=== PATIENT | male | born 1940 | race Caucasian/White ===

== ENCOUNTER 2025-03-21 15:32 | Inpatient (IN) | payer OTHER, MEDICARE, SELFPAY ==
[2025-03-21] VITALS (7 sets, daily range): BP systolic 106–138; BP diastolic 50–71; PULSE 88–118; RESP 18–97; TEMP 36.4–38.8; O2SAT 95–98; BMI 28.5; BMI 29.6
--- NOTE | 2025-03-21 15:38 | XR_ITS ---
EXAMINATION: AP chest single view TECHNIQUE: AP portable upright chest single view Date and time: March 21, 2025, 1601 hours, comparison January 29, 2016 INDICATIONS: Vomiting today. FINDINGS: Normal heart size Mild vascular congestion. No aspiration pneumonia. Prominent osteopenia Probable scarring in the left upper lobe but clinical correlation advised IMPRESSION: Negative for aspiration pneumonia Recommend 3-month follow-up AP chest to document stability of probable scarring in the left upper lobe
--- NOTE | 2025-03-21 15:39 | EKG_ITS ---
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
--- NOTE | 2025-03-21 15:41 | EDNOTE_ITS ---
ED General RME/HPI General Chief complaint: Weakness Stated complaint: DIARRHEA Time Seen by Provider: 03/21/25 15:37 Arrival date/time: 03/21/25 15:32 CC: Diarrhea HPI ongoing for the past 3 weeks. The EMS reports stable vital signs other than tachycardia in the 100s. Patient states he has had antibiotics in the last 3 to 6 months. Does not know why. Patient is also on Brilinta. Advised by nursing on intake the patient had a rectal temp of 102.8 sepsis protocol initiated at 1600. At 1803, at bedside informs me the patient, as well as the patient, that the patient's diarrhea started after his fourth infusion of chemotherapy at the [facility] in [place] for malignant melanoma. Patient is now much more awake answering all questions appropriately. Related Data Home Medications ?Medication ?Instructions ?Recorded ?Confirmed amlodipine 10 mg tablet 10 mg PO DAILY 10/11/2009/20 finasteride 5 mg tablet 5 mg PO DAILY 10/11/2010/11 metoprolol succinate 25 mg 25 mg PO DAILY 10/11/20 tablet,extended release 24 hr ticagrelor 90 mg tablet (Brilinta) 90 mg PO DAILY 09/2010/11/20 Held on 10/11/20. Instructions: Resume on 10/12/20. May resume Brillanta tomorrow, 10-12 Allergies Allergy/AdvReac Type Severity Reaction Status Date / Time shellfish derived Allergy Verified 03/21/25 15:41 Review of Systems Review of Systems Narrative Review of Systems: GEN: No fever, no chills, no weight loss EYES: No discharge, no visual changes, no pain HEENT: No ear pain, no congestion, no sore throat PULM: No shortness of breath, no cough, no congestion CV: No chest pain, no dyspnea on exertion, no palpitations GI: + nausea, + vomiting, + diarrhea, no pain, no constipation : No frequency, no urgency, no dysuria MUSC/SKEL: No joint pain, no back pain SKIN: No rash PSYCH: No hallucinations, no depression HEME/LYMPH: No easy bleeding or bruising tendencies NEURO: No weakness, no headache Past Medical History Past Medical History NEUROLOGIC: Negative Neurological Disorders or Seizures CARDIAC: Positive Cardiac Disorders, Coronary Artery Disease (x2 stents), Edema (bue, ble) and Hypertension; Negative Congestive Heart Failure RESPIRATORY: Positive Pneumonia; Negative Chronic Obstructive Pulmonary Disease (COPD) GASTROINTESTINAL: Negative Gastrointestinal Disorders GENITOURINARY: Positive Genitourinary Disorders and Benign Prostatic Hyperpl beata; Negative Renal Disease ENDOCRINE: Negative Endocrine Disorders, Diabetes Mellitus Type 1 or Diabetes Mellitus Type 2 HEMATOLOGIC: Negative Blood Disorders OTHER HISTORY: Positive Hospitalization, Falls, Chemotherapy and Cancer (melanoma); Negative Blood Transfusions, Blood Transfusion Reaction or Anesthesia Reactions Surgical History SURGICAL: Positive Coronary Stent (x2); Negative Abdominal Surgery Social History SMOKING STATUS: Never smoker ED Exam Narrative Physical exam: [General: Obese not in cot no acute distress Head normocephalic HEENT: Within acceptable limits Neck is supple nontender Chest equal chest rise nontender to palpation Respiratory: Clear to auscultation no wheezes crackles or rubs CV: Rate rhythm is regular no murmurs rubs or clicks Abdomen is distended secondary to body habitus soft nontender no masses positive bowel sounds all 4 quadrants Back: No CVA tenderness no spinous process tenderness from cervical spine thoracic and lumbar spine Skin: Intact no petechiae rash induration ulceration or crepitus Extremities: Moving all extremity against resistance cap refill less than 2 seconds neurosensory intact Neuro: Awake alert oriented x3 Glascow coma 15 no focal deficits] Course Course Course Narrative: Laboratory results show that he is a positive lactic acid, positive Pro-Zelalem 27,000 white count with a fever. Chest x-ray although read is negative, CT shows he has bibasilar pneumonia with a diverticulitis on CT. Patient has had no diarrhea which is primary chief complaint and his course of his admission. The patient was not aware that he had a fever is now abated and the patient is much more alert and awake. Laboratory results clinical finding and imaging discussed with Dr. Weber, resident for Dr. Hawkins attending. Agrees to accept the patient for admission. Quality Measures none Orders Category Date Time Status COVID-19 Screening Questionnaire NOW Care 03/21/25 20:05 Active Operation Shift Supervisor STAT Care 03/21/25 16:06 Active Continuous Pulse Oximetry STAT Care 03/21/25 16:06 Completed Decision to Admit X1 Care 03/21/25 20:05 Active EKG (ED ONLY) *Do not use* NOW Care 03/21/25 15:39 Completed In and Out Catheter X1PRN Care 03/21/25 16:06 Completed Insert IV NOW Care 03/21/25 16:06 Active NPO STAT Care 03/21/25 16:06 Completed Saline [Insert IV] NOW Care 03/21/25 15:40 Completed Strict Intake and Output Routine Care 03/21/25 16:[address] abdomen pelvis wo con Stat Exams 03/21/25 18:05 Completed EKG (ED Only) Stat Exams 03/21/25 15:39 Draft XR chest 1V Stat Exams 03/21/25 15:38 Completed B-Type Natriuretic Peptide Stat Lab 03/21/25 16:27 Completed Blood Culture (Lab) Stat Lab 03/21/25 16:06 Received CBC Stat Lab 03/21/25 16:27 Completed COVID-19 Antigen (In-House) Stat Lab 03/21/25 18:17 Completed Comprehensive Metabolic Panel Stat Lab 03/21/25 16:06 Completed Drug Screen,Urine Stat Lab 03/21/25 17:28 Completed Influenza A & B Rapid Panel Stat Lab 03/21/25 18:17 Completed LDH (Lactate Dehydrogenase) Stat Lab 03/21/25 16:06 Completed Lactate (Lactic Acid) Stat Lab 03/21/25 16:27 Completed Lactic Acid, 3 HR Stat Lab 03/21/25 19:27 Completed Lipase Stat Lab 03/21/25 16:06 Completed Magnesium Stat Lab 03/21/25 16:06 Completed Partial Thromboplastin Time Stat Lab 03/21/25 16:06 Completed Phosphorous Stat Lab 03/21/25 16:06 Completed Procalcitonin Stat Lab 03/21/25 16:06 Completed Prothrombin Time with INR Stat Lab 03/21/25 16:06 Completed Troponin I Stat Lab 03/21/25 16:06 Completed Urinalysis, C/S if Indicated Stat Lab 03/21/25 17:28 Completed c diff [Clostridium Difficile PCR] Stat Lab 03/21/25 18:17 Received Acetaminophen Ivpb [Ofirmev Inj] Med 03/21/25 16:06 Active 1,000 mg in 100 ml IV Q6H Ondansetron Inj [Zofran Inj] Med 03/21/25 15:40 Discontinued 4 mg IVP X1 ONE Ringers Lactated 1000 ml [Lactated Ringers] 1,000 ml Med 03/21/25 15:41 Discontinued IV 999 mls/hr Ringers Lactated 1000 ml [Lactated Ringers] 1,000 ml Med 03/21/25 17:14 Discontinued IV 999 mls/hr Ringers Lactated 1000 ml [Lactated Ringers] 1,000 ml Med 03/21/25 17:14 Discontinued IV 999 mls/hr Ringers Lactated 1000 ml [Lactated Ringers] 1,000 ml Med 03/21/25 17:15 Discontinued IV 999 mls/hr cefTRIAXone/D5w 1gm IV premix [Rocephin/D5w 1gm IV Med 03/21/25 17:15 Discontinued premix] 1 gm in 50 ml IV X1 Oxygen Delivery NOW RT 03/21/25 16:06 Active Vital Signs Vital signs: Vital Signs Temperature 98.5 F 03/21/25 15:35 Pulse Rate 108 H 03/21/25 15:35 Respiratory Rate 20 03/21/25 15:35 Blood Pressure 129/71 03/21/25 15:35 Pulse Oximetry (%) 95 03/21/25 15:35 Oxygen Delivery Method Room Air 03/21/25 15:35 Discharge Plan Plan Patient Disposition: Other Care w/in Hosp ([facility]/YARA) Problem List Clinical Impression: Sepsis, Pneumonia, Diverticulitis, Diarrhea, Leukocytosis, Nausea & vomiting, Fever PA/VP DATA Supervising Physician PA/VP DATA Supervising Physician: Paul Hoover ENP [facility] Clinical Information Provided by: patient and EMS Medical Records reviewed [facility] and EMS Meds/Rx considered, not ordered None Labs/Rad/Tests considered, not ordered None Labs Labs: interpreted by mn Lab(s) Interpretation(s): CBC shows WBCs at 27,300 hemoglobin 16.1 crit is normal. No thrombocytopenia Coags within acceptable limits CMP shows a sodium 142 potassium 3.2 chloride 109 CO2 of 19.2 gap of 14 BUN of 49 creatinine of 3.6 glucose 155. Lactic acid of 7.0 No transaminitis or T. bili elevation Troponin is 0.162 BNP of 61 Pro-Zelalem of 4.54. Medication Administration(s) Medication Administration History Enoxaparin Sodium (Enoxaparin Sod Inj 40 Mg/0.4 Ml Syringe) 40 mg SC QDAY KARLEY Stop: 04/05/25 08:59 Hydromorphone HCl (Hydromorphone Inj 2 Mg/Ml Vial) 1 mg IVP X1 ONE Stop: 03/22/25 03:34 Acetaminophen (Ofirmev Inj) 1,000 mg in 100 mls @ 250 mls/hr IV Q6H KARLEY Stop: 03/22/25 10:29 Last Infusion: 03/22/25 02:18 Dose: Infused Documented By: Admin: 03/22/25 01:53 Dose: 250 mls/hr Documented By: Infusion: 03/21/25 16:39 Dose: Infused Documented By: Admin: 03/21/25 16:15 Dose: 250 mls/hr Documented By: EF Metronidazole (Flagyl 500 Mg Iv) 500 mg in 100 mls @ 200 mls/hr IV Q8HR KARLEY Stop: 03/28/25 21:09 Lactated Ringer's (Lactated Ringers) 1,000 mls @ 100 mls/hr IV .Q10H ONE Stop: 03/22/25 07:12 Last Admin: 03/21/25 21:38 Dose: 100 mls/hr Documented By: DOROTHY Ceftriaxone Sodium/Dextrose (Rocephin/D5w 1gm Iv Premix) 1 gm in 50 mls @ 100 mls/hr IV QDAY KARLEY Stop: 03/29/25 08:59 Phenylephrine HCl 40 mg/ (Sodium Chloride) 100 mls @ 9.185 mls/hr IV .[id number] PRN; Protocol PRN Reason: Per Sepsis Protocol Stop: 04/21/25 03:09 Lorazepam (Lorazepam 2 Mg/Ml Vial) 2 mg IVP X1 ONE Stop: 03/22/25 03:34 Discontinued Medications Diltiazem HCl (Diltiazem Inj 5 Mg/Ml Vial 5 Ml) 20 mg IV X1 ONE Stop: 03/22/25 02:58 Last Admin: 03/22/25 03:02 Dose: 20 mg Documented By: DOROTHY Lactated Ringer's (Lactated Ringers) 1,000 mls @ 999 mls/hr IV .Q1H1M ONE Stop: 03/21/25 16:41 Last Infusion: 03/21/25 17:17 Dose: Infused Documented By: Admin: 03/21/25 16:16 Dose: 999 mls/hr Documented By: EF Lactated Ringer's (Lactated Ringers) 1,000 mls @ 999 mls/hr IV .Q1H1M ONE Stop: 03/21/25 18:14 Last Infusion: 03/21/25 18:49 Dose: Infused Documented By: Admin: 03/21/25 17:46 Dose: 999 mls/hr Documented By: EF Lactated Ringer's (Lactated Ringers) 1,000 mls @ 999 mls/hr IV .Q1H1M ONE Stop: 03/21/25 18:14 Last Infusion: 03/21/25 20:20 Dose: Infused Documented By: Admin: 03/21/25 18:35 Dose: 999 mls/hr Documented By: EF Lactated Ringer's (Lactated Ringers) 1,000 mls @ 999 mls/hr IV .Q1H1M ONE Stop: 03/21/25 18:15 Last Infusion: 03/21/25 18:49 Dose: Infused Documented By: Admin: 03/21/25 17:46 Dose: 999 mls/hr Documented By: EF Ceftriaxone Sodium/Dextrose (Rocephin/D5w 1gm Iv Premix) 1 gm in 50 mls @ 100 mls/hr IV X1 ONE Stop: 03/21/25 17:44 Last Infusion: 03/21/25 18:15 Dose: Infused Documented By: Admin: 03/21/25 17:45 Dose: 100 mls/hr Documented By: EF Ceftriaxone Sodium/Dextrose (Rocephin/D5w 1gm Iv Premix) 1 gm in 50 mls @ 100 mls/hr IV QDAY KARLEY Stop: 03/28/25 21:13 Last Admin: 03/21/25 22:26 Dose: Not Given Documented By: DOROTHY Non-Admin Reason: Discontinued Metronidazole (Flagyl 500 Mg Iv) 500 mg in 100 mls @ 200 mls/hr IV X1 ONE Stop: 03/21/25 21:59 Last Infusion: 03/21/25 22:26 Dose: Infused Documented By: Admin: 03/21/25 21:42 Dose: 200 mls/hr Documented By: DOROTHY Sodium Chloride (Ns) 500 mls @ 999 mls/hr IV .Q31M ONE Stop: 03/22/25 03:30 Last Admin: 03/22/25 03:29 Dose: 999 mls/hr Documented By: DOROTHY Ondansetron HCl (Ondansetron Inj 2 Mg/Ml Inj 2 Ml) 4 mg IVP X1 ONE; Protocol Stop: 03/21/25 15:41 Last Admin: 03/21/25 16:16 Dose: 4 mg Documented By: EF Potassium Chloride (Potassium Chloride 20 Meq Tabcr) 40 meq PO X1 ONE Stop: 03/21/25 20:42 Last Admin: 03/21/25 22:33 Dose: 40 meq Documented By: KEYSHAWN
[2025-03-21] MEDS: ACETAMINOPHEN IVPB 1,000 MG/100 ML VIAL 250 MG IV (16:15)
[2025-03-21] MEDS: RINGERS LACTATED 1000 ML 1,000 ML 999 ML IV ×4 (16:16→18:35)
[2025-03-21] MEDS: ONDANSETRON INJ 2 MG/ML INJ 2 ML 4 MG IVP (16:16)
[2025-03-21 16:36] LABS: Lactate (Lactic Acid) 7.0 mMol/L (0.4-2.0)
[2025-03-21 16:40] LABS: Basophils # (Auto) 0.0 Thou/mm3 (0.0-0.2); Basophils % (Auto) 0 % (0-2.5); Eosinophils # (Auto) 0.0 Thou/mm3 (0.0-0.5); Eosinophils % (Auto) 0 % (0-10); Hematocrit 50.8 % (41.0-53.0); Hemoglobin 16.1 g/dL (13.5-16.0); Immature Granulocytes Auto 1.07 Thou/mm3 (0.00-0.00); Lymphocytes # (Auto) 5.4 Thou/mm3 (1.0-4.8); Lymphocytes % (Auto) 20 % (10-50); Mean Corpuscular HGB Conc 31.7 g/dl (31.0-37.0); Mean Corpuscular Hemoglobin 27.8 pg (25.0-35.0); Mean Corpuscular Volume 88 fL (80-100); Monocytes # (Auto) 0.8 Thou/mm3 (0.0-0.8); Monocytes % (Auto) 3 % (0-12); Neutrophils # (Auto) 20.0 Thou/mm3 (1.8-7.7); Neutrophils % (Auto) 73 % (37-80); Nucleated Red Blood Cell # 0.02 Thou/mm3 (0.00-0.00); Nucleated Red Blood Cell % 0 /100 WBC (0); Platelet Count 423 Thou/mm3 (140-440); RDW Standard Deviation 49.5 fL (35.1-43.9); Red Blood Count 5.80 Miln/mm3 (4.50-5.90); White Blood Count 27.3 Thou/mm3 (3.8-10.6)
[2025-03-21 17:05] LABS: INR 1.0 (0.9-1.3); Partial Thromboplastin Time 25.1 Seconds (22.0-36.0); Prothrombin Time 11.0 Seconds (9.0-12.2)
[2025-03-21 17:13] LABS: B-Type Natriuretic Peptide 61 pg/mL (0-100)
[2025-03-21 17:14] LABS: Alanine Aminotransferase 18 U/L (10-49); Albumin, Serum 3.8 gm/dL (3.4-4.8); Albumin/Globulin Ratio 1.3 (1.2-2.2); Alkaline Phosphatase 87 U/L (46-116); Anion Gap 14 (7-16); Aspartate Amino Transferase < 8 U/L (0-34); BUN/Creatinine Ratio 14 Ratio (12-20); Bilirubin,Total 0.6 mg/dL (0.3-1.2); Blood Urea Nitrogen 49 mg/dL (9-23); Calcium 9.0 mg/dL (8.3-10.6); Calcium (Corrected) 9.2 mg/dL (8.5-10.1); Carbon Dioxide 19.2 mMol/L (20.0-31.0); Chloride 109 mMol/L (98-107); Creatinine (Component) 3.6 mg/dL (0.6-1.3); Estimated Creatinine Clearance 22.6 mL/min (>60); Globulin 3.0 gm/dL (2.3-3.5); Glucose 155 mg/dL (74-106); LDH (Lactate Dehydrogenase) 204 U/L (120-246); Lipase 30 U/L (12-53); Magnesium 2.6 mg/dL (1.6-2.6); Osmolality,Calculated 299 (275-295); Phosphorous 2.5 mg/dL (2.4-5.1); Potassium 3.2 mMol/L (3.4-5.1); Procalcitonin 4.54 ng/ml (0.0-0.49); Sodium 142 mMol/L (136-145); Total Protein 6.8 gm/dL (5.7-8.2); eGFR 16 See Note
[2025-03-21 17:31] LABS: Troponin I 0.162 ng/mL (0.0-0.045)
[2025-03-21] MEDS: cefTRIAXone/D5w 1gm IV premix 1 GM/50 ML BAG IV (17:45)
[2025-03-21 17:50] LABS: Collection Type, Urine Clean Catch
[2025-03-21 18:02] LABS: Bilirubin,Urine Negative (Negative); Blood,Urine Negative (Negative); Clarity,Urine Clear (Clear/Hazy); Color,Urine Yellow (Lt Yel-Yel); Culture Indicated,Urine Not Indicated; Glucose, Urine Negative (Negative); Ketones,Urine Negative (Negative); Leukocyte Esterase,Urine Negative (Negative); Nitrite,Urine Negative (Negative); PH,Urine 5.5 (5.0-7.0); Protein,Urine Trace (Neg - Trace); RBC,Urine 1 /hpf (0-3); Specific Gravity,Urine 1.021 (1.001-1.035); Squamous Epithelial Cell,Urine 1 /hpf (0-5); Urobilinogen,Urine Negative mg/dL (0.0-1.0); WBC,Urine 2 /hpf (0-5)
--- NOTE | 2025-03-21 18:05 | XR_ITS ---
Examination: CT abdomen and pelvis without contrast. Coronal 3-D reconstructions. Sagittal 2-D reconstructions. Date and time of exam: March 21, 2025, 1844 hours INDICATIONS: Sepsis 3 weeks post chemotherapy CTDI: vol (mGy): 10.2 DLP: (mGycm): 755 Technique: Axial images of the abdomen have been obtained, 3 mm slice thickness Intravenous contrast material has not been administered. Low dose protocols were performed. One or more of the following dose reduction techniques were used; automated exposure control, adjustment of the mA and/or KV according to patient size, use of iterative reconstruction technique. Findings: Mild to moderate bibasilar pneumonia No visualized liver or splenic lesions Gastric mucosa appears thickened Contracted gallbladder no stones No pancreatic mass 14 mm fat-containing right adrenal nodule Aortic calcification no aneurysmal dilatation Moderate left renal scar formation 12 mm calcified probable cyst posterior margin left kidney Additional left renal cysts, the largest anteriorly 37 mm, as well as 4.8 cm right renal cyst No hydronephrosis No pericecal inflammatory change No bowel obstruction Diffuse mild wall thickening of the colon including rectum Moderate prostatomegaly Intact urinary bladder Severe osteopenia IMPRESSION: Bibasilar pneumonia Gastritis pattern Bilateral benign renal cysts Diffuse nonspecific colitis pattern, differential would include ulcerative colitis, Crohn's disease
[2025-03-21 18:33] LABS: Amphetamine/Methamp Scrn,U Negative (Negative); Barbiturate Screen,Urine Negative (Negative); Benzodiazepines Screen,Urine Negative (Negative); Benzoylecgonine Screen, Ur Negative (Negative); Fentanyl Screen,Urine Negative (Negative); Opiate Screen,Urine Negative (Negative); THC Screen,Urine Negative (Negative)
[2025-03-21 18:51] LABS: COVID-19 Antigen (In-House) Negative (Negative); Influenza A Ag Negative; Influenza B Ag Negative
[2025-03-21 19:29] LABS: Reflex Lactate? Y
[2025-03-21 19:42] LABS: Lactic Acid, 3 HR 2.7 mMol/L (0.4-2.0)
--- NOTE | 2025-03-21 20:45 | ESHP_ITS ---
<Statement entered by Pedro Aleman MD - 03/23/25 07:45> I have discussed and was present for the essential components of the history, physical examination, diagnosis, and treatment plan with the resident. I agree with the patient's care as documented by the resident and amended herein by me. Pedro Aleman MD FACP <Statement entered by Ishaan Monahan MD - 03/22/25 04:35> 84-year-old male with significant past medical history of malignant melanoma diagnosed in 2020 on chemotherapy [nivolumab, ipilimumab], last chemotherapy session 3 weeks ago, CAD s/p PCI, hypertension, remote history of bladder cancer almost 20 years ago was brought to the hospital in view of severe diarrhea since 3 weeks. 5-6 episodes per day, noted to have mucus and had febrile episode 1 week ago. Also noted to have shortness of breath and cough since 2 days, presented to the hospital as all the symptoms are worsening. Reported that he is using steroids and currently using prednisone 60 mg per patient, unsure of the indication, patient reported that he is using it for generalized weakness. Also reported that he had history of low potassium for which he takes potassium supplementation. 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 Vitals at the time of admission are stable except for tachycardia with heart rate around 108 bpm and temperature of 102. Labs at the time of admission are significant for WBC 27.3, potassium 3.2, bicarb 19.2, BUN 49, creatinine 3.6, lactate 7, troponin 0.162, procalcitonin 4.54. Urinalysis is unremarkable. Abdomen/pelvis CT showed bibasilar pneumonia, gastritis pattern, bilateral benign renal cyst, diffuse nonspecific colitis pattern. ED course: Patient is given 4 L of fluid bolus and was started on LR at 100 mL/h. Ceftriaxone is given. Patient is admitted into the hospital in view of suspected sepsis secondary to gastroenteritis and PAULIE, likely prerenal in the setting of severe gastroenteritis. Ordered stool studies, blood cultures. Will continue to monitor urine output.Started on ceftriaxone 1 g IV daily, metronidazole 500 mg IV every 8 hourly, IV fluids, repleted with 40 mill equivalents of oral potassium. Around 2:45 AM, patient noted to have high heart rate around 140 to 150 bpm. EKG done at that time showed new onset atrial fibrillation with rapid ventricular rate. MAP is around 50 to 60 mmHg. A dose of diltiazem 20 mg IV is given and 500 mL bolus of fluid is given. Started on phenylephrine and Amio drip. CBC, CMP, lactate are ordered. Consulted ICU for further management. Needed to get medical records from [place] where the patient is following the oncologist # Sepsis secondary to gastroenteritis # Rule out C. difficile in the setting of steroid usage, immunosuppression #? Colitis secondary to immunotherapy # PAULIE, likely prerenal # New onset atrial fibrillation with rapid ventricular rate, in the setting of ongoing acute illness # Malignant melanoma? Metastatic # CAD s/p PCI # Hypokalemia # Lactic acidosis, improving # NSTEMI, likely Type II I have personally seen and examined the patient, agree with residents assessment and plan Patient plan of care was discussed with the attending physician, Dr. oLve Monahan, PGY2 Documentation for date of: 03/21/25 HPI History of Present Illness History of present illness: HPI: 84-year-old male with a past medical history of malignant melanoma on chemotherapy, coronary artery disease status post 2 stent placements, hypertension, history of bladder cancer presented to the ED on 03/21/2025 with 3 weeks of diarrhea. Patient mentions that the diarrhea has been occurring 4-5 times per day since his last infusion for his malignant melanoma treatment. He also endorsed 1 episode of vomiting the day of presentation. He denied melena or hematochezia or hematemesis. He was found to have a lactic acid of over 7, a temperature of 102, a respiratory rate of 24, a white count of 27.3, and a pulse of 118, meeting 4/4 SIRS criteria. End organ damage was evidenced by creatinine of 3.6, meeting severe sepsis criteria. He was also found to have an elevated troponin of 0.162. The patient was admitted for severe sepsis secondary to pneumonia versus colitis. ED Course: * Significant vitals: Temp 102, RR 24, HR 118, satting at 95% on 4 L nasal cannula. * Significant labs: WBC 27.3, lactic acid 7, hemoglobin 16.1, neutrophils 20, potassium 3.2, chloride 109, bicarb 19.2, BUN 49, creatinine 3.6 troponin 0.162, Pro-Zelalem 4.54. * Imaging: EKG was negative for any ST segment changes. CT abdomen pelvis showed bibasilar pneumonia, gastritis, bilateral benign renal cysts, diffuse nonspecific colitis * ED intervention: Patient was given 1 g acetaminophen, 4 L of LR, 1 g of ceftriaxone, and 4 mg IV push of Zofran. The patient is heart rate, respiratory rate, and temperature improved and his lactic acid downtrended to 2.7. History: * Past medical history: As above in HPI * Surgical history: Unspecified bladder surgery related to history of bladder cancer, 2 stent placements to date unknown * Family history: Noncontributory * Social history: Denies alcohol or tobacco or illicit drug use Home Medications (Pending Med Rec): * Amlodipine 10 mg daily, Brilinta 90 mg daily, finasteride 5 mg daily, metoprolol succinate 25 mg daily Allergies: * No known drug allergies, allergic to shellfish CODE STATUS: Full code Review of Systems Review of Systems Narrative Review of Systems: Review of Systems: * General: Admits to fever. * HEENT: Denies headache, congestion, or sore throat. * Cardiac: Denies chest pain or palpitations. * Pulmonary: Denies shortness of breath or cough. * GI: Admits to 4-5 episodes of diarrhea daily for the last 3 weeks. 1 episode of vomiting the day of presentation. Denies hematochezia or melena or hematemesis. * : Denies dysuria, hematuria, frequency, or urgency. * MSK: Denies pain in the extremities, joints, or myalgias. * Neuro: Denies weakness, numbness, vision changes, or speech difficulty. Exam Vital Signs Temp Pulse Resp BP Pulse Ox O2 Del Method O2 Flow Rate 99.4 F 88 18 111/50 L 95 Nasal Cannula 4 03/21/25 17:48 03/21/25 17:48 03/21/25 17:48 03/21/25 17:48 03/21/25 17:48 03/21/25 17:48 03/21/25 17:48 Narrative Exam General: Awake and in no acute distress. Neurologic: GCS 15. Alert and oriented x3, no gross neurological deficit, and patient able to move all 4 extremities. HEENT: Normocephalic, atraumatic, mucous membranes dry. Pupils reactive to light. Heart: Regular rate and rhythm, normal S1 and S2, no murmurs. Lungs: Clear to auscultation bilaterally with no wheezing or crackles. Abdomen: Soft, nondistended, nontender, positive bowel sounds. No guarding or rebound tenderness. Extremities: Onychomycosis on the fingers and toes bilaterally. No edema. 2+ radial and dorsalis pedis pulses bilaterally. Skin: Warm. Dry. No rash or ecchymoses. Results: Labs 03/21/25 16:27 03/21/25 16:06 Labs: Short CBC 03/21/25 Range/Units 16:27 WBC 27.3 H (3.8-10.6) Thou/mm3 Hgb 16.1 H (13.5-16.0) g/dL Hct 50.8 (41.0-53.0) % Plt Count 423 (140-440) Thou/mm3 BMP 03/21/25 16:06 Sodium 142 Potassium 3.2 L Chloride 109 H Carbon Dioxide 19.2 L BUN 49 H Creatinine 3.6 H Glucose 155 H Calcium 9.0 Cardiac Enzymes 03/21/25 Range/Units 16:06 Troponin I 0.162 H* (0.0-0.045) ng/mL Liver Function 03/21/25 Range/Units 16:06 Total Bilirubin 0.6 (0.3-1.2) mg/dL AST < 8 (0-34) U/L ALT 18 (10-49) U/L Alkaline Phosphatase 87 (46-116) U/L Albumin 3.8 (3.4-4.8) gm/dL Urine 03/21/25 Range/Units 17:28 Urine Color Yellow (Lt Yel-Yel) Urine Clarity Clear (Clear/Hazy) Urine pH 5.5 (5.0-7.0) Ur Specific [place] 1.021 (1.001-1.035) Urine Protein Trace (Neg - Trace) Urine Glucose (UA) Negative (Negative) Quality Measures Quality Measures VTE prophylaxis Advance care planning discussed with:: patient Medications Home Medications and Allergies Home Medications ?Medication ?Instructions ?Recorded ?Confirmed ?Type amlodipine 10 mg tablet 10 mg PO DAILY 10/11/2009/20 History finasteride 5 mg tablet 5 mg PO DAILY 10/11/2010/11 History metoprolol succinate 25 mg 25 mg PO DAILY 10/11/20 History tablet,extended release 24 hr ticagrelor 90 mg tablet (Brilinta) 90 mg PO DAILY 09/2010/11/20 History Held on 10/11/20. Instructions: Resume on 10/12/20. May resume Brillanta tomorrow, 10-12 Allergies Allergy/AdvReac Type Severity Reaction Status Date / Time shellfish derived Allergy Verified 03/21/25 15:41 Visit Medications Enoxaparin Sodium (Enoxaparin Sod Inj 40 Mg/0.4 Ml Syringe) 40 mg SC QDAY KARLEY Stop: 04/05/25 08:59 Acetaminophen (Ofirmev Inj) 1,000 mg in 100 mls @ 250 mls/hr IV Q6H KARLEY Stop: 03/22/25 10:29 Last Infusion: 03/21/25 16:39 Dose: Infused Potassium Chloride (Potassium Chloride 20 Meq Tabcr) 40 meq PO X1 ONE Stop: 03/21/25 20:42 Discontinued Medications Lactated Ringer's (Lactated Ringers) 1,000 mls @ 999 mls/hr IV .Q1H1M ONE Stop: 03/21/25 16:41 Last Infusion: 03/21/25 17:17 Dose: Infused Lactated Ringer's (Lactated Ringers) 1,000 mls @ 999 mls/hr IV .Q1H1M ONE Stop: 03/21/25 18:14 Last Infusion: 03/21/25 18:49 Dose: Infused Lactated Ringer's (Lactated Ringers) 1,000 mls @ 999 mls/hr IV .Q1H1M ONE Stop: 03/21/25 18:14 Last Infusion: 03/21/25 20:20 Dose: Infused Lactated Ringer's (Lactated Ringers) 1,000 mls @ 999 mls/hr IV .Q1H1M ONE Stop: 03/21/25 18:15 Last Infusion: 03/21/25 18:49 Dose: Infused Ceftriaxone Sodium/Dextrose (Rocephin/D5w 1gm Iv Premix) 1 gm in 50 mls @ 100 mls/hr IV X1 ONE Stop: 03/21/25 17:44 Last Infusion: 03/21/25 18:15 Dose: Infused Ondansetron HCl (Ondansetron Inj 2 Mg/Ml Inj 2 Ml) 4 mg IVP X1 ONE; Protocol Stop: 03/21/25 15:41 Last Admin: 03/21/25 16:16 Dose: 4 mg Assessment & Plan Plan Summary: 84-year-old male with a past medical history of malignant melanoma on chemotherapy, coronary artery disease status post 2 stent placements, hypertension, history of bladder cancer presented to the ED on 03/21/2025 with 3 weeks of diarrhea. Patient met 4/4 SIRS criteria for sepsis and as well had evidence of endorgan damage with elevated creatinine. He was also found to have an elevated troponin. The patient was admitted for severe sepsis secondary to pneumonia versus colitis and elevated troponin. #Sepsis secondary to #Bibasilar pneumonia versus #Gastritis #Lactic acidosis #Leukocytosis #History of malignant melanoma * Patient presented with a lactic acid of over 7, repeat lactic acid was 2.7 after receiving 4 L of LR in the ED * Patient presented with a temperature of 102, a respiratory rate of 24, a white count of 27.3, and a pulse of 118, meeting 4/4 SIRS criteria * End organ damage was evidenced by creatinine of 3.6, meeting severe sepsis criteria * Potential sources of infection include pneumonia versus colitis, more likely colitis, patient's chest x-ray showed evidence of pneumonia but not very impressive and not likely to be causing severe sepsis * More likely source of infection is the patient's gastritis versus colitis * Patient is on nivolumab and ipilimumab for malignant melanoma treatment which may lead to colitis as evidenced on CT * Patient mentions that he takes steroids at home Plan: * Started ceftriaxone 1 g daily * Started metronidazole 500 mg every 8 hours * C. difficile pending * Stool calprotectin, Giardia, ova & parasites, and WBCs pending * Blood cultures pending #Elevated troponins * Presented with with a troponin of 0.162. * EKG was negative for any acute ST segment changes. * Patient denies chest pain or shortness of breath Plan: * Will trend trops #PAULIE * BUN 49, creatinine 3.6 on admission * BUN/creatinine ratio is 13.6, over 20:1 indicates prerenal azotemia which may reflect dehydration, which would be easy to reinforce given the patient's diarrhea and dry mucous membranes on exam. However, this may be masked due to severe sepsis causing PAULIE with elevated creatinine * Patient received 4 L of fluid in the ED Plan: * Treating the underlying cause of sepsis with the antibiotics above #History of Hypertension * Per patient history * BP stable for now Plan: * Pending med rec, consider starting home medications if hypertensive #Coronary artery disease * Patient is status post 2 stent placements, day unspecified * Patient takes aspirin at home Plan: * Pending med rec * Hold aspirin for now in the presence of suspected gastritis versus colitis #History of BPH? * Patient takes finasteride at home Plan: * Pending med rec * Condom cath #Hyperglycemia * Patient presented with a glucose of 188 * Denies history of diabetes * Likely acute phase reaction Plan: * A1c ordered Hospital Maintenance: DVT ppx: Lovenox 40 mg subcu daily GI ppx: Not indicated Diet: Regular IV lines: Peripheral IVs Jordan?: Condom cath Code status: Full code Dispo: Telemetry monitoring floor. Patient admitted for severe sepsis and elevated troponin. Started on ceftriaxone and Flagyl. Trending tropes. Patient was seen and discussed with my attending physician Dr. Love CROW and my senior resident Dr. Hero CROW PGY-2. Yossi Weber DO PGY-1.
--- NOTE | 2025-03-21 20:45 | PD.RESHP ---
Documentation for date of: 03/21/25 [facility] History of Present Illness History of present illness: HPI: 84-year-old male with a past medical history of malignant melanoma on chemotherapy, coronary artery disease status post 2 stent placements, hypertension, history of bladder cancer presented to the ED on 03/21/2025 with 3 weeks of diarrhea. Patient mentions that the diarrhea has been occurring 4-5 times per day since his last infusion for his malignant melanoma treatment. He also endorsed 1 episode of vomiting the day of presentation. He denied melena or hematochezia or hematemesis. He was found to have a lactic acid of over 7, a temperature of 102, a respiratory rate of 24, a white count of 27.3, and a pulse of 118, meeting 4/4 SIRS criteria. End organ damage was evidenced by creatinine of 3.6, meeting severe sepsis criteria. He was also found to have an elevated troponin of 0.162. The patient was admitted for severe sepsis secondary to pneumonia versus colitis. ED Course: Significant vitals: Temp 102, RR 24, HR 118, satting at 95% on 4 L nasal cannula. Significant labs: WBC 27.3, lactic acid 7, hemoglobin 16.1, neutrophils 20, potassium 3.2, chloride 109, bicarb 19.2, BUN 49, creatinine 3.6 troponin 0.162, Pro-Zelalem 4.54. Imaging: EKG was negative for any ST segment changes. CT abdomen pelvis showed bibasilar pneumonia, gastritis, bilateral benign renal cysts, diffuse nonspecific colitis ED intervention: Patient was given 1 g acetaminophen, 4 L of LR, 1 g of ceftriaxone, and 4 mg IV push of Zofran. The patient is heart rate, respiratory rate, and temperature improved and his lactic acid downtrended to 2.7. History: Past medical history: As above in HPI Surgical history: Unspecified bladder surgery related to history of bladder cancer, 2 stent placements to date unknown Family history: Noncontributory Social history: Denies alcohol or tobacco or illicit drug use Home Medications (Pending Med Rec): Amlodipine 10 mg daily, Brilinta 90 mg daily, finasteride 5 mg daily, metoprolol succinate 25 mg daily Allergies: No known drug allergies, allergic to shellfish CODE STATUS: Full code Review of Systems Review of Systems Narrative Review of Systems: Review of Systems: General: Admits to fever. HEENT: Denies headache, congestion, or sore throat. Cardiac: Denies chest pain or palpitations. Pulmonary: Denies shortness of breath or cough. GI: Admits to 4-5 episodes of diarrhea daily for the last 3 weeks. 1 episode of vomiting the day of presentation. Denies hematochezia or melena or hematemesis. : Denies dysuria, hematuria, frequency, or urgency. MSK: Denies pain in the extremities, joints, or myalgias. Neuro: Denies weakness, numbness, vision changes, or speech difficulty. Exam Vital Signs Temp Pulse Resp BP Pulse Ox O2 Del Method O2 Flow Rate 99.4 F 88 18 111/50 L 95 Nasal Cannula 4 03/21/25 17:48 03/21/25 17:48 03/21/25 17:48 03/21/25 17:48 03/21/25 17:48 03/21/25 17:48 03/21/25 17:48 Narrative Exam General: Awake and in no acute distress. Neurologic: GCS 15. Alert and oriented x3, no gross neurological deficit, and patient able to move all 4 extremities. HEENT: Normocephalic, atraumatic, mucous membranes dry. Pupils reactive to light. Heart: Regular rate and rhythm, normal S1 and S2, no murmurs. Lungs: Clear to auscultation bilaterally with no wheezing or crackles. Abdomen: Soft, nondistended, nontender, positive bowel sounds. No guarding or rebound tenderness. Extremities: Onychomycosis on the fingers and toes bilaterally. No edema. 2+ radial and dorsalis pedis pulses bilaterally. Skin: Warm. Dry. No rash or ecchymoses. Results: Labs 03/21/25 16:27 03/21/25 16:06 Labs: Short CBC 03/21/25 Range/Units 16: WBC 27.3 H (3.8-10.6) Thou/mm3 Hgb 16.1 H (13.5-16.0) g/dL Hct 50.8 (41.0-53.0) % Plt Count 423 (140-440) Thou/mm3 BMP 03/21/25 16:06 Sodium 142 Potassium 3.2 L Chloride 109 H Carbon Dioxide 19.2 L BUN 49 H Creatinine 3.6 H Glucose 155 H Calcium 9.0 Cardiac Enzymes 03/21/25 Range/Units 16:06 Troponin I 0.162 H* (0.0-0.045) ng/mL Liver Function 03/21/25 Range/Units 16:06 Total Bilirubin 0.6 (0.3-1.2) mg/dL AST < 8 (0-34) U/L ALT 18 (10-49) U/L Alkaline Phosphatase 87 (46-116) U/L Albumin 3.8 (3.4-4.8) gm/dL Urine 03/21/25 Range/Units 17:28 Urine Color Yellow (Lt Yel-Yel) Urine Clarity Clear (Clear/Hazy) Urine pH 5.5 (5.0-7.0) Ur Specific [place] 1.021 (1.001-1.035) Urine Protein Trace (Neg - Trace) Urine Glucose (UA) Negative (Negative) Quality Measures Quality Measures VTE prophylaxis Advance care planning discussed with:: patient Medications Home Medications and Allergies Home Medications ?Medication ?Instructions ?Recorded ?Confirmed ?Type amlodipine 10 mg tablet 10 mg PO DAILY 10/11/20 10/11/20 History finasteride 5 mg tablet 5 mg PO DAILY 10/11/20 10/11/20 History metoprolol succinate 25 mg 25 mg PO DAILY 10/11/20 10/11/20 History tablet,extended release 24 hr ticagrelor 90 mg tablet (Brilinta) 90 mg PO DAILY 10/11/20 10/11/20 History Held on 10/11/20. Instructions: Resume on 10/12/20. May resume Brillanta tomorrow, - Allergies Allergy/AdvReac Type Severity Reaction Status Date / Time shellfish derived Allergy Verified 03/21/25 15:41 Visit Medications Enoxaparin Sodium (Enoxaparin Sod Inj 40 Mg/0.4 Ml Syringe) 40 mg SC QDAY KARLEY Stop: 04/05/25 08:59 Acetaminophen (Ofirmev Inj) 1,000 mg in 100 mls @ 250 mls/hr IV Q6H KARLEY Stop: 03/22/25 10:29 Last Infusion: 03/21/25 16:39 Dose: Infused Potassium Chloride (Potassium Chloride 20 Meq Tabcr) 40 meq PO X1 ONE Stop: 03/21/25 20:42 Discontinued Medications Lactated Ringer's (Lactated Ringers) 1,000 mls @ 999 mls/hr IV .Q1H1M ONE Stop: 03/21/25 16:41 Last Infusion: 03/21/25 17:17 Dose: Infused Lactated Ringer's (Lactated Ringers) 1,000 mls @ 999 mls/hr IV .Q1H1M ONE Stop: 03/21/25 18:14 Last Infusion: 03/21/25 18:49 Dose: Infused Lactated Ringer's (Lactated Ringers) 1,000 mls @ 999 mls/hr IV .Q1H1M ONE Stop: 03/21/25 18:14 Last Infusion: 03/21/25 20:20 Dose: Infused Lactated Ringer's (Lactated Ringers) 1,000 mls @ 999 mls/hr IV .Q1H1M ONE Stop: 03/21/25 18:15 Last Infusion: 03/21/25 18:49 Dose: Infused Ceftriaxone Sodium/Dextrose (Rocephin/D5w 1gm Iv Premix) 1 gm in 50 mls @ 100 mls/hr IV X1 ONE Stop: 03/21/25 17:44 Last Infusion: 03/21/25 18:15 Dose: Infused Ondansetron HCl (Ondansetron Inj 2 Mg/Ml Inj 2 Ml) 4 mg IVP X1 ONE; Protocol Stop: 03/21/25 15:41 Last Admin: 03/21/25 16:16 Dose: 4 mg Assessment & Plan Plan Summary: 84-year-old male with a past medical history of malignant melanoma on chemotherapy, coronary artery disease status post 2 stent placements, hypertension, history of bladder cancer presented to the ED on 03/21/2025 with 3 weeks of diarrhea. Patient met 4/4 SIRS criteria for sepsis and as well had evidence of endorgan damage with elevated creatinine. He was also found to have an elevated troponin. The patient was admitted for severe sepsis secondary to pneumonia versus colitis and elevated troponin. #Sepsis secondary to #Bibasilar pneumonia versus #Gastritis #Lactic acidosis #Leukocytosis #History of malignant melanoma Patient presented with a lactic acid of over 7, repeat lactic acid was 2.7 after receiving 4 L of LR in the ED Patient presented with a temperature of 102, a respiratory rate of 24, a white count of 27.3, and a pulse of 118, meeting 4/4 SIRS criteria End organ damage was evidenced by creatinine of 3.6, meeting severe sepsis criteria Potential sources of infection include pneumonia versus colitis, more likely colitis, patient's chest x-ray showed evidence of pneumonia but not very impressive and not likely to be causing severe sepsis More likely source of infection is the patient's gastritis versus colitis Patient is on nivolumab and ipilimumab for malignant melanoma treatment which may lead to colitis as evidenced on CT Patient mentions that he takes steroids at home Plan: Started ceftriaxone 1 g daily Started metronidazole 500 mg every 8 hours C. difficile pending Stool calprotectin, Giardia, ova & parasites, and WBCs pending Blood cultures pending #Elevated troponins Presented with with a troponin of 0.162. EKG was negative for any acute ST segment changes. Patient denies chest pain or shortness of breath Plan: Will trend trops #PAULIE BUN 49, creatinine 3.6 on admission BUN/creatinine ratio is 13.6, over 20:1 indicates prerenal azotemia which may reflect dehydration, which would be easy to reinforce given the patient's diarrhea and dry mucous membranes on exam. However, this may be masked due to severe sepsis causing PAULIE with elevated creatinine Patient received 4 L of fluid in the ED Plan: Treating the underlying cause of sepsis with the antibiotics above #History of Hypertension Per patient history BP stable for now Plan: Pending med rec, consider starting home medications if hypertensive #Coronary artery disease Patient is status post 2 stent placements, day unspecified Patient takes aspirin at home Plan: Pending med rec Hold aspirin for now in the presence of suspected gastritis versus colitis #History of BPH? Patient takes finasteride at home Plan: Pending med rec Condom cath #Hyperglycemia Patient presented with a glucose of 188 Denies history of diabetes Likely acute phase reaction Plan: A1c ordered Hospital Maintenance: DVT ppx: Lovenox 40 mg subcu daily GI ppx: Not indicated Diet: Regular IV lines: Peripheral IVs Jordan?: Condom cath Code status: Full code Dispo: Telemetry monitoring floor. Patient admitted for severe sepsis and elevated troponin. Started on ceftriaxone and Flagyl. Trending tropes. Patient was seen and discussed with my attending physician Dr. Love CROW and my senior resident Dr. Hero CROW PGY-2. Yossi Weber DO PGY-1.
[2025-03-21] MEDS: RINGERS LACTATED 1000 ML 1,000 ML 100 ML IV (21:38)
[2025-03-21] MEDS: metroNIDAZOLE/NS 500 MG IVPB 500 MG/100 ML BAG 200 MG IV (21:42)
[2025-03-21 22:02] LABS: Troponin I 0.180 ng/mL (0.0-0.045)
[2025-03-21 22:57] LABS: Stool for WBCs 4+ (Negative)
[2025-03-22] VITALS (45 sets, daily range): BP systolic 76–135; BP diastolic 42–65; PULSE 60–146; RESP 6–24; TEMP 36.1–39.1; O2SAT 91–97; BMI 28.2
[2025-03-22] MEDS: ACETAMINOPHEN IVPB 1,000 MG/100 ML VIAL 250 MG IV ×2 (01:53→11:14)
--- NOTE | 2025-03-22 02:48 | PC.NURSE ---
DR. MEJÍA AT BEDSIDE TO SEE PT.
[2025-03-22] MEDS: DILTIAZEM INJ 5 MG/ML VIAL 5 ML 20 MG IV (03:02)
--- NOTE | 2025-03-22 03:23 | PC.NURSE ---
PER DR. ÁLVAREZ AT BEDSIDE HOLD ON STARTING PHENYLEPHRINE AT THIS TIME.
[2025-03-22] MEDS: SODIUM CHLORIDE 0.9% 500 ML 500 ML 999 ML IV ×2 (03:29→04:09)
[2025-03-22] MEDS: PHENYLEPHRINE HCL 40 MG in SODIUM CHLORIDE 0.9% 96 ML 9.185 MG IV (03:40)
[2025-03-22 03:48] LABS: Lactate (Lactic Acid) 2.1 mMol/L (0.4-2.0)
[2025-03-22 03:53] LABS: Basophils # (Auto) 0.1 Thou/mm3 (0.0-0.2); Basophils % (Auto) 0 % (0-2.5); Eosinophils # (Auto) 0.1 Thou/mm3 (0.0-0.5); Eosinophils % (Auto) 0 % (0-10); Hematocrit 40.0 % (41.0-53.0); Hemoglobin 12.8 g/dL (13.5-16.0); Immature Granulocytes Auto 0.60 Thou/mm3 (0.00-0.00); Lymphocytes # (Auto) 3.3 Thou/mm3 (1.0-4.8); Lymphocytes % (Auto) 14 % (10-50); Mean Corpuscular HGB Conc 32.0 g/dl (31.0-37.0); Mean Corpuscular Hemoglobin 27.8 pg (25.0-35.0); Mean Corpuscular Volume 87 fL (80-100); Monocytes # (Auto) 0.4 Thou/mm3 (0.0-0.8); Monocytes % (Auto) 2 % (0-12); Neutrophils # (Auto) 19.4 Thou/mm3 (1.8-7.7); Neutrophils % (Auto) 81 % (37-80); Nucleated Red Blood Cell # 0.00 Thou/mm3 (0.00-0.00); Nucleated Red Blood Cell % 0 /100 WBC (0); Platelet Count 315 Thou/mm3 (140-440); RDW Standard Deviation 49.2 fL (35.1-43.9); Red Blood Count 4.61 Miln/mm3 (4.50-5.90); White Blood Count 23.8 Thou/mm3 (3.8-10.6)
--- NOTE | 2025-03-22 03:58 | ESCONSULT_ITS ---
<Statement entered by Pedro Aleman MD - 03/23/25 07:00> I have discussed and was present for the essential components of the history, physical examination, diagnosis, and treatment plan with the resident. I agree with the patient's care as documented by the resident and amended herein by me. I personally saw and examined the patient with the resident on 03/22/2025. I agree with the residents note, assessment and plan. I personally spent 36 minutes of critical care time in evaluation and management of this critically ill patient. HPI Data of Consult Requesting Physician: Pedro Aleman MD Admitting Provider: Pedro Aleman MD Attending Provider: Pedro Aleman MD Primary Care Provider: Physician No Primary/Family Consult Narrative Reason for consult: unstable A-fib with RVR History of present illness: Mr. Cunha is a 84-year-old male with a past medical history of malignant melanoma on chemotherapy, coronary artery disease status post 2 stent placements, hypertension, history of bladder cancer presented to the ED on 03/21/2025 with 3 weeks of diarrhea. Patient mentions that the diarrhea has been occurring 4-5 times per day with mucus since his last infusion which was three weeks ago for his malignant melanoma treatment. Associated symptoms include 1 episode of emesis today and a episode of fever x 1week ago. He denies melena or hematochezia or hematemesis. Of note, patient states he takes chronic steroids for the last 2 to 3 years and recently has been on prednisone 50 mg for 1 week, and takes it for his cancer per patient. 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 ED course: Significant vitals: Temp 102, RR 24, HR 118, satting at 95% on 4 L nasal cannula. Significant labs leukocytosis, lactic acidosis, low potassium, elevated BUN and creatinine, with a Pro-Zelalem of 4.54. Imaging: EKG was negative for any ST segment changes. CT abdomen pelvis showed bibasilar pneumonia, gastritis, bilateral benign renal cysts, diffuse nonspecific colitis. In the ED, patient was given 1 g of Tylenol, 5 L of LR and 1 L of NS, 1 g of ceftriaxone and Zofran push. Patient was admitted to medicine floor for suspected sepsis secondary to gastroenteritis and PAULIE likely prerenal in the setting of severe gastroenteritis. Patient was started on IV ceftriaxone, IV Flagyl, IV fluids and repleted potassium. Few hours later, nurse was checking patient's temperature which diann to 102.4 around 1:45 AM which triggered patient's heart rate into the 140s to 150s an hour later, and patient's blood pressure significantly dropped. EKG done at that time showed new onset atrial fibrillation with rapid ventricular rate. Patient was given 40 mill equivalents of potassium, 20 mg diltiazem push, 1 L additional NS bolus, however patient's blood pressure continued to stay under MAP goal of 65. Decision was made to start patient on phenylephrine and upgrade to ICU for further management. Patient is currently on IV phenylephrine and amiodarone drip to control patient's unstable A-fib with RVR. cc:: cc: Pedro Aleman MD Review of Systems Review of Systems Systems Reviewed: All systems reviewed, normal except as documented Past Medical History Past Medical History Comments PMH COMMENT: Past medical history: As mentioned above Past surgical history:Unspecified bladder surgery related to history of bladder cancer, 2 stent placements to date unknown Family history: Noncontributory Social history:Denies alcohol or tobacco or illicit drug use Medications: Pending med rec, however patient did confirm that he takes chronic steroids for the last 2 to 3 years and recently has been on prednisone 50 mg for 1 week, and takes it for his cancer per patient; other medications, patient takes amlodipine 10 daily, metoprolol succinate 25 mg daily and finasteride 5 mg daily, potassium supplement Allergies: NKDA, allergic to shellfish Exam Vital Signs Temp Pulse Resp BP Pulse Ox O2 Del Method O2 Flow Rate 99.9 F 142 H 20 98/48 L 97 Nasal Cannula 3 03/22/25 02:45 03/22/25 03:40 03/22/25 02:45 03/22/25 03:40 03/22/25 02:45 03/22/25 02:45 03/22/25 02:45 Narrative Exam General: Elderly male, ill-appearing, pale, sleepy, but arousable to voice. Able to answer questions. Neurologic: GCS 15. Alert and oriented x3, no gross neurological deficit, and patient able to move all 4 extremities. HEENT: Normocephalic, atraumatic, mucous membranes dry. Pupils reactive to light. Heart: Irregularly, irregular, normal S1 and S2, no murmurs. Lungs: Clear to auscultation bilaterally with no wheezing or crackles. Abdomen: Soft, nondistended, nontender, positive bowel sounds. No guarding or rebound tenderness. Extremities: Onychomycosis on the fingers and toes bilaterally. No edema. 2+ radial and dorsalis pedis pulses bilaterally. cap refill < 3 sec; extremities cold to touch. Skin: Warm. Dry. No rash or ecchymoses, but appears pale. Results Labs 03/22/25 03:42 03/22/25 03:42 Labs: Short CBC 03/21/25 Range/Units 16:27 WBC 27.3 H (3.8-10.6) Thou/mm3 Hgb 16.1 H (13.5-16.0) g/dL Hct 50.8 (41.0-53.0) % Plt Count 423 (140-440) Thou/mm3 BMP 03/21/25 16:06 Sodium 142 Potassium 3.2 L Chloride 109 H Carbon Dioxide 19.2 L BUN 49 H Creatinine 3.6 H Glucose 155 H Calcium 9.0 Cardiac Enzymes 03/21/25 03/21/25 Range/Units 16:06 20:53 Troponin I 0.162 H* 0.180 H* (0.0-0.045) ng/mL Liver Function 03/21/25 Range/Units 16:06 Total Bilirubin 0.6 (0.3-1.2) mg/dL AST < 8 (0-34) U/L ALT 18 (10-49) U/L Alkaline Phosphatase 87 (46-116) U/L Albumin 3.8 (3.4-4.8) gm/dL Urine 03/21/25 Range/Units 17:28 Urine Color Yellow (Lt Yel-Yel) Urine Clarity Clear (Clear/Hazy) Urine pH 5.5 (5.0-7.0) Ur Specific [place] 1.021 (1.001-1.035) Urine Protein Trace (Neg - Trace) Urine Glucose (UA) Negative (Negative) Quality Measures Quality Measures none Advance care planning discussed with:: patient Medications Home Medications and Allergies Home Medications ?Medication ?Instructions ?Recorded ?Confirmed ?Type amlodipine 10 mg tablet 10 mg PO DAILY 10/11/2009/20 History finasteride 5 mg tablet 5 mg PO DAILY 10/11/2010/11 History metoprolol succinate 25 mg 25 mg PO DAILY 10/11/20 History tablet,extended release 24 hr ticagrelor 90 mg tablet (Brilinta) 90 mg PO DAILY 09/2010/11/20 History Held on 10/11/20. Instructions: Resume on 10/12/20. May resume Brillanta tomorrow, 10-12 Allergies Allergy/AdvReac Type Severity Reaction Status Date / Time shellfish derived Allergy Verified 03/21/25 15:41 Visit Medications Enoxaparin Sodium (Enoxaparin Sod Inj 40 Mg/0.4 Ml Syringe) 40 mg SC QDAY KARLEY Stop: 04/05/25 08:59 Acetaminophen (Ofirmev Inj) 1,000 mg in 100 mls @ 250 mls/hr IV Q6H KARLEY Stop: 03/22/25 10:29 Last Infusion: 03/22/25 02:18 Dose: Infused Metronidazole (Flagyl 500 Mg Iv) 500 mg in 100 mls @ 200 mls/hr IV Q8HR KARLEY Stop: 03/28/25 21:09 Lactated Ringer's (Lactated Ringers) 1,000 mls @ 100 mls/hr IV .Q10H ONE Stop: 03/22/25 07:12 Last Admin: 03/21/25 21:38 Dose: 100 mls/hr Ceftriaxone Sodium/Dextrose (Rocephin/D5w 1gm Iv Premix) 1 gm in 50 mls @ 100 mls/hr IV QDAY KARLEY Stop: 03/29/25 08:59 Phenylephrine HCl 40 mg/ (Sodium Chloride) 100 mls @ 9.185 mls/hr IV .[id number] PRN; Protocol PRN Reason: Per Sepsis Protocol Stop: 04/21/25 03:09 Last Titration: 03/22/25 03:50 Dose: 0.5 mcg/kg/min, 9.185 mls/hr Amiodarone HCl/Dextrose (Nexterone Ivpb) 360 mg in 200 mls @ 33.333 mls/hr IV .Q6H ONE Stop: 03/22/25 09:36 Amiodarone HCl/Dextrose (Nexterone Ivpb) 360 mg in 200 mls @ 16.667 mls/hr IV .Q12H KARLEY Stop: 03/23/25 03:36 Lactated Ringer's (Lactated Ringers) 500 mls @ 999 mls/hr IV .Q31M ONE Stop: 03/22/25 04:24 Discontinued Medications Diltiazem HCl (Diltiazem Inj 5 Mg/Ml Vial 5 Ml) 20 mg IV X1 ONE Stop: 03/22/25 02:58 Last Admin: 03/22/25 03:02 Dose: 20 mg Hydromorphone HCl (Hydromorphone Inj 2 Mg/Ml Vial) 1 mg IVP X1 ONE Stop: 03/22/25 03:34 Lactated Ringer's (Lactated Ringers) 1,000 mls @ 999 mls/hr IV .Q1H1M ONE Stop: 03/21/25 16:41 Last Infusion: 03/21/25 17:17 Dose: Infused Lactated Ringer's (Lactated Ringers) 1,000 mls @ 999 mls/hr IV .Q1H1M ONE Stop: 03/21/25 18:14 Last Infusion: 03/21/25 18:49 Dose: Infused Lactated Ringer's (Lactated Ringers) 1,000 mls @ 999 mls/hr IV .Q1H1M ONE Stop: 03/21/25 18:14 Last Infusion: 03/21/25 20:20 Dose: Infused Lactated Ringer's (Lactated Ringers) 1,000 mls @ 999 mls/hr IV .Q1H1M ONE Stop: 03/21/25 18:15 Last Infusion: 03/21/25 18:49 Dose: Infused Ceftriaxone Sodium/Dextrose (Rocephin/D5w 1gm Iv Premix) 1 gm in 50 mls @ 100 mls/hr IV X1 ONE Stop: 03/21/25 17:44 Last Infusion: 03/21/25 18:15 Dose: Infused Ceftriaxone Sodium/Dextrose (Rocephin/D5w 1gm Iv Premix) 1 gm in 50 mls @ 100 mls/hr IV QDAY KARLEY Stop: 03/28/25 21:13 Last Admin: 03/21/25 22:26 Dose: Not Given Metronidazole (Flagyl 500 Mg Iv) 500 mg in 100 mls @ 200 mls/hr IV X1 ONE Stop: 03/21/25 21:59 Last Infusion: 03/21/25 22:26 Dose: Infused Sodium Chloride (Ns) 500 mls @ 999 mls/hr IV .Q31M ONE Stop: 03/22/25 03:30 Last Admin: 03/22/25 03:29 Dose: 999 mls/hr Amiodarone HCl/Dextrose (Nexterone Ivpb) 150 mg in 100 mls @ 600 mls/hr IV .Q10M ONE Stop: 03/22/25 03:46 Lorazepam (Lorazepam 2 Mg/Ml Vial) 2 mg IVP X1 ONE Stop: 03/22/25 03:34 Ondansetron HCl (Ondansetron Inj 2 Mg/Ml Inj 2 Ml) 4 mg IVP X1 ONE; Protocol Stop: 03/21/25 15:41 Last Admin: 03/21/25 16:16 Dose: 4 mg Potassium Chloride (Potassium Chloride 20 Meq Tabcr) 40 meq PO X1 ONE Stop: 03/21/25 20:42 Last Admin: 03/21/25 22:33 Dose: 40 meq Assessment & Plan Plan Mr. Cunha is a 84-year-old male with a past medical history of malignant melanoma on chemotherapy, coronary artery disease status post 2 stent placements, hypertension, history of bladder cancer presented to the ED on 03/21/2025 with 3 weeks of diarrhea and admitted for suspected sepsis secondary to gastroenteritis and PAULIE likely prerenal in the setting of severe gastroenteritis. Decision was made to start patient on phenylephrine and upgrade to ICU for further management. Patient is currently on IV phenylephrine and amiodarone drip to control patient's unstable A-fib with RVR. NEURO stable CARDIO #New Onset Atrial Fibrillation (AF) with Rapid Ventricular Rate Differential Diagnosis: Sepsis-induced AF (most likely due to high sympathetic tone, fluid shifts, and infection) vs hypoxia vs acute illness Diagnostic Tests: Continuous ECG monitoring for rate and rhythm, Chest X-ray was negative for aspiration PNA, and clear to auscultation on PE; Continue to monitor Lactate Plan: Continue with Amiodarone gtt. Continue with Phenyleprine to maintain MAP > 65. Can consider fluid bolus if fluid responsive on NICOM. Consider electrocardioversion if AF persists with unstable hemodynamics #Shock Differential Diagnosis: Most likely distributive in the setting of sepsis from colitis vs gasteroenteritis Diagnostic Tests:Blood cultures, Stool studies: C. difficile, calprotectin, Giardia, ova & parasites, WBCs, Imaging: CT Plan:Continue ceftriaxone 1g daily and metronidazole 500mg every 8 hours for broad-spectrum coverage. C. difficile testing pending; monitor for further signs of infection. Continue supportive care with IV fluids and reassess fluid balance with NICOM. Monitor for any signs of worsening infection or end-organ damage. Wean phenyleprine as tolerated to maintain MAP > 65; Gave a x 1 of stress dose hydrocortisone. #Elevated Troponin Differential Diagnosis: Type II NSTEMI (likely secondary to sepsis or tachycardia) vs Type I PR (unlikely due to absence of chest pain) Diagnostic Tests: Serial troponin levels, EKG Plan: Continue to trend troponins. Repeat EKG if new symptoms arise.Monitor vital signs and cardiac status closely. Manage tachycardia with rate control using amiodarone as needed. #Hx of CAD History of PCI where he had 2 stents placed, and previously on Brilinta. 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 Plan: Hold aspirin temporarily due to suspected gastritis/colitis.Monitor for signs of ACS (chest pain, EKG changes). Resume antiplatelet therapy once gastroenteritis is ruled out. PULM #Acute hypoxic respiratory failure Patient currently on 2L NC, doesn't use O2 at home. Most likely in the setting of sepsis Plan: Continue supportive care for sepsis. Consider bronchodilators if signs of respiratory distress worsen. Wean O2 as tolerated. If respiratory distress worsens, consider chest CT to rule out pulmonary embolism, worsening pneumonia, or fluid overload. GI/FEN #Suspected colitis #Gastritis DDx: likely secondary to immunotherapy (nivolumab/ipilimumab) or C. difficile (due to immunosuppressive therapy) Diarrhea for 3 weeks, likely the source of infection. 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 Diagnostic test: Stool studies ordered for C. difficile, Giardia, ova & parasites, and WBCs. Plan: Continue metronidazole and ceftriaxone. If stool studies positive for C. difficile, adjust therapy as necessary. Monitor for signs of worsening GI bleeding or perforation. RENAL #PAULIE #Lactic acidosis Most likely prerenal due to dehydration from diarrhea and sepsis. Elevated creatinine (3.6) BUN/creatinine ratio is 13.6, not indicative of prerenal azotemia but still concerns for sepsis-induced PAULIE. Diagnostic test: UO and CMP, electrolytes, trend lactic acid Plan: Monitor UO, and CMP. Avoid nephrotoxic agents and continue treating underlying infection. If urine output declines or renal function worsens, consider renal replacement therapy. #Electrolyte imbalance Patient presented with a K+ of 2.7 on repeat labs. Plan: Continue to replete as needed to keep K+ goal > 4 and Mag goal >2 HEME/ONC #Malignant Melanoma with possible metastasis Differential Diagnosis: Metastatic melanoma (liver, lung, adrenal, or other sites) vs Immunotherapy-related adverse effects Diagnostic Tests: Obtain oncology medical records from [facility] for prior imaging and follow-up. Consider CT abdomen/pelvis with contrast to assess for metastasis. Assess LDH levels as an indicator of malignancy progression. Plan:Obtain comprehensive records from oncology. Monitor for signs of progression (weight loss, pain, new masses). Consider PET scan outpatient if clinically indicated to evaluate for metastasis. Continue with patient's steroid dose of at least 50mg Prednisone. ENDO #Hyperglycemia Differential Diagnosis: Stress-induced hyperglycemia (likely acute phase response to sepsis) vs Underlying undiagnosed diabetes Diagnostic Tests:A1c is 7.2%, most likely diabetes. Glucose monitoring every 4-6 hours. Plan: Monitor BG closely. Start insulin sliding scale as needed for glucose control. ID #Sepsis likely secondary to colitis/gastroenteritis DDx: possible immunosuppressive therapy (nivolumab/ipilimumab) increasing risk of C. difficile and immune-mediated colitis. Plan: Continue empiric antibiotics (ceftriaxone, metronidazole). Await stool studies (C. difficile, calprotectin). Monitor for any signs of worsening infection or new sources. MSK stable Health Maintenance: DVT prophylaxis: Lovenox 40mg SC GI prophylaxis: None Jordan: Yes Lines: PIV CODE STATUS: Full code Disposition: Upgraded to ICU for further management of patient's unstable A-fib with RVR Patient's care and plan discussed with my attending, Dr. Love De La Cruz, PGY-3
[2025-03-22] MEDS: AMIODARONE 150 MG IVPB 150 MG/100 ML BAG 600 MG IV (04:18)
[2025-03-22 04:20] LABS: Glucose Estimated Average 160 mg/dL (80-131); Hemoglobin A1C 7.2 % Hgb (4.8-6.0)
[2025-03-22] MEDS: HYDROCORTISONE SOD SUCC INJ 100 MG 2 ML VIAL IV (04:26)
--- NOTE | 2025-03-22 04:28 | ECHO_ITS ---
Patient Info Name: David Cunha Age: 84 years : 1940 Gender: Male Ht: 203 cm Wt: 122 kg BSA: 2.65 m2 BP: 109 / 56 mmHg HR: 74 bpm Exam Date: 03/22/2025 11:45 AM Admit Date: 03/21/2025 Site: [facility] Room Number: 251 Patient Status: I Technical Quality: Poor Exam Type: CA echo doppler complete Reason for Poor Study: poor echocardiographic windows, poor patient cooperation Destination Coordinator: Ronda Montero Ordering Physician: Ishaan Monahan Study Info Indications New onset afib - Primary Location: S2SX Left Ventricular Outflow Tract Name Value Normal LVOT 2D LVOT Diameter 2.2 cm LVOT Doppler LVOT Peak Velocity 81 cm/s LVOT Mean Gradient 1 mmHg LVOT VTI 20 cm LVOT VTI/AV VTI Ratio 1.2 LVOT Stroke Volume 74 ml Pulmonic Valve Name Value Normal PV Doppler PV Peak Velocity 103 cm/s Mitral Valve Name Value Normal MV Doppler MV Decel [place] 263 cm/s2 MV PHT 69 ms MV Area (PHT) 3.2 cm2 4.0-5.0 MV Diastolic Function MV E Peak Velocity 63 cm/s MV A Peak Velocity 54 cm/s MV E/A 1.2 MV Annular TDI MV Septal e' Velocity 7.5 cm/s MV E/e' (Septal) 8.4 MV Lateral e' Velocity 8.8 cm/s MV E/e' (Lateral) 7.1 MV e' Average 8.16 cm/s MV E/e' (Average) 7.8 Tricuspid Valve Name Value Normal TV Regurgitation Doppler TR Peak Velocity 131 cm/s Estimated PAP/RSVP RA Pressure 8 mmHg <=5 PA Systolic Pressure 15 mmHg <36 RV Systolic Pressure 15 mmHg <36 TV Annular TDI TV Lateral Hazel s' Velocity 13.2 cm/s >=9.5 Aortic Valve Name Value Normal AV 2D/MM AV Cusp Sep (MM) 1.6 cm AV Doppler AV Peak Velocity 88 cm/s AV Mean Gradient 2 mmHg AV VTI 16 cm AV Area (Cont Eq VTI) 4.7 cm2 >=3.0 AV Area (Cont Eq Travon) 3.5 cm2 AV DI (Travon) 0.91 AV Regurgitation 2D LVOT Area 3.8 cm2 Ventricles Name Value Normal LV Dimensions 2D/MM IVS Diastolic Thickness (2D) 1.0 cm 0.6-1.0 LVID Diastole (2D) 4.3 cm 4.2-5.8 LVIW Diastolic Thickness (2D) 1.0 cm 0.6-1.0 LVID Systole (2D) 3.2 cm 2.5-4.0 LVOT Diameter 2.2 cm LV Mass (2D Cubed) 142.49 g 88.00-224.00 LV Mass Index (2D Cubed) 54 g/m2 49-115 Relative Wall Thickness (2D) 0.47 <=0.42 IVS/LVIW Diastolic Thickness (2D) 1.00 0.00-1.50 LV Fractional Shortening/Ejection Fraction 2D/MM LV Fractional Shortening (2D) 26 % 25-43 LV EF (2D Teichholz) 51 % RV Dimensions 2D/MM TV Lateral Hazel s' Velocity 13.2 cm/s >=9.5 Atria Name Value Normal LA Dimensions LA Volume (4C A-L) 35 ml LA Volume (BP A-L) 37 ml Left Ventricle Left ventricular chamber dimension is normal. Left ventricular systolic function is normal with visually estimated ejection fraction of 55-60%. There is mild concentric hypertrophy noted in the left ventricle. Left ventricular segmental wall motion is normal. There is grade I diastolic dysfunction in the left ventricle. Right Ventricle Right ventricular chamber dimension is normal. Right ventricular systolic function is normal. Left Atrium Left atrial chamber dimension is mildly enlarged. Right Atrium Right atrial chamber dimension is normal. Aortic Valve The aortic valve is trileaflet. There is no aortic valve sclerosis. There is no aortic valve stenosis with a peak velocity of 88 cm/s, mean gradient of 2 mmHg, and aortic valve area of 4.7 cm2. There is no aortic valve regurgitation. Pulmonic Valve The pulmonic valve is normal. There is no pulmonic valve stenosis. There is no pulmonic regurgitation. Mitral Valve The mitral valve has normal leaflets. There is no mitral valve stenosis. There is trace mitral valve regurgitation. Tricuspid Valve The tricuspid valve leaflets are normal. There is no tricuspid valve stenosis. There is trace tricuspid valve regurgitation. No pulmonary hypertension, estimated pulmonary arterial systolic pressure is 15 mmHg and systemic blood pressure of 109 mmHg in systole. Pericardium/Pleural The pericardium appears normal. There is no pericardial effusion. No pleural effusion visualized. Inferior Vena Cava Not well visualized inferior vena cava with >50% collapse upon inspiration consistent with normal right atrial pressure, 8 mmHg. Aorta The aortic measurements are indexed to age and body surface area. The aortic root at the sinus of Valsalva is not well visualized. The prox ascending aorta is not well visualized. Summary 1. Left ventricle size is normal and systolic function is normal. Estimated ejection fraction is 55-60%. There is grade I diastolic dysfunction. There is mild concentric hypertrophy noted. 2. Right ventricle chamber size is normal and systolic function is normal. Estimated RVSP is 15 mmHg. 3. Posterior mitral valve annulus mildy calcified. Trace MR and TR. 4. There is trace tricuspid valve regurgitation. Prominent pericardial fat pad seen. 5. The left atrium is mildly enlarged. The right atrium is normal. Report Signatures Finalized by Pastor Avendaño on 03/23/2025 12:05 AM
[2025-03-22] MEDS: AMIODARONE 360 MG IVPB 360 MG/200 ML BAG 33.333 MG IV (04:30)
[2025-03-22 05:00] LABS: Alanine Aminotransferase 10 U/L (10-49); Albumin, Serum 2.5 gm/dL (3.4-4.8); Alkaline Phosphatase 61 U/L (46-116); Anion Gap 9 (7-16); Aspartate Amino Transferase 13 U/L (0-34); BUN/Creatinine Ratio 12 Ratio (12-20); Bilirubin,Total 0.4 mg/dL (0.3-1.2); Blood Urea Nitrogen 44 mg/dL (9-23); Calcium 7.3 mg/dL (8.3-10.6); Calcium (Corrected) 8.5 mg/dL (8.5-10.1); Carbon Dioxide 18.1 mMol/L (20.0-31.0); Cardiac Risk Estimate 3.1 RATIO (4.0-6.7); Chloride 115 mMol/L (98-107); Cholesterol 75 mg/dL (132-200); Creatinine (Component) 3.8 mg/dL (0.6-1.3); Estimated Creatinine Clearance 21.4 mL/min (>60); Glucose 127 mg/dL (74-106); HDL Cholesterol 24 mg/dL (40-60); LDL Cholesterol,Calculated 17 mg/dL (0-130); Magnesium 2.4 mg/dL (1.6-2.6); Osmolality,Calculated 296 (275-295); Phosphorous 3.0 mg/dL (2.4-5.1); Sodium 142 mMol/L (136-145); Triglycerides 168 mg/dL (30-150); eGFR 15 See Note
[2025-03-22 05:16] LABS: Potassium 2.7 mMol/L (3.4-5.1)
[2025-03-22] MEDS: POTASSIUM CHL 10 mEq IVPB 10 MEQ/100 ML BAG 100 MEQ IV ×4 (06:01→10:02)
[2025-03-22 06:46] LABS: Reflex Lactate? Y
[2025-03-22] MEDS: PHENYLEPHRINE HCL 40 MG in SODIUM CHLORIDE 0.9% 96 ML 27.556 MG IV (07:15)
[2025-03-22 07:36] LABS: Lactic Acid, 3 HR 2.2 mMol/L (0.4-2.0)
[2025-03-22] MEDS: metroNIDAZOLE/NS 500 MG IVPB 500 MG/100 ML BAG 200 MG IV ×3 (07:48→21:16)
--- NOTE | 2025-03-22 08:45 | PC.NURSE ---
Hand off report given to Anna from ICU. Pt transferred with monitor, oxygen via gurney. All belongings gathered and sent with patient.
[2025-03-22] MEDS: ENOXAPARIN SOD INJ 30 MG/0.3 ML SYRINGE SC (09:04)
[2025-03-22] MEDS: cefTRIAXone/D5w 1gm IV premix 1 GM/50 ML BAG IV (09:05)
[2025-03-22 09:41] LABS: Base Excess, Venous -8 (-3-3); O2 Saturation, Venous 86 % (96-97); PCO2, Venous 33 mmHg (36-56); PO2, Venous 51 mmHg (15-58); pH, Venous 7.33 (7.33-7.66)
[2025-03-22 09:46] LABS: Albumin, Serum 2.6 gm/dL (3.4-4.8); BUN/Creatinine Ratio 15 Ratio (12-20); Blood Urea Nitrogen 59 mg/dL (9-23); Calcium 7.4 mg/dL (8.3-10.6); Calcium (Corrected) 8.5 mg/dL (8.5-10.1); Carbon Dioxide 17.9 mMol/L (20.0-31.0); Creatinine (Component) 3.9 mg/dL (0.6-1.3); Estimated Creatinine Clearance 20.4 mL/min (>60); Glucose 139 mg/dL (74-106); Phosphorous 4.0 mg/dL (2.4-5.1); eGFR 14 See Note
--- NOTE | 2025-03-22 09:47 | PD.RESCONSUL ---
HPI Data of Consult Requesting Physician: Pedro Aleman MD Admitting Provider: Pedro Aleman MD Attending Provider: Pedro Aleman MD Primary Care Provider: Physician No Primary/Family Consult Narrative Reason for consult: New onset A-fib RVR History of present illness: Mr. Cunha is a 84-year-old male with past medical history of malignant melanoma diagnosed in 2020 on chemotherapy (nivolumab and ipilimumab) follows Dr Medrano, [facility] last chemotherapy session 3 weeks ago, CAD status post PCI follows Dr. Arango, remote history of bladder cancer about 20 years ago, hypertension and BPH who presented to [facility] emergency department on 03/21/2025 with a chief complaint of diarrhea for the last 3 weeks. Patient reported that he has been having 5-6 episodes of diarrhea every day noted to have mucus positive and complained of a fever episode about a week ago. Patient reported that he was started on Imodium by his oncologist for the treatment of diarrhea however his symptoms did not improve and then he was transition to prednisone. at bedside assisted in procuring history. Patient follows Dr. 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 Patient reports following Dr. Arango denies diagnosis of atrial fibrillation in the past, did report that he had 2 stents placed respectively in 2018 and 2019. Denies history of heart failure, currently denies any chest pain shortness of breath syncope presyncope falls dizziness and bilateral leg swelling. ED course: Patient was found to be febrile in the ED, received IV Tylenol, 4 L of LR 1 g of ceftriaxone, patient's lactate on presentation 7, troponin 0.162, Pro-Zelalem 4.54, potassium 3.2.CT abdomen pelvis in ER shows bibasilar pneumonia gastritis pattern bilateral benign renal cysts diffuse nonspecific colitis pattern. Chest x-ray shows mild vascular congestion, probable scarring left upper lobe. Cardiology consulted in setting of new onset atrial fibrillation with rapid ventricular response. cc:: cc: Pedro Aleman MD Review of Systems Review of Systems Systems Reviewed: All systems reviewed, normal except as documented Past Medical History Past Medical History Comments PMH COMMENT: PMH: As above PSHx: 1999?bladder cancer, ?PCI, 2020 malignant melanoma radical resection left upper extremity Allergies: Shellfish Social history: -Smoking: Denies -Alcohol Use: Denies -Illicit Drug Use: Denies -Occupation: Retired -Martial Status: Family History: No significant family history Exam Vital Signs Temp Pulse Resp BP Pulse Ox O2 Del Method O2 Flow Rate 97.2 F 79 12 116/55 L 93 L Nasal Cannula 2 03/22/25 08:31 03/22/25 09:00 03/22/25 09:00 03/22/25 09:00 03/22/25 09:00 03/22/25 08:31 03/22/25 08:31 Narrative Exam Physical Exam General: Awake, tired and in no acute distress. Conversational and on supplemental nasal cannula 2 L HEENT: Normocephalic, atraumatic, mucous membranes moist. Heart: Sinus rhythm, no murmurs. Lungs: Clear to auscultation with no wheezing or crackles. Abdomen: Soft, nondistended, nontender, positive bowel sounds. ?No guarding or rebound tenderness. Neurologic: Alert and oriented x3, no gross neurological deficit, and patient able to move all 4 extremities. Extremities: Trace bilateral lower extremity edema Skin: No rash or ecchymoses. Results Labs 03/22/25 03:42 03/23/25 00:16 Labs: Short CBC 03/21/25 03/22/25 Range/Units 16:27 03:42 WBC 27.3 H 23.8 H (3.8-10.6) Thou/mm3 Hgb 16.1 H 12.8 L D (13.5-16.0) g/dL Hct 50.8 40.0 L D (41.0-53.0) % Plt Count 423 315 D (140-440) Thou/mm3 [facility] 03/21/25 03/22/25 16:06 03:42 Sodium 142 142 Potassium 3.2 L 2.7 L* D Chloride 109 H 115 H Carbon Dioxide 19.2 L 18.1 L BUN 49 H 44 H Creatinine 3.6 H 3.8 H Glucose 155 H 127 H Calcium 9.0 7.3 L D Cardiac Enzymes 03/21/25 03/21/25 Range/Units 16:06 20:53 Troponin I 0.162 H* 0.180 H* (0.0-0.045) ng/mL Liver Function 03/21/25 03/22/25 Range/Units 16:06 03:42 Total Bilirubin 0.6 0.4 (0.3-1.2) mg/dL AST < 8 13 (0-34) U/L ALT 18 10 (10-49) U/L Alkaline Phosphatase 87 61 D (46-116) U/L Albumin 3.8 2.5 L D (3.4-4.8) gm/dL Urine 03/21/25 Range/Units 17:28 Urine Color Yellow (Lt Yel-Yel) Urine Clarity Clear (Clear/Hazy) Urine pH 5.5 (5.0-7.0) Ur Specific [place] 1.021 (1.001-1.035) Urine Protein Trace (Neg - Trace) Urine Glucose (UA) Negative (Negative) Quality Measures Quality Measures none Advance care planning discussed with:: patient and spouse Medications Home Medications and Allergies Home Medications ?Medication ?Instructions ?Recorded ?Confirmed ?Type finasteride 5 mg tablet 5 mg PO DAILY 10/11/20 03/22/25 History furosemide 20 mg tablet 20 mg PO QDAY 03/22/25 03/22/25 History losartan 50 mg tablet 50 mg PO QDAY 03/22/25 03/22/25 History potassium chloride 20 mEq 20 meq PO QDAY 03/22/25 03/22/25 History tablet,extended release prednisone 20 mg tablet 17.5 mg PO QDAY 03/22/25 03/22/25 History tamsulosin 0.4 mg capsule 0.4 mg PO .qhs 03/22/25 03/22/25 History Allergies Allergy/AdvReac Type Severity Reaction Status Date / Time shellfish derived Allergy Verified 03/21/25 15:41 Visit Medications Enoxaparin Sodium (Enoxaparin Sod Inj 30 Mg/0.3 Ml Syringe) 30 mg SC QDAY [facility]; Protocol Stop: 04/05/25 08:59 Last Admin: 03/22/25 09:04 Dose: 30 mg Acetaminophen (Ofirmev Inj) 1,000 mg in 100 mls @ 250 mls/hr IV Q6H [facility] Stop: 03/22/25 10:29 Last Admin: 03/22/25 05:17 Dose: Not Given Metronidazole (Flagyl 500 Mg Iv) 500 mg in 100 mls @ 200 mls/hr IV Q8HR [facility] Stop: 03/29/25 06:29 Last Infusion: 03/22/25 09:10 Dose: Infused Ceftriaxone Sodium/Dextrose (Rocephin/D5w 1gm Iv Premix) 1 gm in 50 mls @ 100 mls/hr IV QDAY [facility] Stop: 03/29/25 08:59 Last Infusion: 03/22/25 09:35 Dose: Infused Phenylephrine HCl 40 mg/ (Sodium Chloride) 100 mls @ 9.185 mls/hr IV .[id number] PRN; Protocol PRN Reason: Per Sepsis Protocol Stop: 04/21/25 03:09 Last Titration: 03/22/25 09:00 Dose: 0.45 mcg/kg/min, 8.267 mls/hr Amiodarone HCl/Dextrose (Nexterone Ivpb) 360 mg in 200 mls @ 16.667 mls/hr IV .Q12H [facility] Stop: 03/23/25 03:36 Pantoprazole Sodium (Pantoprazole Inj 40 Mg Vial) 40 mg IVP QDAY [facility] Stop: 04/21/25 08:59 Last Admin: 03/22/25 09:03 Dose: 40 mg Discontinued Medications Diltiazem HCl (Diltiazem Inj 5 Mg/Ml Vial 5 Ml) 20 mg IV X1 ONE Stop: 03/22/25 02:58 Last Admin: 03/22/25 03:02 Dose: 20 mg Hydrocortisone Sodium Succinate (Hydrocortisone Sod Succ Inj 100 Mg 2 Ml Vial) 100 mg IV X1 ONE Stop: 03/22/25 04:22 Last Admin: 03/22/25 04:26 Dose: 100 mg Hydromorphone HCl (Hydromorphone Inj 2 Mg/Ml Vial) 1 mg IVP X1 ONE Stop: 03/22/25 03:34 Last Admin: 03/22/25 04:19 Dose: Not Given Lactated Ringer's (Lactated Ringers) 1,000 mls @ 999 mls/hr IV .Q1H1M ONE Stop: 03/21/25 16:41 Last Infusion: 03/21/25 17:17 Dose: Infused Lactated Ringer's (Lactated Ringers) 1,000 mls @ 999 mls/hr IV .Q1H1M ONE Stop: 03/21/25 18:14 Last Infusion: 03/21/25 18:49 Dose: Infused Lactated Ringer's (Lactated Ringers) 1,000 mls @ 999 mls/hr IV .Q1H1M ONE Stop: 03/21/25 18:14 Last Infusion: 03/21/25 20:20 Dose: Infused Lactated Ringer's (Lactated Ringers) 1,000 mls @ 999 mls/hr IV .Q1H1M ONE Stop: 03/21/25 18:15 Last Infusion: 03/21/25 18:49 Dose: Infused Ceftriaxone Sodium/Dextrose (Rocephin/D5w 1gm Iv Premix) 1 gm in 50 mls @ 100 mls/hr IV X1 ONE Stop: 03/21/25 17:44 Last Infusion: 03/21/25 18:15 Dose: Infused Lactated Ringer's (Lactated Ringers) 1,000 mls @ 100 mls/hr IV .Q10H ONE Stop: 03/22/25 07:12 Last Admin: 03/21/25 21:38 Dose: 100 mls/hr Ceftriaxone Sodium/Dextrose (Rocephin/D5w 1gm Iv Premix) 1 gm in 50 mls @ 100 mls/hr IV QDAY [facility] Stop: 03/28/25 21:13 Last Admin: 03/21/25 22:26 Dose: Not Given Metronidazole (Flagyl 500 Mg Iv) 500 mg in 100 mls @ 200 mls/hr IV X1 ONE Stop: 03/21/25 21:59 Last Infusion: 03/21/25 22:26 Dose: Infused Sodium Chloride (Ns) 500 mls @ 999 mls/hr IV .Q31M ONE Stop: 03/22/25 03:30 Last Infusion: 03/22/25 04:28 Dose: Infused Amiodarone HCl/Dextrose (Nexterone Ivpb) 150 mg in 100 mls @ 600 mls/hr IV .Q10M ONE Stop: 03/22/25 03:46 Last Infusion: 03/22/25 04:29 Dose: Infused Amiodarone HCl/Dextrose (Nexterone Ivpb) 360 mg in 200 mls @ 33.333 mls/hr IV .Q6H ONE Stop: 03/22/25 09:36 Last Admin: 03/22/25 04:30 Dose: 33.333 mls/hr Lactated Ringer's (Lactated Ringers) 500 mls @ 999 mls/hr IV .Q31M ONE Stop: 03/22/25 04:24 Last Admin: 03/22/25 04:20 Dose: Not Given Sodium Chloride (Ns) 500 mls @ 999 mls/hr IV .Q31M ONE Stop: 03/22/25 04:36 Last Infusion: 03/22/25 04:40 Dose: Infused Potassium Chloride (Kcl Ivpb) 10 meq in 100 mls @ 100 mls/hr IV Q1H [facility] Stop: 03/22/25 09:40 Last Admin: 03/22/25 08:46 Dose: 100 mls/hr Lorazepam (Lorazepam 2 Mg/Ml Vial) 2 mg IVP X1 ONE Stop: 03/22/25 03:34 Last Admin: 03/22/25 04:19 Dose: Not Given Ondansetron HCl (Ondansetron Inj 2 Mg/Ml Inj 2 Ml) 4 mg IVP X1 ONE; Protocol Stop: 03/21/25 15:41 Last Admin: 03/21/25 16:16 Dose: 4 mg Potassium Chloride (Potassium Chloride 20 Meq Tabcr) 40 meq PO X1 ONE Stop: 03/21/25 20:42 Last Admin: 03/21/25 22:33 Dose: 40 meq Potassium Chloride (Potassium Chloride 20 Meq Tabcr) 40 meq PO X1 ONE Stop: 03/22/25 07:19 Last Admin: 03/22/25 07:42 Dose: 40 meq Assessment & Plan Plan Assessment and Plan: Summary: Mr. Cunha is a 84-year-old male with past medical history of malignant melanoma diagnosed in 2020 on chemotherapy (nivolumab and ipilimumab) follows Dr Medrano, [facility] last chemotherapy session 3 weeks ago, CAD status post PCI follows Dr. Arango, remote history of bladder cancer about 20 years ago, hypertension and BPH who presented to [facility] emergency department on 03/21/2025 with a chief complaint of diarrhea for the last 3 weeks. Patient admitted to telemetry and then upgraded to intensive care unit in setting of distributive shock secondary to gastroenteritis along with new onset A-fib RVR started on phenylephrine. #New onset A-fib RVR, resolved Patient admitted for sepsis, no history of atrial fibrillation or conduction abnormalities. Overnight patient went into RVR heart rate in 140s, noted to be A-fib RVR. Patient started on amiodarone drip meanwhile patient also noted to be hypotensive despite 5 L fluid resuscitation started on phenylephrine and upgraded to intensive care unit. [id number] score: 4 points Patient at bedside right now noted to be in sinus rhythm Lipid panel shows cholesterol 75, triglyceride 168, LDL 17, HDL 24, A1c 7.2, TSH 0.51 Recommendations: - Transition to amiodarone 200 mg p.o. twice daily when able - Start patient on anticoagulation to decrease stroke risk recommend heparin GTT when no contraindications. - Continue telemonitoring - Will obtain echocardiogram to measure LA size - Keep magnesium greater than 2 and potassium greater than 4 at all times, replete aggressively #Coronary artery disease status post 2 stents #NSTEMI type I versus type II Patient denies any chest pain currently, troponin on presentation 0.162 up trended to 0.180 and this morning 0.522 EKG on presentation shows no acute ST-T changes Patient did report that he had 2 stents placed respectively in 2018 and 2019. -Echocardiogram obtained, will rule out regional wall abnormalities -Does seem like troponin elevation is likely type II in setting of sepsis secondary to gastroenteritis/GI source -Patient does have PAULIE on CKD for clearance of troponin as well. #PAULIE on ?CKD Patient presented with continuous multiple episodes of diarrhea over the last 3 weeks, on presentation creatinine 3.6 BUN 49 and GFR 16, no previous baseline known, continue to monitor urine output. Kidney injury likely prerenal versus ATN, urine analysis negative for casts or WBCs. Patient on ARB's and diuretic at home ?Continue to monitor renal function, patient was given IV fluid today after passive leg raise ?Consider obtaining renal ultrasound to rule out chronic changes #Acute encephalopathy #Distributive shock versus hypovolemic shock #Hypokalemia #Gastritis and colitis #Adrenal insufficiency #Leukocytosis #Anemia #Low TSH/? Euthyroid sick syndrome #Diabetes mellitus, A1c 7.2 - Management as per primary team Case discussed with Attending Physician Dr. Pastor Narvaez MD Internal Medicine PGY-2 Disclaimer: This note was dictated by speech recognition. Minor errors in computer engineering technician may be present due to voice recognition software. Attending Provider Attestation/Addendum I have personally seen and examined the patient separately on the above date of service and discussed the plan of care with the resident. I reviewed the resident Xiang Narvaez consultation progress note and agree with the resident findings and plan in the note above and have also edited the documentation to reflect my findings and plan. Pastor Avendaño M.D. Interventional Cardiology
[2025-03-22 09:57] LABS: Chloride 108 mMol/L (98-107); Potassium 3.3 mMol/L (3.4-5.1); Sodium 139 mMol/L (136-145)
[2025-03-22 09:58] LABS: Anion Gap 13 (7-16); Osmolality,Calculated 296 (275-295)
[2025-03-22 09:59] LABS: Troponin I 0.522 ng/mL (0.0-0.045)
[2025-03-22 10:06] LABS: Thyroid Stimulating Hormone 0.51 uIU/mL (0.55-4.78)
[2025-03-22 10:20] LABS: Clostridium Difficile PCR Negative (Negative)
[2025-03-22] MEDS: AMIODARONE 360 MG IVPB 360 MG/200 ML BAG 16.667 MG IV ×2 (10:57→22:44)
[2025-03-22] MEDS: HYDROCORTISONE SOD SUCC INJ 100 MG 2 ML VIAL 50 MG IV ×3 (11:14→22:43)
--- NOTE | 2025-03-22 11:40 | ESPR_ITS ---
<Statement entered by Kashif Garcia MD - 03/22/25 23:18> I have reviewed the note and agree with the resident's assessment & plan with exceptions as below. I have personally reviewed labs, imaging, home meds/prior records, examined the patient, formulated and discussed management plan with the IM team. 84 y/o male with PMHx of malignant melanoma(nivolumab, ipilimumab), CAD status post PCI (unsure when last PCI was), hypertension, bladder cancer (20 years ago) in remission, who comes in for an evaluation of diarrhea has been ongoing for the past 3 weeks with associated nausea and weakness. Patient reports that they see a oncologist in [place] in which he gets infusions every 3 weeks, last session was 3 weeks ago. Says he has not had a normal bowel movement for the past 3 weeks. His last normal bowel movement was about 3 weeks ago. Neurology Stable Cardiology: #Shock Could be a component of distributive and hypovolemic considering patient was fluid responsive and diarrhea has been ongoing for some time. Infectious component related to colitis like pattern seen on CT abdomen pelvis, however stool WBCs show +4. Will need to rule out with other stool studies. DDx: Colitis, infectious colitis, inflammatory bowel disease, Dx: CT abdomen pelvis, stool culture, stool WBC, CMV, C. difficile, ova and parasites, Giardia Rx: IV ceftriaxone 1 g daily, Flagyl IV 500 mg every 8 hours (03/22/2025?, Weaned Off Levi RRX: Patient may need colonoscopy and GI consult rather than just antibiotics and pressure IV ceftriaxone and Flagyl every 8 hours support #New onset A-fib w RVR [id number]: 4 Rate: Tachy Rhythm: Irregular AC: None Converted after being on Amio drip Shock likely culprit of driving patient into rhythm Plan: ? Cardiology Consulted, appreciate recs ? Continue Amio drip, likely to continue with oral Amio 200 BID upon completion ? Mag and K+ above 2 and 4 respectively ? Telemetry ? Will need to decide A/C at some point #Elevated troponin Could be related to demand ischemia 0.18 -> 0.5 Plan: ? Trend troponin every 6 hours until peak Pulmonary: Stable Gastrointestinal: #Persistent diarrhea Unlikely irritable bowel disease as this would not present this late in life. Could be infectious component including pathogen such as Giardia, C. difficile, viral or other parasites. It can also be colitis DDx: C. difficile, infectious colitis, irritable bowel disease, infectious Dx: CT abdomen pelvis, stool culture, stool WBC, CMV, C. difficile, ova and parasites, Giardia Rx: IV antibiotics, will hold off on loperamide at this time and wait for follow-up with other pending labs RRX: Patient may have C. difficile and require vancomycin by mouth Nephrology: #Acute renal failure Creatinine of 4, however urine output 1.5 L DDx: Prerenal, postrenal, intrinsic Dx: CMP, monitoring of urine output Rx: Avoid nephrotoxic agents, strict I's and O's, continue Jordan catheter, urine creatinine and sodium, nephrology consult, continue with fluid bolus, renally dose medicines RRX: If infection is not treated or if patient does not get enough fluid resuscitation #NAGMA Bicarbonate of 18, pCO2 Winter's Formula shows expected bicarbonate of 34-38 Delta Delta gap shows DDx: Hyperchloremia, RTA, saline Bicarbonate of 18, pCO2 Winter's Formula shows expected bicarbonate of 34-38 Delta Delta gap is less than 1 -> Pure metabolic acidosis, likely related to GI bicarbonate losses from diarrhea DDx: CMP Rx: Trend CMP, hold cancer infusion, consider loperamide RRx: If patient continues to have diarrhea #Bilateral renal cysts Stable Genitourinary: #History of bladder cancer, in remission Stable Hematology: #Leukocytosis DDx: Chronic steroid use, infection related Dx: CBC Rx: Trend CBC, treat infection as above RRX: Leukocytosis may persist with continued prednisone use #Normocytic anemia Plan: Trend CBC Endocrine: #Non-insulin dependent Diabetes mellitus Unsure if this is late adult onset of DM, related to chronic prednisone, however likely the latter A1c 7.2 Plan: ? Sliding scale insulin ? Hypoglycemic protocol in place ? Blood sugar checks with meals #Low TSH 0.51, could be related to infection or subclinical or true hypothyroidism Plan: ? T4 Infectious Disease: #Sepsis Tachycardic, white count 24, Tmax 102.7, Lactate 2.7, 2.1, 2.2 SOFA: 4 points 2 out of 4 SIRS criteria Sepsis due to 3/4 SIRS criteria with acute sepsis-related organ dysfunction as evidence by PAULIE, elevated troponins Given 4 L in ED DDx: Intra-abdominal infection, urine, pneumonia Dx: Blood cultures, urine cultures, CT abdomen pelvis, lactate Rx: IV antibiotics as above, antipyretics, fluid bolus resuscitation, patient has been weaned off phenylephrine. Follow-up urine and blood culture RRX: Management may not work if infection is uncontrolled Skin: #History of malignant melanoma Plan: ? Holding infusions at this time ? Will reach out to oncologist Kashif Garcia, PGY-2 Internal Medicine Documentation for date of: 03/22/25 Subjective Subjective Interval history: Mr. Cunha is a 84-year-old male with a past medical history of malignant melanoma on chemotherapy, coronary artery disease status post 2 stent placements, hypertension, history of bladder cancer presented to the ED on 03/21/2025 with 3 weeks of diarrhea. Patient mentions that the diarrhea has been occurring 4-5 times per day with mucus since his last infusion which was three weeks ago for his malignant melanoma treatment. Associated symptoms include 1 episode of emesis today and a episode of fever x 1week ago. He denies melena or hematochezia or hematemesis. Of note, patient states he takes chronic steroids for the last 2 to 3 years and recently has been on prednisone 50 mg for 1 week, and takes it for his cancer per patient. Medical records received for oncology treatment, patient received pembrolizumab for one year, completing the therapy 07/2024. 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 Currently on Ipilimumab (IPI) + Nivolumab (NIVO). 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 ED course: Significant vitals: Temp 102, RR 24, HR 118, satting at 95% on 4 L nasal cannula. Significant labs leukocytosis, lactic acidosis, low potassium, elevated BUN and creatinine, with a Pro-Zelalem of 4.54. Imaging: EKG was negative for any ST segment changes. CT abdomen pelvis showed bibasilar pneumonia, gastritis, bilateral benign renal cysts, diffuse nonspecific colitis. In the ED, patient was given 1 g of Tylenol, 5 L of LR and 1 L of NS, 1 g of ceftriaxone and Zofran push. Patient was admitted to medicine floor for suspected sepsis secondary to gastroenteritis and PAULIE likely prerenal in the setting of severe gastroenteritis. Patient was started on IV ceftriaxone, IV Flagyl, IV fluids and repleted potassium. Few hours later, nurse was checking patient's temperature which diann to 102.4 around 1:45 AM which triggered patient's heart rate into the 140s to 150s an hour later, and patient's blood pressure significantly dropped. EKG done at that time showed new onset atrial fibrillation with rapid ventricular rate. Patient was given 40 mill equivalents of potassium, 20 mg diltiazem push, 1 L additional NS bolus, however patient's blood pressure continued to stay under MAP goal of 65. Decision was made to start patient on phenylephrine and upgrade to ICU for further management. Patient is currently on IV phenylephrine and amiodarone drip to control patient's unstable A-fib with RVR. 03/22/2025 Patient examined bedside. He failed swallow eval in ED. He is currently on ceftriaxone and metronidazole, continuing phenylephrine 40mg and amiodarone IV. 120mEqs of potassium have been given, rechecking his renal panel at noon showed K 3.8. Patient has been attempting to ween off prednisone the last months, but was unable too. He received prednisone everyday form his doctor to help improved his diarrhea, but he only took it for 2 days before coming in to the ER. Today we started him on hydrocortisone 50mg IV Q6HR. Plan to follow up with Dr. Hightower when patient is more stable, +4 WBCs seen on stool studies. With NICOM patient had 10% responsiveness to 250cc bolus of NS. 1 L of bolus given. Exam Vital Signs Temp Pulse Resp BP Pulse Ox O2 Del Method O2 Flow Rate 97.2 F 74 16 96/56 L 94 L Nasal Cannula 2 03/22/25 08:31 03/22/25 11:00 03/22/25 11:00 03/22/25 11:00 03/22/25 11:00 03/22/25 08:31 03/22/25 08:31 Narrative Exam General: Elderly male, ill-appearing, pale, sleepy, but arousable to voice. Able to answer questions. On 2L NC, dysarthric Neurologic: GCS 15. Alert and oriented x3, no gross neurological deficit, and patient able to move all 4 extremities. HEENT: Normocephalic, atraumatic, mucous membranes dry. Pupils reactive to light. Heart: Irregularly, irregular, normal S1 and S2, no murmurs. Lungs: Clear to auscultation bilaterally with no wheezing or crackles. Abdomen: Tense, able to relax, nondistended, nontender, positive bowel sounds. No guarding or rebound tenderness. Extremities: Onychomycosis on the fingers and toes bilaterally. No edema. 2+ radial and dorsalis pedis pulses bilaterally. cap refill < 3 sec; extremities cold to touch. Skin: Warm. Dry. No rash or ecchymoses, but appears pale. Objective Labs 03/22/25 03:42 03/22/25 12:07 Labs: Laboratory Results - last 24 hr 03/21/25 03/21/25 03/21/25 16:06 16:27 17:28 WBC 27.3 H RBC 5.80 Hgb 16.1 H Hct 50.8 MCV 88 MCH 27.8 MCHC 31.7 RDW Std Deviation 49.5 H Plt Count 423 Neut % (Auto) 73 Lymph % (Auto) 20 [place] % (Auto) 3 Eos % (Auto) 0 Baso % (Auto) 0 Neut # (Auto) 20.0 H Lymph # (Auto) 5.4 H [place] # (Auto) 0.8 Eos # (Auto) 0.0 Baso # (Auto) 0.0 Immature Gran # (Auto) 1.07 H Absolute Nucleated RBC 0.02 H Immature Gran % 4 H Nucleated RBC % 0 PT 11.0 INR 1.0 APTT 25.1 VBG pH VBG pCO2 VBG pO2 VBG O2 Sat (Miladis) VBG Base Excess Sodium 142 Potassium 3.2 L Chloride 109 H Carbon Dioxide 19.2 L Anion Gap 14 BUN 49 H Creatinine 3.6 H Estim Creat Clear Calc 22.6 L eGFR 16 L BUN/Creatinine Ratio [address] Glu mg/dL Hemoglobin A1c Calculated Osmolality 299 H Lactic Acid 7.0 H* Calcium 9.0 Corrected Calcium 9.2 Phosphorus 2.5 Magnesium 2.6 Total Bilirubin 0.6 AST < 8 ALT 18 Alkaline Phosphatase 87 Lactate Dehydrogenase 204 Troponin I 0.162 H* B-Natriuretic Peptide 61 Total Protein 6.8 Albumin 3.8 Globulin 3.0 Albumin/Globulin Ratio 1.3 Triglycerides Cholesterol LDL Cholesterol, Calc HDL Cholesterol Cholesterol/HDL Ratio Lipase 30 Procalcitonin 4.54 H TSH Ur Collection Type Clean Catch Urine Color Yellow Urine Clarity Clear Urine pH 5.5 Ur Specific [place] 1.021 Urine Protein Trace Urine Glucose (UA) Negative Urine Ketones Negative Urine Blood Negative Urine Nitrite Negative Urine Bilirubin Negative Urine Urobilinogen (Auto) Negative Ur Leukocyte Esterase Negative Urine RBC 1 Urine WBC 2 Ur Squamous Epith Cells 1 Urine Bacteria None Ur Culture Indicated? Not Indicated Stool for White Cells Stl C. diff Tox B Gene Urine Opiates Screen Negative Urine Fentanyl Screen Negative Ur Barbiturates Screen Negative U Amphetamin/Meth Scrn Negative U Benzodiazepines Scrn Negative U Cocaine Metab Screen Negative U Marijuana (THC) Screen Negative Influenza A (Rapid) Influenza B (Rapid) SARS-CoV-2 Ag (Rapid) 03/21/25 03/21/25 03/21/25 18:17 19:27 20:53 WBC RBC Hgb Hct MCV MCH MCHC RDW Std Deviation Plt Count Neut % (Auto) Lymph % (Auto) [place] % (Auto) Eos % (Auto) Baso % (Auto) Neut # (Auto) Lymph # (Auto) [place] # (Auto) Eos # (Auto) Baso # (Auto) Immature Gran # (Auto) Absolute Nucleated RBC Immature Gran % Nucleated RBC % PT INR APTT VBG pH VBG pCO2 VBG pO2 VBG O2 Sat (Miladis) VBG Base Excess Sodium Potassium Chloride Carbon Dioxide Anion Gap BUN Creatinine Estim Creat Clear Calc eGFR BUN/Creatinine Ratio Glucose Estimated Ave Glu mg/dL Hemoglobin A1c Calculated Osmolality Lactic Acid 2.7 H Calcium Corrected Calcium Phosphorus Magnesium Total Bilirubin AST ALT Alkaline Phosphatase Lactate Dehydrogenase Troponin I 0.180 H* B-Natriuretic Peptide Total Protein Albumin Globulin Albumin/Globulin Ratio Triglycerides Cholesterol LDL Cholesterol, Calc HDL Cholesterol Cholesterol/HDL Ratio Lipase Procalcitonin TSH Ur Collection Type Urine Color Urine Clarity Urine pH Ur Specific [place] Urine Protein Urine Glucose (UA) Urine Ketones Urine Blood Urine Nitrite Urine Bilirubin Urine Urobilinogen (Auto) Ur Leukocyte Esterase Urine RBC Urine WBC Ur Squamous Epith Cells Urine Bacteria Ur Culture Indicated? Stool for White Cells Stl C. diff Tox B Gene Negative Urine Opiates Screen Urine Fentanyl Screen Ur Barbiturates Screen U Amphetamin/Meth Scrn U Benzodiazepines Scrn U Cocaine Metab Screen U Marijuana (THC) Screen Influenza A (Rapid) Negative Influenza B (Rapid) Negative SARS-CoV-2 Ag (Rapid) Negative 03/21/25 03/22/25 03/22/25 21:46 03:42 07:10 WBC 23.8 H RBC 4.61 Hgb 12.8 L D Hct 40.0 L D MCV 87 MCH 27.8 MCHC 32.0 RDW Std Deviation 49.2 H Plt Count 315 D Neut % (Auto) 81 H Lymph % (Auto) 14 [place] % (Auto) 2 Eos % (Auto) 0 Baso % (Auto) 0 Neut # (Auto) 19.4 H Lymph # (Auto) 3.3 [place] # (Auto) 0.4 Eos # (Auto) 0.1 Baso # (Auto) 0.1 Immature Gran # (Auto) 0.60 H Absolute Nucleated RBC 0.00 Immature Gran % 3 H Nucleated RBC % 0 PT INR APTT VBG pH VBG pCO2 VBG pO2 VBG O2 Sat (Miladis) VBG Base Excess Sodium 142 Potassium 2.7 L* D Chloride 115 H Carbon Dioxide 18.1 L Anion Gap 9 BUN 44 H Creatinine 3.8 H Estim Creat Clear Calc 21.4 L eGFR 15 L BUN/Creatinine Ratio [address]ucose [address] Glu mg/dL 160 H Hemoglobin A1c 7.2 H Calculated Osmolality 296 H Lactic Acid 2.1 H 2.2 H Calcium 7.3 L D Corrected Calcium 8.5 Phosphorus 3.0 Magnesium 2.4 Total Bilirubin 0.4 AST 13 ALT 10 Alkaline Phosphatase 61 D Lactate Dehydrogenase Troponin I B-Natriuretic Peptide Total Protein Albumin 2.5 L D Globulin Albumin/Globulin Ratio Triglycerides 168 H Cholesterol 75 L LDL Cholesterol, Calc 17 HDL Cholesterol 24 L Cholesterol/HDL Ratio 3.1 L Lipase Procalcitonin TSH Ur Collection Type Urine Color Urine Clarity Urine pH Ur Specific [place] Urine Protein Urine Glucose (UA) Urine Ketones Urine Blood Urine Nitrite Urine Bilirubin Urine Urobilinogen (Auto) Ur Leukocyte Esterase Urine RBC Urine WBC Ur Squamous Epith Cells Urine Bacteria Ur Culture Indicated? Stool for White Cells 4+ A Stl C. diff Tox B Gene Urine Opiates Screen Urine Fentanyl Screen Ur Barbiturates Screen U Amphetamin/Meth Scrn U Benzodiazepines Scrn U Cocaine Metab Screen U Marijuana (THC) Screen Influenza A (Rapid) Influenza B (Rapid) SARS-CoV-2 Ag (Rapid) 03/22/25 09:17 WBC RBC Hgb Hct MCV MCH MCHC RDW Std Deviation Plt Count Neut % (Auto) Lymph % (Auto) [place] % (Auto) Eos % (Auto) Baso % (Auto) Neut # (Auto) Lymph # (Auto) [place] # (Auto) Eos # (Auto) Baso # (Auto) Immature Gran # (Auto) Absolute Nucleated RBC Immature Gran % Nucleated RBC % PT INR APTT VBG pH 7.33 VBG pCO2 33 L VBG pO2 51 VBG O2 Sat (Miladis) 86 L VBG Base Excess -8 L Sodium 139 Potassium 3.3 L D Chloride 108 H Carbon Dioxide 17.9 L Anion Gap 13 BUN 59 H Creatinine 3.9 H Estim Creat Clear Calc 20.4 L eGFR 14 L* BUN/Creatinine Ratio 15 [address]ucose [address] Glu mg/dL Hemoglobin A1c Calculated Osmolality 296 H Lactic Acid Calcium 7.4 L Corrected Calcium 8.5 Phosphorus 4.0 Magnesium Total Bilirubin AST ALT Alkaline Phosphatase Lactate Dehydrogenase Troponin I 0.522 H* D B-Natriuretic Peptide Total Protein Albumin 2.6 L Globulin Albumin/Globulin Ratio Triglycerides Cholesterol LDL Cholesterol, Calc HDL Cholesterol Cholesterol/HDL Ratio Lipase Procalcitonin TSH 0.51 L Ur Collection Type Urine Color Urine Clarity Urine pH Ur Specific [place] Urine Protein Urine Glucose (UA) Urine Ketones Urine Blood Urine Nitrite Urine Bilirubin Urine Urobilinogen (Auto) Ur Leukocyte Esterase Urine RBC Urine WBC Ur Squamous Epith Cells Urine Bacteria Ur Culture Indicated? Stool for White Cells Stl C. diff Tox B Gene Urine Opiates Screen Urine Fentanyl Screen Ur Barbiturates Screen U Amphetamin/Meth Scrn U Benzodiazepines Scrn U Cocaine Metab Screen U Marijuana (THC) Screen Influenza A (Rapid) Influenza B (Rapid) SARS-CoV-2 Ag (Rapid) ABG Interpretation ABG results: 03/22/25 09:17 VBG pH 7.33 VBG pCO2 33 L VBG pO2 51 VBG Base Excess -8 L Quality Measures Quality Measures none Advance care planning discussed with:: other Assessment & Plan Assessment Current Active Medications: Generic Name Dose Route Start Last Admin Trade Name Freq PRN Reason Stop Dose Admin Enoxaparin Sodium 30 mg 03/22/25 09:00 03/22/25 09:04 Enoxaparin Sod Inj 30 Mg/0.3 Ml Syringe SC 04/05/25 08:59 30 mg QDAY KARLEY Administration Protocol Hydrocortisone Sodium Succinate 50 mg 03/22/25 12:00 03/22/25 11:14 Hydrocortisone Sod Succ Inj 100 Mg 2 Ml Vial IV 04/21/25 11:59 50 mg Q6HR KARLEY Administration Metronidazole 500 mg in 100 mls @ 200 mls/hr 03/22/25 06:30 03/22/25 09:10 Flagyl 500 Mg Iv IV 03/29/25 06:29 Infused Q8HR KARLEY Infusion Ceftriaxone Sodium/Dextrose 1 gm in 50 mls @ 100 mls/hr 03/22/25 09:00 03/22/25 09:35 Rocephin/D5w 1gm Iv Premix IV 03/29/25 08:59 Infused QDAY KARLEY Infusion Phenylephrine HCl 40 mg/ 100 mls @ 9.185 mls/hr 03/22/25 03:10 03/22/25 11:15 Sodium Chloride IV 04/21/25 03:09 0.2 mcg/kg/min .[id number] PRN 3.674 mls/hr Per Sepsis Protocol Titration Protocol 0.5 MCG/KG/MIN Amiodarone HCl/Dextrose 360 mg in 200 mls @ 16.667 mls/hr 03/22/25 03:37 03/22/25 10:57 Nexterone Ivpb IV 03/23/25 03:36 16.667 mls/hr .Q12H KARLEY Administration Pantoprazole Sodium 40 mg 03/22/25 09:00 03/22/25 09:03 Pantoprazole Inj 40 Mg Vial IVP 04/21/25 08:59 40 mg QDAY KARLEY Administration Plan Mr. Cunha is a 84-year-old male with a past medical history of malignant melanoma on chemotherapy, coronary artery disease status post 2 stent placements, hypertension, history of bladder cancer presented to the ED on 03/21/2025 with 3 weeks of diarrhea and admitted for suspected sepsis secondary to gastroenteritis and PAULIE likely prerenal in the setting of severe gastroenteritis. Decision was made to start patient on phenylephrine and upgrade to ICU for further management. Patient is currently on IV phenylephrine and amiodarone drip to control patient's unstable A-fib with RVR. As of 03/22/2025 patient is no longer on pressors with BP stabilized, plan to downgrade tomorrow morning if no acute overnight events and pressor requirement remains unnecessary. NEURO stable CARDIO #New Onset Atrial Fibrillation (AF) with Rapid Ventricular Rate - improving Differential Diagnosis: Sepsis-induced AF (most likely due to high sympathetic tone, fluid shifts, and infection) vs hypoxia vs acute illness On Amio patient HR now 66 BP 103/48 NICOM showed 10% responsiveness to 250cc bolus of NS. Given 1 L IVF. Diagnostic Tests: Continuous ECG monitoring for rate and rhythm, Chest X-ray was negative for aspiration PNA, and clear to auscultation on PE; Continue to monitor Lactate Plan: Continue with Amiodarone gtt. Continue with Phenyleprine to maintain MAP > 65. Can consider fluid bolus if fluid responsive on NICOM. Consider electrocardioversion if AF persists with unstable hemodynamics #Shock Differential Diagnosis: Most likely volume depletion in the setting of acute volume loss from diarrhea either colitis vs gasteroenteritis vs adrenal insufficiency Diagnostic Tests:Blood cultures, Stool studies: C. difficile, calprotectin, Giardia, ova & parasites, WBCs, Imaging: CT Plan:Continue ceftriaxone 1g daily and metronidazole 500mg every 8 hours for broad-spectrum coverage. C. difficile testing pending; monitor for further signs of infection. Continue supportive care with IV fluids and reassess fluid balance with NICOM. Monitor for any signs of worsening infection or end-organ damage. Wean phenyleprine as tolerated to maintain MAP > 65; Gave a x 1 of stress dose hydrocortisone. #Elevated Troponin Differential Diagnosis: Type II NSTEMI (likely secondary to sepsis or tachycardia) vs Type I ME (unlikely due to absence of chest pain) Diagnostic Tests: Serial troponin levels, EKG Plan: Continue to trend troponins. Repeat EKG if new symptoms arise. Monitor vital signs and cardiac status closely. Manage tachycardia with rate control using amiodarone as needed. #Hx of CAD History of PCI where he had 2 stents placed, and previously on Brilinta. 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 Plan: Hold aspirin temporarily due to suspected gastritis/colitis.Monitor for signs of ACS (chest pain, EKG changes). Resume antiplatelet therapy once gastroenteritis is ruled out. PULM #Acute hypoxic respiratory failure Patient currently on 2L NC, doesn't use O2 at home. Most likely in the setting of sepsis. Chest CT shows bibasilar pneumonia. Physical exam did not reveal any rales, rhonchi or crackles. Plan: Continue supportive care for sepsis. Consider bronchodilators if signs of respiratory distress worsen. Wean O2 as tolerated. If respiratory distress worsens, consider chest CT to rule out pulmonary embolism, worsening pneumonia, or fluid overload. GI #Suspected colitis #Gastritis DDx: likely secondary to immunotherapy (nivolumab/ipilimumab) or C. difficile (due to immunosuppressive therapy) Diarrhea for 3 weeks, likely the source of infection. emt intermediate steroid use. CTAP shows diffuse nonspecific colitis pattern Diagnostic test: Stool studies ordered for C. difficile, Giardia, ova & parasites, and WBCs. Plan: Continue metronidazole and ceftriaxone. If stool studies positive for C. difficile, adjust therapy as necessary. Monitor for signs of worsening GI bleeding or perforation. RENAL #PAULIE #Lactic acidosis Most likely prerenal due to dehydration from diarrhea and sepsis. Elevated creatinine (3.6) BUN/creatinine ratio is 13.6, not indicative of prerenal azotemia but still concerns for sepsis-induced PAULIE. Urine output 320mL/24 hrs, UOP ideal 0.5mL/kg/hr = 58.3mL/hr. Patient has poor urine output. He reports not drinking any water for multiple days. Diagnostic test: UO and CMP, electrolytes, trend lactic acid Plan: Monitor UO, and CMP. Avoid nephrotoxic agents and continue treating underlying infection. If urine output declines or renal function worsens, consider renal replacement therapy. #Electrolyte imbalance Patient presented with a K+ of 2.7 on repeat labs. Repeat renal panel showed K 3.8. Plan: Continue to replete as needed to keep K+ goal > 4 and Mag goal >2 HEME/ONC #Malignant Melanoma with possible metastasis Differential Diagnosis: Metastatic melanoma (liver, lung, adrenal, or other sites) vs Immunotherapy-related adverse effects Diagnostic Tests: Obtain oncology medical records from [place] for prior imaging and follow-up. Consider CT abdomen/pelvis with contrast to assess for metastasis. Assess LDH levels as an indicator of malignancy progression. Plan:Obtain comprehensive records from oncology. Monitor for signs of progression (weight loss, pain, new masses). Consider PET scan outpatient if clinically indicated to evaluate for metastasis. Continue with patient's steroid dose of at least 50mg Prednisone, 50mg hydrocortisone IV Q6HR given. ENDO #Hyperglycemia Differential Diagnosis: Stress-induced hyperglycemia (likely acute phase response to sepsis) vs Underlying undiagnosed diabetes Diagnostic Tests:A1c is 7.2%, most likely diabetes. Glucose monitoring every 4-6 hours. Plan: Monitor BG closely. Start insulin sliding scale as needed for glucose control. ID #Sepsis likely secondary to colitis/gastroenteritis DDx: possible immunosuppressive therapy (nivolumab/ipilimumab) increasing risk of C. difficile and immune-mediated colitis. Plan: Continue empiric antibiotics (ceftriaxone, metronidazole). Await stool studies (C. difficile, calprotectin). Monitor for any signs of worsening infection or new sources. MSK stable Health Maintenance: DVT prophylaxis: Lovenox 40mg SC GI prophylaxis: None Jordan: Yes Lines: PIV CODE STATUS: Full code Disposition: Upgraded to ICU for further management of patient's unstable A-fib with RVR Patient's care and plan discussed with my attending, Dr. Mckenzie and senior resident Dr. Kashif Pratt PGY-1
[2025-03-22 13:02] LABS: Albumin/Globulin Ratio 1.1 (1.2-2.2); Globulin 2.2 gm/dL (2.3-3.5); Total Protein 4.7 gm/dL (5.7-8.2)
[2025-03-22 13:04] LABS: Albumin, Serum 2.6 gm/dL (3.4-4.8); Anion Gap 9 (7-16); BUN/Creatinine Ratio 15 Ratio (12-20); Blood Urea Nitrogen 58 mg/dL (9-23); Calcium 7.3 mg/dL (8.3-10.6); Calcium (Corrected) 8.4 mg/dL (8.5-10.1); Carbon Dioxide 18.9 mMol/L (20.0-31.0); Chloride 113 mMol/L (98-107); Creatinine (Component) 4.0 mg/dL (0.6-1.3); Estimated Creatinine Clearance 19.9 mL/min (>60); Glucose 180 mg/dL (74-106); Osmolality,Calculated 302 (275-295); Phosphorous 5.1 mg/dL (2.4-5.1); Potassium 3.8 mMol/L (3.4-5.1); Sodium 141 mMol/L (136-145); eGFR 14 See Note
--- NOTE | 2025-03-22 13:19 | PD.INTPROG ---
Documentation for date of: 03/22/25 Subjective Subjective Interval history: This is an 84-year-old gentleman who presented overnight for ongoing diarrhea for the last 3 weeks. Patient was noted to have a fever of over 102. He does have a history of immunosuppression secondary to chemotherapy for malignant melanoma. Apparently the patient's current GI distress began after the fourth infusion of chemotherapy. He was given 5 L of IV fluids overnight and was still hypotensive and therefore started on vasopressors. This morning patient is awake alert and cooperative with exam. He denies any chest pain or shortness of breath. He denies any abdominal pain at this point in time. Critical Care Note Critical care time (min.): 48 Exam Vital Signs Temp Pulse Resp BP Pulse Ox O2 Del Method O2 Flow Rate 97.4 F 74 18 109/55 L 92 L Nasal Cannula 2 03/22/25 12:00 03/22/25 12:00 03/22/25 12:00 03/22/25 12:00 03/22/25 12:00 03/22/25 12:00 03/22/25 12:00 Narrative Exam General-no acute distress, awake alert and oriented, normal body habitus HEENT-normocephalic, scar with indentation question resection over the patient's right forehead, sclera icteric, EOMI, oral mucosa is very dry adequate dentition Chest-lungs clear to auscultation bilaterally, heart regular, no bradycardia murmurs auscultated on exam, no tenderness on palpation of chest wall, no increased work of Abdomen-soft, nontender, slightly distended, no rebound, no guarding Extremities-no edema lower extremities, pulses palpable, no clubbing, no mottling, all extremities are cool to touch, no focal deficits Drips Levophed Physical Exam Completion Physical Exam Complete?: Yes 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 03/23/25 04:30 03/23/25 04:30 Labs: Laboratory Results - last 24 hr 03/21/25 03/21/25 03/21/25 16:06 16:27 17:28 WBC 27.3 H RBC 5.80 Hgb 16.1 H Hct 50.8 MCV 88 MCH 27.8 MCHC 31.7 RDW Std Deviation 49.5 H Plt Count 423 Neut % (Auto) 73 Lymph % (Auto) 20 [place] % (Auto) 3 Eos % (Auto) 0 Baso % (Auto) 0 Neut # (Auto) 20.0 H Lymph # (Auto) 5.4 H [place] # (Auto) 0.8 Eos # (Auto) 0.0 Baso # (Auto) 0.0 Immature Gran # (Auto) 1.07 H Absolute Nucleated RBC 0.02 H Immature Gran % 4 H Nucleated RBC % 0 PT 11.0 INR 1.0 APTT 25.1 VBG pH VBG pCO2 VBG pO2 VBG O2 Sat (Miladis) VBG Base Excess Sodium 142 Potassium 3.2 L Chloride 109 H Carbon Dioxide 19.2 L Anion Gap 14 BUN 49 H Creatinine 3.6 H Estim Creat Clear Calc 22.6 L eGFR 16 L BUN/Creatinine Ratio [address]ucose [address] Glu mg/dL Hemoglobin A1c Calculated Osmolality 299 H Lactic Acid 7.0 H* Calcium 9.0 Corrected Calcium 9.2 Phosphorus 2.5 Magnesium 2.6 Total Bilirubin 0.6 AST < 8 ALT 18 Alkaline Phosphatase 87 Lactate Dehydrogenase 204 Troponin I 0.162 H* B-Natriuretic Peptide 61 Total Protein 6.8 Albumin 3.8 Globulin 3.0 Albumin/Globulin Ratio 1.3 Triglycerides Cholesterol LDL Cholesterol, Calc HDL Cholesterol Cholesterol/HDL Ratio Lipase 30 Procalcitonin 4.54 H TSH Ur Collection Type Clean Catch Urine Color Yellow Urine Clarity Clear Urine pH 5.5 Ur Specific [place] 1.021 Urine Protein Trace Urine Glucose (UA) Negative Urine Ketones Negative Urine Blood Negative Urine Nitrite Negative Urine Bilirubin Negative Urine Urobilinogen (Auto) Negative Ur Leukocyte Esterase Negative Urine RBC 1 Urine WBC 2 Ur Squamous Epith Cells 1 Urine Bacteria None Ur Culture Indicated? Not Indicated Stool for White Cells Stl C. diff Tox B Gene Urine Opiates Screen Negative Urine Fentanyl Screen Negative Ur Barbiturates Screen Negative U Amphetamin/Meth Scrn Negative U Benzodiazepines Scrn Negative U Cocaine Metab Screen Negative U Marijuana (THC) Screen Negative Influenza A (Rapid) Influenza B (Rapid) SARS-CoV-2 Ag (Rapid) 03/21/25 03/21/25 03/21/25 18:17 19:27 20:53 WBC RBC Hgb Hct MCV MCH MCHC RDW Std Deviation Plt Count Neut % (Auto) Lymph % (Auto) [place] % (Auto) Eos % (Auto) Baso % (Auto) Neut # (Auto) Lymph # (Auto) [place] # (Auto) Eos # (Auto) Baso # (Auto) Immature Gran # (Auto) Absolute Nucleated RBC Immature Gran % Nucleated RBC % PT INR APTT VBG pH VBG pCO2 VBG pO2 VBG O2 Sat (Miladis) VBG Base Excess Sodium Potassium Chloride Carbon Dioxide Anion Gap BUN Creatinine Estim Creat Clear Calc eGFR BUN/Creatinine Ratio Glucose Estimated Ave Glu mg/dL Hemoglobin A1c Calculated Osmolality Lactic Acid 2.7 H Calcium Corrected Calcium Phosphorus Magnesium Total Bilirubin AST ALT Alkaline Phosphatase Lactate Dehydrogenase Troponin I 0.180 H* B-Natriuretic Peptide Total Protein Albumin Globulin Albumin/Globulin Ratio Triglycerides Cholesterol LDL Cholesterol, Calc HDL Cholesterol Cholesterol/HDL Ratio Lipase Procalcitonin TSH Ur Collection Type Urine Color Urine Clarity Urine pH Ur Specific [place] Urine Protein Urine Glucose (UA) Urine Ketones Urine Blood Urine Nitrite Urine Bilirubin Urine Urobilinogen (Auto) Ur Leukocyte Esterase Urine RBC Urine WBC Ur Squamous Epith Cells Urine Bacteria Ur Culture Indicated? Stool for White Cells Stl C. diff Tox B Gene Negative Urine Opiates Screen Urine Fentanyl Screen Ur Barbiturates Screen U Amphetamin/Meth Scrn U Benzodiazepines Scrn U Cocaine Metab Screen U Marijuana (THC) Screen Influenza A (Rapid) Negative Influenza B (Rapid) Negative SARS-CoV-2 Ag (Rapid) Negative 03/21/25 03/22/25 03/22/25 21:46 03:42 07:10 WBC 23.8 H RBC 4.61 Hgb 12.8 L D Hct 40.0 L D MCV 87 MCH 27.8 MCHC 32.0 RDW Std Deviation 49.2 H Plt Count 315 D Neut % (Auto) 81 H Lymph % (Auto) 14 [place] % (Auto) 2 Eos % (Auto) 0 Baso % (Auto) 0 Neut # (Auto) 19.4 H Lymph # (Auto) 3.3 [place] # (Auto) 0.4 Eos # (Auto) 0.1 Baso # (Auto) 0.1 Immature Gran # (Auto) 0.60 H Absolute Nucleated RBC 0.00 Immature Gran % 3 H Nucleated RBC % 0 PT INR APTT VBG pH VBG pCO2 VBG pO2 VBG O2 Sat (Miladis) VBG Base Excess Sodium 142 Potassium 2.7 L* D Chloride 115 H Carbon Dioxide 18.1 L Anion Gap 9 BUN 44 H Creatinine 3.8 H Estim Creat Clear Calc 21.4 L eGFR 15 L BUN/Creatinine Ratio 12 [address]ucose [address] Glu mg/dL 160 H Hemoglobin A1c 7.2 H Calculated Osmolality 296 H Lactic Acid 2.1 H 2.2 H Calcium 7.3 L D Corrected Calcium 8.5 Phosphorus 3.0 Magnesium 2.4 Total Bilirubin 0.4 AST 13 ALT 10 Alkaline Phosphatase 61 D Lactate Dehydrogenase Troponin I B-Natriuretic Peptide Total Protein 4.7 L Albumin 2.5 L D Globulin 2.2 L Albumin/Globulin Ratio 1.1 L Triglycerides 168 H Cholesterol 75 L LDL Cholesterol, Calc 17 HDL Cholesterol 24 L Cholesterol/HDL Ratio 3.1 L Lipase Procalcitonin TSH Ur Collection Type Urine Color Urine Clarity Urine pH Ur Specific [place] Urine Protein Urine Glucose (UA) Urine Ketones Urine Blood Urine Nitrite Urine Bilirubin Urine Urobilinogen (Auto) Ur Leukocyte Esterase Urine RBC Urine WBC Ur Squamous Epith Cells Urine Bacteria Ur Culture Indicated? Stool for White Cells 4+ A Stl C. diff Tox B Gene Urine Opiates Screen Urine Fentanyl Screen Ur Barbiturates Screen U Amphetamin/Meth Scrn U Benzodiazepines Scrn U Cocaine Metab Screen U Marijuana (THC) Screen Influenza A (Rapid) Influenza B (Rapid) SARS-CoV-2 Ag (Rapid) 03/22/25 03/22/25 09:17 12:07 WBC RBC Hgb Hct MCV MCH MCHC RDW Std Deviation Plt Count Neut % (Auto) Lymph % (Auto) [place] % (Auto) Eos % (Auto) Baso % (Auto) Neut # (Auto) Lymph # (Auto) [place] # (Auto) Eos # (Auto) Baso # (Auto) Immature Gran # (Auto) Absolute Nucleated RBC Immature Gran % Nucleated RBC % PT INR APTT VBG pH 7.33 VBG pCO2 33 L VBG pO2 51 VBG O2 Sat (Miladis) 86 L VBG Base Excess -8 L Sodium 139 141 Potassium 3.3 L D 3.8 D Chloride 108 H 113 H Carbon Dioxide 17.9 L 18.9 L Anion Gap 13 9 BUN 59 H 58 H Creatinine 3.9 H 4.0 H Estim Creat Clear Calc 20.4 L 19.9 L eGFR 14 L* 14 L* BUN/Creatinine Ratio 15 15 Glucose [address] Glu mg/dL Hemoglobin A1c Calculated Osmolality 296 H 302 H Lactic Acid Calcium 7.4 L 7.3 L Corrected Calcium 8.5 8.4 L Phosphorus 4.0 5.1 Magnesium Total Bilirubin AST ALT Alkaline Phosphatase Lactate Dehydrogenase Troponin I 0.522 H* D B-Natriuretic Peptide Total Protein Albumin 2.6 L 2.6 L Globulin Albumin/Globulin Ratio Triglycerides Cholesterol LDL Cholesterol, Calc HDL Cholesterol Cholesterol/HDL Ratio Lipase Procalcitonin TSH 0.51 L Ur Collection Type Urine Color Urine Clarity Urine pH Ur Specific [place] Urine Protein Urine Glucose (UA) Urine Ketones Urine Blood Urine Nitrite Urine Bilirubin Urine Urobilinogen (Auto) Ur Leukocyte Esterase Urine RBC Urine WBC Ur Squamous Epith Cells Urine Bacteria Ur Culture Indicated? Stool for White Cells Stl C. diff Tox B Gene Urine Opiates Screen Urine Fentanyl Screen Ur Barbiturates Screen U Amphetamin/Meth Scrn U Benzodiazepines Scrn U Cocaine Metab Screen U Marijuana (THC) Screen Influenza A (Rapid) Influenza B (Rapid) SARS-CoV-2 Ag (Rapid) Assessment & Plan Additional Assessment Additional Assessment: In summary this is an 84-year-old male admitted to the ICU with shock undifferentiated possible hypovolemia versus distributive a/p [employer]IM[employer] TRAIN[employer] Altered mental status-patient is awake and alert but slightly confused unclear this is likely secondary to his acute illness CV Shock-question distributive and sepsis versus hypovolemic. Patient has had several weeks of diarrhea and has been unable to keep up with his fluid losses. He received 5 L of IV fluids in the ER and was still hypotensive therefore started on vasopressors. Upon arrival to the ER a passive leg raise was done and he was found to still be fluid responsive and therefore additional fluid was ordered. The patient CT does show generalized inflammatory changes from his stomach and throughout his bowel. He is at increased risk for infectious process. He is currently on antibiotics and cultures are pending. Stool studies have been sent. Will continue to wean pressors as able. He is on steroids at home and therefore started on hydrocortisone 50 mg IV Q6 here. Resp ? pneumonia-noted on CT however unclear if this is pneumonia versus atelectasis, encourage I-S, on antibiotics, requiring minimal FiO2 Renal Hypokalemia-aggressively repleted Hyperchloremic acidosis-will give additional fluids and this is likely due to bicarb losses from the stool. PAULIE-prerenal versus ATN at this point in time versus immune mediated nephritis. UA was bland and did not show any casts or WBCs. Patient is on a ARB as well as a diuretic at home at baseline. This likely exacerbated his current dehydration and volume depletion. GI Gastritis/colitis-unclear if this is infectious versus secondary to his chemotherapeutic agents and immune mediated. It does appear that he has been on steroids at [facility]. Will start on hydrocortisone 50 every 6 with the belief that this is a immune mediated colitis more likely than infectious at this point in time. Will continue with patient's antibiotics though and follow-up on cultures. Abundant WBCs noted in the stool and a calprotectin level has been sent. Will obtain a GI consult for further eval and have ordered a CMV serologies. Nutrition-clear liquids as tolerated Endo Adrenal insufficiency-patient states that he takes prednisone 17.5 mg in the morning daily. He has been taking prednisone daily for the last 3 years. The exact diagnosis is unclear from the patient however given the description of the reason why he is taking the prednisone it does sound like he was diagnosed with adrenal insufficiency and started on pred at home. Heme Leukocytosis-patient appears to have had a white count for several years it is unclear what his baseline is. Will follow-up on cultures and records. The patient is on steroids. Anemia-patient is had a drop in his hemoglobin from 16-12 however he has received several liters of IV fluids and at this moment time is felt to be likely dilutional. ID Sepsis-culture sent and pending, on antibiotics Case discussed with ICU team and family Labs, imaging records reviewed Approximately 48 critical care minutes required for evaluation, exam, review, intervention, discussion formulation plan of care physical clear patient with shock and colitis at high risk for further and ongoing decompensation Provider Notation Provider Notation: Although this document has been carefully reviewed, there may still be some phonetic and other typographical errors. These errors are purely grammatical due to imperfections in the software program and should not be construed in any way to compromise the substance of the patient's medical care during this visit. Thank you for the opportunity and privilege in assisting you with this patient's care and management.
[2025-03-22] MEDS: SODIUM CHLORIDE 0.9% 250 ML 250 ML 999 ML IV (13:29)
[2025-03-22] MEDS: ALBUMIN HUMAN-KJDA 25% IVPB 25 GM/100 ML BTL IV (14:24)
[2025-03-22] MEDS: RINGERS LACTATED 1000 ML 1,000 ML 999 ML IV (14:31)
[2025-03-22 15:49] LABS: Lactate (Lactic Acid) 1.5 mMol/L (0.4-2.0)
[2025-03-22 16:39] LABS: Troponin I 1.606 ng/mL (0.0-0.045)
--- NOTE | 2025-03-22 21:38 | PD.IMCONS ---
HPI Data of Consult Requesting Physician: Pedro Aleman MD Primary Care Provider: Physician No Primary/Family Consult Narrative Reason for consult: Chronic persistent diarrhea History of present illness: 84 years old male evaluated at request of the internal medicine team in the ICU for chronic persistent diarrhea which has been there for the last 3 to 4 weeks started after the fourth dose of chemotherapy for malignant melanoma Patient also had hypotension shock new onset atrial fibrillation with RVR and has a history of coronary artery status post PTCA malignant melanoma on chemotherapy hypertension bladder carcinoma and currently taking as a part of the treatment prednisone 50 mg once a day Patient also had elevated troponin cc:: cc: Pedro Aleman MD Review of Systems Review of Systems Systems Reviewed: All systems reviewed, normal except as documented Past Medical History Surgical History OTHER SURGICAL HX: As in the history of present illness Meds Home Medications and Allergies Home Medications ?Medication ?Instructions ?Recorded ?Confirmed ?Type finasteride 5 mg tablet 5 mg PO DAILY 10/11/20 03/22/25 History furosemide 20 mg tablet 20 mg PO QDAY 03/22/25 03/22/25 History losartan 50 mg tablet 50 mg PO QDAY 03/22/25 03/22/25 History potassium chloride 20 mEq 20 meq PO QDAY 03/22/25 03/22/25 History tablet,extended release prednisone 20 mg tablet 17.5 mg PO QDAY 03/22/25 03/22/25 History tamsulosin 0.4 mg capsule 0.4 mg PO .qhs 03/22/25 03/22/25 History Allergies Allergy/AdvReac Type Severity Reaction Status Date / Time shellfish derived Allergy Verified 03/21/25 15:41 Exam Vital Signs Temp Pulse Resp BP Pulse Ox O2 Del Method O2 Flow Rate 96.9 F 63 16 135/62 H 95 Room Air 1 03/22/25 19:00 03/22/25 21:00 03/22/25 21:00 03/22/25 21:00 03/22/25 21:00 03/22/25 18:00 03/22/25 16:00 Constitutional Comments: Chronically ill-appearing Routine Respiratory Exam Comments: Scattered rhonchi Routine Abdominal Exam Comments: Soft nontender Results Labs 03/22/25 03:42 03/22/25 12:07 Labs: Short CBC 03/22/25 Range/Units 03:42 WBC 23.8 H (3.8-10.6) Thou/mm3 Hgb 12.8 L D (13.5-16.0) g/dL Hct 40.0 L D (41.0-53.0) % Plt Count 315 D (140-440) Thou/mm3 BMP 03/22/25 03/22/25 03/22/25 03:42 09:17 12:07 Sodium 142 139 141 Potassium 2.7 L* D 3.3 L D 3.8 D Chloride 115 H 108 H 113 H Carbon Dioxide 18.1 L 17.9 L 18.9 L BUN 44 H 59 H 58 H Creatinine 3.8 H 3.9 H 4.0 H Glucose 127 H 139 H 180 H Calcium 7.3 L D 7.4 L 7.3 L Cardiac Enzymes 03/21/25 03/22/25 03/22/25 Range/Units 20:53 09:17 15:36 Troponin I 0.180 H* 0.522 H* D 1.606 H* D (0.0-0.045) ng/mL Liver Function 03/22/25 03/22/25 03/22/25 Range/Units 03:42 09:17 12:07 Total Bilirubin 0.4 (0.3-1.2) mg/dL AST 13 (0-34) U/L ALT 10 (10-49) U/L Alkaline Phosphatase 61 D (46-116) U/L Albumin 2.5 L D 2.6 L 2.6 L (3.4-4.8) gm/dL ABG Interpretation ABG results: 03/22/25 09:17 VBG pH 7.33 VBG pCO2 33 L VBG pO2 51 VBG Base Excess -8 L Assessment and Plan Additional Assessment & Plan Additional Plan: # Chronic persistent diarrhea etiology uncertain CT scan of the abdomen pelvis without Cesar showing diffuse colitis Differential diagnosis include Chemotherapy induced colitis Infectious enterocolitis Inflammatory bowel disease acute onset C. difficile enterocolitis Suggestions Complete stool panel Fecal calprotectin Culture and sensitivity of the stool Giardia antigen CRP If negative Will consider colonoscopy with biopsies Other medical problems include Shock PAULIE NSTEMI Coronary artery disease status post PTCA Milligram melanoma on chemotherapy Essential hypertension Thank you very much for the opportunity to participate in the care of this patient
[2025-03-22 21:54] LABS: Lactate (Lactic Acid) 1.4 mMol/L (0.4-2.0)
[2025-03-22 22:24] LABS: Troponin I 1.451 ng/mL (0.0-0.045)
[2025-03-22 22:29] LABS: C-Reactive Protein 23.4 mg/dL (0.0-0.9)
[2025-03-22 22:42] LABS: Sed Rate (ESR) 28 mm/hr (0-20)
[2025-03-23] VITALS (17 sets, daily range): BP systolic 122–153; BP diastolic 54–95; PULSE 51–64; RESP 10–23; TEMP 36.1–36.6; O2SAT 94–98; BMI 28.2; BMI 28.3
[2025-03-23 01:12] LABS: Albumin, Serum 2.8 gm/dL (3.4-4.8); Anion Gap 11 (7-16); BUN/Creatinine Ratio 10 Ratio (12-20); Blood Urea Nitrogen 38 mg/dL (9-23); Calcium 6.9 mg/dL (8.3-10.6); Calcium (Corrected) 7.9 mg/dL (8.5-10.1); Carbon Dioxide 18.0 mMol/L (20.0-31.0); Chloride 111 mMol/L (98-107); Creatinine (Component) 4.0 mg/dL (0.6-1.3); Estimated Creatinine Clearance 19.9 mL/min (>60); Glucose 277 mg/dL (74-106); Magnesium 2.0 mg/dL (1.6-2.6); Osmolality,Calculated 298 (275-295); Phosphorous 5.5 mg/dL (2.4-5.1); Potassium 3.5 mMol/L (3.4-5.1); Sodium 140 mMol/L (136-145); eGFR 14 See Note
--- NOTE | 2025-03-23 05:00 | XR_ITS ---
EXAMINATION: AP chest single view TECHNIQUE: AP portable upright chest single view Date and time: March 23, 2025, 0528 hours, comparison March 21, 2025 INDICATIONS: Difficulty breathing this week,. FINDINGS: Bibasilar and bilateral perihilar opacity consistent with pneumonia Mild prominence left ventricle Possible small to moderate left pleural effusion Prominent osteopenia Prominent vascular congestion IMPRESSION: Bilateral perihilar bibasilar pneumonia Suspicious for mild heart failure
[2025-03-23] MEDS: HYDROCORTISONE SOD SUCC INJ 100 MG 2 ML VIAL 50 MG IV ×3 (05:32→18:22)
[2025-03-23] MEDS: metroNIDAZOLE/NS 500 MG IVPB 500 MG/100 ML BAG 200 MG IV ×3 (05:32→21:40)
[2025-03-23 06:20] LABS: Basophils # (Auto) 0.1 Thou/mm3 (0.0-0.2); Basophils % (Auto) 1 % (0-2.5); Eosinophils # (Auto) 0.0 Thou/mm3 (0.0-0.5); Eosinophils % (Auto) 0 % (0-10); Hematocrit 38.0 % (41.0-53.0); Hemoglobin 12.2 g/dL (13.5-16.0); Immature Granulocytes Auto 0.38 Thou/mm3 (0.00-0.00); Lymphocytes # (Auto) 0.8 Thou/mm3 (1.0-4.8); Lymphocytes % (Auto) 4 % (10-50); Mean Corpuscular HGB Conc 32.1 g/dl (31.0-37.0); Mean Corpuscular Hemoglobin 28.5 pg (25.0-35.0); Mean Corpuscular Volume 89 fL (80-100); Monocytes # (Auto) 0.4 Thou/mm3 (0.0-0.8); Monocytes % (Auto) 2 % (0-12); Neutrophils # (Auto) 16.6 Thou/mm3 (1.8-7.7); Neutrophils % (Auto) 91 % (37-80); Nucleated Red Blood Cell # 0.00 Thou/mm3 (0.00-0.00); Nucleated Red Blood Cell % 0 /100 WBC (0); Platelet Count 269 Thou/mm3 (140-440); RDW Standard Deviation 52.5 fL (35.1-43.9); Red Blood Count 4.28 Miln/mm3 (4.50-5.90); White Blood Count 18.2 Thou/mm3 (3.8-10.6)
[2025-03-23 06:26] LABS: T4 (Thyroxine) 2.6 mcg/dL (4.5-10.9)
[2025-03-23 06:44] LABS: Alanine Aminotransferase 11 U/L (10-49); Albumin, Serum 2.8 gm/dL (3.4-4.8); Albumin/Globulin Ratio 1.2 (1.2-2.2); Alkaline Phosphatase 72 U/L (46-116); Anion Gap 11 (7-16); Aspartate Amino Transferase 17 U/L (0-34); BUN/Creatinine Ratio 13 Ratio (12-20); Bilirubin,Total 0.2 mg/dL (0.3-1.2); Blood Urea Nitrogen 54 mg/dL (9-23); Calcium 7.4 mg/dL (8.3-10.6); Calcium (Corrected) 8.4 mg/dL (8.5-10.1); Carbon Dioxide 19.3 mMol/L (20.0-31.0); Chloride 113 mMol/L (98-107); Creatinine (Component) 4.1 mg/dL (0.6-1.3); Estimated Creatinine Clearance 19.4 mL/min (>60); Globulin 2.4 gm/dL (2.3-3.5); Glucose 197 mg/dL (74-106); Osmolality,Calculated 304 (275-295); Potassium 3.5 mMol/L (3.4-5.1); Sodium 143 mMol/L (136-145); Total Protein 5.2 gm/dL (5.7-8.2); eGFR 14 See Note
[2025-03-23 06:52] LABS: Troponin I 1.057 ng/mL (0.0-0.045)
--- NOTE | 2025-03-23 08:40 | PD.RESPRO ---
Documentation for date of: 03/23/25 Subjective Subjective Interval history: Patient seen and examined at bedside. Patient is alert oriented x 3, denies any chest pain currently. Patient does have worsening kidney function however he is making urine, patient's kidney injury likely secondary to ATN. Patient is GI distress child started after chemotherapy, patient is off of phenylephrine this morning. GI is consulted for further workup for gastritis/colitis. Patient on stress dose steroids. Exam Vital Signs Temp Pulse Resp BP Pulse Ox O2 Del Method O2 Flow Rate 97.7 F 61 23 H 138/64 H 96 Room Air 1 03/23/25 04:00 03/23/25 07:00 03/23/25 07:00 03/23/25 07:00 03/23/25 07:00 03/22/25 18:00 03/22/25 16:00 Narrative Exam Physical Exam General: Awake, tired and in no acute distress. Conversational and on supplemental nasal cannula 2 L HEENT: Normocephalic, atraumatic, mucous membranes moist. Heart: Sinus rhythm, no murmurs. Lungs: Clear to auscultation with no wheezing or crackles. Abdomen: Soft, nondistended, nontender, positive bowel sounds. ?No guarding or rebound tenderness. Neurologic: Alert and oriented x3, no gross neurological deficit, and patient able to move all 4 extremities. Extremities: Trace bilateral lower extremity edema Skin: No rash or ecchymoses. Objective Labs 03/23/25 04:30 03/24/25 04:41 Labs: Laboratory Results - last 24 hr 03/21/25 03/22/25 03/22/25 18:17 03:42 09:17 WBC RBC Hgb Hct MCV MCH MCHC RDW Std Deviation Plt Count Neut % (Auto) Lymph % (Auto) Douglas % (Auto) Eos % (Auto) Baso % (Auto) Neut # (Auto) Lymph # (Auto) Douglas # (Auto) Eos # (Auto) Baso # (Auto) Immature Gran # (Auto) Absolute Nucleated RBC Immature Gran % Nucleated RBC % ESR VBG pH 7.33 VBG pCO2 33 L VBG pO2 51 VBG O2 Sat (Miladis) 86 L VBG Base Excess -8 L Sodium 139 Potassium 3.3 L D Chloride 108 H Carbon Dioxide 17.9 L Anion Gap 13 BUN 59 H Creatinine 3.9 H Estim Creat Clear Calc 20.4 L eGFR 14 L* BUN/Creatinine Ratio 15 Glucose 139 H Calculated Osmolality 296 H Lactic Acid Calcium 7.4 L Corrected Calcium 8.5 Phosphorus 4.0 Magnesium Total Bilirubin AST ALT Alkaline Phosphatase Troponin I 0.522 H* D C-Reactive Prot, Quant Total Protein 4.7 L Albumin 2.6 L Globulin 2.2 L Albumin/Globulin Ratio 1.1 L TSH 0.51 L Thyroxine (T4) Stl C. diff Tox B Gene Negative 03/22/25 03/22/25 03/22/25 12:07 15:36 21:33 WBC RBC Hgb Hct MCV MCH MCHC RDW Std Deviation Plt Count Neut % (Auto) Lymph % (Auto) Douglas % (Auto) Eos % (Auto) Baso % (Auto) Neut # (Auto) Lymph # (Auto) Douglas # (Auto) Eos # (Auto) Baso # (Auto) Immature Gran # (Auto) Absolute Nucleated RBC Immature Gran % Nucleated RBC % ESR 28 H VBG pH VBG pCO2 VBG pO2 VBG O2 Sat (Miladis) VBG Base Excess Sodium 141 Potassium 3.8 D Chloride 113 H Carbon Dioxide 18.9 L Anion Gap 9 BUN 58 H Creatinine 4.0 H Estim Creat Clear Calc 19.9 L eGFR 14 L* BUN/Creatinine Ratio 15 Glucose 180 H Calculated Osmolality 302 H Lactic Acid 1.5 1.4 Calcium 7.3 L Corrected Calcium 8.4 L Phosphorus 5.1 Magnesium Total Bilirubin AST ALT Alkaline Phosphatase Troponin I 1.606 H* D 1.451 H* C-Reactive Prot, Quant 23.4 H Total Protein Albumin 2.6 L Globulin Albumin/Globulin Ratio TSH Thyroxine (T4) Stl C. diff Tox B Gene 03/23/25 03/23/25 00:16 04:30 WBC 18.2 H D RBC 4.28 L Hgb 12.2 L Hct 38.0 L MCV 89 MCH 28.5 MCHC 32.1 RDW Std Deviation 52.5 H Plt Count 269 D Neut % (Auto) 91 H Lymph % (Auto) 4 L Douglas % (Auto) 2 Eos % (Auto) 0 Baso % (Auto) 1 Neut # (Auto) 16.6 H Lymph # (Auto) 0.8 L Douglas # (Auto) 0.4 Eos # (Auto) 0.0 Baso # (Auto) 0.1 Immature Gran # (Auto) 0.38 H Absolute Nucleated RBC 0.00 Immature Gran % 2 H Nucleated RBC % 0 ESR VBG pH VBG pCO2 VBG pO2 VBG O2 Sat (Miladis) VBG Base Excess Sodium 140 143 Potassium 3.5 3.5 Chloride 111 H 113 H Carbon Dioxide 18.0 L 19.3 L Anion Gap 11 11 BUN 38 H 54 H Creatinine 4.0 H 4.1 H* Estim Creat Clear Calc 19.9 L 19.4 L eGFR 14 L* 14 L* BUN/Creatinine Ratio 10 L 13 Glucose 277 H D 197 H D Calculated Osmolality 298 H 304 H Lactic Acid Calcium 6.9 L 7.4 L Corrected Calcium 7.9 L 8.4 L Phosphorus 5.5 H Magnesium 2.0 Total Bilirubin 0.2 L AST 17 ALT 11 Alkaline Phosphatase 72 Troponin I 1.057 H* D C-Reactive Prot, Quant Total Protein 5.2 L Albumin 2.8 L 2.8 L Globulin 2.4 Albumin/Globulin Ratio 1.2 TSH Thyroxine (T4) 2.6 L Stl C. diff Tox B Gene ABG Interpretation ABG results: 03/22/25 09:17 VBG pH 7.33 VBG pCO2 33 L VBG pO2 51 VBG Base Excess -8 L Quality Measures Quality Measures none Advance care planning discussed with:: patient Assessment & Plan Assessment Current Active Medications: Generic Name Dose Route Start Last Admin Trade Name Freq PRN Reason Stop Dose Admin Amiodarone HCl 200 mg 03/23/25 09:00 Amiodarone Hcl 200 Mg Tablet PO 04/22/25 08:59 BID KARLEY Dextrose 25 ml 03/22/25 15:44 Dextrose 50%-Water Inj 50 Ml Syringe IV 04/21/25 15:43 Q15MIN PRN BG 50-70 responsive npo pt Dextrose 50 ml 03/22/25 15:44 Dextrose 50%-Water Inj 50 Ml Syringe IV 04/21/25 15:43 Q15MIN PRN BG <50 OR BG <70 & pt unresponsive Enoxaparin Sodium 30 mg 03/22/25 09:00 03/22/25 09:04 Enoxaparin Sod Inj 30 Mg/0.3 Ml Syringe SC 04/05/25 08:59 30 mg QDAY KARLEY Administration Protocol Glucagon 1 mg 03/22/25 15:44 Glucagon Inj 1 Mg Vial IM Q15MIN PRN BG <70, and no IV access Hydrocortisone Sodium Succinate 50 mg 03/22/25 12:00 03/23/25 05:32 Hydrocortisone Sod Succ Inj 100 Mg 2 Ml Vial IV 04/21/25 11:59 50 mg Q6HR KARLEY Administration Metronidazole 500 mg in 100 mls @ 200 mls/hr 03/22/25 06:30 03/23/25 05:32 Flagyl 500 Mg Iv IV 03/29/25 06:29 200 mls/hr Q8HR KARLEY Administration Ceftriaxone Sodium/Dextrose 1 gm in 50 mls @ 100 mls/hr 03/22/25 09:00 03/22/25 09:35 Rocephin/D5w 1gm Iv Premix IV 03/29/25 08:59 Infused QDAY KARLEY Infusion Phenylephrine HCl 40 mg/ 100 mls @ 9.185 mls/hr 03/22/25 03:10 03/22/25 12:30 Sodium Chloride IV 04/21/25 03:09 0.05 mcg/kg/min .[id number] PRN 0.919 mls/hr Per Sepsis Protocol Titration Protocol 0.5 MCG/KG/MIN Insulin Human Lispro 0 unit 03/22/25 17:00 03/22/25 21:16 Insulin Lispro (Admelog) 1 Unit/0.01 Ml Unit SC 04/21/25 16:59 Not Given ACHS KARLEY Protocol Pantoprazole Sodium 40 mg 03/22/25 09:00 03/22/25 09:03 Pantoprazole Inj 40 Mg Vial IVP 04/21/25 08:59 40 mg QDAY KARLEY Administration Plan Assessment and Plan: Summary: Mr. Cunha is a 84-year-old male with past medical history of malignant melanoma diagnosed in 2020 on chemotherapy (nivolumab and ipilimumab) follows Dr Medrano, [facility] last chemotherapy session 3 weeks ago, CAD status post PCI follows Dr. Arango, remote history of bladder cancer about 20 years ago, hypertension and BPH who presented to [facility] emergency department on 03/21/2025 with a chief complaint of diarrhea for the last 3 weeks. Patient admitted to telemetry and then upgraded to intensive care unit in setting of distributive shock secondary to gastroenteritis along with new onset A-fib RVR started on phenylephrine. #New onset A-fib RVR, resolved #Diastolic Dysfunction Grade I Patient admitted for sepsis, no history of atrial fibrillation or conduction abnormalities. Overnight patient went into RVR heart rate in 140s, noted to be A-fib RVR. Patient started on amiodarone drip meanwhile patient also noted to be hypotensive despite 5 L fluid resuscitation started on phenylephrine and upgraded to intensive care unit. [id number] score: 4 points Patient at bedside right now noted to be in sinus rhythm Lipid panel shows cholesterol 75, triglyceride 168, LDL 17, HDL 24, A1c 7.2, TSH 0.51 Echocardiogram 03/22/2025: Left ventricle size is normal and systolic function is normal. Estimated ejection fraction is 55-60%. There is grade I diastolic dysfunction. There is mild concentric hypertrophy noted. Right ventricle chamber size is normal and systolic function is normal. Estimated RVSP is 15 mmHg. Posterior mitral valve annulus mildy calcified. Trace MR and TR. There is trace tricuspid valve regurgitation. Prominent pericardial fat pad seen. The left atrium is mildly enlarged. The right atrium is normal. Recommendations: - Transition to amiodarone 200 mg p.o. twice daily when able and can be decreased to 200 mg daily after one months - Start patient on anticoagulation to decrease stroke risk recommend heparin GTT when no contraindications. - Continue telemonitoring - Keep magnesium greater than 2 and potassium greater than 4 at all times, replete aggressively - Repeat thyroid function outpatient #Coronary artery disease status post 2 stents #NSTEMI type II likely demand ischemia Patient denies any chest pain currently, troponin on presentation 0.162 -> 0.180 -> 0.522 -> 1.606 -> 1.451 -> 1.057 EKG on presentation shows no acute ST-T changes Patient did report that he had 2 stents placed respectively in 2018 and 2019. -Echocardiogram negative for regional wall abnormalities -Does seem like troponin elevation is likely type II in setting of sepsis secondary to gastroenteritis/GI source -Patient will need cardiac catheterisation at a later point once stable. -Patient does have PAULIE on CKD for clearance of troponin as well. #PAULIE on ?CKD likely ATN Patient presented with continuous multiple episodes of diarrhea over the last 3 weeks, on presentation creatinine 3.6 BUN 49 and GFR 16, no previous baseline known, continue to monitor urine output. Kidney injury likely prerenal versus ATN, urine analysis negative for casts or WBCs. Patient on ARB's and diuretic at home ?Continue to monitor renal function, patient was given IV fluid today after passive leg raise ?Consider obtaining renal ultrasound to rule out chronic changes #Acute encephalopathy #Distributive shock versus hypovolemic shock #Hypokalemia #Gastritis and colitis #Adrenal insufficiency #Leukocytosis #Anemia #Low TSH/? Euthyroid sick syndrome #Diabetes mellitus, A1c 7.2 - Management as per primary team Case discussed with Attending Physician Dr. Pastor Narvaez MD Internal Medicine PGY-2 Disclaimer: This note was dictated by speech recognition. Minor errors in clip on sunglasses assembler may be present due to voice recognition software. Attending Provider Attestation/Addendum I have personally seen and examined the patient separately on the above date of service and discussed the plan of care with the resident. I reviewed the resident Dr. Xiang Narvaez consultation progress note and agree with the resident findings and plan in the note above and have also edited the documentation to reflect my findings and plan. Pastor Avendaño M.D. Interventional Cardiology
[2025-03-23] MEDS: cefTRIAXone/D5w 1gm IV premix 1 GM/50 ML BAG IV (08:45)
[2025-03-23] MEDS: ENOXAPARIN SOD INJ 30 MG/0.3 ML SYRINGE SC (08:45)
[2025-03-23] MEDS: AMIODARONE HCL 200 MG TABLET PO ×2 (09:31→21:40)
--- NOTE | 2025-03-23 10:38 | ESPR_ITS ---
<Statement entered by Kashif Garcia MD - 03/23/25 18:18> I have reviewed the note and agree with the resident's assessment & plan with exceptions as below. I have personally reviewed labs, imaging, home meds/prior records, examined the patient, formulated and discussed management plan with the IM team. Patient examined bedside today. Patient to be downgraded to the floors today as patient is off vasopressors as he was only on it for short period time. Patient will need further workup with possible colonoscopy with GI, who was consulted, appreciate recommendations. Patient was then downgraded to floors. Neurology Stable Cardiology: #Shock, resolved #New onset A-fib w RVR [id number]: 4 Rate: Tachy Rhythm: Irregular AC: None Converted after being on Amio drip Shock likely culprit of driving patient into rhythm Plan: ? Cardiology Consulted, appreciate recs ? Continue Amio drip, likely to continue with oral Amio 200 BID upon completion ? Mag and K+ above 2 and 4 respectively ? Telemetry ? Will need to decide A/C at some point #NSTEMI type II, likely related to demand ischemia, resolved Pulmonary: Stable Gastrointestinal: #Persistent diarrhea Unlikely irritable bowel disease as this would not present this late in life. Could be infectious component including pathogen such as Giardia, C. difficile, viral or other parasites. It can also be colitis C diff negative DDx: C. difficile, infectious colitis, irritable bowel disease, infectious Dx: CT abdomen pelvis, stool culture, stool WBC, CMV, C. difficile, ova and parasites, Giardia Rx: IV antibiotics, will hold off on loperamide at this time and wait for follow-up with other pending labs RRX: Patient may have C. difficile and require vancomycin by mouth Nephrology: #Acute renal failure Creatinine of 4.1, however urine output 790 cc/24 hr DDx: Prerenal, postrenal, intrinsic Dx: CMP, monitoring of urine output Rx: Avoid nephrotoxic agents, strict I's and O's, continue Jordan catheter, urine creatinine and sodium, nephrology consult, continue with fluid bolus, renally dose medicines RRX: If infection is not treated or if patient does not get enough fluid resuscitation #NAGMA, improving Bicarbonate of 18, pCO2 Winter's Formula shows expected bicarbonate of 34-38 Delta Delta gap shows DDx: Hyperchloremia, RTA, saline Bicarbonate of 18, pCO2 Winter's Formula shows expected bicarbonate of 34-38 Delta Delta gap is less than 1 -> Pure metabolic acidosis, likely related to GI bicarbonate losses from diarrhea DDx: CMP Rx: Trend CMP, hold cancer infusion, consider loperamide RRx: If patient continues to have diarrhea #Bilateral renal cysts Stable Genitourinary: #History of bladder cancer, in remission Stable Hematology: #Leukocytosis DDx: Chronic steroid use, infection related Dx: CBC Rx: Trend CBC, treat infection as above RRX: Leukocytosis may persist with continued prednisone use #Normocytic anemia Plan: Trend CBC Endocrine: #Non-insulin dependent Diabetes mellitus Unsure if this is late adult onset of DM, related to chronic prednisone, however likely the latter A1c 7.2 Plan: ? Sliding scale insulin ? Hypoglycemic protocol in place ? Blood sugar checks with meals #Steroid Induced thyroid disease #Euthyroid Sickness Syndrome 0.51 for TSH T4 also low ~2 Likely multifactorial with sepsis and chronic steroid use Plan: ? Recommend to repeat thyroid studies within 4 to 6 weeks outpatient Infectious Disease: #Sepsis Tachycardic, white count 24, Tmax 102.7, Lactate 2.7, 2.1, 2.2 SOFA: 4 points 2 out of 4 SIRS criteria Sepsis due to 3/4 SIRS criteria with acute sepsis-related organ dysfunction as evidence by PAULIE, elevated troponins Given 4 L in ED DDx: Intra-abdominal infection, urine, pneumonia Dx: Blood cultures, urine cultures, CT abdomen pelvis, lactate Rx: IV antibiotics as above, antipyretics, fluid bolus resuscitation, patient has been weaned off phenylephrine. Follow-up urine and blood culture RRX: Management may not work if infection is uncontrolled Skin: #History of malignant melanoma Plan: ? Holding infusions at this time ? Will reach out to oncologist Kashif Garcia, PGY-2 Internal Medicine Documentation for date of: 03/23/25 Subjective Subjective Interval history: Mr. Cunha is a 84-year-old male with a past medical history of malignant melanoma on chemotherapy, coronary artery disease status post 2 stent placements, hypertension, history of bladder cancer presented to the ED on 03/21/2025 with 3 weeks of diarrhea. Patient mentions that the diarrhea has been occurring 4-5 times per day with mucus since his last infusion which was three weeks ago for his malignant melanoma treatment. Associated symptoms include 1 episode of emesis today and a episode of fever x 1week ago. He denies melena or hematochezia or hematemesis. Of note, patient states he takes chronic steroids for the last 2 to 3 years and recently has been on prednisone 50 mg for 1 week, and takes it for his cancer per patient. Medical records received for oncology treatment, patient received pembrolizumab for one year, completing the therapy 07/2024. 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 Currently on Ipilimumab (IPI) + Nivolumab (NIVO). 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 ED course: Significant vitals: Temp 102, RR 24, HR 118, satting at 95% on 4 L nasal cannula. Significant labs leukocytosis, lactic acidosis, low potassium, elevated BUN and creatinine, with a Pro-Zelalem of 4.54. Imaging: EKG was negative for any ST segment changes. CT abdomen pelvis showed bibasilar pneumonia, gastritis, bilateral benign renal cysts, diffuse nonspecific colitis. In the ED, patient was given 1 g of Tylenol, 5 L of LR and 1 L of NS, 1 g of ceftriaxone and Zofran push. Patient was admitted to medicine floor for suspected sepsis secondary to gastroenteritis and PAULIE likely prerenal in the setting of severe gastroenteritis. Patient was started on IV ceftriaxone, IV Flagyl, IV fluids and repleted potassium. Few hours later, nurse was checking patient's temperature which diann to 102.4 around 1:45 AM which triggered patient's heart rate into the 140s to 150s an hour later, and patient's blood pressure significantly dropped. EKG done at that time showed new onset atrial fibrillation with rapid ventricular rate. Patient was given 40 mill equivalents of potassium, 20 mg diltiazem push, 1 L additional NS bolus, however patient's blood pressure continued to stay under MAP goal of 65. Decision was made to start patient on phenylephrine and upgrade to ICU for further management. Patient is currently on IV phenylephrine and amiodarone drip to control patient's unstable A-fib with RVR. 03/22/2025 Patient examined bedside. He failed swallow eval in ED. He is currently on ceftriaxone and metronidazole, continuing phenylephrine 40mg and amiodarone IV. 120mEqs of potassium have been given, rechecking his renal panel at noon showed K 3.8. Patient has been attempting to ween off prednisone the last months, but was unable too. He received prednisone everyday form his doctor to help improved his diarrhea, but he only took it for 2 days before coming in to the ER. Today we started him on hydrocortisone 50mg IV Q6HR. Plan to follow up with Dr. Hightower when patient is more stable, +4 WBCs seen on stool studies. With NICOM patient had 10% responsiveness to 250cc bolus of NS. 1 L of bolus given. 03/23/2025 Patient examined bedside. No acute events overnight. UOP 790ml over 24 hours. 2x BMs overnight. HR and BP were stable overnight. Amio drip is finishing today, beginning 200mg BID amiodarone per cardiology recs. Continuing DVT prophylaxis of 30mg Lovenox. Per GI starting low residue diet, following up stool studies. Potential for colonoscopy if all the stool studies are negative. C diff is negative. Jordan catheter removed today. PT referral placed. Continuing Ceftriaxone 1g QD, flagyl 500 Q8HR, and hydrocortisone 50mg IV Q6HR. Patient no longer requiring pressor support is safe to downgrade to floors. Exam Vital Signs Temp Pulse Resp BP Pulse Ox O2 Del Method O2 Flow Rate 96.9 F 60 15 151/70 H 98 Room Air 1 03/23/25 08:00 03/23/25 10:00 03/23/25 10:00 03/23/25 10:00 03/23/25 10:00 03/22/25 18:00 03/22/25 16:00 Narrative Exam General: Elderly male, ill-appearing, pale, sleepy, but arousable to voice. Able to answer questions. On 2L NC, dysarthria (improved) Neurologic: GCS 15. Alert and oriented x3, no gross neurological deficit, and patient able to move all 4 extremities. HEENT: Normocephalic, atraumatic, mucous membranes dry but improved moisture. Pupils reactive to light. Heart: Irregularly, irregular, normal S1 and S2, no murmurs. Lungs: Clear to auscultation bilaterally with no wheezing or crackles. Abdomen: Distended, nontender, positive bowel sounds. No guarding or rebound tenderness. Extremities: Onychomycosis on the fingers and toes bilaterally. No edema. 2+ radial and dorsalis pedis pulses bilaterally. cap refill < 3 sec; extremities cold to touch. Skin: Warm. Dry. No rash or ecchymoses, but appears pale. Objective Labs 03/23/25 04:30 03/23/25 04:30 Labs: Laboratory Results - last 24 hr 03/22/25 03/22/25 03/22/25 03:42 12:07 15:36 WBC RBC Hgb Hct MCV MCH MCHC RDW Std Deviation Plt Count Neut % (Auto) Lymph % (Auto) Bullitt % (Auto) Eos % (Auto) Baso % (Auto) Neut # (Auto) Lymph # (Auto) Bullitt # (Auto) Eos # (Auto) Baso # (Auto) Immature Gran # (Auto) Absolute Nucleated RBC Immature Gran % Nucleated RBC % ESR Sodium 141 Potassium 3.8 D Chloride 113 H Carbon Dioxide 18.9 L Anion Gap 9 BUN 58 H Creatinine 4.0 H Estim Creat Clear Calc 19.9 L eGFR 14 L* BUN/Creatinine Ratio 15 Glucose 180 H Calculated Osmolality 302 H Lactic Acid 1.5 Calcium 7.3 L Corrected Calcium 8.4 L Phosphorus 5.1 Magnesium Total Bilirubin AST ALT Alkaline Phosphatase Troponin I 1.606 H* D C-Reactive Prot, Quant Total Protein 4.7 L Albumin 2.6 L Globulin 2.2 L Albumin/Globulin Ratio 1.1 L Thyroxine (T4) 03/22/25 03/23/25 03/23/25 21:33 00:16 04:30 WBC 18.2 H D RBC 4.28 L Hgb 12.2 L Hct 38.0 L MCV 89 MCH 28.5 MCHC 32.1 RDW Std Deviation 52.5 H Plt Count 269 D Neut % (Auto) 91 H Lymph % (Auto) 4 L Bullitt % (Auto) 2 Eos % (Auto) 0 Baso % (Auto) 1 Neut # (Auto) 16.6 H Lymph # (Auto) 0.8 L Bullitt # (Auto) 0.4 Eos # (Auto) 0.0 Baso # (Auto) 0.1 Immature Gran # (Auto) 0.38 H Absolute Nucleated RBC 0.00 Immature Gran % 2 H Nucleated RBC % 0 ESR 28 H Sodium 140 143 Potassium 3.5 3.5 Chloride 111 H 113 H Carbon Dioxide 18.0 L 19.3 L Anion Gap 11 11 BUN 38 H 54 H Creatinine 4.0 H 4.1 H* Estim Creat Clear Calc 19.9 L 19.4 L eGFR 14 L* 14 L* BUN/Creatinine Ratio 10 L 13 Glucose 277 H D 197 H D Calculated Osmolality 298 H 304 H Lactic Acid 1.4 Calcium 6.9 L 7.4 L Corrected Calcium 7.9 L 8.4 L Phosphorus 5.5 H Magnesium 2.0 Total Bilirubin 0.2 L AST 17 ALT 11 Alkaline Phosphatase 72 Troponin I 1.451 H* 1.057 H* D C-Reactive Prot, Quant 23.4 H Total Protein 5.2 L Albumin 2.8 L 2.8 L Globulin 2.4 Albumin/Globulin Ratio 1.2 Thyroxine (T4) 2.6 L ABG Interpretation ABG results: 03/22/25 09:17 VBG pH 7.33 VBG pCO2 33 L VBG pO2 51 VBG Base Excess -8 L Quality Measures Quality Measures none Advance care planning discussed with:: patient Assessment & Plan Assessment Current Active Medications: Generic Name Dose Route Start Last Admin Trade Name Freq PRN Reason Stop Dose Admin Amiodarone HCl 200 mg 03/23/25 09:00 03/23/25 09:31 Amiodarone Hcl 200 Mg Tablet PO 04/22/25 08:59 200 mg BID KARLEY Administration Dextrose 25 ml 03/22/25 15:44 Dextrose 50%-Water Inj 50 Ml Syringe IV 04/21/25 15:43 Q15MIN PRN BG 50-70 responsive npo pt Dextrose 50 ml 03/22/25 15:44 Dextrose 50%-Water Inj 50 Ml Syringe IV 04/21/25 15:43 Q15MIN PRN BG <50 OR BG <70 & pt unresponsive Enoxaparin Sodium 30 mg 03/22/25 09:00 03/23/25 08:45 Enoxaparin Sod Inj 30 Mg/0.3 Ml Syringe SC 04/05/25 08:59 30 mg QDAY KARLEY Administration Protocol Glucagon 1 mg 03/22/25 15:44 Glucagon Inj 1 Mg Vial IM Q15MIN PRN BG <70, and no IV access Hydrocortisone Sodium Succinate 50 mg 03/22/25 12:00 03/23/25 05:32 Hydrocortisone Sod Succ Inj 100 Mg 2 Ml Vial IV 04/21/25 11:59 50 mg Q6HR KARLEY Administration Metronidazole 500 mg in 100 mls @ 200 mls/hr 03/22/25 06:30 03/23/25 05:32 Flagyl 500 Mg Iv IV 03/29/25 06:29 200 mls/hr Q8HR KARLEY Administration Ceftriaxone Sodium/Dextrose 1 gm in 50 mls @ 100 mls/hr 03/22/25 09:00 03/23/25 08:45 Rocephin/D5w 1gm Iv Premix IV 03/29/25 08:59 100 mls/hr QDAY KARLEY Administration Phenylephrine HCl 40 mg/ 100 mls @ 9.185 mls/hr 03/22/25 03:10 03/22/25 12:30 Sodium Chloride IV 04/21/25 03:09 0.05 mcg/kg/min .[id number] PRN 0.919 mls/hr Per Sepsis Protocol Titration Protocol 0.5 MCG/KG/MIN Insulin Human Lispro 0 unit 03/22/25 17:00 03/23/25 08:41 Insulin Lispro (Admelog) 1 Unit/0.01 Ml Unit SC 04/21/25 16:59 Not Given ACHS KARLEY Protocol Pantoprazole Sodium 40 mg 03/22/25 09:00 03/23/25 08:44 Pantoprazole Inj 40 Mg Vial IVP 04/21/25 08:59 40 mg QDAY KARLEY Administration Plan Mr. Cunha is a 84-year-old male with a past medical history of malignant melanoma on chemotherapy, coronary artery disease status post 2 stent placements, hypertension, history of bladder cancer presented to the ED on 03/21/2025 with 3 weeks of diarrhea and admitted for suspected sepsis secondary to gastroenteritis and PAULIE likely prerenal in the setting of severe gastroenteritis. Decision was made to start patient on phenylephrine and upgrade to ICU for further management. Patient is currently on IV phenylephrine and amiodarone drip to control patient's unstable A-fib with RVR. As of 03/22/2025 patient is no longer on pressors with BP stabilized, plan to downgrade tomorrow morning if no acute overnight events and pressor requirement remains unnecessary. NEURO stable CARDIO #New Onset Atrial Fibrillation (AF) with Rapid Ventricular Rate - resolved Differential Diagnosis: Sepsis-induced AF (most likely due to high sympathetic tone, fluid shifts, and infection) vs hypoxia vs acute illness On Amio IV converted to PO patient HR now 61 BP 133/71, 03/23/2025 NICOM showed 10% responsiveness to 250cc bolus of NS. Given 1 L IVF yesterday 03/22/2025 Diagnostic Tests: Continuous ECG monitoring for rate and rhythm, Chest X-ray was negative for aspiration PNA, and clear to auscultation on PE; Continue to monitor Lactate Plan: Continue with Amiodarone gtt transitioned to PO 200mg BID. Weaned off Phenyleprine and patient maintain MAP > 65. #Shock - resolved Differential Diagnosis: Most likely volume depletion in the setting of acute volume loss from diarrhea either colitis vs gasteroenteritis vs adrenal insufficiency Diagnostic Tests:Blood cultures, Stool studies: C. difficile, calprotectin, Giardia, ova & parasites, WBCs, Imaging: CT Plan:Continue ceftriaxone 1g daily and metronidazole 500mg every 8 hours for broad-spectrum coverage. C. difficile testing pending; monitor for further signs of infection. Continue supportive care with IV fluids and reassess fluid balance with NICOM. Monitor for any signs of worsening infection or end-organ damage. Wean phenyleprine as tolerated to maintain MAP > 65; Gave a x 1 of stress dose hydrocortisone. #Elevated Troponin - resolved Differential Diagnosis: Type II NSTEMI (likely secondary to sepsis or tachycardia) vs Type I AZ (unlikely due to absence of chest pain) Trops have downtrended, NSTEMI type II confirmed Diagnostic Tests: Serial troponin levels, EKG Plan: Continue to trend troponins. Repeat EKG if new symptoms arise. Monitor vital signs and cardiac status closely. Manage tachycardia with rate control using amiodarone as needed. #Hx of CAD History of PCI where he had 2 stents placed, and previously on Brilinta. Patient unsure of who his outpatient dietitian is. Plan: Hold aspirin temporarily due to suspected gastritis/colitis.Monitor for signs of ACS (chest pain, EKG changes). Resume antiplatelet therapy once gastroenteritis is ruled out. PULM #Acute hypoxic respiratory failure - improved Patient currently on 2L NC, doesn't use O2 at home. Most likely in the setting of sepsis. Patient maintained oxygen saturation with NC turned off. Chest CT shows bibasilar pneumonia. Physical exam did not reveal any rales, rhonchi or crackles. Plan: Continue supportive care for sepsis. Consider bronchodilators if signs of respiratory distress worsen. Wean O2 as tolerated. If respiratory distress worsens, consider chest CT to rule out pulmonary embolism, worsening pneumonia, or fluid overload. GI #Suspected colitis #Gastritis DDx: likely secondary to immunotherapy (nivolumab/ipilimumab) or C. difficile (due to immunosuppressive therapy) Diarrhea for 3 weeks, likely the source of infection. correction steroid use. CTAP shows diffuse nonspecific colitis pattern. C. diff negative. Dr. Hightower consulted, wants patient on low residue diet, and ordered stool tests, will perform colonoscopy if all stool tests are negative. Patient had diarrhea type 7 per bristol chart, all fluid, all green 2-3 BMs today. Diagnostic test: Stool studies ordered for C. difficile, Giardia, ova & parasites, and WBCs, Dr. Hightower also ordered his own stool studies, will consider colonoscopy if they are all negative. Plan: Continue metronidazole and ceftriaxone. Monitor for signs of worsening GI bleeding or perforation. RENAL #PAULIE #Lactic acidosis Most likely prerenal due to dehydration from diarrhea and sepsis. Elevated creatinine (3.6) BUN/creatinine ratio is 13.6, not indicative of prerenal azotemia but still concerns for sepsis-induced PAULIE. Urine output 790mL/24 hrs, UOP ideal 0.5mL/kg/hr = 58.3mL/hr. Patient has improved urine output. He reports not drinking any water for multiple days. Improved mucosal moistness. Jordan catheter removed. Diagnostic test: UO and CMP, electrolytes, trend lactic acid Plan: Monitor UO, and CMP. Avoid nephrotoxic agents and continue treating underlying infection. If urine output declines or renal function worsens, consider renal replacement therapy. #Electrolyte imbalance Patient presented with a K+ of 2.7 on repeat labs. Repeat renal panel showed K 3.8. Plan: Continue to replete as needed to keep K+ goal > 4 and Mag goal >2 HEME/ONC #Malignant Melanoma with possible metastasis Differential Diagnosis: Metastatic melanoma (liver, lung, adrenal, or other sites) vs Immunotherapy-related adverse effects Diagnostic Tests: Oncology medical records from [facility] for prior imaging and follow-up have been obtained and given to primary team. Consider CT abdomen/pelvis with contrast to assess for metastasis. Assess LDH levels as an indicator of malignancy progression. Plan:Obtain comprehensive records from oncology. Monitor for signs of progression (weight loss, pain, new masses). Consider PET scan outpatient if clinically indicated to evaluate for metastasis. Continue with patient's steroid dose of at least 50mg Prednisone, 50mg hydrocortisone IV Q6HR given. ENDO #Hyperglycemia Differential Diagnosis: Stress-induced hyperglycemia (likely acute phase response to sepsis) vs Underlying undiagnosed diabetes Diagnostic Tests:A1c is 7.2%, patient's age precludes diabetes diagnosis, 7.2% is healthy in older adult. Glucose monitoring every 4-6 hours. Plan: Monitor BG closely. Start insulin sliding scale as needed for glucose control. ID #Sepsis likely secondary to colitis/gastroenteritis DDx: possible immunosuppressive therapy (nivolumab/ipilimumab) increasing risk of immune-mediated colitis. Plan: Continue empiric antibiotics (ceftriaxone, metronidazole). Await stool studies (C. difficile, calprotectin). Monitor for any signs of worsening infection or new sources. MSK stable Health Maintenance: DVT prophylaxis: Lovenox 30mg SC GI prophylaxis: Protonix Jordan: Removed Lines: PIV CODE STATUS: Full code Disposition: Downgraded to floors for management of intractable diarrhea most likely secondary to immunotherapy. Patient's care and plan discussed with my attending, Dr. Mckenzie and senior resident Dr. Kashif Pratt PGY-1
--- NOTE | 2025-03-23 10:50 | PD.INTPROG ---
Documentation for date of: 03/23/25 Subjective Subjective Interval history: This is an 84-year-old gentleman who presented overnight for ongoing diarrhea for the last 3 weeks. Patient was noted to have a fever of over 102. He does have a history of immunosuppression secondary to chemotherapy for malignant melanoma. Apparently the patient's current GI distress began after the fourth infusion of chemotherapy. He was given 5 L of IV fluids overnight and was still hypotensive and therefore started on vasopressors. This morning patient is awake alert and cooperative with exam. He denies any chest pain or shortness of breath. He denies any abdominal pain at this point in time. 03/23- no acute overnight events, still has diarrhea however now off levophed, feels fatigued, adequate UOP, afebrile Critical Care Note Critical care time (min.): 0 Exam Vital Signs Temp Pulse Resp BP Pulse Ox O2 Del Method O2 Flow Rate 96.9 F 60 15 151/70 H 98 Room Air 1 03/23/25 08:00 03/23/25 10:00 03/23/25 10:00 03/23/25 10:00 03/23/25 10:00 03/22/25 18:00 03/22/25 16:00 Narrative Exam Gen- NAD, AAOx4, nl body habitus HEENT- NC/AT, mucosa hydrated, sclera anicteric, EOMI, PERRL Chest- LCTAB, HRRR, no wheeze/crackles, no increase WOB Abd- soft, slightly distended, no pain on palp, bowel sounds + Ext- no mottling, no clubbing, moves all 4, pulses palp Physical Exam Completion Physical Exam Complete?: Yes 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 03/23/25 04:30 03/23/25 04:30 Labs: Laboratory Results - last 24 hr 03/22/25 03/22/25 03/22/25 03:42 12:07 15:36 WBC RBC Hgb Hct MCV MCH MCHC RDW Std Deviation Plt Count Neut % (Auto) Lymph % (Auto) Dickenson % (Auto) Eos % (Auto) Baso % (Auto) Neut # (Auto) Lymph # (Auto) Dickenson # (Auto) Eos # (Auto) Baso # (Auto) Immature Gran # (Auto) Absolute Nucleated RBC Immature Gran % Nucleated RBC % ESR Sodium 141 Potassium 3.8 D Chloride 113 H Carbon Dioxide 18.9 L Anion Gap 9 BUN 58 H Creatinine 4.0 H Estim Creat Clear Calc 19.9 L eGFR 14 L* BUN/Creatinine Ratio 15 Glucose 180 H Calculated Osmolality 302 H Lactic Acid 1.5 Calcium 7.3 L Corrected Calcium 8.4 L Phosphorus 5.1 Magnesium Total Bilirubin AST ALT Alkaline Phosphatase Troponin I 1.606 H* D C-Reactive Prot, Quant Total Protein 4.7 L Albumin 2.6 L Globulin 2.2 L Albumin/Globulin Ratio 1.1 L Thyroxine (T4) 03/22/25 03/23/25 03/23/25 21:33 00:16 04:30 WBC 18.2 H D RBC 4.28 L Hgb 12.2 L Hct 38.0 L MCV 89 MCH 28.5 MCHC 32.1 RDW Std Deviation 52.5 H Plt Count 269 D Neut % (Auto) 91 H Lymph % (Auto) 4 L Dickenson % (Auto) 2 Eos % (Auto) 0 Baso % (Auto) 1 Neut # (Auto) 16.6 H Lymph # (Auto) 0.8 L Dickenson # (Auto) 0.4 Eos # (Auto) 0.0 Baso # (Auto) 0.1 Immature Gran # (Auto) 0.38 H Absolute Nucleated RBC 0.00 Immature Gran % 2 H Nucleated RBC % 0 ESR 28 H Sodium 140 143 Potassium 3.5 3.5 Chloride 111 H 113 H Carbon Dioxide 18.0 L 19.3 L Anion Gap 11 11 BUN 38 H 54 H Creatinine 4.0 H 4.1 H* Estim Creat Clear Calc 19.9 L 19.4 L eGFR 14 L* 14 L* BUN/Creatinine Ratio 10 L 13 Glucose 277 H D 197 H D Calculated Osmolality 298 H 304 H Lactic Acid 1.4 Calcium 6.9 L 7.4 L Corrected Calcium 7.9 L 8.4 L Phosphorus 5.5 H Magnesium 2.0 Total Bilirubin 0.2 L AST 17 ALT 11 Alkaline Phosphatase 72 Troponin I 1.451 H* 1.057 H* D C-Reactive Prot, Quant 23.4 H Total Protein 5.2 L Albumin 2.8 L 2.8 L Globulin 2.4 Albumin/Globulin Ratio 1.2 Thyroxine (T4) 2.6 L Assessment & Plan Additional Assessment Additional Assessment: In summary this is an 84-year-old male admitted to the ICU with shock undifferentiated possible hypovolemia 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 pneumonia-noted on CT however unclear if this is pneumonia versus atelectasis, encourage I-S, on antibiotics, requiring minimal FiO2 - PNA felt to be less likely Renal Hypokalemia-aggressively repleted -improved today Hyperchloremic acidosis-will give additional fluids and this is likely due to bicarb losses from the stool. - slow improvement PAULIE-prerenal versus ATN. UA was bland and did not show any casts or WBCs. Patient is on a ARB as well as a diuretic at home at baseline. This likely exacerbated his current dehydration and volume depletion. - remains with good UOP at this time - likely ATN GI Gastritis/colitis-unclear if this is infectious versus secondary to his chemotherapeutic agents and immune mediated. -started on antibiotics and follow-up on cultures. Abundant WBCs noted in the stool and a calprotectin level has been sent. 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 steroid resistant immune colitis which would require biologic agents Nutrition-clear liquids as tolerated - advance as tolerated Endo Adrenal insufficiency-patient states that he takes prednisone 17.5 mg in the morning daily. He has been taking prednisone daily for the last 3 years. The exact diagnosis is unclear from the patient however given the description of the reason why he is taking the prednisone it does sound like he was diagnosed with adrenal insufficiency and started on pred at home. - cont stress dose steroids Heme Leukocytosis-patient appears to have had a white count for several years it is unclear what his baseline is. Will follow-up on cultures and records. The patient is on steroids. - trending down Anemia-patient is had a drop in his hemoglobin from 16-12 however he has received several liters of IV fluids and at this moment time is felt to be likely dilutional. ID Sepsis-culture sent and pending, on antibiotics Case discussed with ICU team and family Labs, imaging records reviewed Approximately 36 minutes required for evaluation, exam, review, intervention, discussion formulation plan of care physical clear patient with shock and colitis at high risk for further and ongoing decompensation Provider Notation Provider Notation: Although this document has been carefully reviewed, there may still be some phonetic and other typographical errors. These errors are purely grammatical due to imperfections in the software program and should not be construed in any way to compromise the substance of the patient's medical care during this visit. Thank you for the opportunity and privilege in assisting you with this patient's care and management.
--- NOTE | 2025-03-23 11:16 | PD.IMPROG ---
Documentation for date of: 03/23/25 Subjective Subjective Interval history: Patient evaluated Stool test are still pending Exam Vital Signs Temp Pulse Resp BP Pulse Ox O2 Del Method O2 Flow Rate 96.9 F 60 15 151/70 H 98 Room Air 1 03/23/25 08:00 03/23/25 10:00 03/23/25 10:00 03/23/25 10:00 03/23/25 10:00 03/22/25 18:00 03/22/25 16:00 Objective Labs 03/24/25 04:41 03/24/25 04:41 Labs: Laboratory Results - last 24 hr 03/22/25 03/22/25 03/22/25 03:42 12:07 15:36 WBC RBC Hgb Hct MCV MCH MCHC RDW Std Deviation Plt Count Neut % (Auto) Lymph % (Auto) Elliott % (Auto) Eos % (Auto) Baso % (Auto) Neut # (Auto) Lymph # (Auto) Elliott # (Auto) Eos # (Auto) Baso # (Auto) Immature Gran # (Auto) Absolute Nucleated RBC Immature Gran % Nucleated RBC % ESR Sodium 141 Potassium 3.8 D Chloride 113 H Carbon Dioxide 18.9 L Anion Gap 9 BUN 58 H Creatinine 4.0 H Estim Creat Clear Calc 19.9 L eGFR 14 L* BUN/Creatinine Ratio 15 Glucose 180 H Calculated Osmolality 302 H Lactic Acid 1.5 Calcium 7.3 L Corrected Calcium 8.4 L Phosphorus 5.1 Magnesium Total Bilirubin AST ALT Alkaline Phosphatase Troponin I 1.606 H* D C-Reactive Prot, Quant Total Protein 4.7 L Albumin 2.6 L Globulin 2.2 L Albumin/Globulin Ratio 1.1 L Thyroxine (T4) 03/22/25 03/23/25 03/23/25 21:33 00:16 04:30 WBC 18.2 H D RBC 4.28 L Hgb 12.2 L Hct 38.0 L MCV 89 MCH 28.5 MCHC 32.1 RDW Std Deviation 52.5 H Plt Count 269 D Neut % (Auto) 91 H Lymph % (Auto) 4 L Elliott % (Auto) 2 Eos % (Auto) 0 Baso % (Auto) 1 Neut # (Auto) 16.6 H Lymph # (Auto) 0.8 L Elliott # (Auto) 0.4 Eos # (Auto) 0.0 Baso # (Auto) 0.1 Immature Gran # (Auto) 0.38 H Absolute Nucleated RBC 0.00 Immature Gran % 2 H Nucleated RBC % 0 ESR 28 H Sodium 140 143 Potassium 3.5 3.5 Chloride 111 H 113 H Carbon Dioxide 18.0 L 19.3 L Anion Gap 11 11 BUN 38 H 54 H Creatinine 4.0 H 4.1 H* Estim Creat Clear Calc 19.9 L 19.4 L eGFR 14 L* 14 L* BUN/Creatinine Ratio 10 L 13 Glucose 277 H D 197 H D Calculated Osmolality 298 H 304 H Lactic Acid 1.4 Calcium 6.9 L 7.4 L Corrected Calcium 7.9 L 8.4 L Phosphorus 5.5 H Magnesium 2.0 Total Bilirubin 0.2 L AST 17 ALT 11 Alkaline Phosphatase 72 Troponin I 1.451 H* 1.057 H* D C-Reactive Prot, Quant 23.4 H Total Protein 5.2 L Albumin 2.8 L 2.8 L Globulin 2.4 Albumin/Globulin Ratio 1.2 Thyroxine (T4) 2.6 L Impressions Impression: Most likely chemotherapy induced diarrhea Lets wait for the stool test and if negative will consider colonoscopy ABG Interpretation ABG results: 03/22/25 09:17 VBG pH 7.33 VBG pCO2 33 L VBG pO2 51 VBG Base Excess -8 L Assessment & Plan A&P Narrative # Chronic persistent diarrhea etiology uncertain CT scan of the abdomen pelvis without Cesar showing diffuse colitis Differential diagnosis include Chemotherapy induced colitis Infectious enterocolitis Inflammatory bowel disease acute onset C. difficile enterocolitis Suggestions Complete stool panel Fecal calprotectin Culture and sensitivity of the stool Giardia antigen CRP If negative Will consider colonoscopy with biopsies Other medical problems include Shock PAULIE NSTEMI Coronary artery disease status post PTCA Milligram melanoma on chemotherapy Essential hypertension Thank you very much for the opportunity to participate in the care of this patient Time Spent With Patient Time: Total time spent is greater than 50% in coordination of care (as documented) at patient's floor/unit and/or counseling patient:
--- NOTE | 2025-03-23 14:34 | PC.PT ---
Patient is safe to use the toilet/bathroom with 1 staff and no AD. RN made aware.
--- NOTE | 2025-03-23 15:47 | ESPR_ITS ---
<Statement entered by Francois Solares MD - 03/23/25 21:24> ICU downgrade after experiencing multiple, watery bowel movements for the last few weeks prior to admission likely causing hypovolemic shock and required short stint of pressors in the ICU. Noted to have a history of malignant melanoma on nivolumab and ipilimumab with suspicions for autoimmune colitis, versus chemotherapy induced colitis. Currently pending stool cultures and other stool tests but will continue ceftriaxone and Flagyl. GI following. Regarding atrial fibrillation, cardiology has been consulted and currently on amiodarone and will follow-up on recommendations. Otherwise, creatinine also elevated for which she is on maintenance fluids and will continue to monitor kidney function. ----- Note reviewed and agree with care plan as documented. Please refer to the note below for further details. Plan discussed with attending physician Dr. Nusrat Solares MD PGY-2 Internal Medicine Documentation for date of: 03/23/25 Subjective Subjective Interval history: Downgrade from ICU for hypovolemic shock 2/2 diarrhea, previously requiring short stint of vasopressor support but now normotensive. Additionally noted to have new-onset atrial fibrillation on amiodarone. Upon evaluation he is alert, oriented, and conversive and understands plan of transitioning to medicine floor for further management. Diarrhea etiology unclear at this time whether it is due to infectious etiology versus chemotherapeutic agent. WBCs present and stool within. Calprotectin, CMV, and stool cultures pending. Currently on ceftriaxone and Flagyl. Oncology consulted and expressed that this may be secondary to immune mediated colitis. Extensive cancer history as noted below from [facility], [place]): Metastatic melanoma, diagnosed 06/2020 with metastasis to liver and brain on chemotherapy with Nivolumab/Ipilimumab. Primary melanoma of the L forearm, 1.2mm thick, non-ulcerated; PD-L1 0%, BRAF wild-type. S/p wide-local excision w/ left axillary SLNB 06/29/[address] Terence Franco, positive in 2/2 lymph nodes - stage IIIb(pT2a, pN2a, M0). Left axillary LN reoccurence noted 07/2024. PET scan 07/17/2020 reviewed by radiology suspicious for increased metabolic activity at the level of C3 and T2 suspicious for bony metastasis. Oncological care by Dr. Ron Medrano . Started IPI3/NIVO1 chemotherapy 12/15/2024 and tolerated tx, w/ significant clinical response to L axillary mass psot C2. 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 MRI brain 06/2023 noted increase in size of left anterior cerebral falx meningioma. Exam Vital Signs Temp Pulse Resp BP Pulse Ox O2 Del Method O2 Flow Rate 96.9 F 60 17 134/69 H 98 Room Air 1 03/23/25 08:00 03/23/25 12:03/23/25 12:03/23/25 12:03/23/25 12:03/22/25 18:00 03/22/25 16:00 Narrative Exam General: alert and oriented to self/place/year, no acute distress, able to speak full sentences HEENT: NC/AT, mucous membranes moist, bilateral sclera anicteric Cardiovascular: regular rate and rhythm, S1/S2 present, no murmurs appreciated Pulmonary: clear to auscultation bilaterally, no rales/rhonchi/wheezes Abdominal: soft, nontender, present bowel sounds Musculoskeletal: no peripheral edema Skin: warm, well-perfused Constitutional Constitutional: no acute distress (pt axox4 GCS 15, able to answer questions clearly and does not endorse any pain or palpitations) Routine HEENT Exam Head: Present normocephalic and atraumatic Routine Neck Exam Neck: Present supple Routine Respiratory Exam Respiratory: Present chest non-tender, lungs clear and normal breath sounds Routine Cardiovascular Exam Cardiovascular: Present RRR Routine Extremities Exam Extremities: Present pulses intact and normal capillary refill Routine Neurological Exam Neurological: Present alert and oriented X3 Objective Labs 03/24/25 04:41 03/24/25 04:41 Labs: Laboratory Results - last 24 hr 03/22/25 03/22/25 03/23/25 15:36 21:33 00:16 WBC RBC Hgb Hct MCV MCH MCHC RDW Std Deviation Plt Count Neut % (Auto) Lymph % (Auto) Dillon % (Auto) Eos % (Auto) Baso % (Auto) Neut # (Auto) Lymph # (Auto) Dillon # (Auto) Eos # (Auto) Baso # (Auto) Immature Gran # (Auto) Absolute Nucleated RBC Immature Gran % Nucleated RBC % ESR 28 H Sodium 140 Potassium 3.5 Chloride 111 H Carbon Dioxide 18.0 L Anion Gap 11 BUN 38 H Creatinine 4.0 H Estim Creat Clear Calc 19.9 L eGFR 14 L* BUN/Creatinine Ratio 10 L Glucose 277 H D Calculated Osmolality 298 H Lactic Acid 1.5 1.4 Calcium 6.9 L Corrected Calcium 7.9 L Phosphorus 5.5 H Magnesium 2.0 Total Bilirubin AST ALT Alkaline Phosphatase Troponin I 1.606 H* D 1.451 H* C-Reactive Prot, Quant 23.4 H Total Protein Albumin 2.8 L Globulin Albumin/Globulin Ratio Thyroxine (T4) 03/23/25 04:30 WBC 18.2 H D RBC 4.28 L Hgb 12.2 L Hct 38.0 L MCV 89 MCH 28.5 MCHC 32.1 RDW Std Deviation 52.5 H Plt Count 269 D Neut % (Auto) 91 H Lymph % (Auto) 4 L Dillon % (Auto) 2 Eos % (Auto) 0 Baso % (Auto) 1 Neut # (Auto) 16.6 H Lymph # (Auto) 0.8 L Dillon # (Auto) 0.4 Eos # (Auto) 0.0 Baso # (Auto) 0.1 Immature Gran # (Auto) 0.38 H Absolute Nucleated RBC 0.00 Immature Gran % 2 H Nucleated RBC % 0 ESR Sodium 143 Potassium 3.5 Chloride 113 H Carbon Dioxide 19.3 L Anion Gap 11 BUN 54 H Creatinine 4.1 H* Estim Creat Clear Calc 19.4 L eGFR 14 L* BUN/Creatinine Ratio 13 Glucose 197 H D Calculated Osmolality 304 H Lactic Acid Calcium 7.4 L Corrected Calcium 8.4 L Phosphorus Magnesium Total Bilirubin 0.2 L AST 17 ALT 11 Alkaline Phosphatase 72 Troponin I 1.057 H* D C-Reactive Prot, Quant Total Protein 5.2 L Albumin 2.8 L Globulin 2.4 Albumin/Globulin Ratio 1.2 Thyroxine (T4) 2.6 L ABG Interpretation ABG results: 03/22/25 09:17 VBG pH 7.33 VBG pCO2 33 L VBG pO2 51 VBG Base Excess -8 L Quality Measures Quality Measures none Advance care planning discussed with:: patient Assessment & Plan Assessment Current Active Medications: Generic Name Dose Route Start Last Admin Trade Name Freq PRN Reason Stop Dose Admin Amiodarone HCl 200 mg 03/23/25 09:00 03/23/25 09:31 Amiodarone Hcl 200 Mg Tablet PO 04/22/25 08:59 200 mg BID KARLEY Administration Dextrose 25 ml 03/22/25 15:44 Dextrose 50%-Water Inj 50 Ml Syringe IV 04/21/25 15:43 Q15MIN PRN BG 50-70 responsive npo pt Dextrose 50 ml 03/22/25 15:44 Dextrose 50%-Water Inj 50 Ml Syringe IV 04/21/25 15:43 Q15MIN PRN BG <50 OR BG <70 & pt unresponsive Enoxaparin Sodium 30 mg 03/22/25 09:00 03/23/25 08:45 Enoxaparin Sod Inj 30 Mg/0.3 Ml Syringe SC 04/05/25 08:59 30 mg QDAY KARLEY Administration Protocol Glucagon 1 mg 03/22/25 15:44 Glucagon Inj 1 Mg Vial IM Q15MIN PRN BG <70, and no IV access Hydrocortisone Sodium Succinate 50 mg 03/22/25 12:00 03/23/25 12:59 Hydrocortisone Sod Succ Inj 100 Mg 2 Ml Vial IV 04/21/25 11:59 50 mg Q6HR KARLEY Administration Metronidazole 500 mg in 100 mls @ 200 mls/hr 03/22/25 06:30 03/23/25 14:56 Flagyl 500 Mg Iv IV 03/29/25 06:29 200 mls/hr Q8HR KARLEY Administration Ceftriaxone Sodium/Dextrose 1 gm in 50 mls @ 100 mls/hr 03/22/25 09:00 03/23/25 08:45 Rocephin/D5w 1gm Iv Premix IV 03/29/25 08:59 100 mls/hr QDAY KARLEY Administration Insulin Human Lispro 0 unit 03/22/25 17:00 03/23/25 12:55 Insulin Lispro (Admelog) 1 Unit/0.01 Ml Unit SC 04/21/25 16:59 Not Given ACHS KARLEY Protocol Pantoprazole Sodium 40 mg 03/22/25 09:00 03/23/25 08:44 Pantoprazole Inj 40 Mg Vial IVP 04/21/25 08:59 40 mg QDAY KARLEY Administration Plan Mr. Cunha is a 84-year-old male with a past medical history of malignant melanoma on chemotherapy, coronary artery disease status post 2 stent placements, hypertension, history of bladder cancer presented to the ED on 03/21/2025 with 3 weeks of diarrhea and admitted for suspected sepsis secondary to gastroenteritis and PAULIE likely prerenal in the setting of severe gastroenteritis. Decision was made to start patient on phenylephrine and upgrade to ICU for further management but downgraded to floors on 03/23. #Sepsis #Leukocytosis - improving #Hypovolemic shock - resolved WBC 18.2 today from 23.8 yesterday 03/[address] elevated CRP [address] noted for bibasilar pneumonia Blood cultures pending Stool testing pending -Continue ceftriaxone 1g q24h(day, metronidazole 500mg q8H -F/u with cultures and stool testing -Daily CBC CMP Mg Phos #Diarrhea #Gastritis Chemotherapy-induced vs infectious vs other Consulted Dr. Hightower: appreciate recs Previous colonoscopy 10/11/2020 for metastatic workup: polyps found in descending, sigmoid colons and cecum; unclear pathology report and planned colonoscopy September 2025 -Follow up/pending: complete stool panel fecal calprotectin Giardia Antigen Cdiff Follow up with Dr. Hightower regarding possible colonoscopy +/- biopsies #Atrial fibrillation New-onset, due to infection vs dehydration vs other IV Amiodarone transitioned to PO -Continue Amiodarone 200mg PO BID -Enoxaparin 30mg SC Q24h #Electrolyte Abnormalities #Hypokalemia - resolved #Hyperchloremic Acidosis #High Creatinine Creatinine 4.1 uptrending from 3.6 03/21 05/23 GI loss -Continue LR 100ml/hr for fluid loss -Strict K, Mg, daily electrolyte repletion as needed #Anemia Hgb 12.2 from 12.8, 16.1 previously Likely hemodilutional -Continue to monitor H/H daily labs -Transfuse at Hgb < 7.0 #Melanoma with metastasis #Chemotherapy Primary left arm melanoma w/ diffuse metastasis Wide Local Excision by Dr. Terence Franco On IPI3/NIVO1 chemotherapy, last infusion 02/28/2025 Metastasis to Liver, Lung, Brain Oncological care by Dr. Ron [phone] -Contact Dr. Medrano regarding cancer treatment regimen and previous tolerance #Steroid Use Previous reported prednisone dose 80mg, now tapered to 17.5mg daily for the past 3 years Use for immunotherapy-associated arthritis -Continue Hydrocortisone 50mg IV injections Q6h for arthritis, and pneumonia tx #Elevated Troponins 1.057 today from 1.451 yesterday 03/22/2025 Not endorsing chest pain/tightness Likely due to metabolic stress/demand -Continue to monitor, f/u troponins 12/4 AM Hospital management: Disposition: pending stool cultures on IV abx, new onset atrial fibrillation with cardiology consulted IVF: LR at 100 cc/h Diet: low microbial Lines: PIV DVT prophylaxis: lovenox CODE STATUS: full code ----- Plan discussed with attending physician Dr. Silverio and senior resident Dr. Beck Ny MD PGY-1 Attending Provider Attestation/Addendum I, Carey Silverio DO, attest that I was physically present for the moran portions of the service and evaluated the patient with the resident and I reviewed and discussed the case with the resident and agree with the resident's findings and plans of care as documented above Patient is an 84-year-old male with past medical history of metastatic melanoma on immunotherapy, CAD status post stent placement, hypertension, bladder cancer presented to the ED with generalized weakness and ongoing diarrhea for 3 weeks. Patient describes the diarrhea as watery. He has been taking chronic steroids along with his immunotherapy, and has had occasional diarrhea. However, his oncologist in [place] had increased his steroids with some improvement of the watery diarrhea for a short period of time, but restarted when he began his steroid taper. Patient denies any abdominal pain, but endorses nausea and vomiting. He was also noted to have a fever of 102 on presentation. He denies any dysuria. Patient was subsequently admitted to the ICU due to hypovolemic shock, as well as A-fib with RVR. Patient was started on phenylephrine and amiodarone drip. Cardiology has been consulted as well. Patient was also started on stress dose steroids of hydrocortisone 50 mg IV every 6 hours. Patient has been weaned off vasopressors and A-fib with RVR has resolved. Patient has been in sinus rhythm. Patient does have an acute kidney injury, likely secondary to prerenal azotemia in the setting of hypovolemia secondary to diarrhea. Patient has been downgraded from ICU. GI is following and patient will ultimately need a colonoscopy. Will follow-up with stool studies at this time. Will taper hydrocortisone if patient condition continues to improve.
[2025-03-23] MEDS: RINGERS LACTATED 1000 ML 1,000 ML 100 ML IV (18:51)
[2025-03-23] MEDS: LIDOCAINE 2% VISCOUS 10 ML, DiphenhydrAMINE 25 MG, MG HYD/AL HYD/SIME SUSP 30 ML, NYSTA... PO (19:30)
[2025-03-24] VITALS (9 sets, daily range): BP systolic 132–150; BP diastolic 62–71; PULSE 56–65; RESP 9–21; TEMP 35.8–36.6; O2SAT 94–97; BMI 28.2
[2025-03-24] MEDS: HYDROCORTISONE SOD SUCC INJ 100 MG 2 ML VIAL 50 MG IV ×4 (00:19→19:53)
[2025-03-24] MEDS: RINGERS LACTATED 1000 ML 1,000 ML 100 ML IV ×2 (04:32→20:02)
[2025-03-24 05:51] LABS: Basophils # (Auto) 0.1 Thou/mm3 (0.0-0.2); Basophils % (Auto) 1 % (0-2.5); Eosinophils # (Auto) 0.0 Thou/mm3 (0.0-0.5); Eosinophils % (Auto) 0 % (0-10); Hematocrit 37.7 % (41.0-53.0); Hemoglobin 12.0 g/dL (13.5-16.0); Immature Granulocytes Auto 0.33 Thou/mm3 (0.00-0.00); Lymphocytes # (Auto) 0.5 Thou/mm3 (1.0-4.8); Lymphocytes % (Auto) 4 % (10-50); Mean Corpuscular HGB Conc 31.8 g/dl (31.0-37.0); Mean Corpuscular Hemoglobin 27.6 pg (25.0-35.0); Mean Corpuscular Volume 87 fL (80-100); Monocytes # (Auto) 0.4 Thou/mm3 (0.0-0.8); Monocytes % (Auto) 3 % (0-12); Neutrophils # (Auto) 11.1 Thou/mm3 (1.8-7.7); Neutrophils % (Auto) 90 % (37-80); Nucleated Red Blood Cell # 0.00 Thou/mm3 (0.00-0.00); Nucleated Red Blood Cell % 0 /100 WBC (0); Platelet Count 269 Thou/mm3 (140-440); RDW Standard Deviation 51.7 fL (35.1-43.9); Red Blood Count 4.35 Miln/mm3 (4.50-5.90); White Blood Count 12.3 Thou/mm3 (3.8-10.6)
[2025-03-24] MEDS: metroNIDAZOLE/NS 500 MG IVPB 500 MG/100 ML BAG 200 MG IV ×3 (06:13→21:14)
[2025-03-24 06:54] LABS: Anion Gap 12 (7-16); BUN/Creatinine Ratio 15 Ratio (12-20); Blood Urea Nitrogen 52 mg/dL (9-23); Carbon Dioxide 17.1 mMol/L (20.0-31.0); Chloride 118 mMol/L (98-107); Creatinine (Component) 3.4 mg/dL (0.6-1.3); Potassium 3.3 mMol/L (3.4-5.1); Sodium 147 mMol/L (136-145)
[2025-03-24 06:55] LABS: Albumin, Serum 2.8 gm/dL (3.4-4.8); Albumin/Globulin Ratio 1.2 (1.2-2.2); Alkaline Phosphatase 75 U/L (46-116); Aspartate Amino Transferase 11 U/L (0-34); Bilirubin,Total < 0.2 mg/dL (0.3-1.2); Calcium 7.3 mg/dL (8.3-10.6); Calcium (Corrected) 8.3 mg/dL (8.5-10.1); Estimated Creatinine Clearance 23.4 mL/min (>60); Free T4 (Free Thyroxine) 0.92 ng/dL (0.89-1.76); Globulin 2.3 gm/dL (2.3-3.5); Glucose 159 mg/dL (74-106); Magnesium 2.3 mg/dL (1.6-2.6); Osmolality,Calculated 309 (275-295); Phosphorous 4.8 mg/dL (2.4-5.1); Total Protein 5.1 gm/dL (5.7-8.2); eGFR 17 See Note
[2025-03-24 07:01] LABS: Troponin I 0.542 ng/mL (0.0-0.045)
[2025-03-24 07:07] LABS: Alanine Aminotransferase 9 U/L (10-49)
[2025-03-24] MEDS: AMIODARONE HCL 200 MG TABLET PO ×2 (08:48→20:13)
[2025-03-24] MEDS: ENOXAPARIN SOD INJ 30 MG/0.3 ML SYRINGE SC (08:50)
[2025-03-24] MEDS: POTASSIUM CHL 10 mEq IVPB 10 MEQ/100 ML BAG 100 MEQ IV ×4 (08:51→12:24)
[2025-03-24] MEDS: cefTRIAXone/D5w 1gm IV premix 1 GM/50 ML BAG IV (08:51)
--- NOTE | 2025-03-24 09:00 | EKG_ITS ---
[facility] Test Date: 2025-03-24 Pat Name: GERI MA [facility] Land Manager: HANNA : 1940 Requested By: Xiang Narvaez Order Number: [id number] Reading MD: Xiang Narvaez Measurements Intervals [place] Rate: 58 P: 37 PA: 187 QRS: 46 QRSD: 105 T: 47 QT: 476 QTc: 471 Interpretive Statements SINUS BRADYCARDIA PROLONGED QT INTERVAL Compared to ECG 03/21/2025 21:38:07 Prolonged QT interval now present Sinus rhythm no longer present /store/S0/[id number]
--- NOTE | 2025-03-24 09:00 | PD.RESPRO ---
Documentation for date of: 03/24/25 Subjective Subjective Interval history: Patient seen and examined at bedside. Patient is alert oriented x 3, denies any chest pain currently. Repeat EKG today shows Sinus Rhythm. Kidney function is improving, patient's kidney injury likely secondary to ATN. Patient downgraded to telemetry. GI is following. Reports that he's still having diarrhea. Exam Vital Signs Temp Pulse Resp BP Pulse Ox O2 Del Method O2 Flow Rate 97.8 F 61 9 L 150/68 H 95 Room Air 1 03/24/25 04:00 03/24/25 08:48 03/24/25 04:00 03/24/25 08:48 03/24/25 04:00 03/22/25 18:00 03/22/25 16:00 Narrative Exam Physical Exam General: Awake, tired and in no acute distress. Conversational and on room air HEENT: Normocephalic, atraumatic, mucous membranes moist. Heart: Sinus rhythm, no murmurs. Lungs: Clear to auscultation with no wheezing or crackles. Abdomen: Soft, nondistended, nontender, positive bowel sounds. ?No guarding or rebound tenderness. Neurologic: Alert and oriented x3, no gross neurological deficit, and patient able to move all 4 extremities. Extremities: Trace bilateral lower extremity edema Skin: No rash or ecchymoses. Objective Labs 03/25/25 04:17 03/25/25 12:11 Labs: Laboratory Results - last 24 hr 03/24/25 04:41 WBC 12.3 H D RBC 4.35 L Hgb 12.0 L Hct 37.7 L MCV 87 MCH 27.6 MCHC 31.8 RDW Std Deviation 51.7 H Plt Count 269 Neut % (Auto) 90 H Lymph % (Auto) 4 L [place] % (Auto) 3 Eos % (Auto) 0 Baso % (Auto) 1 Neut # (Auto) 11.1 H Lymph # (Auto) 0.5 L [place] # (Auto) 0.4 Eos # (Auto) 0.0 Baso # (Auto) 0.1 Immature Gran # (Auto) 0.33 H Absolute Nucleated RBC 0.00 Immature Gran % 3 H Nucleated RBC % 0 Sodium 147 H Potassium 3.3 L Chloride 118 H Carbon Dioxide 17.1 L Anion Gap 12 BUN 52 H Creatinine 3.4 H D Estim Creat Clear Calc 23.4 L eGFR 17 L BUN/Creatinine Ratio 15 Glucose 159 H Calculated Osmolality 309 H Calcium 7.3 L Corrected Calcium 8.3 L Phosphorus 4.8 Magnesium 2.3 Total Bilirubin < 0.2 L AST 11 ALT 9 L Alkaline Phosphatase 75 Troponin I 0.542 H* D Total Protein 5.1 L Albumin 2.8 L Globulin 2.3 Albumin/Globulin Ratio 1.2 Free T4 0.92 ABG Interpretation ABG results: 03/22/25 09:17 VBG pH 7.33 VBG pCO2 33 L VBG pO2 51 VBG Base Excess -8 L Quality Measures Quality Measures none Advance care planning discussed with:: patient Assessment & Plan Assessment Current Active Medications: Generic Name Dose Route Start Last Admin Trade Name Freq PRN Reason Stop Dose Admin Amiodarone HCl 200 mg 03/23/25 09:00 03/24/25 08:48 Amiodarone Hcl 200 Mg Tablet PO 04/22/25 08:59 200 mg BID KARLEY Administration Dextrose 25 ml 03/22/25 15:44 Dextrose 50%-Water Inj 50 Ml Syringe IV 04/21/25 15:43 Q15MIN PRN BG 50-70 responsive npo pt Dextrose 50 ml 03/22/25 15:44 Dextrose 50%-Water Inj 50 Ml Syringe IV 04/21/25 15:43 Q15MIN PRN BG <50 OR BG <70 & pt unresponsive Enoxaparin Sodium 30 mg 03/22/25 09:00 03/24/25 08:50 Enoxaparin Sod Inj 30 Mg/0.3 Ml Syringe SC 04/05/25 08:59 30 mg QDAY KARLEY Administration Protocol Glucagon 1 mg 03/22/25 15:44 Glucagon Inj 1 Mg Vial IM Q15MIN PRN BG <70, and no IV access Hydrocortisone Sodium Succinate 50 mg 03/22/25 12:00 03/24/25 06:12 Hydrocortisone Sod Succ Inj 100 Mg 2 Ml Vial IV 04/21/25 11:59 50 mg Q6HR KARLEY Administration Metronidazole 500 mg in 100 mls @ 200 mls/hr 03/22/25 06:30 03/24/25 06:13 Flagyl 500 Mg Iv IV 03/29/25 06:29 200 mls/hr Q8HR KARLEY Administration Ceftriaxone Sodium/Dextrose 1 gm in 50 mls @ 100 mls/hr 03/22/25 09:00 12/04/25 08:51 Rocephin/D5w 1gm Iv Premix IV 03/29/25 08:59 100 mls/hr QDAY KARLEY Administration Lactated Ringer's 1,000 mls @ 100 mls/hr 03/23/25 18:37 03/24/25 04:32 Lactated Ringers IV 04/22/25 18:36 100 mls/hr .Q10H KARLEY Administration Potassium Chloride 10 meq in 100 mls @ 100 mls/hr 03/24/25 07:41 03/24/25 08:51 Kcl Ivpb IV 03/24/25 11:40 100 mls/hr Q1H KARLEY Administration Insulin Human Lispro 0 unit 03/22/25 17:00 03/23/25 21:40 Insulin Lispro (Admelog) 1 Unit/0.01 Ml Unit SC 04/21/25 16:59 Not Given ACHS KARLEY Protocol Pantoprazole Sodium 40 mg 03/22/25 09:00 03/24/25 08:49 Pantoprazole Inj 40 Mg Vial IVP 04/21/25 08:59 40 mg QDAY KARLEY Administration Plan Assessment and Plan: Summary: Mr. Cunha is a 84-year-old male with past medical history of malignant melanoma diagnosed in 2020 on chemotherapy (nivolumab and ipilimumab) follows Dr Medrano, [facility] last chemotherapy session 3 weeks ago, CAD status post PCI follows Dr. Arango, remote history of bladder cancer about 20 years ago, hypertension and BPH who presented to [facility] emergency department on 03/21/2025 with a chief complaint of diarrhea for the last 3 weeks. Patient admitted to telemetry and then upgraded to intensive care unit in setting of distributive shock secondary to gastroenteritis along with new onset A-fib RVR started on phenylephrine. #New onset A-fib RVR, resolved #Diastolic Dysfunction Grade I Patient admitted for sepsis, no history of atrial fibrillation or conduction abnormalities. Overnight patient went into RVR heart rate in 140s, noted to be A-fib RVR. Patient started on amiodarone drip meanwhile patient also noted to be hypotensive despite 5 L fluid resuscitation started on phenylephrine and upgraded to intensive care unit. [id number] score: 4 points Patient at bedside right now noted to be in sinus rhythm Lipid panel shows cholesterol 75, triglyceride 168, LDL 17, HDL 24, A1c 7.2, TSH 0.51 Echocardiogram 03/22/2025: Left ventricle size is normal and systolic function is normal. Estimated ejection fraction is 55-60%. There is grade I diastolic dysfunction. There is mild concentric hypertrophy noted. Right ventricle chamber size is normal and systolic function is normal. Estimated RVSP is 15 mmHg. Posterior mitral valve annulus mildy calcified. Trace MR and TR. There is trace tricuspid valve regurgitation. Prominent pericardial fat pad seen. The left atrium is mildly enlarged. The right atrium is normal. Recommendations: - Continue amiodarone 200 mg p.o. twice daily and can be decreased to 200 mg daily after one months - Start patient on anticoagulation to decrease stroke risk recommend heparin GTT or Eliquis 2.5mg BID when no contraindications. - Continue telemonitoring - Keep magnesium greater than 2 and potassium greater than 4 at all times, replete aggressively - Repeat thyroid function outpatient #Coronary artery disease status post 2 stents #NSTEMI type II likely demand ischemia Patient denies any chest pain currently, troponin on presentation 0.162 -> 0.180 -> 0.522 -> 1.606 -> 1.451 -> 1.057 EKG on presentation shows no acute ST-T changes Patient did report that he had 2 stents placed respectively in 2018 and 2019. -Echocardiogram negative for regional wall abnormalities -Does seem like troponin elevation is likely type II in setting of sepsis secondary to gastroenteritis/GI source -Patient will need cardiac catheterisation at a later point once stable. -Patient does have PAULIE on CKD for clearance of troponin as well. #PAULIE on ?CKD likely ATN Patient presented with continuous multiple episodes of diarrhea over the last 3 weeks, on presentation creatinine 3.6 BUN 49 and GFR 16, no previous baseline known, continue to monitor urine output. Kidney injury likely prerenal versus ATN, urine analysis negative for casts or WBCs. Patient on ARB's and diuretic at home ?Continue to monitor renal function ?Consider obtaining renal ultrasound to rule out chronic changes #Acute encephalopathy #Distributive shock versus hypovolemic shock #Hypokalemia #Gastritis and colitis #Adrenal insufficiency #Leukocytosis #Anemia #Low TSH/? Euthyroid sick syndrome #Diabetes mellitus, A1c 7.2 - Management as per primary team Case discussed with Attending Physician Dr. Pastor Narvaez MD Internal Medicine PGY-2 Disclaimer: This note was dictated by speech recognition. Minor errors in inspector ball points may be present due to voice recognition software. Attending Provider Attestation/Addendum I have personally seen and examined the patient separately on the above date of service and discussed the plan of care with the resident. I reviewed the resident Dr. Xiang Narvaez consultation progress note and agree with the resident findings and plan in the note above and have also edited the documentation to reflect my findings and plan. Pastor Avendaño M.D. Interventional Cardiology
[2025-03-24] MEDS: LIDOCAINE 2% VISCOUS 10 ML, DiphenhydrAMINE 25 MG, MG HYD/AL HYD/SIME SUSP 30 ML, NYSTA... PO (11:08)
--- NOTE | 2025-03-24 13:09 | PC.SS ---
[employer]OR [employer] conducted bedside contact with the patient conduct initial assessment and to discuss discharge planning.? Patient confirmed demographic information.? Patient resides at home with spouse, Nancy Cunha .? Patient is retired.? Patient does not utilize any form of DME to assist with ambulation.? Patient does not utilize home oxygen.? Patient describes the ability to complete ADL?s independently.? Patient identified spouse, Nancy Cunha; as surrogate medical decision maker.? Patient could not recall name of PCP.? Patient reports that he not participated in a PCP appointment in years.? Per patient, appointments conducted with specialty providers.? Patient utilizes [facility] for immunotherapy services.? Patient?s advanced practice provider is Dr. Bland.? Patient utilizes [facility] for medication services.? Patient does not participate with dialysis.? Patient reports access to basic utilities and provisions.? Patient does report any residential concerns.? Plan is for the patient to return home at the time of discharge.? Family will provide transportation on behalf of the patient.? No further discharge needs identified by the patient.? No further intervention required at this time, social service agency director will be available to address any further concerns.? Next of Kin: Nancy Alphonse D/C Plan: Home
--- NOTE | 2025-03-24 15:38 | ESPR_ITS ---
<Statement entered by Francois Solares MD - 03/24/25 18:10> No acute overnight events. Seen and examined at bedside and states that he is having more solid bowel movements but still relatively frequently. Denies any abdominal pain. Touch base with GI and will evaluate patient for need for colonoscopy. Work with physical therapy who recommended outpatient PT upon discharge. Vital signs show pulse of 50 but otherwise he is on room air and has been afebrile. CBC shows improving leukocytosis, stable hemoglobin. CHEM panel shows K at 3.3 and was repleted in addition to HCO3 of 17 and was started on Bicitra. Renal function improving with IVF and will continue. Stool studies, including calprotectin, Giardia, norovirus, ova and parasite still pending. Also touch base with patient's oncologist who states that combination chemotherapy commonly causes immune colitis. States that he will address patient's chemotherapy regimen during next appointment to agents that are far less likely to cause patient's symptoms. ----- Note reviewed and agree with care plan as documented. Please refer to the note below for further details. Plan discussed with attending physician Dr. Nusrat Solares MD PGY-2 Internal Medicine Documentation for date of: 03/24/25 Subjective Subjective Interval history: Pt is alert and awake, Mr. Cunha understands the plan to continue to improve while in the hospital and managment of electrolytes. Pending stool cultures and colonoscopy with Dr. Hightower. He has been ambulatory throughout the day and has passed 1x nonbloody stool that he states is progressively solid. He has remained afebrile without any concerns in laboratory workup. Trops downtrending 0.542 from 1.057. [address] Ron [phone]: confirmed tx w/ Novilumab and Ipilimumab; was on 4th dose of tx 02/28/2025 that started 12/15. Inflammatory colitis is a very common side effect of tx and his suspicion is that pt's presenting sx is from treatment. Dr. Medrano will continue to follow Mr. Cunha outpt and will look to evaluate options for alternative tx. Exam Vital Signs Temp Pulse Resp BP Pulse Ox O2 Del Method O2 Flow Rate 96.9 F 61 16 143/70 H 97 Room Air 1 03/24/25 12:00 03/24/25 12:00 03/24/25 12:00 03/24/25 12:00 03/24/25 12:00 03/22/25 18:00 03/22/25 16:00 Narrative Exam General: alert and oriented to self/place/year, no acute distress, able to speak full sentences; sleepy this morning but arousable AxOx4 GCS 14 HEENT: NC/AT, mucous membranes moist, bilateral sclera anicteric Cardiovascular: regular rate and rhythm, S1/S2 present, no murmurs appreciated Pulmonary: clear to auscultation bilaterally, no rales/rhonchi/wheezes Abdominal: soft, nontender, present bowel sounds Musculoskeletal: no peripheral edema Skin: Warm, well-perfused Objective Labs 03/25/25 04:17 03/25/25 04:17 Labs: Laboratory Results - last 24 hr 03/24/25 04:41 WBC 12.3 H D RBC 4.35 L Hgb 12.0 L Hct 37.7 L MCV 87 MCH 27.6 MCHC 31.8 RDW Std Deviation 51.7 H Plt Count 269 Neut % (Auto) 90 H Lymph % (Auto) 4 L [place] % (Auto) 3 Eos % (Auto) 0 Baso % (Auto) 1 Neut # (Auto) 11.1 H Lymph # (Auto) 0.5 L [place] # (Auto) 0.4 Eos # (Auto) 0.0 Baso # (Auto) 0.1 Immature Gran # (Auto) 0.33 H Absolute Nucleated RBC 0.00 Immature Gran % 3 H Nucleated RBC % 0 Sodium 147 H Potassium 3.3 L Chloride 118 H Carbon Dioxide 17.1 L Anion Gap 12 BUN 52 H Creatinine 3.4 H D Estim Creat Clear Calc 23.4 L eGFR 17 L BUN/Creatinine Ratio 15 Glucose 159 H Calculated Osmolality 309 H Calcium 7.3 L Corrected Calcium 8.3 L Phosphorus 4.8 Magnesium 2.3 Total Bilirubin < 0.2 L AST 11 ALT 9 L Alkaline Phosphatase 75 Troponin I 0.542 H* D Total Protein 5.1 L Albumin 2.8 L Globulin 2.3 Albumin/Globulin Ratio 1.2 Free T4 0.92 ABG Interpretation ABG results: 03/22/25 09:17 VBG pH 7.33 VBG pCO2 33 L VBG pO2 51 VBG Base Excess -8 L Quality Measures Quality Measures none Advance care planning discussed with:: patient Assessment & Plan Assessment Current Active Medications: Generic Name Dose Route Start Last Admin Trade Name Freq PRN Reason Stop Dose Admin Amiodarone HCl 200 mg 03/23/25 09:00 03/24/25 08:48 Amiodarone Hcl 200 Mg Tablet PO 04/22/25 08:59 200 mg BID KARLEY Administration Citric Acid/Sodium Citrate 30 ml 03/24/25 21:00 Citric Acid/Sodium Citr 15 Ml Udc (Bicitra) PO 04/23/25 20:59 BID KARLEY Lidocaine HCl 10 ml/ 0 ml 03/24/25 11:49 Diphenhydramine HCl 25 mg/ Al PO 03/31/25 11:59 Hydrox/Mg Hydrox/Simethicone BID PRN 30 ml/ Nystatin 10 ml mouth pain/ulcers Dextrose 25 ml 03/22/25 15:44 Dextrose 50%-Water Inj 50 Ml Syringe IV 04/21/25 15:43 Q15MIN PRN BG 50-70 responsive npo pt Dextrose 50 ml 03/22/25 15:44 Dextrose 50%-Water Inj 50 Ml Syringe IV 04/21/25 15:43 Q15MIN PRN BG <50 OR BG <70 & pt unresponsive Enoxaparin Sodium 30 mg 03/22/25 09:00 03/24/25 08:50 Enoxaparin Sod Inj 30 Mg/0.3 Ml Syringe SC 04/05/25 08:59 30 mg QDAY KARLEY Administration Protocol Glucagon 1 mg 03/22/25 15:44 Glucagon Inj 1 Mg Vial IM Q15MIN PRN BG <70, and no IV access Hydrocortisone Sodium Succinate 50 mg 03/24/25 10:30 03/24/25 11:00 Hydrocortisone Sod Succ Inj 100 Mg 2 Ml Vial IV 04/23/25 10:29 50 mg Q8H KARLEY Administration Metronidazole 500 mg in 100 mls @ 200 mls/hr 03/22/25 06:30 03/24/25 13:40 Flagyl 500 Mg Iv IV 03/29/25 06:29 200 mls/hr Q8HR KARLEY Administration Ceftriaxone Sodium/Dextrose 1 gm in 50 mls @ 100 mls/hr 03/22/25 09:00 03/24/25 08:51 Rocephin/D5w 1gm Iv Premix IV 03/29/25 08:59 100 mls/hr QDAY KARLEY Administration Lactated Ringer's 1,000 mls @ 100 mls/hr 03/23/25 18:37 03/24/25 04:32 Lactated Ringers IV 04/22/25 18:36 100 mls/hr .Q10H KARLEY Administration Insulin Human Lispro 0 unit 03/22/25 17:00 03/24/25 12:38 Insulin Lispro (Admelog) 1 Unit/0.01 Ml Unit SC 04/21/25 16:59 Not Given ACHS KARLEY Protocol Pantoprazole Sodium 40 mg 03/22/25 09:00 03/24/25 08:49 Pantoprazole Inj 40 Mg Vial IVP 04/21/25 08:59 40 mg QDAY KARLEY Administration Plan Plan Mr. Cunha is a 84-year-old male with a past medical history of malignant melanoma on chemotherapy, coronary artery disease status post 2 stent placements, hypertension, history of bladder cancer presented to the ED on 03/21/2025 with 3 weeks of diarrhea and admitted for suspected sepsis secondary to gastroenteritis and PAULIE likely prerenal in the setting of severe gastroenteritis. Decision was made to start patient on phenylephrine and upgrade to ICU for further management but downgraded to floors on 03/23. #Sepsis #Leukocytosis - improving #Hypovolemic shock - resolved WBC 18.2 today from 23.8 yesterday; improved to 12.3 today 03/22 elevated CRP [address] noted for bibasilar pneumonia Blood cultures pending Stool testing pending -Continue ceftriaxone 1g q24h(day, metronidazole 500mg q8H -Lab/nursing did not collect stool sample, to collect C diff and Giardia stool sample today for sendout 03/24 -Daily CBC CMP Mg Phos #Diarrhea #Gastritis Chemotherapy-induced vs infectious vs other Consulted Dr. Hightower: appreciate recs Previous colonoscopy 10/11/2020 for metastatic workup: polyps found in descending, sigmoid colons and cecum; unclear pathology report and planned colonoscopy September 2025 -Follow up/pending: complete stool panel fecal calprotectin Giardia Antigen Cdiff -Bicitra, magic mouth wash -Dr. Hightower to perform colonoscopy once stool labs result #Atrial fibrillation, new onset #CAD s/p 2 stents #Diastolic Dysfunction Grade 1 Echocardiogram 03/22/2025: Left ventricle size is normal and systolic function is normal. Estimated ejection fraction is 55-60%. New-onset, due to infection vs dehydration vs other Now in sinus rhythm [id number] score 4 points IV Amiodarone transitioned to PO Contacted by Dr. Padilla regarding amiodarone, electrolyte repletion -Continue Amiodarone 200mg PO BID -Enoxaparin 30mg SC Q24h -Telemonitoring -K, Mg repletion >4 and >2, respectively -to have a cardiac catheterization once stable #Electrolyte Abnormalities #Hypokalemia - resolved #Hyperchloremic Acidosis #High Creatinine Creatinine 4.1 uptrending from 3.6 03/21; downtrending today 3.4 2/2 GI loss -Continue LR 100ml/hr for fluid loss and maintenance -Strict K, Mg, daily electrolyte repletion as needed #Anemia Hgb 12.2 from 12.8, 16.1 previously; 12 today Likely hemodilutional -Continue to monitor H/H daily labs -Transfuse at Hgb < 7.0 #Melanoma with metastasis #Chemotherapy Primary left arm melanoma w/ diffuse metastasis Wide Local Excision by Dr. Terence Franco On IPI3/NIVO1 chemotherapy, last infusion 02/28/2025 Metastasis to Liver, Lung, Brain Oncological care by Dr. Ron [phone] -To follow up outpt for treatment with Dr. Rno Medrano regarding cancer tx #Steroid Use Previous reported prednisone dose 80mg, now tapered to 17.5mg daily for the past 3 years Use for immunotherapy-associated arthritis -Hydorcortisone 50mg q6h -> 50mg q8h #Elevated Troponins 1.057 today from 1.451 yesterday 03/22/2025 Not endorsing chest pain/tightness Likely due to metabolic stress/demand -Continue to monitor, f/u troponins 12/4 AM Hospital management: Disposition: pending stool cultures on IV abx, new onset atrial fibrillation with cardiology consulted IVF: LR at 100 cc/h Diet: low microbial Lines: PIV DVT prophylaxis: lovenox CODE STATUS: full code Attending Provider Attestation/Addendum Carey Glover DO, attest that I was physically present for the moran portions of the service and evaluated the patient with the resident and I reviewed and discussed the case with the resident and agree with the resident's findings and plans of care as documented above Patient seen and evaluated this AM. He states that he is feeling better today and had a formed BM, which he has not had for a while. Will start taper of hydrocortisone as patient has been hemodynamically stable. Patient reports mouth pain has been much improved with magic mouthwash. Will f/u with GI as patient will need colonoscopy.
--- NOTE | 2025-03-24 20:12 | ESPR_ITS ---
Documentation for date of: 03/24/25 Subjective Subjective Interval history: Patient evaluated C. difficile enterotoxin is negative Will prep the patient for colonoscopy hopefully to be done tomorrow Start the GoLBPG [place] today Clear liquid diet Colonoscopy recommended make sure there is no underlying inflammatory bowel disease Exam Vital Signs Temp Pulse Resp BP Pulse Ox O2 Del Method O2 Flow Rate 96.9 F 58 L 13 136/65 H 97 Room Air 1 03/24/25 12:00 03/24/25 16:00 03/24/25 16:00 03/24/25 16:00 03/24/25 16:00 03/22/25 18:00 03/22/25 16:00 Objective Labs 03/24/25 04:41 03/24/25 04:41 Labs: Laboratory Results - last 24 hr 03/24/25 03/24/25 04:41 17:17 WBC 12.3 H D RBC 4.35 L Hgb 12.0 L Hct 37.7 L MCV 87 MCH 27.6 MCHC 31.8 RDW Std Deviation 51.7 H Plt Count 269 Neut % (Auto) 90 H Lymph % (Auto) 4 L [place] % (Auto) 3 Eos % (Auto) 0 Baso % (Auto) 1 Neut # (Auto) 11.1 H Lymph # (Auto) 0.5 L [place] # (Auto) 0.4 Eos # (Auto) 0.0 Baso # (Auto) 0.1 Immature Gran # (Auto) 0.33 H Absolute Nucleated RBC 0.00 Immature Gran % 3 H Nucleated RBC % 0 Sodium 147 H Potassium 3.3 L Chloride 118 H Carbon Dioxide 17.1 L Anion Gap 12 BUN 52 H Creatinine 3.4 H D Estim Creat Clear Calc 23.4 L eGFR 17 L BUN/Creatinine Ratio 15 Glucose 159 H Calculated Osmolality 309 H Calcium 7.3 L Corrected Calcium 8.3 L Phosphorus 4.8 Magnesium 2.3 Total Bilirubin < 0.2 L AST 11 ALT 9 L Alkaline Phosphatase 75 Troponin I 0.542 H* D Total Protein 5.1 L Albumin 2.8 L Globulin 2.3 Albumin/Globulin Ratio 1.2 Free T4 0.92 Stool Calprotectin Cancelled Impressions Impression: Chemotherapy induced colitis Rule out any other evidence of infectious enterocolitis or inflammatory bowel disease Colonoscopy prep Consent obtained for fiberoptic colonoscopy with possible biopsy possible therapeutic intervention under intravenous moderate sedation ABG Interpretation ABG results: 03/22/25 09:17 VBG pH 7.33 VBG pCO2 33 L VBG pO2 51 VBG Base Excess -8 L Assessment & Plan A&P Narrative # Chronic persistent diarrhea etiology uncertain CT scan of the abdomen pelvis without Cesar showing diffuse colitis Differential diagnosis include Chemotherapy induced colitis Infectious enterocolitis Inflammatory bowel disease acute onset C. difficile enterocolitis Suggestions Complete stool panel Fecal calprotectin Culture and sensitivity of the stool Giardia antigen CRP If negative Will consider colonoscopy with biopsies Other medical problems include Shock PAULIE NSTEMI Coronary artery disease status post PTCA [place] melanoma on chemotherapy Essential hypertension Thank you very much for the opportunity to participate in the care of this patient Time Spent With Patient Time: Total time spent is greater than 50% in coordination of care (as documented) at patient's floor/unit and/or counseling patient:
[2025-03-24] MEDS: CITRIC ACID/SODIUM CITR 15 ML UDC (BICITRA) 30 ML PO (20:21)
[2025-03-24] MEDS: NA SU/NAHCO3/KC/PEG (Golytely) 4,000 ML BTL 4000 ML PO (20:45)
[2025-03-24 21:17] LABS: Stool for WBCs 2+ (Negative)
[2025-03-25] VITALS (13 sets, daily range): BP systolic 134–160; BP diastolic 66–93; PULSE 56–70; RESP 14–19; TEMP 36–36.3; O2SAT 95–97; BMI 29.0
[2025-03-25] MEDS: HYDROCORTISONE SOD SUCC INJ 100 MG 2 ML VIAL 50 MG IV ×3 (02:56→17:36)
[2025-03-25 05:52] LABS: Basophils # (Auto) 0.0 Thou/mm3 (0.0-0.2); Basophils % (Auto) 1 % (0-2.5); Eosinophils # (Auto) 0.0 Thou/mm3 (0.0-0.5); Eosinophils % (Auto) 0 % (0-10); Hematocrit 37.0 % (41.0-53.0); Hemoglobin 11.7 g/dL (13.5-16.0); Immature Granulocytes Auto 0.23 Thou/mm3 (0.00-0.00); Lymphocytes # (Auto) 0.7 Thou/mm3 (1.0-4.8); Lymphocytes % (Auto) 8 % (10-50); Mean Corpuscular HGB Conc 31.6 g/dl (31.0-37.0); Mean Corpuscular Hemoglobin 27.7 pg (25.0-35.0); Mean Corpuscular Volume 88 fL (80-100); Monocytes # (Auto) 0.5 Thou/mm3 (0.0-0.8); Monocytes % (Auto) 6 % (0-12); Neutrophils # (Auto) 7.3 Thou/mm3 (1.8-7.7); Neutrophils % (Auto) 83 % (37-80); Nucleated Red Blood Cell # 0.00 Thou/mm3 (0.00-0.00); Nucleated Red Blood Cell % 0 /100 WBC (0); Platelet Count 229 Thou/mm3 (140-440); RDW Standard Deviation 53.7 fL (35.1-43.9); Red Blood Count 4.22 Miln/mm3 (4.50-5.90); White Blood Count 8.8 Thou/mm3 (3.8-10.6)
[2025-03-25] MEDS: metroNIDAZOLE/NS 500 MG IVPB 500 MG/100 ML BAG 200 MG IV ×3 (05:58→21:28)
[2025-03-25 06:10] LABS: Alanine Aminotransferase 16 U/L (10-49); Albumin, Serum 2.9 gm/dL (3.4-4.8); Albumin/Globulin Ratio 1.3 (1.2-2.2); Alkaline Phosphatase 108 U/L (46-116); Anion Gap 9 (7-16); Aspartate Amino Transferase 18 U/L (0-34); BUN/Creatinine Ratio 18 Ratio (12-20); Bilirubin,Total 0.2 mg/dL (0.3-1.2); Blood Urea Nitrogen 54 mg/dL (9-23); Calcium 7.5 mg/dL (8.3-10.6); Calcium (Corrected) 8.4 mg/dL (8.5-10.1); Carbon Dioxide 18.9 mMol/L (20.0-31.0); Chloride 119 mMol/L (98-107); Creatinine (Component) 3.0 mg/dL (0.6-1.3); Estimated Creatinine Clearance 26.5 mL/min (>60); Globulin 2.3 gm/dL (2.3-3.5); Glucose 166 mg/dL (74-106); Magnesium 2.5 mg/dL (1.6-2.6); Osmolality,Calculated 311 (275-295); Phosphorous 2.8 mg/dL (2.4-5.1); Potassium 3.0 mMol/L (3.4-5.1); Sodium 147 mMol/L (136-145); Total Protein 5.2 gm/dL (5.7-8.2); eGFR 20 See Note
[2025-03-25 06:20] LABS: Giardia Result NOT DETECTED
[2025-03-25] MEDS: AMIODARONE HCL 200 MG TABLET PO ×2 (08:13→20:05)
[2025-03-25] MEDS: CITRIC ACID/SODIUM CITR 15 ML UDC (BICITRA) 30 ML PO (08:13)
[2025-03-25] MEDS: ENOXAPARIN SOD INJ 30 MG/0.3 ML SYRINGE SC (08:13)
[2025-03-25] MEDS: cefTRIAXone/D5w 1gm IV premix 1 GM/50 ML BAG IV (08:14)
[2025-03-25] MEDS: POTASSIUM PHOS 22.5 MMOL in SODIUM CHLORIDE 0.9% 500 ML 500 ML 82.778 MMOL IV (08:57)
[2025-03-25] MEDS: POTASSIUM CHLORIDE 10% 20 MEQ/15 ML UDC 40 MEQ GT ×2 (09:01→09:44)
--- NOTE | 2025-03-25 09:53 | PD.RESPRO ---
Documentation for date of: 03/25/25 Subjective Subjective Interval history: Patient seen and examined at bedside. Patient is alert oriented x 3, denies any chest pain currently. Repeat EKG shows Sinus Rhythm. Kidney function is improving, patient's kidney injury likely secondary to ATN. Patient downgraded to telemetry. GI is following, pending colonoscopy. Potassium repleted by primrary team. Exam Vital Signs Temp Pulse Resp BP Pulse Ox O2 Del Method O2 Flow Rate 97.1 F 65 16 134/78 H 95 Room Air 1 03/25/25 08:00 03/25/25 08:13 03/25/25 08:00 03/25/25 08:13 03/25/25 08:00 03/25/25 08:00 03/22/25 16:00 Narrative Exam Physical Exam General: Awake, tired and in no acute distress. Conversational and on room air HEENT: Normocephalic, atraumatic, mucous membranes moist. Heart: Sinus rhythm, no murmurs. Lungs: Clear to auscultation with no wheezing or crackles. Abdomen: Soft, nondistended, nontender, positive bowel sounds. ?No guarding or rebound tenderness. Neurologic: Alert and oriented x3, no gross neurological deficit, and patient able to move all 4 extremities. Extremities: Trace bilateral lower extremity edema Skin: No rash or ecchymoses. Objective Labs 03/25/25 04:17 03/25/25 12:11 Labs: Laboratory Results - last 24 hr 03/21/25 03/24/25 03/25/25 21:46 17:17 04:17 WBC 8.8 RBC 4.22 L Hgb 11.7 L Hct 37.0 L MCV 88 MCH 27.7 MCHC 31.6 RDW Std Deviation 53.7 H Plt Count 229 D Neut % (Auto) 83 H Lymph % (Auto) 8 L [place] % (Auto) 6 Eos % (Auto) 0 Baso % (Auto) 1 Neut # (Auto) 7.3 Lymph # (Auto) 0.7 L [place] # (Auto) 0.5 Eos # (Auto) 0.0 Baso # (Auto) 0.0 Immature Gran # (Auto) 0.23 H Absolute Nucleated RBC 0.00 Immature Gran % 3 H Nucleated RBC % 0 Sodium 147 H Potassium 3.0 L Chloride 119 H Carbon Dioxide 18.9 L Anion Gap 9 BUN 54 H Creatinine 3.0 H Estim Creat Clear Calc 26.5 L eGFR 20 L BUN/Creatinine Ratio 18 Glucose 166 H Calculated Osmolality 311 H Calcium 7.5 L Corrected Calcium 8.4 L Phosphorus 2.8 Magnesium 2.5 Total Bilirubin 0.2 L AST 18 ALT 16 Alkaline Phosphatase 108 D Total Protein 5.2 L Albumin 2.9 L Globulin 2.3 Albumin/Globulin Ratio 1.3 Stool for White Cells 2+ A Stool Calprotectin Cancelled Stl Giardia Antigen NOT DETECTED ABG Interpretation ABG results: 03/22/25 09:17 VBG pH 7.33 VBG pCO2 33 L VBG pO2 51 VBG Base Excess -8 L Quality Measures Quality Measures none Advance care planning discussed with:: patient Assessment & Plan Assessment Current Active Medications: Generic Name Dose Route Start Last Admin Trade Name Freq PRN Reason Stop Dose Admin Amiodarone HCl 200 mg 03/23/25 09:00 03/25/25 08:13 Amiodarone Hcl 200 Mg Tablet PO 04/22/25 08:59 200 mg BID KARLEY Administration Citric Acid/Sodium Citrate 30 ml 03/24/25 21:00 03/25/25 08:13 Citric Acid/Sodium Citr 15 Ml Udc (Bicitra) PO 04/23/25 20:59 30 ml BID KARLEY Administration Lidocaine HCl 10 ml/ 0 ml 03/24/25 11:49 Diphenhydramine HCl 25 mg/ Al PO 03/31/25 11:59 Hydrox/Mg Hydrox/Simethicone BID PRN 30 ml/ Nystatin 10 ml mouth pain/ulcers Dextrose 25 ml 03/22/25 15:44 Dextrose 50%-Water Inj 50 Ml Syringe IV 04/21/25 15:43 Q15MIN PRN BG 50-70 responsive npo pt Dextrose 50 ml 03/22/25 15:44 Dextrose 50%-Water Inj 50 Ml Syringe IV 04/21/25 15:43 Q15MIN PRN BG <50 OR BG <70 & pt unresponsive Enoxaparin Sodium 30 mg 03/22/25 09:00 03/25/25 08:13 Enoxaparin Sod Inj 30 Mg/0.3 Ml Syringe SC 04/05/25 08:59 30 mg QDAY KARLEY Administration Protocol Glucagon 1 mg 03/22/25 15:44 Glucagon Inj 1 Mg Vial IM Q15MIN PRN BG <70, and no IV access Hydrocortisone Sodium Succinate 50 mg 03/24/25 10:30 03/25/25 09:45 Hydrocortisone Sod Succ Inj 100 Mg 2 Ml Vial IV 04/23/25 10:29 50 mg Q8H KARLEY Administration Metronidazole 500 mg in 100 mls @ 200 mls/hr 03/22/25 06:30 03/25/25 05:58 Flagyl 500 Mg Iv IV 03/29/25 06:29 200 mls/hr Q8HR KARLEY Administration Ceftriaxone Sodium/Dextrose 1 gm in 50 mls @ 100 mls/hr 03/22/25 09:00 03/25/25 08:14 Rocephin/D5w 1gm Iv Premix IV 03/29/25 08:59 100 mls/hr QDAY KARLEY Administration Lactated Ringer's 1,000 mls @ 100 mls/hr 03/23/25 18:37 03/24/25 20:02 Lactated Ringers IV 04/22/25 18:36 100 mls/hr .Q10H KARLEY Administration Potassium Phosphate 22.5 mmol/ 507.5 mls @ 82.778 mls/hr 03/25/25 09:00 03/25/25 08:57 Sodium Chloride IV 03/25/25 15:07 82.778 mls/hr X1 ONE Administration Insulin Human Lispro 0 unit 03/22/25 17:00 03/25/25 07:09 Insulin Lispro (Admelog) 1 Unit/0.01 Ml Unit SC 04/21/25 16:59 Not Given ACHS KARLEY Protocol Pantoprazole Sodium 40 mg 03/22/25 09:00 03/25/25 08:13 Pantoprazole Inj 40 Mg Vial IVP 04/21/25 08:59 40 mg QDAY KARLEY Administration Plan Assessment and Plan: Summary: Mr. Cunha is a 84-year-old male with past medical history of malignant melanoma diagnosed in 2020 on chemotherapy (nivolumab and ipilimumab) follows Dr Medrano, [facility] last chemotherapy session 3 weeks ago, CAD status post PCI follows Dr. Arango, remote history of bladder cancer about 20 years ago, hypertension and BPH who presented to [facility] emergency department on 03/21/2025 with a chief complaint of diarrhea for the last 3 weeks. Patient admitted to telemetry and then upgraded to intensive care unit in setting of distributive shock secondary to gastroenteritis along with new onset A-fib RVR started on phenylephrine. #New onset A-fib RVR, resolved #Diastolic Dysfunction Grade I Patient admitted for sepsis, no history of atrial fibrillation or conduction abnormalities. Overnight patient went into RVR heart rate in 140s, noted to be A-fib RVR. Patient started on amiodarone drip meanwhile patient also noted to be hypotensive despite 5 L fluid resuscitation started on phenylephrine and upgraded to intensive care unit. [id number] score: 4 points Patient at bedside right now noted to be in sinus rhythm Lipid panel shows cholesterol 75, triglyceride 168, LDL 17, HDL 24, A1c 7.2, TSH 0.51 Echocardiogram 03/22/2025: Left ventricle size is normal and systolic function is normal. Estimated ejection fraction is 55-60%. There is grade I diastolic dysfunction. There is mild concentric hypertrophy noted. Right ventricle chamber size is normal and systolic function is normal. Estimated RVSP is 15 mmHg. Posterior mitral valve annulus mildy calcified. Trace MR and TR. There is trace tricuspid valve regurgitation. Prominent pericardial fat pad seen. The left atrium is mildly enlarged. The right atrium is normal. Recommendations: - Continue amiodarone 200 mg p.o. twice daily and can be decreased to 200 mg daily after one months - Start patient on anticoagulation to decrease stroke risk recommend heparin GTT or Eliquis 2.5mg BID when no contraindications. - Continue telemonitoring - Keep magnesium greater than 2 and potassium greater than 4 at all times, replete aggressively - Repeat thyroid function outpatient - Strict I&O #Coronary artery disease status post 2 stents #NSTEMI type II likely demand ischemia Patient denies any chest pain currently, troponin on presentation 0.162 -> 0.180 -> 0.522 -> 1.606 -> 1.451 -> 1.057 EKG on presentation shows no acute ST-T changes Patient did report that he had 2 stents placed respectively in 2018 and 2019. -Echocardiogram negative for regional wall abnormalities -Does seem like troponin elevation is likely type II in setting of sepsis secondary to gastroenteritis/GI source -Patient will need cardiac catheterisation at a later point once stable. -Patient does have PAULIE on CKD for clearance of troponin as well. #PAULIE on ?CKD likely ATN Patient presented with continuous multiple episodes of diarrhea over the last 3 weeks, on presentation creatinine 3.6 BUN 49 and GFR 16, no previous baseline known, continue to monitor urine output. Kidney injury likely prerenal versus ATN, urine analysis negative for casts or WBCs. Patient on ARB's and diuretic at home ?Continue to monitor renal function ?Consider obtaining renal ultrasound to rule out chronic changes #Acute encephalopathy #Distributive shock versus hypovolemic shock #Hypokalemia #Gastritis and colitis #Adrenal insufficiency #Leukocytosis #Anemia #Low TSH/? Euthyroid sick syndrome #Diabetes mellitus, A1c 7.2 - Management as per primary team Case discussed with Attending Physician Dr. Pastor Narvaez MD Internal Medicine PGY-2 Disclaimer: This note was dictated by speech recognition. Minor errors in cabinet abrasive sandblaster may be present due to voice recognition software. Attending Provider Attestation/Addendum I have personally seen and examined the patient separately on the above date of service and discussed the plan of care with the resident. I reviewed the resident Dr. Xiang Narvaez consultation progress note and agree with the resident findings and plan in the note above and have also edited the documentation to reflect my findings and plan. Pastor Avendaño M.D. Interventional Cardiology
[2025-03-25 10:23] LABS: Clostridium Difficile PCR Negative (Negative)
[2025-03-25] MEDS: LIDOCAINE 2% VISCOUS 10 ML, DiphenhydrAMINE 25 MG, MG HYD/AL HYD/SIME SUSP 30 ML, NYSTA... PO (12:45)
[2025-03-25 12:52] LABS: Anion Gap 12 (7-16); BUN/Creatinine Ratio 17 Ratio (12-20); Blood Urea Nitrogen 48 mg/dL (9-23); Calcium 7.5 mg/dL (8.3-10.6); Carbon Dioxide 20.8 mMol/L (20.0-31.0); Chloride 117 mMol/L (98-107); Creatinine (Component) 2.9 mg/dL (0.6-1.3); Estimated Creatinine Clearance 27.8 mL/min (>60); Glucose 154 mg/dL (74-106); Osmolality,Calculated 313 (275-295); Potassium 3.0 mMol/L (3.4-5.1); Sodium 150 mMol/L (136-145); eGFR 21 See Note
[2025-03-25] MEDS: RINGERS LACTATED 1000 ML 1,000 ML 100 ML IV (13:50)
[2025-03-25 13:51] LABS: Source STOOL
--- NOTE | 2025-03-25 14:29 | ESPR_ITS ---
<Statement entered by Francois Solares MD - 03/25/25 17:05> No acute overnight events. Seen and examined at bedside and patient preparing for colonoscopy at this time. States that he has some oral pain and informed him that he does have PRN Magic mouthwash. Otherwise he has no other complaints or concerns. Stool studies still pending. Vital signs stable. Leukocytosis has resolved, hemoglobin is stable. K 3.0 in a.m. and given approximately 60 mill equivalents and repeat in afternoon again show K of 3.0 and will be given another 60 mill equivalents, however acidosis and renal function improving. ----- Note reviewed and agree with care plan as documented. Please refer to the note below for further details. Plan discussed with attending physician Dr. Nusrat Solares MD PGY-2 Internal Medicine Documentation for date of: 03/25/25 Subjective Subjective Interval history: No acute events overnight. Patient complains of mouth pain; we made sure he has his magic mouth wash cocktail. Patient has been drinking the golytely with some small chunks of bowel remnants remaining with his bowel movements. Patient has no other concerns or complaints. Plan for colonoscopy pending stool labs. Exam Vital Signs Temp Pulse Resp BP Pulse Ox O2 Del Method O2 Flow Rate 97.3 F 68 19 152/66 H 97 Room Air 1 03/25/25 11:51 03/25/25 12:00 03/25/25 11:51 03/25/25 11:51 03/25/25 11:51 03/25/25 11:51 03/22/25 16:00 Narrative Exam General: A&Ox3, no acute distress, able to speak full sentences HEENT: NC/AT, mucous membranes moist, bilateral sclera anicteric Cardiovascular: regular rate and rhythm, S1/S2 present, no murmurs appreciated Pulmonary: clear to auscultation bilaterally, no rales/rhonchi/wheezes Abdominal: soft, nontender, present bowel sounds Musculoskeletal: no peripheral edema Skin: Warm, well-perfused Neuro: Grossly nonfocal. Moving all 4 extremities. CN not formally tested but appear grossly intact. Psychiatric: Cooperative, appropriate affect Objective Labs 03/26/25 05:16 03/26/25 05:16 Labs: Laboratory Results - last 24 hr 03/21/25 03/24/25 03/25/25 21:46 17:17 04:17 WBC 8.8 RBC 4.22 L Hgb 11.7 L Hct 37.0 L MCV 88 MCH 27.7 MCHC 31.6 RDW Std Deviation 53.7 H Plt Count 229 D Neut % (Auto) 83 H Lymph % (Auto) 8 L [place] % (Auto) 6 Eos % (Auto) 0 Baso % (Auto) 1 Neut # (Auto) 7.3 Lymph # (Auto) 0.7 L [place] # (Auto) 0.5 Eos # (Auto) 0.0 Baso # (Auto) 0.0 Immature Gran # (Auto) 0.23 H Absolute Nucleated RBC 0.00 Immature Gran % 3 H Nucleated RBC % 0 Sodium 147 H Potassium 3.0 L Chloride 119 H Carbon Dioxide 18.9 L Anion Gap 9 BUN 54 H Creatinine 3.0 H Estim Creat Clear Calc 26.5 L eGFR 20 L BUN/Creatinine Ratio 18 Glucose 166 H Calculated Osmolality 311 H Calcium 7.5 L Corrected Calcium 8.4 L Phosphorus 2.8 Magnesium 2.5 Total Bilirubin 0.2 L AST 18 ALT 16 Alkaline Phosphatase 108 D Total Protein 5.2 L Albumin 2.9 L Globulin 2.3 Albumin/Globulin Ratio 1.3 Stool for White Cells 2+ A Stool Calprotectin Cancelled Stl C. diff Tox B Gene Negative Stl Giardia Antigen NOT DETECTED 03/25/25 12:11 WBC RBC Hgb Hct MCV MCH MCHC RDW Std Deviation Plt Count Neut % (Auto) Lymph % (Auto) [place] % (Auto) Eos % (Auto) Baso % (Auto) Neut # (Auto) Lymph # (Auto) [place] # (Auto) Eos # (Auto) Baso # (Auto) Immature Gran # (Auto) Absolute Nucleated RBC Immature Gran % Nucleated RBC % Sodium 150 H Potassium 3.0 L Chloride 117 H Carbon Dioxide 20.8 Anion Gap 12 BUN 48 H Creatinine 2.9 H Estim Creat Clear Calc 27.8 L eGFR 21 L BUN/Creatinine Ratio 17 Glucose 154 H Calculated Osmolality 313 H Calcium 7.5 L Corrected Calcium Phosphorus Magnesium Total Bilirubin AST ALT Alkaline Phosphatase Total Protein Albumin Globulin Albumin/Globulin Ratio Stool for White Cells Stool Calprotectin Stl C. diff Tox B Gene Stl Giardia Antigen ABG Interpretation ABG results: 03/22/25 09:17 VBG pH 7.33 VBG pCO2 33 L VBG pO2 51 VBG Base Excess -8 L Quality Measures Quality Measures VTE prophylaxis Advance care planning discussed with:: patient Assessment & Plan Assessment Current Active Medications: Generic Name Dose Route Start Last Admin Trade Name Shannan PRN Reason Stop Dose Admin Amiodarone HCl 200 mg 03/23/25 09:00 03/25/25 08:13 Amiodarone Hcl 200 Mg Tablet PO 04/22/25 08:59 200 mg BID KARLEY Administration Citric Acid/Sodium Citrate 30 ml 03/24/25 21:00 03/25/25 08:13 Citric Acid/Sodium Citr 15 Ml Udc (Bicitra) PO 04/23/25 20:59 30 ml BID KARLEY Administration Lidocaine HCl 10 ml/ 0 ml 03/24/25 11:49 03/25/25 12:45 Diphenhydramine HCl 25 mg/ Al PO 03/31/25 11:59 1 dose Hydrox/Mg Hydrox/Simethicone BID PRN Administration 30 ml/ Nystatin 10 ml mouth pain/ulcers Dextrose 25 ml 03/22/25 15:44 Dextrose 50%-Water Inj 50 Ml Syringe IV 04/21/25 15:43 Q15MIN PRN BG 50-70 responsive npo pt Dextrose 50 ml 03/22/25 15:44 Dextrose 50%-Water Inj 50 Ml Syringe IV 04/21/25 15:43 Q15MIN PRN BG <50 OR BG <70 & pt unresponsive Enoxaparin Sodium 30 mg 03/22/25 09:00 03/25/25 08:13 Enoxaparin Sod Inj 30 Mg/0.3 Ml Syringe SC 04/05/25 08:59 30 mg QDAY KARLEY Administration Protocol Glucagon 1 mg 03/22/25 15:44 Glucagon Inj 1 Mg Vial IM Q15MIN PRN BG <70, and no IV access Hydrocortisone Sodium Succinate 50 mg 03/24/25 10:30 03/25/25 09:45 Hydrocortisone Sod Succ Inj 100 Mg 2 Ml Vial IV 04/23/25 10:29 50 mg Q8H KARLEY Administration Metronidazole 500 mg in 100 mls @ 200 mls/hr 03/22/25 06:30 03/25/25 13:50 Flagyl 500 Mg Iv IV 03/29/25 06:29 200 mls/hr Q8HR KARLEY Administration Ceftriaxone Sodium/Dextrose 1 gm in 50 mls @ 100 mls/hr 03/22/25 09:00 12/05/25 08:14 Rocephin/D5w 1gm Iv Premix IV 03/29/25 08:59 100 mls/hr QDAY KARLEY Administration Lactated Ringer's 1,000 mls @ 100 mls/hr 03/23/25 18:37 03/25/25 13:50 Lactated Ringers IV 04/22/25 18:36 100 mls/hr .Q10H KARLEY Administration Potassium Phosphate 22.5 mmol/ 507.5 mls @ 82.778 mls/hr 03/25/25 09:00 03/25/25 08:57 Sodium Chloride IV 03/25/25 15:07 82.778 mls/hr X1 ONE Administration Insulin Human Lispro 0 unit 03/22/25 17:00 03/25/25 11:51 Insulin Lispro (Admelog) 1 Unit/0.01 Ml Unit SC 04/21/25 16:59 Not Given ACHS KARLEY Protocol Pantoprazole Sodium 40 mg 03/22/25 09:00 03/25/25 08:13 Pantoprazole Inj 40 Mg Vial IVP 04/21/25 08:59 40 mg QDAY KARLEY Administration Plan Mr. Cunha is a 84-year-old male with a past medical history of malignant melanoma on chemotherapy, coronary artery disease status post 2 stent placements, hypertension, history of bladder cancer presented to the ED on 03/21/2025 with 3 weeks of diarrhea and admitted for suspected sepsis secondary to gastroenteritis and PAULIE likely prerenal in the setting of severe gastroenteritis. Decision was made to start patient on phenylephrine and upgrade to ICU for further management but downgraded to floors on 03/23. Plan for colonoscopy pending stool labs. #Sepsis #Leukocytosis - improving #Hypovolemic shock - resolved WBC 18.2 today from 23.8 yesterday; improved to 12.3 today 03/[address] elevated CRP [address] noted for bibasilar pneumonia Blood cultures pending Stool testing pending -Continue ceftriaxone 1g q24h(day, metronidazole 500mg q8H -Lab/nursing did not collect stool sample, to collect C diff and Giardia stool sample today for sendout 03/24 -Daily CBC CMP Mg Phos #Diarrhea, suspected immune-mediated colitis #Gastritis Chemotherapy-induced vs infectious vs other Consulted Dr. Hightower: appreciate recs Previous colonoscopy 10/11/2020 for metastatic workup: polyps found in descending, sigmoid colons and cecum; unclear pathology report and planned colonoscopy September 2025 -Follow up/pending: complete stool panel fecal calprotectin Giardia Antigen Cdiff -Bicitra, magic mouth wash -Dr. Hightower to perform colonoscopy once stool labs result #Atrial fibrillation, new onset #CAD s/p 2 stents #Diastolic Dysfunction Grade 1 Echocardiogram 03/22/2025: Left ventricle size is normal and systolic function is normal. Estimated ejection fraction is 55-60%. New-onset, due to infection vs dehydration vs other Now in sinus rhythm [id number] score 4 points IV Amiodarone transitioned to PO Contacted by Dr. Padilla regarding amiodarone, electrolyte repletion -Continue Amiodarone 200mg PO BID -Enoxaparin 30mg SC Q24h -Telemonitoring -K, Mg repletion >4 and >2, respectively -to have a cardiac catheterization once stable #Electrolyte Abnormalities #Hypokalemia - resolved #Hyperchloremic Acidosis #High Creatinine Creatinine 4.1 uptrending from 3.6 03/21; downtrending today 3.4 2/2 GI loss -Continue LR 100ml/hr for fluid loss and maintenance -Strict K, Mg, daily electrolyte repletion as needed #Anemia Hgb 12.2 from 12.8, 16.1 previously; 12 today Likely hemodilutional -Continue to monitor H/H daily labs -Transfuse at Hgb < 7.0 #Melanoma with metastasis #Chemotherapy Primary left arm melanoma w/ diffuse metastasis Wide Local Excision by Dr. Terence Franco On IPI3/NIVO1 chemotherapy, last infusion 02/28/2025 Metastasis to Liver, Lung, Brain Oncological care by Dr. Ron [phone] -To follow up outpt for treatment with Dr. Ron Medrano regarding cancer tx #Steroid Use Previous reported prednisone dose 80mg, now tapered to 17.5mg daily for the past 3 years Use for immunotherapy-associated arthritis -Hydorcortisone 50mg q6h -> 50mg q8h #Elevated Troponins 1.057 today from 1.451 yesterday 03/22/2025 Not endorsing chest pain/tightness Likely due to metabolic stress/demand -Continue to monitor, f/u troponins 12/4 AM Hospital management: Disposition: pending stool cultures on IV abx, new onset atrial fibrillation with cardiology consulted IVF: LR at 100 cc/h Diet: Clear Liquid Lines: PIV DVT prophylaxis: lovenox GI prophylaxis: Protonix CODE STATUS: full code Patient plan of care was discussed with the attending physician, Dr. Silverio & senior resident Dr. Chito Jacques MD PGY-1 Attending Provider Attestation/Addendum I, Carey Silverio, , attest that I was physically present for the moran portions of the service and evaluated the patient with the resident and I reviewed and discussed the case with the resident and agree with the resident's findings and plans of care as documented above Patient seen and evaluated this AM. Patient states he is having difficulty drinking his golytely due to pain his mouth due to ulcers. Pain is improved with magic mouthwash, which has been ordered as needed, but patient was not aware that he has it available. Encouraged patient to continue with golytely after using mouthwash. Scheduled for colonoscopy this evening. Will continue with IV fluid hydration. Holding off on hydrocortisone taper as patient will be undergoing procedure.
[2025-03-25] MEDS: POTASSIUM CHL 10 mEq IVPB 10 MEQ/100 ML BAG 100 MEQ IV ×2 (17:36→18:59)
--- NOTE | 2025-03-25 19:49 | PD.IMPROG ---
Documentation for date of: 03/25/25 Subjective Subjective Interval history: Patient has not been very much cooperative drinking the GoLytely Colonoscopy canceled for today Exam Vital Signs Temp Pulse Resp BP Pulse Ox O2 Del Method O2 Flow Rate 97.0 F 60 17 150/71 H 97 Room Air 1 03/25/25 16:00 03/25/25 16:00 03/25/25 16:00 03/25/25 16:00 03/25/25 16:00 03/25/25 16:00 03/22/25 16:00 Objective Labs 03/25/25 04:17 03/25/25 12:11 Labs: Laboratory Results - last 24 hr 03/21/25 03/24/25 03/25/25 21:46 17:17 04:17 WBC 8.8 RBC 4.22 L Hgb 11.7 L Hct 37.0 L MCV 88 MCH 27.7 MCHC 31.6 RDW Std Deviation 53.7 H Plt Count 229 D Neut % (Auto) 83 H Lymph % (Auto) 8 L [place] % (Auto) 6 Eos % (Auto) 0 Baso % (Auto) 1 Neut # (Auto) 7.3 Lymph # (Auto) 0.7 L [place] # (Auto) 0.5 Eos # (Auto) 0.0 Baso # (Auto) 0.0 Immature Gran # (Auto) 0.23 H Absolute Nucleated RBC 0.00 Immature Gran % 3 H Nucleated RBC % 0 Sodium 147 H Potassium 3.0 L Chloride 119 H Carbon Dioxide 18.9 L Anion Gap 9 BUN 54 H Creatinine 3.0 H Estim Creat Clear Calc 26.5 L eGFR 20 L BUN/Creatinine Ratio 18 Glucose 166 H Calculated Osmolality 311 H Calcium 7.5 L Corrected Calcium 8.4 L Phosphorus 2.8 Magnesium 2.5 Total Bilirubin 0.2 L AST 18 ALT 16 Alkaline Phosphatase 108 D Total Protein 5.2 L Albumin 2.9 L Globulin 2.3 Albumin/Globulin Ratio 1.3 Stool for White Cells 2+ A Stl C. diff Tox B Gene Negative Stl Giardia Antigen NOT DETECTED 03/25/25 12:11 WBC RBC Hgb Hct MCV MCH MCHC RDW Std Deviation Plt Count Neut % (Auto) Lymph % (Auto) [place] % (Auto) Eos % (Auto) Baso % (Auto) Neut # (Auto) Lymph # (Auto) [place] # (Auto) Eos # (Auto) Baso # (Auto) Immature Gran # (Auto) Absolute Nucleated RBC Immature Gran % Nucleated RBC % Sodium 150 H Potassium 3.0 L Chloride 117 H Carbon Dioxide 20.8 Anion Gap 12 BUN 48 H Creatinine 2.9 H Estim Creat Clear Calc 27.8 L eGFR 21 L BUN/Creatinine Ratio 17 Glucose 154 H Calculated Osmolality 313 H Calcium 7.5 L Corrected Calcium Phosphorus Magnesium Total Bilirubin AST ALT Alkaline Phosphatase Total Protein Albumin Globulin Albumin/Globulin Ratio Stool for White Cells Stl C. diff Tox B Gene Stl Giardia Antigen Impressions Impression: Chronic diarrhea most likely etiology is the chemotherapy induced However other causes needs to be ruled out Will do the colonoscopy whenever the patient is clear ABG Interpretation ABG results: 03/22/25 09:17 VBG pH 7.33 VBG pCO2 33 L VBG pO2 51 VBG Base Excess -8 L Assessment & Plan A&P Narrative # Chronic persistent diarrhea etiology uncertain CT scan of the abdomen pelvis without Cesar showing diffuse colitis Differential diagnosis include Chemotherapy induced colitis Infectious enterocolitis Inflammatory bowel disease acute onset C. difficile enterocolitis Suggestions Complete stool panel Fecal calprotectin Culture and sensitivity of the stool Giardia antigen CRP If negative Will consider colonoscopy with biopsies Other medical problems include Shock PAULIE NSTEMI Coronary artery disease status post PTCA [place] melanoma on chemotherapy Essential hypertension Thank you very much for the opportunity to participate in the care of this patient Time Spent With Patient Time: Total time spent is greater than 50% in coordination of care (as documented) at patient's floor/unit and/or counseling patient:
[2025-03-25] MEDS: POTASSIUM CHL 10 mEq IVPB 10 MEQ/100 ML BAG 80 MEQ IV (20:25)
[2025-03-25] MEDS: POTASSIUM CHL 10 mEq IVPB 10 MEQ/100 ML BAG 70 MEQ IV ×2 (21:42→23:06)
[2025-03-26] VITALS (24 sets, daily range): BP systolic 138–172; BP diastolic 62–93; PULSE 60–75; RESP 13–19; TEMP 36.1–36.9; O2SAT 94–99; BMI 29.0
[2025-03-26] MEDS: POTASSIUM CHL 10 mEq IVPB 10 MEQ/100 ML BAG 75 MEQ IV (00:32)
[2025-03-26] MEDS: HYDROCORTISONE SOD SUCC INJ 100 MG 2 ML VIAL 50 MG IV ×2 (02:47→10:31)
[2025-03-26] MEDS: RINGERS LACTATED 1000 ML 1,000 ML 100 ML IV (05:14)
[2025-03-26] MEDS: metroNIDAZOLE/NS 500 MG IVPB 500 MG/100 ML BAG 200 MG IV ×2 (05:15→21:03)
[2025-03-26 05:54] LABS: Basophils # (Auto) 0.1 Thou/mm3 (0.0-0.2); Basophils % (Auto) 0 % (0-2.5); Eosinophils # (Auto) 0.0 Thou/mm3 (0.0-0.5); Eosinophils % (Auto) 0 % (0-10); Hematocrit 38.4 % (41.0-53.0); Hemoglobin 12.4 g/dL (13.5-16.0); Immature Granulocytes Auto 0.20 Thou/mm3 (0.00-0.00); Lymphocytes # (Auto) 0.7 Thou/mm3 (1.0-4.8); Lymphocytes % (Auto) 6 % (10-50); Mean Corpuscular HGB Conc 32.3 g/dl (31.0-37.0); Mean Corpuscular Hemoglobin 28.5 pg (25.0-35.0); Mean Corpuscular Volume 88 fL (80-100); Monocytes # (Auto) 0.6 Thou/mm3 (0.0-0.8); Monocytes % (Auto) 5 % (0-12); Neutrophils # (Auto) 9.8 Thou/mm3 (1.8-7.7); Neutrophils % (Auto) 87 % (37-80); Nucleated Red Blood Cell # 0.00 Thou/mm3 (0.00-0.00); Nucleated Red Blood Cell % 0 /100 WBC (0); Platelet Count 243 Thou/mm3 (140-440); RDW Standard Deviation 54.7 fL (35.1-43.9); Red Blood Count 4.35 Miln/mm3 (4.50-5.90); White Blood Count 11.3 Thou/mm3 (3.8-10.6)
[2025-03-26 06:20] LABS: Alanine Aminotransferase 23 U/L (10-49); Albumin, Serum 2.9 gm/dL (3.4-4.8); Albumin/Globulin Ratio 1.3 (1.2-2.2); Alkaline Phosphatase 114 U/L (46-116); Anion Gap 9 (7-16); Aspartate Amino Transferase 21 U/L (0-34); BUN/Creatinine Ratio 16 Ratio (12-20); Bilirubin,Total 0.2 mg/dL (0.3-1.2); Blood Urea Nitrogen 40 mg/dL (9-23); Calcium 7.5 mg/dL (8.3-10.6); Calcium (Corrected) 8.4 mg/dL (8.5-10.1); Carbon Dioxide 20.3 mMol/L (20.0-31.0); Chloride 122 mMol/L (98-107); Creatinine (Component) 2.5 mg/dL (0.6-1.3); Estimated Creatinine Clearance 32.2 mL/min (>60); Globulin 2.2 gm/dL (2.3-3.5); Glucose 144 mg/dL (74-106); Magnesium 2.4 mg/dL (1.6-2.6); Osmolality,Calculated 312 (275-295); Phosphorous 1.9 mg/dL (2.4-5.1); Potassium 3.1 mMol/L (3.4-5.1); Sodium 151 mMol/L (136-145); Total Protein 5.1 gm/dL (5.7-8.2); eGFR 25 See Note
[2025-03-26] MEDS: NA SU/NAHCO3/KC/PEG (Golytely) 4,000 ML BTL 4000 ML PO (06:24)
[2025-03-26] MEDS: RINGERS LACTATED 1000 ML 1,000 ML 125 ML IV (08:15)
[2025-03-26] MEDS: AMIODARONE HCL 200 MG TABLET PO ×2 (08:25→21:00)
[2025-03-26] MEDS: ENOXAPARIN SOD INJ 30 MG/0.3 ML SYRINGE SC (08:25)
[2025-03-26] MEDS: cefTRIAXone/D5w 1gm IV premix 1 GM/50 ML BAG IV (08:26)
[2025-03-26] MEDS: CITRIC ACID/SODIUM CITR 15 ML UDC (BICITRA) 30 ML PO (09:17)
[2025-03-26] MEDS: POT PHOS 15 mMol in NS 250 ML 15 MMOL/250 ML BAG 62.5 MMOL IV ×2 (09:17→13:30)
--- NOTE | 2025-03-26 09:46 | ESPR_ITS ---
Documentation for date of: 03/26/25 Subjective Subjective Interval history: No Overnight events. Labs reviewed and patient examined at the bedside. Will continue Amiodarone 200mg po bid. Patient AOOx3. Denies SOB, chest pain, palpations. Potassium and Mag repleted by primary team. Exam Vital Signs Temp Pulse Resp BP Pulse Ox O2 Del Method O2 Flow Rate 97.3 F 65 17 143/69 H 95 Room Air 1 03/26/25 04:00 03/26/25 08:25 03/26/25 04:00 03/26/25 08:25 03/26/25 04:00 03/26/25 04:00 03/22/25 16:00 Narrative Exam General: Awake, tired and in no acute distress. Conversational and on room air HEENT: Normocephalic, atraumatic, mucous membranes moist. Heart: Sinus rhythm, no murmurs. Lungs: Clear to auscultation with no wheezing or crackles. Abdomen: Soft, nondistended, nontender, positive bowel sounds. ?No guarding or rebound tenderness. Neurologic: Alert and oriented x3, no gross neurological deficit, and patient able to move all 4 extremities. Extremities: Trace bilateral lower extremity edema Skin: No rash or ecchymoses. Objective Labs 03/28/25 05:16 03/28/25 05:16 Labs: Laboratory Results - last 24 hr 03/24/25 03/25/25 03/26/25 17:17 12:11 05:16 WBC 11.3 H RBC 4.35 L Hgb 12.4 L Hct 38.4 L MCV 88 MCH 28.5 MCHC 32.3 RDW Std Deviation 54.7 H Plt Count 243 Neut % (Auto) 87 H Lymph % (Auto) 6 L Saunders % (Auto) 5 Eos % (Auto) 0 Baso % (Auto) 0 Neut # (Auto) 9.8 H Lymph # (Auto) 0.7 L Saunders # (Auto) 0.6 Eos # (Auto) 0.0 Baso # (Auto) 0.1 Immature Gran # (Auto) 0.20 H Absolute Nucleated RBC 0.00 Immature Gran % 2 H Nucleated RBC % 0 Sodium 150 H 151 H Potassium 3.0 L 3.1 L Chloride 117 H 122 H* Carbon Dioxide 20.8 20.3 Anion Gap 12 9 BUN 48 H 40 H Creatinine 2.9 H 2.5 H Estim Creat Clear Calc 27.8 L 32.2 L eGFR 21 L 25 L BUN/Creatinine Ratio 17 16 Glucose 154 H 144 H Calculated Osmolality 313 H 312 H Calcium 7.5 L 7.5 L Corrected Calcium 8.4 L Phosphorus 1.9 L Magnesium 2.4 Total Bilirubin 0.2 L AST 21 ALT 23 Alkaline Phosphatase 114 Total Protein 5.1 L Albumin 2.9 L Globulin 2.2 L Albumin/Globulin Ratio 1.3 Stl C. diff Tox B Gene Negative ABG Interpretation ABG results: 03/22/25 09:17 VBG pH 7.33 VBG pCO2 33 L VBG pO2 51 VBG Base Excess -8 L Quality Measures Quality Measures VTE prophylaxis Advance care planning discussed with:: patient and other Assessment & Plan Assessment Current Active Medications: Generic Name Dose Route Start Last Admin Trade Name Freq PRN Reason Stop Dose Admin Amiodarone HCl 200 mg 03/23/25 09:00 03/26/25 08:25 Amiodarone Hcl 200 Mg Tablet PO 04/22/25 08:59 200 mg BID KARLEY Administration Citric Acid/Sodium Citrate 30 ml 03/26/25 09:00 03/26/25 09:17 Citric Acid/Sodium Citr 15 Ml Udc (Bicitra) PO 04/25/25 08:59 30 ml DAILY KARLEY Administration Lidocaine HCl 10 ml/ 0 ml 03/24/25 11:49 03/25/25 12:45 Diphenhydramine HCl 25 mg/ Al PO 03/31/25 11:59 1 dose Hydrox/Mg Hydrox/Simethicone BID PRN Administration 30 ml/ Nystatin 10 ml mouth pain/ulcers Dextrose 25 ml 03/22/25 15:44 Dextrose 50%-Water Inj 50 Ml Syringe IV 04/21/25 15:43 Q15MIN PRN BG 50-70 responsive npo pt Dextrose 50 ml 03/22/25 15:44 Dextrose 50%-Water Inj 50 Ml Syringe IV 04/21/25 15:43 Q15MIN PRN BG <50 OR BG <70 & pt unresponsive Enoxaparin Sodium 30 mg 03/22/25 09:00 03/26/25 08:25 Enoxaparin Sod Inj 30 Mg/0.3 Ml Syringe SC 04/05/25 08:59 30 mg QDAY KARLEY Administration Protocol Glucagon 1 mg 03/22/25 15:44 Glucagon Inj 1 Mg Vial IM Q15MIN PRN BG <70, and no IV access Hydrocortisone Sodium Succinate 50 mg 03/24/25 10:30 03/26/25 02:47 Hydrocortisone Sod Succ Inj 100 Mg 2 Ml Vial IV 04/23/25 10:29 50 mg Q8H KARLEY Administration Metronidazole 500 mg in 100 mls @ 200 mls/hr 03/22/25 06:30 03/26/25 05:15 Flagyl 500 Mg Iv IV 03/29/25 06:29 200 mls/hr Q8HR KARLEY Administration Ceftriaxone Sodium/Dextrose 1 gm in 50 mls @ 100 mls/hr 03/22/25 09:00 03/26/25 08:26 Rocephin/D5w 1gm Iv Premix IV 03/29/25 08:59 100 mls/hr QDAY KARLEY Administration Potassium Phosphate 15 mmol in 250 mls @ 62.5 mls/hr 03/26/25 08:09 03/26/25 09:17 Pot Phos 15 Mmol In Ns 250 Ml IV 03/26/25 16:08 62.5 mls/hr Q4H KARLEY Administration Lactated Ringer's 1,000 mls @ 125 mls/hr 03/26/25 08:12 Lactated Ringers IV 04/25/25 08:11 .Q8H KARLEY Insulin Human Lispro 0 unit 03/22/25 17:00 03/26/25 07:42 Insulin Lispro (Admelog) 1 Unit/0.01 Ml Unit SC 04/21/25 16:59 Not Given ACHS KARLEY Protocol Pantoprazole Sodium 40 mg 03/22/25 09:00 03/26/25 08:25 Pantoprazole Inj 40 Mg Vial IVP 04/21/25 08:59 40 mg QDAY KARLEY Administration Plan Mr. Cunha is a 84-year-old male with past medical history of malignant melanoma diagnosed in 2020 on chemotherapy (nivolumab and ipilimumab) follows Dr Medrano, [facility] last chemotherapy session 3 weeks ago, CAD status post PCI follows Dr. Arango, remote history of bladder cancer about 20 years ago, hypertension and BPH who presented to [facility] emergency department on 03/21/2025 with a chief complaint of diarrhea for the last 3 weeks. Patient admitted to telemetry and then upgraded to intensive care unit in setting of distributive shock secondary to gastroenteritis along with new onset A-fib RVR started on phenylephrine. #New onset A-fib RVR, resolved #Diastolic Dysfunction Grade I Patient admitted for sepsis, no history of atrial fibrillation or conduction abnormalities. Overnight patient went into RVR heart rate in 140s, noted to be A-fib RVR. Patient started on amiodarone drip meanwhile patient also noted to be hypotensive despite 5 L fluid resuscitation started on phenylephrine and upgraded to intensive care unit. [id number] score: 4 points Patient at bedside right now noted to be in sinus rhythm Lipid panel shows cholesterol 75, triglyceride 168, LDL 17, HDL 24, A1c 7.2, TSH 0.51 Echocardiogram 03/22/2025: Left ventricle size is normal and systolic function is normal. Estimated ejection fraction is 55-60%. There is grade I diastolic dysfunction. There is mild concentric hypertrophy noted. Right ventricle chamber size is normal and systolic function is normal. Estimated RVSP is 15 mmHg. Posterior mitral valve annulus mildy calcified. Trace MR and TR. There is trace tricuspid valve regurgitation. Prominent pericardial fat pad seen. The left atrium is mildly enlarged. The right atrium is normal. Recommendations: - Continue amiodarone 200 mg p.o. twice daily and can be decreased to 200 mg daily after one months - Start patient on anticoagulation to decrease stroke risk recommend heparin GTT or Eliquis 2.5mg BID when no contraindications. - Continue telemonitoring - Keep magnesium greater than 2 and potassium greater than 4 at all times, replete aggressively - Repeat thyroid function outpatient - Strict I&O #Coronary artery disease status post 2 stents #NSTEMI type II likely demand ischemia Patient denies any chest pain currently, troponin on presentation 0.162 -> 0.180 -> 0.522 -> 1.606 -> 1.451 -> 1.057 EKG on presentation shows no acute ST-T changes Patient did report that he had 2 stents placed respectively in 2018 and 2019. -Echocardiogram negative for regional wall abnormalities -Does seem like troponin elevation is likely type II in setting of sepsis secondary to gastroenteritis/GI source -Patient will need cardiac catheterisation at a later point once stable. -Patient does have PAULIE on CKD for clearance of troponin as well. #PAULIE on ?CKD likely ATN Patient presented with continuous multiple episodes of diarrhea over the last 3 weeks, on presentation creatinine 3.6 BUN 49 and GFR 16, no previous baseline known, continue to monitor urine output. Kidney injury likely prerenal versus ATN, urine analysis negative for casts or WBCs. Patient on ARB's and diuretic at home ?Continue to monitor renal function ?Consider obtaining renal ultrasound to rule out chronic changes #Acute encephalopathy #Distributive shock versus hypovolemic shock #Hypokalemia #Gastritis and colitis #Adrenal insufficiency #Leukocytosis #Anemia #Low TSH/? Euthyroid sick syndrome #Diabetes mellitus, A1c 7.2 - Management as per primary team Assessment and plan discussed with my attending physician Dr. Kateryna Brunner (PGY-1) - Internal medicine resident Attending Provider Attestation/Addendum I have personally seen and examined the patient separately on the above date of service and discussed the plan of care with the resident. I reviewed the resident Dr. Xiang Narvaez consultation progress note and agree with the resident findings and plan in the note above and have also edited the documentation to reflect my findings and plan. Pastor Avendaño M.D. Interventional Cardiology
--- NOTE | 2025-03-26 11:25 | PD.RESCONSUL ---
HPI Data of Consult Consult date: 03/26/25 Requesting Physician: Pedro Aleman MD Admitting Provider: Pedro Aleman MD Attending Provider: Pedro Aleman MD Primary Care Provider: Physician No Primary/Family Consult Narrative Reason for consult: Worsening hyperchloremic acidosis and PAULIE History of present illness: 84-year-old male with significant past medical history of malignant melanoma diagnosed in 2020 on chemotherapy [nivolumab, ipilimumab], last chemotherapy session 3 weeks ago, CAD s/p PCI, hypertension, remote history of bladder cancer almost 20 years ago was brought to the hospital in view of severe diarrhea since 3 weeks. 5-6 episodes per day, noted to have mucus and had febrile episode 1 week ago. Also noted to have shortness of breath and cough since 2 days, presented to the hospital as all the symptoms are worsening. Reported that he is using steroids and currently using prednisone 60 mg per patient, unsure of the indication, patient reported that he is using it for generalized weakness. Also reported that he had history of low potassium for which he takes potassium supplementation. 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 Vitals at the time of admission are stable except for tachycardia with heart rate around 108 bpm and temperature of 102. Labs at the time of admission are significant for WBC 27.3, potassium 3.2, bicarb 19.2, BUN 49, creatinine 3.6, lactate 7, troponin 0.162, procalcitonin 4.54. Urinalysis is unremarkable. Abdomen/pelvis CT showed bibasilar pneumonia, gastritis pattern, bilateral benign renal cyst, diffuse nonspecific colitis pattern. In ED, patient is given 4 L of fluid bolus and was started on LR at 100 mL/h. Ceftriaxone is given. Patient is admitted into the hospital in view of suspected sepsis secondary to gastroenteritis and PAULIE, likely prerenal in the setting of severe gastroenteritis. Nephrology consulted for pre-renal azotemia secondary to diarrhea with worsening hyperchloremic acidosis and hypernatremia. 03/26/25: Patient was seen and assessed at bedside. Has been on GoLytely for the past 2 days for colonoscopy to evaluate worsening diarrhea. As a result, patient has become very hypovolemic (beefy dry red tongue, dry mucous membranes, decreased skin turgor). Has been drinking water but unable to retain it. Creatinine improved to 2.5 on LR (baseline 1.2 in 2020). Sodium 151, increased significantly after starting GoLytely which contains 35g sodium/liter. Bicarb 19.2 on admission but improved to 20.8 on Bicitra. Chloride 122 (from 109 on admission). Discontinue LR and start on D5W 150 mL/hr as patient has FWD 5.2L. Insulin as needed for hyperglycemia. Free water consumption not adequate in setting of GoLytely prep. Follow up urine lytes to rule out possible underlying RTA. cc:: cc: Pedro Aleman MD Review of Systems Review of Systems Narrative Review of Systems: Complaining of burning and pain in the tongue Exam Vital Signs Temp Pulse Resp BP Pulse Ox O2 Del Method O2 Flow Rate 97.1 F 65 18 143/69 H 96 Room Air 1 03/26/25 08:00 03/26/25 08:25 03/26/25 08:00 03/26/25 08:25 03/26/25 08:00 03/26/25 08:00 03/22/25 16:00 Narrative Exam Physical Exam General: Awake and in no acute distress. Conversational and non-toxic appearing. Hard of hearing. HEENT: Normocephalic, atraumatic, mucous membranes dry. Big beefy red tongue, dry. Heart: Regular rate and rhythm, normal S1 and S2, no murmurs appreciated. Lungs: Clear to auscultation with no wheezing or crackles. Abdomen: Soft, nondistended, nontender, positive bowel sounds. No guarding or rebound tenderness. Neurologic: Alert and oriented x3, no gross neurological deficit, and patient able to move all 4 extremities. Extremities: No edema. Skin: No rash or ecchymoses. Results Labs 03/27/25 05:06 03/27/25 05:06 Labs: Short CBC 03/26/25 Range/Units 05:16 WBC 11.3 H (3.8-10.6) Thou/mm3 Hgb 12.4 L (13.5-16.0) g/dL Hct 38.4 L (41.0-53.0) % Plt Count 243 (140-440) Thou/mm3 BMP 03/25/25 03/26/25 12:11 05:16 Sodium 150 H 151 H Potassium 3.0 L 3.1 L Chloride 117 H 122 H* Carbon Dioxide 20.8 20.3 BUN 48 H 40 H Creatinine 2.9 H 2.5 H Glucose 154 H 144 H Calcium 7.5 L 7.5 L Liver Function 03/26/25 Range/Units 05:16 Total Bilirubin 0.2 L (0.3-1.2) mg/dL AST 21 (0-34) U/L ALT 23 (10-49) U/L Alkaline Phosphatase 114 (46-116) U/L Albumin 2.9 L (3.4-4.8) gm/dL ABG Interpretation ABG results: 03/22/25 09:17 VBG pH 7.33 VBG pCO2 33 L VBG pO2 51 VBG Base Excess -8 L Quality Measures Quality Measures VTE prophylaxis Advance care planning discussed with:: patient Medications Home Medications and Allergies Home Medications ?Medication ?Instructions ?Recorded ?Confirmed ?Type finasteride 5 mg tablet 5 mg PO DAILY 10/11/20 03/22/25 History furosemide 20 mg tablet 20 mg PO QDAY 03/22/25 03/22/25 History losartan 50 mg tablet 50 mg PO QDAY 03/22/25 03/22/25 History potassium chloride 20 mEq 20 meq PO QDAY 03/22/25 03/22/25 History tablet,extended release prednisone 20 mg tablet 17.5 mg PO QDAY 03/22/25 03/22/25 History tamsulosin 0.4 mg capsule 0.4 mg PO .qhs 03/22/25 03/22/25 History Allergies Allergy/AdvReac Type Severity Reaction Status Date / Time shellfish derived Allergy Verified 03/21/25 15:41 Visit Medications Amiodarone HCl (Amiodarone Hcl 200 Mg Tablet) 200 mg PO BID [facility] Stop: 04/22/25 08:59 Last Admin: 03/26/25 08:25 Dose: 200 mg Citric Acid/Sodium Citrate (Citric Acid/Sodium Citr 15 Ml Udc (Bicitra)) 30 ml PO DAILY [facility] Stop: 04/25/25 08:59 Last Admin: 03/26/25 09:17 Dose: 30 ml Lidocaine HCl 10 ml/Diphenhydramine HCl 25 mg/ Al Hydrox/Mg Hydrox/Simethicone 30 ml/ Nystatin 10 ml 0 ml PO BID PRN PRN Reason: mouth pain/ulcers Stop: 03/31/25 11:59 Last Admin: 03/25/25 12:45 Dose: 1 dose Dextrose (Dextrose 50%-Water Inj 50 Ml Syringe) 25 ml IV Q15MIN PRN PRN Reason: BG 50-70 responsive npo pt Stop: 04/21/25 15:43 Dextrose (Dextrose 50%-Water Inj 50 Ml Syringe) 50 ml IV Q15MIN PRN PRN Reason: BG <50 OR BG <70 & pt unresponsive Stop: 04/21/25 15:43 Enoxaparin Sodium (Enoxaparin Sod Inj 30 Mg/0.3 Ml Syringe) 30 mg SC QDAY [facility]; Protocol Stop: 04/05/25 08:59 Last Admin: 03/26/25 08:25 Dose: 30 mg Glucagon (Glucagon Inj 1 Mg Vial) 1 mg IM Q15MIN PRN PRN Reason: BG <70, and no IV access Hydrocortisone Sodium Succinate (Hydrocortisone Sod Succ Inj 100 Mg 2 Ml Vial) 50 mg IV Q8H [facility] Stop: 04/23/25 10:29 Last Admin: 03/26/25 10:31 Dose: 50 mg Metronidazole (Flagyl 500 Mg Iv) 500 mg in 100 mls @ 200 mls/hr IV Q8HR [facility] Stop: 03/29/25 06:29 Last Admin: 03/26/25 05:15 Dose: 200 mls/hr Ceftriaxone Sodium/Dextrose (Rocephin/D5w 1gm Iv Premix) 1 gm in 50 mls @ 100 mls/hr IV QDAY [facility] Stop: 03/29/25 08:59 Last Admin: 03/26/25 08:26 Dose: 100 mls/hr Potassium Phosphate (Pot Phos 15 Mmol In Ns 250 Ml) 15 mmol in 250 mls @ 62.5 mls/hr IV Q4H [facility] Stop: 03/26/25 16:08 Last Admin: 03/26/25 09:17 Dose: 62.5 mls/hr Dextrose (D5w) 1,000 mls @ 150 mls/hr IV .Q6H40M [facility] Stop: 04/25/25 10:44 Insulin Human Lispro (Insulin Lispro (Admelog) 1 Unit/0.01 Ml Unit) 0 unit SC ACHS [facility]; Protocol Stop: 04/21/25 16:59 Last Admin: 03/26/25 11:23 Dose: Not Given Pantoprazole Sodium (Pantoprazole Inj 40 Mg Vial) 40 mg IVP QDAY [facility] Stop: 04/21/25 08:59 Last Admin: 03/26/25 08:25 Dose: 40 mg Discontinued Medications Albumin Human (Albumin Human-Kjda 25% Ivpb 25 Gm/100 Ml Btl) 25 gm IV NOW ONE Stop: 03/22/25 14:14 Last Admin: 03/22/25 14:19 Dose: Not Given Citric Acid/Sodium Citrate (Citric Acid/Sodium Citr 15 Ml Udc (Bicitra)) 30 ml PO BID [facility] Stop: 04/23/25 20:59 Last Admin: 03/25/25 08:13 Dose: 30 ml Lidocaine HCl 10 ml/Diphenhydramine HCl 25 mg/ Al Hydrox/Mg Hydrox/Simethicone 30 ml/ Nystatin 10 ml 0 ml PO X1 ONE Stop: 03/23/25 18:38 Last Admin: 03/23/25 19:30 Dose: 1 dose Lidocaine HCl 10 ml/Diphenhydramine HCl 25 mg/ Al Hydrox/Mg Hydrox/Simethicone 30 ml/ Nystatin 10 ml 0 ml PO X1 ONE Stop: 03/24/25 10:28 Last Admin: 03/24/25 11:08 Dose: 1 dose Diltiazem HCl (Diltiazem Inj 5 Mg/Ml Vial 5 Ml) 20 mg IV X1 ONE Stop: 03/22/25 02:58 Last Admin: 03/22/25 03:02 Dose: 20 mg Hydrocortisone Sodium Succinate (Hydrocortisone Sod Succ Inj 100 Mg 2 Ml Vial) 100 mg IV X1 ONE Stop: 03/22/25 04:22 Last Admin: 03/22/25 04:26 Dose: 100 mg Hydrocortisone Sodium Succinate (Hydrocortisone Sod Succ Inj 100 Mg 2 Ml Vial) 50 mg IV Q6HR [facility] Stop: 04/21/25 11:59 Last Admin: 03/24/25 06:12 Dose: 50 mg Hydromorphone HCl (Hydromorphone Inj 2 Mg/Ml Vial) 1 mg IVP X1 ONE Stop: 03/22/25 03:34 Last Admin: 03/22/25 04:19 Dose: Not Given Lactated Ringer's (Lactated Ringers) 1,000 mls @ 999 mls/hr IV .Q1H1M ONE Stop: 03/21/25 16:41 Last Infusion: 03/21/25 17:17 Dose: Infused Acetaminophen (Ofirmev Inj) 1,000 mg in 100 mls @ 250 mls/hr IV Q6H [facility] Stop: 03/22/25 10:29 Last Infusion: 03/22/25 11:38 Dose: Infused Lactated Ringer's (Lactated Ringers) 1,000 mls @ 999 mls/hr IV .Q1H1M ONE Stop: 03/21/25 18:14 Last Infusion: 03/21/25 18:49 Dose: Infused Lactated Ringer's (Lactated Ringers) 1,000 mls @ 999 mls/hr IV .Q1H1M ONE Stop: 03/21/25 18:14 Last Infusion: 03/21/25 20:20 Dose: Infused Lactated Ringer's (Lactated Ringers) 1,000 mls @ 999 mls/hr IV .Q1H1M ONE Stop: 03/21/25 18:15 Last Infusion: 03/21/25 18:49 Dose: Infused Ceftriaxone Sodium/Dextrose (Rocephin/D5w 1gm Iv Premix) 1 gm in 50 mls @ 100 mls/hr IV X1 ONE Stop: 03/21/25 17:44 Last Infusion: 03/21/25 18:15 Dose: Infused Lactated Ringer's (Lactated Ringers) 1,000 mls @ 100 mls/hr IV .Q10H ONE Stop: 03/22/25 07:12 Last Admin: 03/21/25 21:38 Dose: 100 mls/hr Ceftriaxone Sodium/Dextrose (Rocephin/D5w 1gm Iv Premix) 1 gm in 50 mls @ 100 mls/hr IV QDAY [facility] Stop: 03/28/25 21:13 Last Admin: 03/21/25 22:26 Dose: Not Given Metronidazole (Flagyl 500 Mg Iv) 500 mg in 100 mls @ 200 mls/hr IV X1 ONE Stop: 03/21/25 21:59 Last Infusion: 03/21/25 22:26 Dose: Infused Sodium Chloride (Ns) 500 mls @ 999 mls/hr IV .Q31M ONE Stop: 03/22/25 03:30 Last Infusion: 03/22/25 04:28 Dose: Infused Phenylephrine HCl 40 mg/ (Sodium Chloride) 100 mls @ 9.185 mls/hr IV .[id number] PRN; Protocol PRN Reason: Per Sepsis Protocol Stop: 04/21/25 03:09 Last Titration: 03/22/25 12:30 Dose: 0.05 mcg/kg/min, 0.919 mls/hr Amiodarone HCl/Dextrose (Nexterone Ivpb) 150 mg in 100 mls @ 600 mls/hr IV .Q10M ONE Stop: 03/22/25 03:46 Last Infusion: 03/22/25 04:29 Dose: Infused Amiodarone HCl/Dextrose (Nexterone Ivpb) 360 mg in 200 mls @ 33.333 mls/hr IV .Q6H ONE Stop: 03/22/25 09:36 Last Infusion: 03/22/25 10:31 Dose: Infused Amiodarone HCl/Dextrose (Nexterone Ivpb) 360 mg in 200 mls @ 16.667 mls/hr IV .Q12H [facility] Stop: 03/23/25 03:36 Last Infusion: 03/23/25 18:45 Dose: Infused Lactated Ringer's (Lactated Ringers) 500 mls @ 999 mls/hr IV .Q31M ONE Stop: 03/22/25 04:24 Last Admin: 03/22/25 04:20 Dose: Not Given Sodium Chloride (Ns) 500 mls @ 999 mls/hr IV .Q31M ONE Stop: 03/22/25 04:36 Last Infusion: 03/22/25 04:40 Dose: Infused Potassium Chloride (Kcl Ivpb) 10 meq in 100 mls @ 100 mls/hr IV Q1H [facility] Stop: 03/22/25 09:40 Last Infusion: 03/22/25 11:02 Dose: Infused Sodium Chloride (Ns) 250 mls @ 999 mls/hr IV .Q16M ONE Stop: 03/22/25 13:25 Last Infusion: 03/22/25 13:45 Dose: Infused Lactated Ringer's (Lactated Ringers) 1,000 mls @ 999 mls/hr IV .Q1H1M ONE Stop: 03/22/25 15:12 Last Admin: 03/22/25 14:31 Dose: 999 mls/hr Albumin Human (Albuminex 25% Ivpb) 25 gm in 100 mls @ 100 mls/hr IV X1 ONE Stop: 03/22/25 15:14 Last Admin: 03/22/25 14:24 Dose: 100 mls/hr Lactated Ringer's (Lactated Ringers) 1,000 mls @ 100 mls/hr IV .Q10H [facility] Stop: 04/22/25 18:36 Last Admin: 03/26/25 05:14 Dose: 100 mls/hr Potassium Chloride (Kcl Ivpb) 10 meq in 100 mls @ 100 mls/hr IV Q1H [facility] Stop: 03/24/25 11:40 Last Admin: 03/24/25 12:24 Dose: 100 mls/hr Potassium Phosphate 22.5 mmol/ (Sodium Chloride) 507.5 mls @ 82.778 mls/hr IV X1 ONE Stop: 03/25/25 15:07 Last Admin: 03/25/25 08:57 Dose: 82.778 mls/hr Potassium Chloride (Kcl Ivpb) 10 meq in 100 mls @ 100 mls/hr IV Q1H [facility] Stop: 03/25/25 21:03 Last Admin: 03/25/25 21:42 Dose: 70 mls/hr Potassium Chloride (Kcl Ivpb) 10 meq in 100 mls @ 100 mls/hr IV Q1H [facility]; Protocol Stop: 03/25/25 23:03 Last Admin: 03/26/25 00:32 Dose: 75 mls/hr Lactated Ringer's (Lactated Ringers) 1,000 mls @ 125 mls/hr IV .Q8H [facility] Stop: 04/25/25 08:11 Last Admin: 03/26/25 08:15 Dose: 125 mls/hr Dextrose (D5w) 1,000 mls @ 125 mls/hr IV .Q8H [facility] Stop: 04/25/25 10:44 Lorazepam (Lorazepam 2 Mg/Ml Vial) 2 mg IVP X1 ONE Stop: 03/22/25 03:34 Last Admin: 03/22/25 04:19 Dose: Not Given Ondansetron HCl (Ondansetron Inj 2 Mg/Ml Inj 2 Ml) 4 mg IVP X1 ONE; Protocol Stop: 03/21/25 15:41 Last Admin: 03/21/25 16:16 Dose: 4 mg Polyethylene Glycol/Electrolytes ([place]/Nahco3/Josafat/Peg (Golytely) 4,000 Ml Btl) 4,000 ml PO X1 ONE Stop: 03/24/25 20:14 Last Admin: 03/24/25 20:45 Dose: 4,000 ml Polyethylene Glycol/Electrolytes ([place]/Nahco3/Josafat/Peg (Golytely) 4,000 Ml Btl) 4,000 ml PO X1 ONE Stop: 03/26/25 06:16 Last Admin: 03/26/25 06:24 Dose: 4,000 ml Potassium Chloride (Potassium Chloride 20 Meq Tabcr) 40 meq PO X1 ONE Stop: 03/21/25 20:42 Last Admin: 03/21/25 22:33 Dose: 40 meq Potassium Chloride (Potassium Chloride 20 Meq Tabcr) 40 meq PO X1 ONE Stop: 03/22/25 07:19 Last Admin: 03/22/25 07:42 Dose: 40 meq Potassium Chloride (Potassium Chloride 20 Meq Tabcr) 40 meq PO X1 ONE Stop: 03/23/25 04:12 Last Admin: 03/23/25 05:32 Dose: 40 meq Potassium Chloride (Potassium Chloride 10% 20 Meq/15 Ml Udc) 40 meq GT X1 ONE Stop: 03/25/25 08:29 Last Admin: 03/25/25 09:01 Dose: 40 meq Potassium Chloride (Potassium Chloride 10% 20 Meq/15 Ml Udc) 40 meq GT X1 ONE Stop: 03/25/25 09:31 Last Admin: 03/25/25 09:44 Dose: 40 meq Assessment & Plan Plan Patient is an 84-year-old male with significant past medical history of malignant melanoma diagnosed in 2020 on chemotherapy [nivolumab, ipilimumab], last chemotherapy session 3 weeks ago, CAD s/p PCI, hypertension, remote history of bladder cancer almost 20 years ago admitted 03/21/25 for suspected sepsis secondary to gastroenteritis and PAULIE, likely prerenal in the setting of severe gastroenteritis. Nephrology consulted for pre-renal azotemia secondary to diarrhea with worsening hyperchloremic acidosis and hypernatremia. #PAULIE, prerenal 2/2 diarrhea - Creatinine 3.6 on admission. Increased to 4.1 (03/23), but improved slowly on LR maintenance fluid - Baseline 1.2 in 2020 - Likely exacerbated by GoLytely prep Plan: - Discontinue LR, start on D5W at 150 mL/hr - Follow up urine electrolytes - Continue to monitor renal panel daily - Strict INOs - Avoid nephrotoxic agents - Renally dose medications #Hypernatremia 2/2 iatrogenic causes and dehydration - Sodium increased to 147 on 03/24 upon starting Golytely prep, continuing to increase - Note that GoLytely prep has about 35g sodium/L, total 4 L prep. Patient has completed one container, on second. - FWD 5.2 L - Likely iatrogenic due to GoLytely prep, which has a very high sodium content and contributes to GI water loss Plan: - D5W as above. Free water flushes or oral hydration not effective while patient is on Golytely prep. - Follow up with GI if patient still requires more Golytely prep. Recommend to discontinue as soon as possible. #NAGMA #Hyperchloremia - Bicarb 19.2 on admission, improved to 20.8 after starting Bicitra on 03/25. Likely secondary to persistent diarrhea and GoLytely. - Chloride 109 on admission, increased to 122 (03/26) - Patient has been on LR since 03/24. Patient has also been dehydrated, signs noted on physical exam. 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 Espino. Emerita Dale DO, PGY-1 Attending Provider Attestation/Addendum Patient currently seen and examined with resident physician Dr. Dale. Note reviewed, agree with findings and recommendations. Patient currently seen in medical floor Patient with PAULIE secondary to prerenal azotemia-hypovolemia/diarrhea for 3 weeks -Repleted with estimated free water deficit more than 4.5 L. Patient seems to have received a significant amount of sodium load from GoLytely and Bicitra. Patient going for colonoscopy Needs free water flushes//D5W Care discussed with primary team. Monitor renal function closely. Agree with adding D5W with close monitoring of blood sugars and insulin as needed Thank you Carey for allowing me to participate in the care of Mr. Hernandez
[2025-03-26] MEDS: DEXTROSE 5%-WATER 1,000 ML 150 ML IV (11:31)
--- NOTE | 2025-03-26 15:05 | SUR.PHASEI ---
received pt and report from FELIX Pitt. Pt alert to self and place. Pt denies any pain. VSS. IV x2 intact, no s/s of infiltration or infection to site. Some edema noted julio cesar upper ext, pt states he has had swelling to arms and hands. Encouraged pt to pass flatus.
[2025-03-26 15:07] LABS: Chloride,Urine Random 70.6 mMol/L (55.0-125.0); Potassium,Urine Random 39 mMol/L (12-62); Sodium,Urine Random < 15.0 mMol/L (20.0-110.0)
--- NOTE | 2025-03-26 15:19 | ESPR_ITS ---
<Statement entered by Marck Drake MD - 03/26/25 15:29> Patient was seen and examined at bedside. Patient appears to be upset and he asked to speak with the wound care physician Dr. Hightower regarding his colonoscopy. Patient was supposed to get his colonoscopy today however he was not cleared. Today's labs showed increase of his chloride to 112, potassium was 3.1, serum creatinine improving to 2.4, sodium bicarb also downtrending to 18. Phosphate is 1.9. For that reason we will consulted environmental services worker Dr. Espino and she recommended to start the patient on D5W and order electrolytes urine to determine the source of hyperchloremia. We added for the patient thiamine and hopefully if the patient get colonoscopy today we will resume the patient feeding and also resume the patient Eliquis. - Patient's plan and care discussed with my attending, Dr. Nusrat Drake MD Internal Medicine PGY-3 Documentation for date of: 03/26/25 Subjective Subjective Interval history: Mr. Cunha is well although restless and anxious about taking GoLytely. He endorses the need to see Dr. Hightower regarding his upcoming colonoscopy but otherwise stable. VSS NAEO. Dr. Espino met today and suggested correcting free water deficit ~5L with 150ml/hr D5W as well as stopping GoLytely as soon as possible once Mr. Cunha is cleared for the colonoscopy. Awaiting results of stool sample sendouts. Exam Vital Signs Temp Pulse Resp BP Pulse Ox O2 Del Method O2 Flow Rate 97.0 F 65 14 157/74 H 98 Room Air 3 03/26/25 12:00 03/26/25 15:00 03/26/25 15:00 03/26/25 15:00 03/26/25 15:00 03/26/25 12:00 03/26/25 15:00 Narrative Exam General: alert and oriented to self/place/year, no acute distress, able to speak full sentences HEENT: NC/AT, mucous membranes moist, bilateral sclera anicteric Cardiovascular: regular rate and rhythm, S1/S2 present, no murmurs appreciated Pulmonary: clear to auscultation bilaterally, no rales/rhonchi/wheezes Abdominal: soft, nontender, present bowel sounds Musculoskeletal: no peripheral edema Skin: Warm, well-perfused Objective Labs 03/26/25 05:16 03/26/25 15:57 Labs: Laboratory Results - last 24 hr 03/26/25 03/26/25 05:16 13:50 WBC 11.3 H RBC 4.35 L Hgb 12.4 L Hct 38.4 L MCV 88 MCH 28.5 MCHC 32.3 RDW Std Deviation 54.7 H Plt Count 243 Neut % (Auto) 87 H Lymph % (Auto) 6 L [place] % (Auto) 5 Eos % (Auto) 0 Baso % (Auto) 0 Neut # (Auto) 9.8 H Lymph # (Auto) 0.7 L [place] # (Auto) 0.6 Eos # (Auto) 0.0 Baso # (Auto) 0.1 Immature Gran # (Auto) 0.20 H Absolute Nucleated RBC 0.00 Immature Gran % 2 H Nucleated RBC % 0 Sodium 151 H Potassium 3.1 L Chloride 122 H* Carbon Dioxide 20.3 Anion Gap 9 BUN 40 H Creatinine 2.5 H Estim Creat Clear Calc 32.2 L eGFR 25 L BUN/Creatinine Ratio 16 Glucose 144 H Calculated Osmolality 312 H Calcium 7.5 L Corrected Calcium 8.4 L Phosphorus 1.9 L Magnesium 2.4 Total Bilirubin 0.2 L AST 21 ALT 23 Alkaline Phosphatase 114 Total Protein 5.1 L Albumin 2.9 L Globulin 2.2 L Albumin/Globulin Ratio 1.3 Ur Random Sodium < 15.0 L Ur Random Potassium 39 Ur Random Chloride 70.6 ABG Interpretation ABG results: 03/22/25 09:17 VBG pH 7.33 VBG pCO2 33 L VBG pO2 51 VBG Base Excess -8 L Quality Measures Quality Measures VTE prophylaxis Advance care planning discussed with:: patient Assessment & Plan Assessment Current Active Medications: Generic Name Dose Route Start Last Admin Trade Name Freq PRN Reason Stop Dose Admin Amiodarone HCl 200 mg 03/23/25 09:00 03/26/25 08:25 Amiodarone Hcl 200 Mg Tablet PO 04/22/25 08:59 200 mg BID KARLEY Administration Citric Acid/Sodium Citrate 30 ml 03/26/25 09:00 03/26/25 09:17 Citric Acid/Sodium Citr 15 Ml Udc (Bicitra) PO 04/25/25 08:59 30 ml DAILY KARLEY Administration Lidocaine HCl 10 ml/ 0 ml 03/24/25 11:49 03/25/25 12:45 Diphenhydramine HCl 25 mg/ Al PO 03/31/25 11:59 1 dose Hydrox/Mg Hydrox/Simethicone BID PRN Administration 30 ml/ Nystatin 10 ml mouth pain/ulcers Dextrose 25 ml 03/22/25 15:44 Dextrose 50%-Water Inj 50 Ml Syringe IV 04/21/25 15:43 Q15MIN PRN BG 50-70 responsive npo pt Dextrose 50 ml 03/22/25 15:44 Dextrose 50%-Water Inj 50 Ml Syringe IV 04/21/25 15:43 Q15MIN PRN BG <50 OR BG <70 & pt unresponsive Diphenhydramine HCl 25 mg 03/26/25 13:59 Diphenhydramine Inj 50 Mg/Ml Vial IVP 03/26/25 15:59 [id number] PRN MODERATE SEDATION Enoxaparin Sodium 30 mg 03/22/25 09:00 03/26/25 08:25 Enoxaparin Sod Inj 30 Mg/0.3 Ml Syringe SC 04/05/25 08:59 30 mg QDAY KARLEY Administration Protocol Fentanyl Citrate 50 mcg 03/26/25 13:59 Fentanyl Cit Inj 50 Mcg/Ml Amp 2ml IVP 03/26/25 15:59 Q2M PRN MODERATE SEDATION Folic Acid 1 mg 03/26/25 15:15 Folic Acid 1 Mg Tablet PO 04/25/25 15:14 QDAY KARLEY Glucagon 1 mg 03/22/25 15:44 Glucagon Inj 1 Mg Vial IM Q15MIN PRN BG <70, and no IV access Hydrocortisone Sodium Succinate 50 mg 03/24/25 10:30 03/26/25 10:31 Hydrocortisone Sod Succ Inj 100 Mg 2 Ml Vial IV 03/26/25 23:55 50 mg Q8H KARLEY Administration Hydrocortisone Sodium Succinate 50 mg 03/27/25 08:00 Hydrocortisone Sod Succ Inj 100 Mg 2 Ml Vial IV 04/26/25 08:59 BID KARLEY Metronidazole 500 mg in 100 mls @ 200 mls/hr 03/22/25 06:30 03/26/25 15:03 Flagyl 500 Mg Iv IV 03/29/25 06:29 Not Given Q8HR [facility] Ceftriaxone Sodium/Dextrose 1 gm in 50 mls @ 100 mls/hr 03/22/25 09:00 03/26/25 08:26 Rocephin/D5w 1gm Iv Premix IV 03/29/25 08:59 100 mls/hr QDAY KARLEY Administration Potassium Phosphate 15 mmol in 250 mls @ 62.5 mls/hr 03/26/25 08:09 03/26/25 13:30 Pot Phos 15 Mmol In Ns 250 Ml IV 03/26/25 16:08 62.5 mls/hr Q4H KARLEY Administration Dextrose 1,000 mls @ 150 mls/hr 03/26/25 10:45 03/26/25 11:31 D5w IV 04/25/25 10:44 150 mls/hr .Q6H40M KARLEY Administration Insulin Human Lispro 0 unit 03/22/25 17:00 03/26/25 11:23 Insulin Lispro (Admelog) 1 Unit/0.01 Ml Unit SC 04/21/25 16:59 Not Given ACHS KARLEY Protocol Methylprednisolone Sodium Succinate 40 mg 03/26/25 21:00 Methylprednisolone Sod Succ 40 Mg/Ml Vial IVP 04/02/25 20:59 Q12HR KARLEY Midazolam HCl 2 mg 03/26/25 13:59 Midazolam Inj 1 Mg/Ml Vial 2 Ml IVP 03/26/25 15:59 Q2M PRN Moderate Sedation Pantoprazole Sodium 40 mg 03/22/25 09:00 03/26/25 08:25 Pantoprazole Inj 40 Mg Vial IVP 04/21/25 08:59 40 mg QDAY KARLEY Administration Sulfasalazine 1,000 mg 03/26/25 21:00 Sulfasalazine 500 Mg Tablet PO 04/25/25 20:59 BID KARLEY Plan Mr. Cunha is a 84-year-old male with a past medical history of malignant melanoma on chemotherapy, coronary artery disease status post 2 stent placements, hypertension, history of bladder cancer presented to the ED on 03/21/2025 with 3 weeks of diarrhea and admitted for suspected sepsis secondary to gastroenteritis and PAULIE likely prerenal in the setting of severe gastroenteritis. Decision was made to start patient on phenylephrine and upgrade to ICU for further management but downgraded to floors on 03/23. Plan for colonoscopy pending stool labs. #Sepsis #Leukocytosis - improving #Hypovolemic shock - resolved Chest CT noted for bibasilar pneumonia Blood cultures pending Stool testing pending -Continue ceftriaxone 1g q24h(day, metronidazole 500mg q8H -Awaiting results/culture from stool sendout -Daily CBC CMP Mg Phos #Diarrhea, suspected immune-mediated colitis #Gastritis Chemotherapy-induced vs infectious vs other Consulted Dr. Hightower: appreciate recs Previous colonoscopy 10/11/2020 for metastatic workup: polyps found in descending, sigmoid colons and cecum; unclear pathology report and planned colonoscopy September 2025 -Follow up/pending: complete stool panel fecal calprotectin Giardia Antigen Cdiff -Bicitra, magic mouth wash -Dr. Hightower to perform colonoscopy once GoLytely clears #Atrial fibrillation, new onset #CAD s/p 2 stents #Diastolic Dysfunction Grade 1 [id number] score = 4 Echocardiogram 03/22/2025: Left ventricle size is normal and systolic function is normal. Estimated ejection fraction is 55-60%. New-onset, due to infection vs dehydration vs other Now in sinus rhythm [id number] score 4 points IV Amiodarone transitioned to PO Contacted by Dr. Padilla regarding amiodarone, electrolyte repletion -Continue Amiodarone 200mg PO BID -Enoxaparin 30mg SC Q24h -Holding recommened Warfarin 2.5mg PO pending colonoscopy by Dr. Hightower -Telemonitoring -K, Mg repletion >4 and >2, respectively -to have a cardiac catheterization once stable #Electrolyte Abnormalities #Hypernatremia #Hypokalemia - resolved #Hyperchloremic Acidosis #High Creatinine #NAGMA #Hyperchloremia Cl 122 today 03/26 Creatinine downtrended to 2.5 03/26 2/2 GI loss - Bicarb 19.2 on admission, improved to 20.8 after starting Bicitra on 03/25. Likely secondary to persistent diarrhea and GoLytely. Per Nephrology recs: -150ml/hr D5W -Follow up urine electrolyte analysis to determine if underlying RTA - Continue Bicitra(sodium citrate + citric acid) -Discontinue Golytely as soon as possible #Anemia Hgb 12.4 today; improved Likely hemodilutional -Continue to monitor H/H daily labs -Transfuse at Hgb < 7.0 #Melanoma with metastasis #Chemotherapy # Primary left arm melanoma w/ diffuse metastasis Wide Local Excision by Dr. Terence Franco On IPI3/NIVO1 chemotherapy, last infusion 02/28/2025 Metastasis to Liver, Lung, Brain Oncological care by Dr. Ron [phone] -To follow up outpt for treatment with Dr. Ron Medrano regarding cancer tx #Steroid Use Previous reported prednisone dose 80mg, now tapered to 17.5mg daily for the past 3 years Use for immunotherapy-associated arthritis -Hydorcortisone 50mg q6h -> 50mg q8h To taper to 50mg q12 04/06 #Elevated Troponins 1.057 today from 1.451 yesterday 03/22/2025 Not endorsing chest pain/tightness Likely due to metabolic stress/demand -Continue to monitor, f/u troponins 12/4 AM Hospital management: Disposition: pending stool cultures on IV abx, new onset atrial fibrillation with cardiology consulted IVF: LR at 100 cc/h Diet: Clear Liquid Lines: PIV DVT prophylaxis: lovenox GI prophylaxis: Protonix CODE STATUS: full code Attending Provider Attestation/Addendum Carey Glover DO, attest that I was physically present for the moran portions of the service and evaluated the patient with the resident and I reviewed and discussed the case with the resident and agree with the resident's findings and plans of care as documented above Patient seen and eval this a.m. He is very frustrated that he has not had a colonoscopy done. However, colonoscopy was postponed due to patient not being clear for procedure yesterday. Patient feels defeated and asking to speak with GI. He otherwise has no other complaints. However, he is noted to have worsening hypernatremia and hyperchloremia, likely secondary to GI losses. Will start on D5 water and trend sodium levels.
--- NOTE | 2025-03-26 15:31 | SUR.PHASEI ---
report given to FELIX Cuevas. Pt drowsy but arousable to voice. VSS. IV x2 remains intact. no s/s of infiltration or infection. Pt ready for transfer back to room
[2025-03-26] MEDS: THIAMINE INJ 100 MG/ML VIAL 2 ML IVP (15:58)
[2025-03-26] MEDS: FOLIC ACID 1 MG TABLET PO (15:58)
[2025-03-26 16:47] LABS: Anion Gap 9 (7-16); BUN/Creatinine Ratio 14 Ratio (12-20); Blood Urea Nitrogen 34 mg/dL (9-23); Calcium 7.2 mg/dL (8.3-10.6); Carbon Dioxide 22.5 mMol/L (20.0-31.0); Chloride 122 mMol/L (98-107); Creatinine (Component) 2.4 mg/dL (0.6-1.3); Estimated Creatinine Clearance 33.2 mL/min (>60); Glucose 160 mg/dL (74-106); Osmolality,Calculated 314 (275-295); Potassium 3.5 mMol/L (3.4-5.1); Sodium 153 mMol/L (136-145); eGFR 26 See Note
[2025-03-26] MEDS: DEXTROSE 5%-WATER 1,000 ML 200 ML IV (20:22)
[2025-03-27] VITALS (11 sets, daily range): BP systolic 128–162; BP diastolic 58–80; PULSE 64–75; RESP 16–20; TEMP 36.1–36.4; O2SAT 93–96; BMI 29.0
[2025-03-27 01:07] LABS: Anion Gap 10 (7-16); BUN/Creatinine Ratio 14 Ratio (12-20); Blood Urea Nitrogen 30 mg/dL (9-23); Calcium 7.2 mg/dL (8.3-10.6); Carbon Dioxide 19.8 mMol/L (20.0-31.0); Chloride 120 mMol/L (98-107); Creatinine (Component) 2.1 mg/dL (0.6-1.3); Estimated Creatinine Clearance 37.9 mL/min (>60); Glucose 196 mg/dL (74-106); Osmolality,Calculated 309 (275-295); Potassium 2.9 mMol/L (3.4-5.1); Sodium 150 mMol/L (136-145); eGFR 30 See Note
--- NOTE | 2025-03-27 02:06 | PC.NURSE ---
BMP results in, Dr. Ramos was made aware. to put in orders.
[2025-03-27] MEDS: POTASSIUM CHLORIDE 10% 20 MEQ/15 ML UDC 40 MEQ PO (02:55)
[2025-03-27] MEDS: POTASSIUM CHLORIDE 10% 20 MEQ/15 ML UDC PO (02:55)
[2025-03-27] MEDS: DEXTROSE 5%-WATER 1,000 ML 200 ML IV (03:00)
[2025-03-27] MEDS: metroNIDAZOLE/NS 500 MG IVPB 500 MG/100 ML BAG 200 MG IV (05:28)
[2025-03-27 05:59] LABS: Basophils # (Auto) 0.0 Thou/mm3 (0.0-0.2); Basophils % (Auto) 0 % (0-2.5); Eosinophils # (Auto) 0.0 Thou/mm3 (0.0-0.5); Eosinophils % (Auto) 0 % (0-10); Hematocrit 35.5 % (41.0-53.0); Hemoglobin 11.2 g/dL (13.5-16.0); Immature Granulocytes Auto 0.19 Thou/mm3 (0.00-0.00); Lymphocytes # (Auto) 0.3 Thou/mm3 (1.0-4.8); Lymphocytes % (Auto) 3 % (10-50); Mean Corpuscular HGB Conc 31.5 g/dl (31.0-37.0); Mean Corpuscular Hemoglobin 27.7 pg (25.0-35.0); Mean Corpuscular Volume 88 fL (80-100); Monocytes # (Auto) 0.3 Thou/mm3 (0.0-0.8); Monocytes % (Auto) 3 % (0-12); Neutrophils # (Auto) 10.1 Thou/mm3 (1.8-7.7); Neutrophils % (Auto) 92 % (37-80); Nucleated Red Blood Cell # 0.00 Thou/mm3 (0.00-0.00); Nucleated Red Blood Cell % 0 /100 WBC (0); Platelet Count 215 Thou/mm3 (140-440); RDW Standard Deviation 54.1 fL (35.1-43.9); Red Blood Count 4.04 Miln/mm3 (4.50-5.90); White Blood Count 10.9 Thou/mm3 (3.8-10.6)
[2025-03-27 06:41] LABS: Alanine Aminotransferase 20 U/L (10-49); Albumin, Serum 2.5 gm/dL (3.4-4.8); Albumin/Globulin Ratio 1.1 (1.2-2.2); Alkaline Phosphatase 96 U/L (46-116); Anion Gap 8 (7-16); Aspartate Amino Transferase 14 U/L (0-34); BUN/Creatinine Ratio 14 Ratio (12-20); Bilirubin,Total 0.2 mg/dL (0.3-1.2); Blood Urea Nitrogen 30 mg/dL (9-23); Calcium 7.2 mg/dL (8.3-10.6); Calcium (Corrected) 8.4 mg/dL (8.5-10.1); Carbon Dioxide 20.5 mMol/L (20.0-31.0); Chloride 121 mMol/L (98-107); Creatinine (Component) 2.2 mg/dL (0.6-1.3); Estimated Creatinine Clearance 36.6 mL/min (>60); Globulin 2.2 gm/dL (2.3-3.5); Glucose 267 mg/dL (74-106); Magnesium 2.1 mg/dL (1.6-2.6); Osmolality,Calculated 311 (275-295); Phosphorous 3.5 mg/dL (2.4-5.1); Potassium 3.7 mMol/L (3.4-5.1); Sodium 149 mMol/L (136-145); Total Protein 4.7 gm/dL (5.7-8.2); eGFR 29 See Note
[2025-03-27] MEDS: INSULIN LISPRO (AdmeLOG) 1 UNIT/0.01 ML UNIT SC ×3 (07:41→17:17)
[2025-03-27] MEDS: ENOXAPARIN SOD INJ 40 MG/0.4 ML SYRINGE SC (08:57)
[2025-03-27] MEDS: AMIODARONE HCL 200 MG TABLET PO ×2 (08:57→20:17)
[2025-03-27] MEDS: cefTRIAXone/D5w 1gm IV premix 1 GM/50 ML BAG IV (08:58)
[2025-03-27] MEDS: CITRIC ACID/SODIUM CITR 15 ML UDC (BICITRA) 30 ML PO (08:58)
[2025-03-27] MEDS: POT PHOS 15 mMol in NS 250 ML 15 MMOL/250 ML BAG 62.5 MMOL IV ×2 (08:58→12:08)
[2025-03-27] MEDS: THIAMINE INJ 100 MG/ML VIAL 2 ML IVP (08:59)
[2025-03-27] MEDS: FOLIC ACID 1 MG TABLET PO (08:59)
--- NOTE | 2025-03-27 09:32 | PD.RESPRO ---
Documentation for date of: 03/27/25 Subjective Subjective Interval history: Patient seen and examined at bedside, saturating well on room air. Nephrology was consulted for hypernatremia, patient on D5W for hypernatremia correction however today noted to have significant lower extremity edema and edema and dependent region. Patient does have diastolic dysfunction on echocardiogram, history of CAD. We recommend discussing fluid overload possibility with nephrology and down titrating D5W. Monitor fluid status and electrolytes closely, keep potassium greater than 3.5 and magnesium greater than 2. Exam Vital Signs Temp Pulse Resp BP Pulse Ox O2 Del Method O2 Flow Rate 97.1 F 75 20 153/80 H 96 Room Air 3 03/27/25 03:57 03/27/25 08:57 03/27/25 03:57 03/27/25 08:57 03/27/25 03:57 03/27/25 03:57 03/26/25 15:00 Narrative Exam General: Awake, tired and in no acute distress. Conversational and on room air HEENT: Normocephalic, atraumatic, mucous membranes moist. Heart: Sinus rhythm, no murmurs. Lungs: Clear to auscultation with no wheezing or crackles. Abdomen: Soft, nondistended, nontender, positive bowel sounds. ?No guarding or rebound tenderness. Neurologic: Alert and oriented x3, no gross neurological deficit, and patient able to move all 4 extremities. Extremities: 1+ bilateral lower extremity edema, 1+ edema dependent region?hips Skin: No rash or ecchymoses. Objective Labs 03/28/25 05:16 03/28/25 05:16 Labs: Laboratory Results - last 24 hr 03/26/25 03/26/25 03/27/25 13:50 15:57 00:30 WBC RBC Hgb Hct MCV MCH MCHC RDW Std Deviation Plt Count Neut % (Auto) Lymph % (Auto) [place] % (Auto) Eos % (Auto) Baso % (Auto) Neut # (Auto) Lymph # (Auto) [place] # (Auto) Eos # (Auto) Baso # (Auto) Immature Gran # (Auto) Absolute Nucleated RBC Immature Gran % Nucleated RBC % Sodium 153 H 150 H Potassium 3.5 2.9 L D Chloride 122 H* 120 H Carbon Dioxide 22.5 19.8 L Anion Gap 9 10 BUN 34 H 30 H Creatinine 2.4 H 2.1 H Estim Creat Clear Calc 33.2 L 37.9 L eGFR 26 L 30 L BUN/Creatinine Ratio 14 14 Glucose 160 H 196 H Calculated Osmolality 314 H 309 H Calcium 7.2 L 7.2 L Corrected Calcium Phosphorus Magnesium Total Bilirubin AST ALT Alkaline Phosphatase Total Protein Albumin Globulin Albumin/Globulin Ratio Ur Random Sodium < 15.0 L Ur Random Potassium 39 Ur Random Chloride 70.6 03/27/25 05:06 WBC 10.9 H RBC 4.04 L Hgb 11.2 L Hct 35.5 L MCV 88 MCH 27.7 MCHC 31.5 RDW Std Deviation 54.1 H Plt Count 215 Neut % (Auto) 92 H Lymph % (Auto) 3 L [place] % (Auto) 3 Eos % (Auto) 0 Baso % (Auto) 0 Neut # (Auto) 10.1 H Lymph # (Auto) 0.3 L [place] # (Auto) 0.3 Eos # (Auto) 0.0 Baso # (Auto) 0.0 Immature Gran # (Auto) 0.19 H Absolute Nucleated RBC 0.00 Immature Gran % 2 H Nucleated RBC % 0 Sodium 149 H Potassium 3.7 D Chloride 121 H* Carbon Dioxide 20.5 Anion Gap 8 BUN 30 H Creatinine 2.2 H Estim Creat Clear Calc 36.6 L eGFR 29 L BUN/Creatinine Ratio 14 Glucose 267 H D Calculated Osmolality 311 H Calcium 7.2 L Corrected Calcium 8.4 L Phosphorus 3.5 Magnesium 2.1 Total Bilirubin 0.2 L AST 14 ALT 20 Alkaline Phosphatase 96 Total Protein 4.7 L Albumin 2.5 L Globulin 2.2 L Albumin/Globulin Ratio 1.1 L Ur Random Sodium Ur Random Potassium Ur Random Chloride ABG Interpretation ABG results: 03/22/25 09:17 VBG pH 7.33 VBG pCO2 33 L VBG pO2 51 VBG Base Excess -8 L Quality Measures Quality Measures VTE prophylaxis Advance care planning discussed with:: patient and spouse Assessment & Plan Assessment Current Active Medications: Generic Name Dose Route Start Last Admin Trade Name Freq PRN Reason Stop Dose Admin Amiodarone HCl 200 mg 03/23/25 09:00 03/27/25 08:57 Amiodarone Hcl 200 Mg Tablet PO 04/22/25 08:59 200 mg BID KARLEY Administration Citric Acid/Sodium Citrate 30 ml 03/26/25 09:00 03/27/25 08:58 Citric Acid/Sodium Citr 15 Ml Udc (Bicitra) PO 04/25/25 08:59 30 ml DAILY KARLEY Administration Lidocaine HCl 10 ml/ 0 ml 03/24/25 11:49 03/25/25 12:45 Diphenhydramine HCl 25 mg/ Al PO 03/31/25 11:59 1 dose Hydrox/Mg Hydrox/Simethicone BID PRN Administration 30 ml/ Nystatin 10 ml mouth pain/ulcers Dextrose 25 ml 03/22/25 15:44 Dextrose 50%-Water Inj 50 Ml Syringe IV 04/21/25 15:43 Q15MIN PRN BG 50-70 responsive npo pt Dextrose 50 ml 03/22/25 15:44 Dextrose 50%-Water Inj 50 Ml Syringe IV 04/21/25 15:43 Q15MIN PRN BG <50 OR BG <70 & pt unresponsive Enoxaparin Sodium 40 mg 03/26/25 17:31 03/27/25 08:57 Enoxaparin Sod Inj 40 Mg/0.4 Ml Syringe SC 04/05/25 08:59 40 mg QDAY KARLEY Administration Protocol Folic Acid 1 mg 03/26/25 15:15 03/27/25 08:59 Folic Acid 1 Mg Tablet PO 04/25/25 15:14 1 mg QDAY KARLEY Administration Glucagon 1 mg 03/22/25 15:44 Glucagon Inj 1 Mg Vial IM Q15MIN PRN BG <70, and no IV access Metronidazole 500 mg in 100 mls @ 200 mls/hr 03/22/25 06:30 03/27/25 05:28 Flagyl 500 Mg Iv IV 03/29/25 06:29 200 mls/hr Q8HR KARLEY Administration Ceftriaxone Sodium/Dextrose 1 gm in 50 mls @ 100 mls/hr 03/22/25 09:00 03/27/25 08:58 Rocephin/D5w 1gm Iv Premix IV 03/29/25 08:59 100 mls/hr QDAY KARLEY Administration Dextrose 1,000 mls @ 200 mls/hr 03/26/25 19:59 03/27/25 03:00 D5w IV 04/25/25 19:58 200 mls/hr .Q5H KARLEY Administration Potassium Phosphate 15 mmol in 250 mls @ 62.5 mls/hr 03/27/25 07:55 03/27/25 08:58 Pot Phos 15 Mmol In Ns 250 Ml IV 03/27/25 15:54 62.5 mls/hr Q4H KARLEY Administration Insulin Human Lispro 0 unit 03/22/25 17:00 03/27/25 07:41 Insulin Lispro (Admelog) 1 Unit/0.01 Ml Unit SC 04/21/25 16:59 2 unit ACHS KARLEY Administration Protocol Methylprednisolone Sodium Succinate 40 mg 03/26/25 21:00 03/27/25 08:57 Methylprednisolone Sod Succ 40 Mg/Ml Vial IVP 04/02/25 20:59 40 mg Q12HR KARLEY Administration Pantoprazole Sodium 40 mg 03/22/25 09:00 03/27/25 08:57 Pantoprazole Inj 40 Mg Vial IVP 04/21/25 08:59 40 mg QDAY KARLEY Administration Sulfasalazine 1,000 mg 03/26/25 21:00 03/27/25 08:56 Sulfasalazine 500 Mg Tablet PO 04/25/25 20:59 1,000 mg BID KARLEY Administration Thiamine HCl 100 mg 03/26/25 15:30 03/27/25 08:59 Thiamine Inj 100 Mg/Ml Vial 2 Ml IVP 04/25/25 15:29 100 mg QDAY KARLEY Administration Plan Mr. Cunha is a 84-year-old male with past medical history of malignant melanoma diagnosed in 2020 on chemotherapy (nivolumab and ipilimumab) follows Dr Medrano, [facility] last chemotherapy session 3 weeks ago, CAD status post PCI follows Dr. Arango, remote history of bladder cancer about 20 years ago, hypertension and BPH who presented to [facility] emergency department on 03/21/2025 with a chief complaint of diarrhea for the last 3 weeks. Patient admitted to telemetry and then upgraded to intensive care unit in setting of distributive shock secondary to gastroenteritis along with new onset A-fib RVR started on phenylephrine. #New onset A-fib RVR, resolved #Diastolic Dysfunction Grade I Patient admitted for sepsis, no history of atrial fibrillation or conduction abnormalities. Overnight patient went into RVR heart rate in 140s, noted to be A-fib RVR. Patient started on amiodarone drip meanwhile patient also noted to be hypotensive despite 5 L fluid resuscitation started on phenylephrine and upgraded to intensive care unit. [id number] score: 4 points Patient at bedside right now noted to be in sinus rhythm Lipid panel shows cholesterol 75, triglyceride 168, LDL 17, HDL 24, A1c 7.2, TSH 0.51 Echocardiogram 03/22/2025: Left ventricle size is normal and systolic function is normal. Estimated ejection fraction is 55-60%. There is grade I diastolic dysfunction. There is mild concentric hypertrophy noted. Right ventricle chamber size is normal and systolic function is normal. Estimated RVSP is 15 mmHg. Posterior mitral valve annulus mildy calcified. Trace MR and TR. There is trace tricuspid valve regurgitation. Prominent pericardial fat pad seen. The left atrium is mildly enlarged. The right atrium is normal. Recommendations: - Continue amiodarone 200 mg p.o. twice daily and can be decreased to 200 mg daily after one months - Start patient on anticoagulation to decrease stroke risk recommend heparin GTT or Eliquis 2.5mg BID when no contraindications. - Continue telemonitoring - Keep magnesium greater than 2 and potassium greater than 4 at all times, replete aggressively - Repeat thyroid function outpatient - Strict I&O, monitor volume status and urine output closely, down titrate D5W today after discussion with nephrology. #Coronary artery disease status post 2 stents #NSTEMI type II likely demand ischemia Patient denies any chest pain currently, troponin on presentation 0.162 -> 0.180 -> 0.522 -> 1.606 -> 1.451 -> 1.057 EKG on presentation shows no acute ST-T changes Patient did report that he had 2 stents placed respectively in 2018 and 2019. -Echocardiogram negative for regional wall abnormalities -Does seem like troponin elevation is likely type II in setting of sepsis secondary to gastroenteritis/GI source -Patient will need cardiac catheterisation at a later point once stable. Needs outpatient workup. -Patient does have PAULIE on CKD for clearance of troponin as well. #PAULIE on ?CKD likely ATN #Hypernatremia, hyperchloremia #Hypocalcemia Patient presented with continuous multiple episodes of diarrhea over the last 3 weeks, on presentation creatinine 3.6 BUN 49 and GFR 16, no previous baseline known, continue to monitor urine output. Kidney injury likely prerenal versus ATN, urine analysis negative for casts or WBCs. Patient on ARB's and diuretic at home ?Continue to monitor renal function ?Consider obtaining renal ultrasound to rule out chronic changes ?Nephrology is consulted and is following #Acute encephalopathy #Distributive shock versus hypovolemic shock #Hypokalemia #Gastritis and colitis #Adrenal insufficiency #Leukocytosis #Anemia #Low TSH/? Euthyroid sick syndrome #Diabetes mellitus, A1c 7.2 - Management as per primary team Thank you for the consult and allowing to participate in the care of the patient. Cardiology will continue to follow. Case discussed with Attending Physician Dr. Pastor Narvaez MD Internal Medicine PGY-2 Disclaimer: This note was dictated by speech recognition. Minor errors in incident analyst may be present due to voice recognition software. Attending Provider Attestation/Addendum I have personally seen and examined the patient separately on the above date of service and discussed the plan of care with the resident. I reviewed the resident Dr.Tanveer Narvaez consultation progress note and agree with the resident findings and plan in the note above and have also edited the documentation to reflect my findings and plan. Pastor Avendaño M.D. Interventional Cardiology
--- NOTE | 2025-03-27 10:13 | ESPR_ITS ---
Documentation for date of: 03/27/25 Subjective Subjective Interval history: 84-year-old male with significant past medical history of malignant melanoma diagnosed in 2020 on chemotherapy [nivolumab, ipilimumab], last chemotherapy session 3 weeks ago, CAD s/p PCI, hypertension, remote history of bladder cancer almost 20 years ago was brought to the hospital in view of severe diarrhea since 3 weeks. 5-6 episodes per day, noted to have mucus and had febrile episode 1 week ago. Also noted to have shortness of breath and cough since 2 days, presented to the hospital as all the symptoms are worsening. Reported that he is using steroids and currently using prednisone 60 mg per patient, unsure of the indication, patient reported that he is using it for generalized weakness. Also reported that he had history of low potassium for which he takes potassium supplementation. 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 Vitals at the time of admission are stable except for tachycardia with heart rate around 108 bpm and temperature of 102. Labs at the time of admission are significant for WBC 27.3, potassium 3.2, bicarb 19.2, BUN 49, creatinine 3.6, lactate 7, troponin 0.162, procalcitonin 4.54. Urinalysis is unremarkable. Abdomen/pelvis CT showed bibasilar pneumonia, gastritis pattern, bilateral benign renal cyst, diffuse nonspecific colitis pattern. In ED, patient is given 4 L of fluid bolus and was started on LR at 100 mL/h. Ceftriaxone is given. Patient is admitted into the hospital in view of suspected sepsis secondary to gastroenteritis and PAULIE, likely prerenal in the setting of severe gastroenteritis. Nephrology consulted for pre-renal azotemia secondary to diarrhea with worsening hyperchloremic acidosis and hypernatremia. 03/26/25: Patient was seen and assessed at bedside. Has been on GoLytely for the past 2 days for colonoscopy to evaluate worsening diarrhea. As a result, patient has become very hypovolemic (beefy dry red tongue, dry mucous membranes, decreased skin turgor). Has been drinking water but unable to retain it. Creatinine improved to 2.5 on LR (baseline 1.2 in 2020). Sodium 151, increased significantly after starting GoLytely which contains 35g sodium/liter. Bicarb 19.2 on admission but improved to 20.8 on Bicitra. Chloride 122 (from 109 on admission). Discontinue LR and start on D5W 150 mL/hr as patient has FWD 5.2L. Insulin as needed for hyperglycemia. Free water consumption not adequate in setting of GoLytely prep. Follow up urine lytes to rule out possible underlying RTA. 03/27/2025 patient had a colonoscopy which showed ulcer. Pending biopsies. He is noted to have some edema probably from the fluid overload (GoLytely and D5W. Sodium tad better at 149. Complaining of significant burning sensation on the tongue. Not able to drink significant amount of fluids. Due to edema- recommended to primary team to give Aldactone. Review of Systems Review of Systems Narrative Review of Systems: Complaining of burning and pain in the tongue Exam Vital Signs Temp Pulse Resp BP Pulse Ox O2 Del Method O2 Flow Rate 36.2 C 75 16 153/80 H 93 L Room Air 3 03/27/25 08:00 03/27/25 08:57 03/27/25 08:00 03/27/25 08:57 03/27/25 08:00 03/27/25 08:00 03/26/25 15:00 Narrative Exam Physical Exam General: Awake and in no acute distress. Conversational and non-toxic appearing. Hard of hearing. HEENT: Normocephalic, atraumatic, mucous membranes dry. Big beefy red tongue, dry. Heart: Regular rate and rhythm, normal S1 and S2, no murmurs appreciated. Lungs: Clear to auscultation with no wheezing or crackles. Abdomen: Soft, nondistended, nontender, positive bowel sounds. No guarding or rebound tenderness. Neurologic: Alert and oriented x3, no gross neurological deficit, and patient able to move all 4 extremities. Extremities: 2+ edema in the thighs Skin: No rash or ecchymoses. Objective Labs 03/27/25 05:06 03/27/25 05:06 Labs: Laboratory Results - last 24 hr 03/26/25 03/26/25 03/27/25 13:50 15:57 00:30 WBC RBC Hgb Hct MCV MCH MCHC RDW Std Deviation Plt Count Neut % (Auto) Lymph % (Auto) [place] % (Auto) Eos % (Auto) Baso % (Auto) Neut # (Auto) Lymph # (Auto) [place] # (Auto) Eos # (Auto) Baso # (Auto) Immature Gran # (Auto) Absolute Nucleated RBC Immature Gran % Nucleated RBC % Sodium 153 H 150 H Potassium 3.5 2.9 L D Chloride 122 H* 120 H Carbon Dioxide 22.5 19.8 L Anion Gap 9 10 BUN 34 H 30 H Creatinine 2.4 H 2.1 H Estim Creat Clear Calc 33.2 L 37.9 L eGFR 26 L 30 L BUN/Creatinine Ratio 14 14 Glucose 160 H 196 H Calculated Osmolality 314 H 309 H Calcium 7.2 L 7.2 L Corrected Calcium Phosphorus Magnesium Total Bilirubin AST ALT Alkaline Phosphatase Total Protein Albumin Globulin Albumin/Globulin Ratio Ur Random Sodium < 15.0 L Ur Random Potassium 39 Ur Random Chloride 70.6 03/27/25 05:06 WBC 10.9 H RBC 4.04 L Hgb 11.2 L Hct 35.5 L MCV 88 MCH 27.7 MCHC 31.5 RDW Std Deviation 54.1 H Plt Count 215 Neut % (Auto) 92 H Lymph % (Auto) 3 L [place] % (Auto) 3 Eos % (Auto) 0 Baso % (Auto) 0 Neut # (Auto) 10.1 H Lymph # (Auto) 0.3 L [place] # (Auto) 0.3 Eos # (Auto) 0.0 Baso # (Auto) 0.0 Immature Gran # (Auto) 0.19 H Absolute Nucleated RBC 0.00 Immature Gran % 2 H Nucleated RBC % 0 Sodium 149 H Potassium 3.7 D Chloride 121 H* Carbon Dioxide 20.5 Anion Gap 8 BUN 30 H Creatinine 2.2 H Estim Creat Clear Calc 36.6 L eGFR 29 L BUN/Creatinine Ratio 14 Glucose 267 H D Calculated Osmolality 311 H Calcium 7.2 L Corrected Calcium 8.4 L Phosphorus 3.5 Magnesium 2.1 Total Bilirubin 0.2 L AST 14 ALT 20 Alkaline Phosphatase 96 Total Protein 4.7 L Albumin 2.5 L Globulin 2.2 L Albumin/Globulin Ratio 1.1 L Ur Random Sodium Ur Random Potassium Ur Random Chloride ABG Interpretation ABG results: 03/22/25 09:17 VBG pH 7.33 VBG pCO2 33 L VBG pO2 51 VBG Base Excess -8 L Assessment & Plan Additional Assessment & Plan Additional Plan: Patient is an 84-year-old male with significant past medical history of malignant melanoma diagnosed in 2020 on chemotherapy [nivolumab, ipilimumab], last chemotherapy session 3 weeks ago, CAD s/p PCI, hypertension, remote history of bladder cancer almost 20 years ago admitted 03/21/25 for suspected sepsis secondary to gastroenteritis and PAULIE, likely prerenal in the setting of severe gastroenteritis. Nephrology consulted for pre-renal azotemia secondary to diarrhea with worsening hyperchloremic acidosis and hypernatremia. #PAULIE, prerenal 2/2 diarrhea - Creatinine 2.2. - Baseline 1.2 in 2020 Plan: - Increase p.o. water intake - Follow up urine electrolytes - Continue to monitor renal panel daily - Strict INOs - Avoid nephrotoxic agents - Renally dose medications #Hypernatremia 2/2 iatrogenic causes and dehydration - Sodium elevated-iatrogenic from a significant amount of sodium loading GoLytely in the setting of decreased p.o. water intake. Plan: - Continue with free water intake/D5W as needed #NAGMA-on Bicitra #Hypokalemia - resolved #Sepsis #Leukocytosis - improving #Hypovolemic shock - resolved #Diarrhea, suspected immune-mediated colitis #Gastritis #Atrial fibrillation, new onset #CAD s/p 2 stents #Diastolic Dysfunction Grade 1 #Anemia #Melanoma with metastasis #Chemotherapy #Steroid Use #Elevated Troponins Spoke to primary team. Edema noted-Aldactone given
[2025-03-27] MEDS: SPIRONOLACTONE 25 MG TABLET 50 MG PO (12:04)
--- NOTE | 2025-03-27 14:14 | ESPR_ITS ---
<Statement entered by Francois Solares MD - 03/27/25 15:55> No acute overnight events. Seen and examined at bedside and overall feels well other than difficulty eating due to pain and oral cavity. Diet was changed to dysphagia 1. Underwent colonoscopy and to have grade 2 internal hemorrhoids as well as a continuous area of nonbleeding, ulcerated mucosa with no stigmata of recent bleeding in the entire colon for which biopsies were taken. Additionally, large polyp was found in transverse colon and removed. Hydrocortisone was discontinued and patient was started on Solu-Medrol 40 mg IV twice daily, sulfasalazine 1 g p.o. twice daily, folic acid 1 mg p.o. daily. For new onset A-fib, continuing amiodarone and starting Eliquis 2.5 mg twice daily. Increase swelling in upper extremities and so maintenance fluids stopped. ----- Note reviewed and agree with care plan as documented. Please refer to the note below for further details. Plan discussed with attending physician Dr. Nusrat Solares MD PGY-2 Internal Medicine Documentation for date of: 03/27/25 Subjective Subjective Interval history: Mr. Cunha is alert, oriented x 4 and expressing the desire to be discharged. The plan for continued electrolyte managment s/p colonoscopy was shared with him to which he was amenable. Additionally, results of colonoscopy were shared with him. He continues to ambulate and does not endorse any ongoing pain nor acute symptoms. VSS. NAEO. Discussed with him the risks and benefits associated with starting Eliquis PO 2.5mg as recommended previously by Dr. Padilla prior to his endoscopy, and he is amenable and agreeable to starting medication. Maintenance fluids stopped due to UE edema. Exam Vital Signs Temp Pulse Resp BP Pulse Ox O2 Del Method O2 Flow Rate 97.1 F 67 16 153/80 H 93 L Room Air 3 03/27/25 08:00 03/27/25 12:04 03/27/25 08:00 03/27/25 12:04 03/27/25 08:00 03/27/25 08:00 03/26/25 15:00 Narrative Exam General: alert and oriented to self/place/year, no acute distress, able to speak full sentences HEENT: NC/AT, mucous membranes moist, bilateral sclera anicteric Cardiovascular: regular rate and rhythm, S1/S2 present, no murmurs appreciated Pulmonary: clear to auscultation bilaterally, no rales/rhonchi/wheezes Abdominal: soft, nontender, present bowel sounds Musculoskeletal: bilateral UE edema +1, bilateral LE edema +1 Skin: Warm, well-perfused; ecchymoses at sites of IV's Objective Labs 03/28/25 05:16 03/28/25 05:16 Labs: Laboratory Results - last 24 hr 03/26/25 03/26/25 03/27/25 13:50 15:57 00:30 WBC RBC Hgb Hct MCV MCH MCHC RDW Std Deviation Plt Count Neut % (Auto) Lymph % (Auto) [place] % (Auto) Eos % (Auto) Baso % (Auto) Neut # (Auto) Lymph # (Auto) [place] # (Auto) Eos # (Auto) Baso # (Auto) Immature Gran # (Auto) Absolute Nucleated RBC Immature Gran % Nucleated RBC % Sodium 153 H 150 H Potassium 3.5 2.9 L D Chloride 122 H* 120 H Carbon Dioxide 22.5 19.8 L Anion Gap 9 10 BUN 34 H 30 H Creatinine 2.4 H 2.1 H Estim Creat Clear Calc 33.2 L 37.9 L eGFR 26 L 30 L BUN/Creatinine Ratio 14 14 Glucose 160 H 196 H Calculated Osmolality 314 H 309 H Calcium 7.2 L 7.2 L Corrected Calcium Phosphorus Magnesium Total Bilirubin AST ALT Alkaline Phosphatase Total Protein Albumin Globulin Albumin/Globulin Ratio Ur Random Sodium < 15.0 L Ur Random Potassium 39 Ur Random Chloride 70.6 03/27/25 05:06 WBC 10.9 H RBC 4.04 L Hgb 11.2 L Hct 35.5 L MCV 88 MCH 27.7 MCHC 31.5 RDW Std Deviation 54.1 H Plt Count 215 Neut % (Auto) 92 H Lymph % (Auto) 3 L [place] % (Auto) 3 Eos % (Auto) 0 Baso % (Auto) 0 Neut # (Auto) 10.1 H Lymph # (Auto) 0.3 L [place] # (Auto) 0.3 Eos # (Auto) 0.0 Baso # (Auto) 0.0 Immature Gran # (Auto) 0.19 H Absolute Nucleated RBC 0.00 Immature Gran % 2 H Nucleated RBC % 0 Sodium 149 H Potassium 3.7 D Chloride 121 H* Carbon Dioxide 20.5 Anion Gap 8 BUN 30 H Creatinine 2.2 H Estim Creat Clear Calc 36.6 L eGFR 29 L BUN/Creatinine Ratio 14 Glucose 267 H D Calculated Osmolality 311 H Calcium 7.2 L Corrected Calcium 8.4 L Phosphorus 3.5 Magnesium 2.1 Total Bilirubin 0.2 L AST 14 ALT 20 Alkaline Phosphatase 96 Total Protein 4.7 L Albumin 2.5 L Globulin 2.2 L Albumin/Globulin Ratio 1.1 L Ur Random Sodium Ur Random Potassium Ur Random Chloride ABG Interpretation ABG results: 03/22/25 09:17 VBG pH 7.33 VBG pCO2 33 L VBG pO2 51 VBG Base Excess -8 L Quality Measures Quality Measures VTE prophylaxis Advance care planning discussed with:: patient Assessment & Plan Assessment Current Active Medications: Generic Name Dose Route Start Last Admin Trade Name Freq PRN Reason Stop Dose Admin Amiodarone HCl 200 mg 03/23/25 09:00 03/27/25 08:57 Amiodarone Hcl 200 Mg Tablet PO 04/22/25 08:59 200 mg BID KARLEY Administration Citric Acid/Sodium Citrate 30 ml 03/26/25 09:00 03/27/25 08:58 Citric Acid/Sodium Citr 15 Ml Udc (Bicitra) PO 04/25/25 08:59 30 ml DAILY KARLEY Administration Lidocaine HCl 10 ml/ 0 ml 03/24/25 11:49 03/25/25 12:45 Diphenhydramine HCl 25 mg/ Al PO 03/31/25 11:59 1 dose Hydrox/Mg Hydrox/Simethicone BID PRN Administration 30 ml/ Nystatin 10 ml mouth pain/ulcers Dextrose 25 ml 03/22/25 15:44 Dextrose 50%-Water Inj 50 Ml Syringe IV 04/21/25 15:43 Q15MIN PRN BG 50-70 responsive npo pt Dextrose 50 ml 03/22/25 15:44 Dextrose 50%-Water Inj 50 Ml Syringe IV 04/21/25 15:43 Q15MIN PRN BG <50 OR BG <70 & pt unresponsive Enoxaparin Sodium 40 mg 03/26/25 17:31 03/27/25 08:57 Enoxaparin Sod Inj 40 Mg/0.4 Ml Syringe SC 04/05/25 08:59 40 mg QDAY KARLEY Administration Protocol Folic Acid 1 mg 03/26/25 15:15 03/27/25 08:59 Folic Acid 1 Mg Tablet PO 04/25/25 15:14 1 mg QDAY KARLEY Administration Glucagon 1 mg 03/22/25 15:44 Glucagon Inj 1 Mg Vial IM Q15MIN PRN BG <70, and no IV access Potassium Phosphate 15 mmol in 250 mls @ 62.5 mls/hr 03/27/25 07:55 03/27/25 12:08 Pot Phos 15 Mmol In Ns 250 Ml IV 03/27/25 15:54 62.5 mls/hr Q4H KARLEY Administration Insulin Human Lispro 0 unit 03/27/25 10:13 03/27/25 12:05 Insulin Lispro (Admelog) 1 Unit/0.01 Ml Unit SC 04/21/25 16:59 3 unit ACHS KARLEY Administration Protocol Methylprednisolone Sodium Succinate 40 mg 03/26/25 21:00 03/27/25 08:57 Methylprednisolone Sod Succ 40 Mg/Ml Vial IVP 04/02/25 20:59 40 mg Q12HR KARLEY Administration Pantoprazole Sodium 40 mg 03/22/25 09:00 03/27/25 08:57 Pantoprazole Inj 40 Mg Vial IVP 04/21/25 08:59 40 mg QDAY KARLEY Administration Sulfasalazine 1,000 mg 03/26/25 21:00 03/27/25 08:56 Sulfasalazine 500 Mg Tablet PO 04/25/25 20:59 1,000 mg BID KARLEY Administration Thiamine HCl 100 mg 03/26/25 15:30 03/27/25 08:59 Thiamine Inj 100 Mg/Ml Vial 2 Ml IVP 04/25/25 15:29 100 mg QDAY KARLEY Administration Plan Mr. Cunha is a 84-year-old male with a past medical history of malignant melanoma on chemotherapy, coronary artery disease status post 2 stent placements, hypertension, history of bladder cancer presented to the ED on 03/21/2025 with 3 weeks of diarrhea and admitted for suspected sepsis secondary to gastroenteritis and PAULIE likely prerenal in the setting of severe gastroenteritis. Decision was made to start patient on phenylephrine and upgrade to ICU for further management but downgraded to floors on 03/23. Plan for colonoscopy pending stool labs. #Sepsis #Leukocytosis - improving #Hypovolemic shock - resolved Chest CT noted for bibasilar pneumonia Blood cultures pending Stool testing pending -Continue ceftriaxone 1g q24h(day, metronidazole 500mg q8H -Awaiting results/culture from stool sendout -Daily CBC CMP Mg Phos #Inflammatory Bowel Disease #Diarrhea, suspected immune-mediated colitis #Gastritis Chemotherapy-induced vs infectious vs other Consulted Dr. Hightower: appreciate recs Previous colonoscopy 10/11/2020 for metastatic workup: polyps found in descending, sigmoid colons and cecum; unclear pathology report and planned colonoscopy September 202503/26 Colonoscopy findings: mucosal ulceration in the entire examined colon w/ biopsy + large(>1cm) polyp in cecum in transverse colon, removed w/ hot snare Ulcerative Colitis > Crohn's vs other -Follow up/pending: complete stool panel fecal calprotectin Giardia Antigen Cdiff -Bicitra, magic mouth wash -Follow up biopsy results for both polyp and colon mucosa #Atrial fibrillation, new onset #CAD s/p 2 stents #Diastolic Dysfunction Grade 1 [id number] score = 4 Echocardiogram 03/22/2025: Left ventricle size is normal and systolic function is normal. Estimated ejection fraction is 55-60%. New-onset, due to infection vs dehydration vs other Now in sinus rhythm [id number] score 4 points IV Amiodarone transitioned to PO Contacted by Dr. Padilla regarding amiodarone, electrolyte repletion -Continue Amiodarone 200mg PO BID -Enoxaparin 30mg SC Q24h -03/27 - start Eliquis 2.5 PO BID Discontinue Lovenox 40 Subq DVT prophylaxis -Telemonitoring -K, Mg repletion >4 and >2, respectively -to have a cardiac catheterization once stable, outp per Dr. Padilla 03/27 #Electrolyte Abnormalities #Hypernatremia #Hypokalemia - resolved #Hyperchloremic Acidosis #High Creatinine #NAGMA #Hyperchloremia Cl today 121 03/27 Creatinine downtrended to 2.2 03/27 2/2 GI loss Bicarb 19.2 on admission, improved to 20.8 after starting Bicitra on 03/25. Likely secondary to persistent diarrhea and GoLytely. -DC'ed fluids -Urine Potassium, Sodium noncontributory, pending - Continue Bicitra(sodium citrate + citric acid) -Off Golytely -Daily CBC BMP #Anemia Hgb 12.4 today; improved Likely hemodilutional -Continue to monitor H/H daily labs -Transfuse at Hgb < 7.0 #Melanoma with metastasis #Chemotherapy Primary left arm melanoma w/ diffuse metastasis Wide Local Excision by Dr. Terence Franco On IPI3/NIVO1 chemotherapy, last infusion 02/28/2025 Metastasis to Liver, Lung, Brain Oncological care by Dr. Ron [phone] -To follow up outpt for treatment with Dr. Ron Medrano regarding cancer tx #Steroid Use Previous reported prednisone dose 80mg, now tapered to 17.5mg daily for the past 3 years Use for immunotherapy-associated arthritis -Hydorcortisone 40mg q12h #Elevated Troponins 1.057 today from 1.451 yesterday 03/22/2025 Not endorsing chest pain/tightness Likely due to metabolic stress/demand -Continue to monitor, f/u troponins 12/4 AM Hospital management: Disposition: pending stool cultures on IV abx, new onset atrial fibrillation with cardiology consulted IVF: none Diet: Low fiber + ensure Lines: PIV DVT prophylaxis: on eliquis 2.5 PO BID GI prophylaxis: Protonix CODE STATUS: full code Patient seen and discussed with attending physician Dr. Carey Silverio and senior resident Dr. Francois Ny MD, PGY-1 Attending Provider Attestation/Addendum I, Carey Silverio, , attest that I was physically present for the moran portions of the service and evaluated the patient with the resident and I reviewed and discussed the case with the resident and agree with the resident's findings and plans of care as documented above Patient seen and eval this a.m. No acute events overnight. Patient states that he wants to go home. However, he continues to have hypernatremia and hyperchloremia. This is due to GoLytely which he had received 60 mg equivalents of sodium. Hypernatremia has improved with D5W however, he has developed bilateral upper extremity edema. Patient denies any shortness of breath otherwise. Case was discussed in detail with nephrology. Recommends giving 50 mg of spironolactone due to elevated creatinine. Will hold off on D5 water at this time. Patient encouraged to drink water. He is currently on Solu-Medrol 40 mg twice a day due to large ulcer found on colonoscopy, concerning for IBD. A polyp was also removed during colonoscopy. Patient will need to follow-up outpatient for the biopsy of the colon. He has been started as well on sulfasalazine and folic acid. Patient was recommended to start on low-dose Eliquis due to A-fib. Patient is amenable to starting Eliquis after discussion of bleeding risks and fall precautions.
--- NOTE | 2025-03-27 16:56 | PC.SS ---
Rounding note: pending stool cultures on IV abx, new onset atrial fibrillation with cardiology consulted.
--- NOTE | 2025-03-27 17:41 | ESPR_ITS ---
Documentation for date of: 03/27/25 Subjective Subjective Interval history: Diffuse pancolitis most likely caused by the chemotherapy however underlying inflammatory bowel disease cannot be ruled already started on IV Solu-Medrol sulfasalazine and folic acid Exam Vital Signs Temp Pulse Resp BP Pulse Ox O2 Del Method O2 Flow Rate 97.1 F 65 18 133/68 H 93 L Room Air 3 03/27/25 16:00 03/27/25 16:00 03/27/25 16:00 03/27/25 16:00 03/27/25 16:00 03/27/25 16:00 03/27/25 16:00 Objective Labs 03/27/25 05:06 03/27/25 05:06 Labs: Laboratory Results - last 24 hr 03/27/25 03/27/25 00:30 05:06 WBC 10.9 H RBC 4.04 L Hgb 11.2 L Hct 35.5 L MCV 88 MCH 27.7 MCHC 31.5 RDW Std Deviation 54.1 H Plt Count 215 Neut % (Auto) 92 H Lymph % (Auto) 3 L [place] % (Auto) 3 Eos % (Auto) 0 Baso % (Auto) 0 Neut # (Auto) 10.1 H Lymph # (Auto) 0.3 L [place] # (Auto) 0.3 Eos # (Auto) 0.0 Baso # (Auto) 0.0 Immature Gran # (Auto) 0.19 H Absolute Nucleated RBC 0.00 Immature Gran % 2 H Nucleated RBC % 0 Sodium 150 H 149 H Potassium 2.9 L D 3.7 D Chloride 120 H 121 H* Carbon Dioxide 19.8 L 20.5 Anion Gap 10 8 BUN 30 H 30 H Creatinine 2.1 H 2.2 H Estim Creat Clear Calc 37.9 L 36.6 L eGFR 30 L 29 L BUN/Creatinine Ratio 14 14 Glucose 196 H 267 H D Calculated Osmolality 309 H 311 H Calcium 7.2 L 7.2 L Corrected Calcium 8.4 L Phosphorus 3.5 Magnesium 2.1 Total Bilirubin 0.2 L AST 14 ALT 20 Alkaline Phosphatase 96 Total Protein 4.7 L Albumin 2.5 L Globulin 2.2 L Albumin/Globulin Ratio 1.1 L Impressions Impression: pancolitis secondary to chemotherapy induced ABG Interpretation ABG results: 03/22/25 09:17 VBG pH 7.33 VBG pCO2 33 L VBG pO2 51 VBG Base Excess -8 L Assessment & Plan A&P Narrative # Chronic persistent diarrhea etiology uncertain CT scan of the abdomen pelvis without Cesar showing diffuse colitis Differential diagnosis include Chemotherapy induced colitis Infectious enterocolitis Inflammatory bowel disease acute onset C. difficile enterocolitis Suggestions Complete stool panel Fecal calprotectin Culture and sensitivity of the stool Giardia antigen CRP If negative Will consider colonoscopy with biopsies Other medical problems include Shock PAULIE NSTEMI Coronary artery disease status post PTCA [place] melanoma on chemotherapy Essential hypertension Thank you very much for the opportunity to participate in the care of this patient Time Spent With Patient Time: Total time spent is greater than 50% in coordination of care (as documented) at patient's floor/unit and/or counseling patient:
[2025-03-27] MEDS: APIXABAN 2.5 MG TABLET PO (20:18)
[2025-03-28] VITALS: BP 155/81; PULSE 68; PULSE 72; RESP 17; TEMP 36.3; O2SAT 93
[2025-03-28 04:00] VITALS: BP 129/70; PULSE 64; PULSE 69; RESP 18; TEMP 36.1; O2SAT 96
[2025-03-28 06:00] VITALS: BMI 29.0
[2025-03-28 06:21] LABS: Basophils # (Auto) 0.0 Thou/mm3 (0.0-0.2); Basophils % (Auto) 0 % (0-2.5); Eosinophils # (Auto) 0.0 Thou/mm3 (0.0-0.5); Eosinophils % (Auto) 0 % (0-10); Hematocrit 37.6 % (41.0-53.0); Hemoglobin 12.2 g/dL (13.5-16.0); Immature Granulocytes Auto 0.17 Thou/mm3 (0.00-0.00); Lymphocytes # (Auto) 0.7 Thou/mm3 (1.0-4.8); Lymphocytes % (Auto) 6 % (10-50); Mean Corpuscular HGB Conc 32.4 g/dl (31.0-37.0); Mean Corpuscular Hemoglobin 28.4 pg (25.0-35.0); Mean Corpuscular Volume 87 fL (80-100); Monocytes # (Auto) 0.5 Thou/mm3 (0.0-0.8); Monocytes % (Auto) 4 % (0-12); Neutrophils # (Auto) 10.4 Thou/mm3 (1.8-7.7); Neutrophils % (Auto) 88 % (37-80); Nucleated Red Blood Cell # 0.00 Thou/mm3 (0.00-0.00); Nucleated Red Blood Cell % 0 /100 WBC (0); Platelet Count 213 Thou/mm3 (140-440); RDW Standard Deviation 54.7 fL (35.1-43.9); Red Blood Count 4.30 Miln/mm3 (4.50-5.90); White Blood Count 11.8 Thou/mm3 (3.8-10.6)
[2025-03-28 06:42] LABS: CMV Antibody (IgG) <0.60 U/mL; CMV Antibody (IgM) <30.00 AU/mL
[2025-03-28 06:44] LABS: Calprotectin, Stool* 967 mcg/g
[2025-03-28 07:16] LABS: Alanine Aminotransferase 17 U/L (10-49); Albumin, Serum 2.6 gm/dL (3.4-4.8); Albumin/Globulin Ratio 1.1 (1.2-2.2); Alkaline Phosphatase 90 U/L (46-116); Anion Gap 9 (7-16); Aspartate Amino Transferase 10 U/L (0-34); BUN/Creatinine Ratio 12 Ratio (12-20); Bilirubin,Total 0.3 mg/dL (0.3-1.2); Blood Urea Nitrogen 25 mg/dL (9-23); Calcium 7.7 mg/dL (8.3-10.6); Calcium (Corrected) 8.8 mg/dL (8.5-10.1); Carbon Dioxide 21.4 mMol/L (20.0-31.0); Chloride 122 mMol/L (98-107); Creatinine (Component) 2.1 mg/dL (0.6-1.3); Estimated Creatinine Clearance 38.4 mL/min (>60); Globulin 2.4 gm/dL (2.3-3.5); Glucose 173 mg/dL (74-106); Magnesium 2.0 mg/dL (1.6-2.6); Osmolality,Calculated 310 (275-295); Phosphorous 3.1 mg/dL (2.4-5.1); Potassium 3.4 mMol/L (3.4-5.1); Sodium 152 mMol/L (136-145); Total Protein 5.0 gm/dL (5.7-8.2); eGFR 30 See Note
[2025-03-28 08:00] VITALS: BP 147/70; PULSE 61; PULSE 71; RESP 17; TEMP 36.1; O2SAT 95
--- NOTE | 2025-03-28 09:04 | ESPR_ITS ---
Documentation for date of: 03/28/25 Subjective Subjective Interval history: Patient seen and examined at bedside, saturating well on room air. Patient was given spironolactone yesterday, improved fluid status noticed today, renal function improving. Patient is really insisting that he wants to go home today. Monitor fluid status and electrolytes closely, keep potassium greater than 3.5 and magnesium greater than 2. Exam Vital Signs Temp Pulse Resp BP Pulse Ox O2 Del Method O2 Flow Rate 96.9 F 61 17 147/70 H 95 Room Air 3 03/28/25 08:00 03/28/25 08:00 03/28/25 08:00 03/28/25 08:00 03/28/25 08:00 03/28/25 08:00 03/27/25 16:00 Narrative Exam General: Awake, tired and in no acute distress. Conversational and on room air HEENT: Normocephalic, atraumatic, mucous membranes moist. Heart: Sinus rhythm, no murmurs. Lungs: Clear to auscultation with no wheezing or crackles. Abdomen: Soft, nondistended, nontender, positive bowel sounds. ?No guarding or rebound tenderness. Neurologic: Alert and oriented x3, no gross neurological deficit, and patient able to move all 4 extremities. Extremities: 1+ bilateral lower extremity edema, 1+ edema dependent region, hips -improved Skin: No rash or ecchymoses. Objective Labs 03/28/25 05:16 03/28/25 05:16 Labs: Laboratory Results - last 24 hr 03/21/25 03/22/25 03/28/25 21:46 14:24 05:16 WBC 11.8 H RBC 4.30 L Hgb 12.2 L Hct 37.6 L MCV 87 MCH 28.4 MCHC 32.4 RDW Std Deviation 54.7 H Plt Count 213 Neut % (Auto) 88 H Lymph % (Auto) 6 L [place] % (Auto) 4 Eos % (Auto) 0 Baso % (Auto) 0 Neut # (Auto) 10.4 H Lymph # (Auto) 0.7 L [place] # (Auto) 0.5 Eos # (Auto) 0.0 Baso # (Auto) 0.0 Immature Gran # (Auto) 0.17 H Absolute Nucleated RBC 0.00 Immature Gran % 1 H Nucleated RBC % 0 Sodium 152 H Potassium 3.4 Chloride 122 H* Carbon Dioxide 21.4 Anion Gap 9 BUN 25 H Creatinine 2.1 H Estim Creat Clear Calc 38.4 L eGFR 30 L BUN/Creatinine Ratio 12 Glucose 173 H D Calculated Osmolality 310 H Calcium 7.7 L Corrected Calcium 8.8 Phosphorus 3.1 Magnesium 2.0 Total Bilirubin 0.3 AST 10 ALT 17 Alkaline Phosphatase 90 Total Protein 5.0 L Albumin 2.6 L Globulin 2.4 Albumin/Globulin Ratio 1.1 L Stool Calprotectin 967 H Stl O & P Trichrome St CMV IgG Ab <0.60 CMV IgM Ab <30.00 O & P Source STOOL O & P Concentrate Exam ABG Interpretation ABG results: 03/22/25 09:17 VBG pH 7.33 VBG pCO2 33 L VBG pO2 51 VBG Base Excess -8 L Quality Measures Quality Measures VTE prophylaxis Advance care planning discussed with:: patient Assessment & Plan Assessment Current Active Medications: Generic Name Dose Route Start Last Admin Trade Name Freq PRN Reason Stop Dose Admin Amiodarone HCl 200 mg 03/23/25 09:00 03/27/25 20:17 Amiodarone Hcl 200 Mg Tablet PO 04/22/25 08:59 200 mg BID KARLEY Administration Apixaban 2.5 mg 03/27/25 21:00 03/27/25 20:18 Apixaban 2.5 Mg Tablet PO 04/26/25 20:59 2.5 mg BID KARLEY Administration Citric Acid/Sodium Citrate 30 ml 03/26/25 09:00 03/27/25 08:58 Citric Acid/Sodium Citr 15 Ml Udc (Bicitra) PO 04/25/25 08:59 30 ml DAILY KARLEY Administration Lidocaine HCl 10 ml/ 0 ml 03/24/25 11:49 03/25/25 12:45 Diphenhydramine HCl 25 mg/ Al PO 03/31/25 11:59 1 dose Hydrox/Mg Hydrox/Simethicone BID PRN Administration 30 ml/ Nystatin 10 ml mouth pain/ulcers Dextrose 25 ml 03/22/25 15:44 Dextrose 50%-Water Inj 50 Ml Syringe IV 04/21/25 15:43 Q15MIN PRN BG 50-70 responsive npo pt Dextrose 50 ml 03/22/25 15:44 Dextrose 50%-Water Inj 50 Ml Syringe IV 04/21/25 15:43 Q15MIN PRN BG <50 OR BG <70 & pt unresponsive Folic Acid 1 mg 03/26/25 15:15 03/27/25 08:59 Folic Acid 1 Mg Tablet PO 04/25/25 15:14 1 mg QDAY KARLEY Administration Glucagon 1 mg 03/22/25 15:44 Glucagon Inj 1 Mg Vial IM Q15MIN PRN BG <70, and no IV access Insulin Human Lispro 0 unit 03/27/25 10:13 03/28/25 07:48 Insulin Lispro (Admelog) 1 Unit/0.01 Ml Unit SC 04/21/25 16:59 Not Given ACHS KARLEY Protocol Methylprednisolone Sodium Succinate 40 mg 03/26/25 21:00 03/27/25 20:23 Methylprednisolone Sod Succ 40 Mg/Ml Vial IVP 04/02/25 20:59 40 mg Q12HR KARLEY Administration Pantoprazole Sodium 40 mg 03/22/25 09:00 03/27/25 08:57 Pantoprazole Inj 40 Mg Vial IVP 04/21/25 08:59 40 mg QDAY KARLEY Administration Sulfasalazine 1,000 mg 03/26/25 21:00 03/27/25 20:20 Sulfasalazine 500 Mg Tablet PO 04/25/25 20:59 1,000 mg BID KARLEY Administration Thiamine HCl 100 mg 03/26/25 15:30 03/27/25 08:59 Thiamine Inj 100 Mg/Ml Vial 2 Ml IVP 04/25/25 15:29 100 mg QDAY KARLEY Administration Plan Mr. Cunha is a 84-year-old male with past medical history of malignant melanoma diagnosed in 2020 on chemotherapy (nivolumab and ipilimumab) follows Dr Medrano, [facility] last chemotherapy session 3 weeks ago, CAD status post PCI follows Dr. Arango, remote history of bladder cancer about 20 years ago, hypertension and BPH who presented to [facility] emergency department on 03/21/2025 with a chief complaint of diarrhea for the last 3 weeks. Patient admitted to telemetry and then upgraded to intensive care unit in setting of distributive shock secondary to gastroenteritis along with new onset A-fib RVR started on phenylephrine. #New onset A-fib RVR, resolved #Diastolic Dysfunction Grade I Patient admitted for sepsis, no history of atrial fibrillation or conduction abnormalities. Overnight patient went into RVR heart rate in 140s, noted to be A-fib RVR. Patient started on amiodarone drip meanwhile patient also noted to be hypotensive despite 5 L fluid resuscitation started on phenylephrine and upgraded to intensive care unit. [id number] score: 4 points Patient at bedside right now noted to be in sinus rhythm Lipid panel shows cholesterol 75, triglyceride 168, LDL 17, HDL 24, A1c 7.2, TSH 0.51 Echocardiogram 03/22/2025: Left ventricle size is normal and systolic function is normal. Estimated ejection fraction is 55-60%. There is grade I diastolic dysfunction. There is mild concentric hypertrophy noted. Right ventricle chamber size is normal and systolic function is normal. Estimated RVSP is 15 mmHg. Posterior mitral valve annulus mildy calcified. Trace MR and TR. There is trace tricuspid valve regurgitation. Prominent pericardial fat pad seen. The left atrium is mildly enlarged. The right atrium is normal. Recommendations: - Continue amiodarone 200 mg p.o. twice daily and can be decreased to 200 mg daily after one months - Continue Eliquis 2.5mg BID. - Continue telemonitoring - Keep magnesium greater than 2 and potassium greater than 4 at all times, replete aggressively- Repeat thyroid function outpatient - Strict I&O, monitor volume status and urine output closely, down titrate D5W today after discussion with nephrology. #Coronary artery disease status post 2 stents #NSTEMI type II likely demand ischemia Patient denies any chest pain currently, troponin on presentation 0.162 -> 0.180 -> 0.522 -> 1.606 -> 1.451 -> 1.057 EKG on presentation shows no acute ST-T changes Patient did report that he had 2 stents placed respectively in 2018 and 2019. -Echocardiogram negative for regional wall abnormalities -Does seem like troponin elevation is likely type II in setting of sepsis secondary to gastroenteritis/GI source -Patient will need cardiac catheterisation at a later point once stable. Needs outpatient workup. -Patient does have PAULIE on CKD for clearance of troponin as well. #PAULIE on ?CKD likely ATN #Hypernatremia, hyperchloremia #Hypocalcemia Patient presented with continuous multiple episodes of diarrhea over the last 3 weeks, on presentation creatinine 3.6 BUN 49 and GFR 16, no previous baseline known, continue to monitor urine output. Kidney injury likely prerenal versus ATN, urine analysis negative for casts or WBCs. Patient on ARB's and diuretic at home ?Continue to monitor renal function ?Consider obtaining renal ultrasound to rule out chronic changes ?Nephrology is consulted and is following #Acute encephalopathy #Distributive shock versus hypovolemic shock #Hypokalemia #Gastritis and colitis #Adrenal insufficiency #Leukocytosis #Anemia #Low TSH/? Euthyroid sick syndrome #Diabetes mellitus, A1c 7.2 - Management as per primary team Thank you for the consult and allowing to participate in the care of the patient. Cardiology will continue to follow. Case discussed with Attending Physician Dr. Pastor Narvaez MD Internal Medicine PGY-2 Disclaimer: This note was dictated by speech recognition. Minor errors in liquid sugar fortifier may be present due to voice recognition software. Attending Provider Attestation/Addendum I have personally seen and examined the patient separately on the above date of service and discussed the plan of care with the resident. I reviewed the resident Dr. Xiang Narvaez consultation progress note and agree with the resident findings and plan in the note above and have also edited the documentation to reflect my findings and plan. Pastor Avendaño M.D. Interventional Cardiology
--- NOTE | 2025-03-28 09:05 | ESPR_ITS ---
Documentation for date of: 03/28/25 Subjective Subjective Interval history: Interval history: 84-year-old male with significant past medical history of malignant melanoma diagnosed in 2020 on chemotherapy [nivolumab, ipilimumab], last chemotherapy session 3 weeks ago, CAD s/p PCI, hypertension, remote history of bladder cancer almost 20 years ago was brought to the hospital in view of severe diarrhea since 3 weeks. 5-6 episodes per day, noted to have mucus and had febrile episode 1 week ago. Also noted to have shortness of breath and cough since 2 days, presented to the hospital as all the symptoms are worsening. Reported that he is using steroids and currently using prednisone 60 mg per patient, unsure of the indication, patient reported that he is using it for generalized weakness. Also reported that he had history of low potassium for which he takes potassium supplementation. 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 Vitals at the time of admission are stable except for tachycardia with heart rate around 108 bpm and temperature of 102. Labs at the time of admission are significant for WBC 27.3, potassium 3.2, bicarb 19.2, BUN 49, creatinine 3.6, lactate 7, troponin 0.162, procalcitonin 4.54. Urinalysis is unremarkable. Abdomen/pelvis CT showed bibasilar pneumonia, gastritis pattern, bilateral benign renal cyst, diffuse nonspecific colitis pattern. In ED, patient is given 4 L of fluid bolus and was started on LR at 100 mL/h. Ceftriaxone is given. Patient is admitted into the hospital in view of suspected sepsis secondary to gastroenteritis and PAULIE, likely prerenal in the setting of severe gastroenteritis. Nephrology consulted for pre-renal azotemia secondary to diarrhea with worsening hyperchloremic acidosis and hypernatremia. 03/26/25: Patient was seen and assessed at bedside. Has been on GoLytely for the past 2 days for colonoscopy to evaluate worsening diarrhea. As a result, patient has become very hypovolemic (beefy dry red tongue, dry mucous membranes, decreased skin turgor). Has been drinking water but unable to retain it. Creatinine improved to 2.5 on LR (baseline 1.2 in 2020). Sodium 151, increased significantly after starting GoLytely which contains 35g sodium/liter. Bicarb 19.2 on admission but improved to 20.8 on Bicitra. Chloride 122 (from 109 on admission). Discontinue LR and start on D5W 150 mL/hr as patient has FWD 5.2L. Insulin as needed for hyperglycemia. Free water consumption not adequate in setting of GoLytely prep. Follow up urine lytes to rule out possible underlying RTA. 03/27/2025 patient had a colonoscopy which showed ulcer. Pending biopsies. He is noted to have some edema probably from the fluid overload (GoLytely and D5W). Sodium tad better at 149. Complaining of significant burning sensation on the tongue. Not able to drink significant amount of fluids. Due to edema- recommended to primary team to give Aldactone. 03/28/25: Patient seen and assessed at bedside. Total intake 1L, oral 860 cc. Continues to endorse tingling of tongue. Sodium increased to 152 (from 149), potassium 3.4, chloride 122, BUN 25, creatinine 2.1. Edema mildly improved with aldactone. Still has not been able to drink enough water. Patient is medically stable for discharge from nephrology standpoint. Patient lives at home with who can care for him, was instructed to drink at least 2 L water daily. Will follow up outpatient in 1-2 weeks in clinic with labs. Exam Vital Signs Temp Pulse Resp BP Pulse Ox O2 Del Method O2 Flow Rate 96.9 F 61 17 147/70 H 95 Room Air 3 03/28/25 08:00 03/28/25 08:00 03/28/25 08:00 03/28/25 08:00 03/28/25 08:00 03/28/25 08:00 03/27/25 16:00 Narrative Exam Physical Exam General: Awake and in no acute distress. Conversational and non-toxic appearing. Hard of hearing. HEENT: Normocephalic, atraumatic, mucous membranes dry. Big beefy red tongue, dry. Heart: Regular rate and rhythm, normal S1 and S2, no murmurs appreciated. Lungs: Clear to auscultation with no wheezing or crackles. Abdomen: Soft, nondistended, nontender, positive bowel sounds. No guarding or rebound tenderness. Neurologic: Alert and oriented x3, no gross neurological deficit, and patient able to move all 4 extremities. Extremities: 2+ edema in the thighs Skin: No rash or ecchymoses. Objective Labs 03/28/25 05:16 03/28/25 05:16 Labs: Laboratory Results - last 24 hr 03/21/25 03/22/25 03/28/25 21:46 14:24 05:16 WBC 11.8 H RBC 4.30 L Hgb 12.2 L Hct 37.6 L MCV 87 MCH 28.4 MCHC 32.4 RDW Std Deviation 54.7 H Plt Count 213 Neut % (Auto) 88 H Lymph % (Auto) 6 L [place] % (Auto) 4 Eos % (Auto) 0 Baso % (Auto) 0 Neut # (Auto) 10.4 H Lymph # (Auto) 0.7 L [place] # (Auto) 0.5 Eos # (Auto) 0.0 Baso # (Auto) 0.0 Immature Gran # (Auto) 0.17 H Absolute Nucleated RBC 0.00 Immature Gran % 1 H Nucleated RBC % 0 Sodium 152 H Potassium 3.4 Chloride 122 H* Carbon Dioxide 21.4 Anion Gap 9 BUN 25 H Creatinine 2.1 H Estim Creat Clear Calc 38.4 L eGFR 30 L BUN/Creatinine Ratio 12 Glucose 173 H D Calculated Osmolality 310 H Calcium 7.7 L Corrected Calcium 8.8 Phosphorus 3.1 Magnesium 2.0 Total Bilirubin 0.3 AST 10 ALT 17 Alkaline Phosphatase 90 Total Protein 5.0 L Albumin 2.6 L Globulin 2.4 Albumin/Globulin Ratio 1.1 L Stool Calprotectin 967 H Stl O & P Trichrome St CMV IgG Ab <0.60 CMV IgM Ab <30.00 O & P Source STOOL O & P Concentrate Exam ABG Interpretation ABG results: 03/22/25 09:17 VBG pH 7.33 VBG pCO2 33 L VBG pO2 51 VBG Base Excess -8 L Quality Measures Quality Measures VTE prophylaxis Advance care planning discussed with:: patient Assessment & Plan Assessment Current Active Medications: Generic Name Dose Route Start Last Admin Trade Name Freq PRN Reason Stop Dose Admin Amiodarone HCl 200 mg 03/23/25 09:00 03/27/25 20:17 Amiodarone Hcl 200 Mg Tablet PO 04/22/25 08:59 200 mg BID KARLEY Administration Apixaban 2.5 mg 03/27/25 21:00 03/27/25 20:18 Apixaban 2.5 Mg Tablet PO 04/26/25 20:59 2.5 mg BID KARLEY Administration Citric Acid/Sodium Citrate 30 ml 03/26/25 09:00 03/27/25 08:58 Citric Acid/Sodium Citr 15 Ml Udc (Bicitra) PO 04/25/25 08:59 30 ml DAILY KARLEY Administration Lidocaine HCl 10 ml/ 0 ml 03/24/25 11:49 03/25/25 12:45 Diphenhydramine HCl 25 mg/ Al PO 03/31/25 11:59 1 dose Hydrox/Mg Hydrox/Simethicone BID PRN Administration 30 ml/ Nystatin 10 ml mouth pain/ulcers Dextrose 25 ml 03/22/25 15:44 Dextrose 50%-Water Inj 50 Ml Syringe IV 04/21/25 15:43 Q15MIN PRN BG 50-70 responsive npo pt Dextrose 50 ml 03/22/25 15:44 Dextrose 50%-Water Inj 50 Ml Syringe IV 04/21/25 15:43 Q15MIN PRN BG <50 OR BG <70 & pt unresponsive Folic Acid 1 mg 03/26/25 15:15 03/27/25 08:59 Folic Acid 1 Mg Tablet PO 04/25/25 15:14 1 mg QDAY KARLEY Administration Glucagon 1 mg 03/22/25 15:44 Glucagon Inj 1 Mg Vial IM Q15MIN PRN BG <70, and no IV access Insulin Human Lispro 0 unit 03/27/25 10:13 03/28/25 07:48 Insulin Lispro (Admelog) 1 Unit/0.01 Ml Unit SC 04/21/25 16:59 Not Given ACHS [facility] Protocol Methylprednisolone Sodium Succinate 40 mg 03/26/25 21:00 03/27/25 20:23 Methylprednisolone Sod Succ 40 Mg/Ml Vial IVP 04/02/25 20:59 40 mg Q12HR KARLEY Administration Pantoprazole Sodium 40 mg 03/22/25 09:00 03/27/25 08:57 Pantoprazole Inj 40 Mg Vial IVP 04/21/25 08:59 40 mg QDAY KARLEY Administration Sulfasalazine 1,000 mg 03/26/25 21:00 03/27/25 20:20 Sulfasalazine 500 Mg Tablet PO 04/25/25 20:59 1,000 mg BID KARLEY Administration Thiamine HCl 100 mg 03/26/25 15:30 03/27/25 08:59 Thiamine Inj 100 Mg/Ml Vial 2 Ml IVP 01/05/26 15:29 100 mg QDAY KARLEY Administration Plan Patient is an 84-year-old male with significant past medical history of malignant melanoma diagnosed in 2020 on chemotherapy [nivolumab, ipilimumab], last chemotherapy session 3 weeks ago, CAD s/p PCI, hypertension, remote history of bladder cancer almost 20 years ago admitted 03/21/25 for suspected sepsis secondary to gastroenteritis and PAULIE, likely prerenal in the setting of severe gastroenteritis. Nephrology consulted for pre-renal azotemia secondary to diarrhea with worsening hyperchloremic acidosis and hypernatremia. #PAULIE, prerenal 2/2 diarrhea (improving) - Creatinine 3.6 -> 4.1 (03/23, LR) -> 2.2 -> 2.1 - Baseline 1.2 in 2020 - S/p GoLytely prep. Also in setting of decreased PO water intake. Plan: - Increase p.o. water intake, instructed patient he needs to be drinking at least 2L daily. From nephrology standpoint, patient is medically stable for discharge, instructed to follow up outpatient in 1-2 weeks after discharge. #Hypernatremia 2/2 iatrogenic causes and dehydration - Likely iatrogenic from a significant amount of sodium loading GoLytely in the setting of decreased p.o. water intake. - FWD 4.2L Plan: - Continue with free water intake as above #NAGMA - Bicarb 19.8, chloride 120, anion gap 10 (03/27) - Negative urine anion gap - Likely hyperchloremic metabolic acidosis secondary to diarrhea and LR Plan: - Bicitra 30 mL daily. Will follow up outpatient with renal labs. #Hypokalemia - resolved #Sepsis #Leukocytosis - improving #Hypovolemic shock - resolved #Diarrhea, suspected immune-mediated colitis #Gastritis #Atrial fibrillation, new onset #CAD s/p 2 stents #Diastolic Dysfunction Grade 1 #Anemia #Melanoma with metastasis #Chemotherapy #Steroid Use #Elevated Troponins - Defer to primary team for management Thank you for your consultation, please do not hesitate to reach out if you have any question or concern Patient plan of care was discussed with the attending physician, Dr. Espino. Emerita Dale DO, PGY-1 Attending Provider Attestation/Addendum Patient currently seen and examined with resident physician Dr. Dale. Note reviewed, agree with findings and recommendations. Patient currently seen in medical floor Patient with PAULIE secondary to prerenal azotemia-hypovolemia/diarrhea for 3 weeks Hypernatremia still present. However patient insisting on going home and will drink fluids. Declines to stay for D5W. Spoke to Dr. Silverio-renal coy stable for discharge. He is going to come and see me in 1 week with a renal panel prior. Patient stated he lives with his and she will take care of him. Care discussed with primary team.
[2025-03-28] MEDS: THIAMINE INJ 100 MG/ML VIAL 2 ML IVP (09:11)
--- NOTE | 2025-03-28 09:17 | PC.NURSE ---
Patient refused all oral meds. Patient is having difficulty swallowing meds due to sore mouth/throat secondary to chemo. aware
[2025-03-28] MEDS: POTASSIUM CHL 10 mEq IVPB 10 MEQ/100 ML BAG 100 MEQ IV ×2 (10:08→11:12)
[2025-03-28] MEDS: DEXTROSE 5%-WATER 1,000 ML 150 ML IV (10:08)
[2025-03-28] MEDS: INSULIN LISPRO (AdmeLOG) 1 UNIT/0.01 ML UNIT SC (11:27)
--- NOTE | 2025-03-28 11:46 | PC.NURSE ---
Per Dr. Ny, discharge pending Dr. Hightower's recommendation for steroids.
--- NOTE | 2025-03-28 11:48 | PD.IMPROG ---
Documentation for date of: 03/28/25 Subjective Subjective Interval history: Case discussed with internal medicine team okay to discharge patient to be followed by his oncologist patient will be going home on prednisone 5 mg tablet 4 tablets twice daily to be tapered off 1 tablet a sulfasalazine 1 g twice dailyweek Folic acid 1 mg p.o. daily Exam Vital Signs Temp Pulse Resp BP Pulse Ox O2 Del Method O2 Flow Rate 96.9 F 61 17 147/70 H 95 Room Air 3 03/28/25 08:00 03/28/25 08:00 03/28/25 08:00 03/28/25 08:00 03/28/25 08:00 03/28/25 08:00 03/27/25 16:00 Objective Labs 03/28/25 05:16 03/28/25 05:16 Labs: Laboratory Results - last 24 hr 03/21/25 03/22/25 03/28/25 21:46 14:24 05:16 WBC 11.8 H RBC 4.30 L Hgb 12.2 L Hct 37.6 L MCV 87 MCH 28.4 MCHC 32.4 RDW Std Deviation 54.7 H Plt Count 213 Neut % (Auto) 88 H Lymph % (Auto) 6 L [place] % (Auto) 4 Eos % (Auto) 0 Baso % (Auto) 0 Neut # (Auto) 10.4 H Lymph # (Auto) 0.7 L [place] # (Auto) 0.5 Eos # (Auto) 0.0 Baso # (Auto) 0.0 Immature Gran # (Auto) 0.17 H Absolute Nucleated RBC 0.00 Immature Gran % 1 H Nucleated RBC % 0 Sodium 152 H Potassium 3.4 Chloride 122 H* Carbon Dioxide 21.4 Anion Gap 9 BUN 25 H Creatinine 2.1 H Estim Creat Clear Calc 38.4 L eGFR 30 L BUN/Creatinine Ratio 12 Glucose 173 H D Calculated Osmolality 310 H Calcium 7.7 L Corrected Calcium 8.8 Phosphorus 3.1 Magnesium 2.0 Total Bilirubin 0.3 AST 10 ALT 17 Alkaline Phosphatase 90 Total Protein 5.0 L Albumin 2.6 L Globulin 2.4 Albumin/Globulin Ratio 1.1 L Stool Calprotectin 967 H Stl O & P Trichrome St CMV IgG Ab <0.60 CMV IgM Ab <30.00 O & P Source STOOL O & P Concentrate Exam Impressions Impression: Chemotherapy induced pancolitis Plan As in the HPI ABG Interpretation ABG results: 03/22/25 09:17 VBG pH 7.33 VBG pCO2 33 L VBG pO2 51 VBG Base Excess -8 L Assessment & Plan A&P Narrative # Chronic persistent diarrhea etiology uncertain CT scan of the abdomen pelvis without Cesar showing diffuse colitis Differential diagnosis include Chemotherapy induced colitis Infectious enterocolitis Inflammatory bowel disease acute onset C. difficile enterocolitis Suggestions Complete stool panel Fecal calprotectin Culture and sensitivity of the stool Giardia antigen CRP If negative Will consider colonoscopy with biopsies Other medical problems include Shock PAULIE NSTEMI Coronary artery disease status post PTCA [place] melanoma on chemotherapy Essential hypertension Thank you very much for the opportunity to participate in the care of this patient Time Spent With Patient Time: Total time spent is greater than 50% in coordination of care (as documented) at patient's floor/unit and/or counseling patient:
--- NOTE | 2025-03-28 16:07 | ESDS_ITS ---
<Statement entered by Carey Silverio DO - 03/29/25 13:33> I, Carey Silverio DO, attest that I was physically present for the moran portions of the service and evaluated the patient with the resident and I reviewed and discussed the case with the resident and agree with the resident's findings and plans of care as documented above Patient seen and evaluated this AM. He is complaining of his mouth pain due to ulcers which improves with Magic Mouthwash. However, patient states that he is unable to take the mouthwash from his discomfort in the hospital and positioning in hospital bed. Explained to patient that his sodium and chloride remain elevated and encouraged PO hydration, as we did yesterday. Patient states that he is understanding that he needs to drink water, but would much rather do so at home. He states he would be more comfortable at home and would be able to comply to our instructions at home instead. He otherwise denies any chest pain, shortness of breath, lightheadedness, fevers, chills, diarrhea, dysuria. He does endorse having back pain due to discomfort of the hospital bed. Explained to patient the bleeding risks and fall precautions associated with starting eliquis in the setting of his new onset afib discovered on this admission and concern for higher risk of fall if his hypernatremia continues to progress. Patient was started on D5 water this morning due to his hypernatremia. Patient again emphasized that he understood our instructions, but would be much more comfortable and able to follow our instructions in the comfort of his own home. He states that if he finds himself feeling unwell or falling at home, he states that he will return to the hospital. He is understanding that he needs to closely follow-up with his oncologist, international operations manager and skip tracer upon discharge. Patient has been cleared by nephrology as well for discharge. Patient was given clear discharge instructions and return precautions. He is ANO x 3 and states that he lives with his at home. He was advised to repeat labs in 1 week and follow-up with his primary care doctor within 1 week of discharge. Patient is otherwise stable for discharge. <Statement entered by Francois Solares MD - 03/28/25 16:21> Note reviewed and agree with care plan as documented. Please refer to the note below for further details. Plan discussed with attending physician Dr. Nusrat Solares MD PGY-2 Internal Medicine Planned Discharge Date 03/28/25 DS: Providers Provider Date of admission: 03/21/25 20:34 Primary care physician: Physician No Primary/Family Admitting Provider: Pedro Aleman MD Attending Provider on Admission: Pedro Aleman MD Consults: 03/22/25 03:07 Consult to Warper Fixer Routine Comment: Consulting Provider: Eun Mckenzie 03/22/25 06:34 Consult to Cardiology Urgent Comment: new onset a-fib with rvr Consulting Provider: Pastor Avendaño 03/22/25 15:45 Referral Registered Dietitian Routine Comment: 03/22/25 18:08 Consult to Gastroenterology Routine Comment: Immune checkpoint inhibitor induced diarrhea Consulting Provider: Anitha Hightower 03/22/25 18:44 Health Equity Referral - Knowledge Deficit Routine Comment: Positive screening for knowledge deficit needs. Health Equity Referral - Nutrition Routine Comment: Positive screening for nutrition needs. Health Equity Referral - Transportation Routine Comment: Positive screening for transportation needs. Health Equity Referral - Utilities Routine Comment: Positive screening for utility assistance needs. 03/23/25 07:43 Referral Physical Therapy Routine Comment: Physician Instructions: 03/26/25 10:35 Consult to Nephrology Routine Comment: Dr. Carey Silverio Consulting Provider: Carey Silverio Attending Provider on DC: Yossi Ny MD Discharging Provider: Yossi Ny MD DS: Diagnosis Problem List Completed Was Problem List Reviewed/Reconciled?: Yes Hospital Course Hospital Course Hospital course: Mr. Cunha is a 84-year-old male with a past medical history of malignant melanoma on chemotherapy, coronary artery disease status post 2 stent placements, hypertension, history of bladder cancer presented to the ED on 03/21/2025 with 3 weeks of diarrhea. Patient mentions that the diarrhea has been occurring 4-5 times per day with mucus since his last infusion which was three weeks ago for his malignant melanoma treatment. Originally admitted to ICU for hypovolemic shock, then subsequently downgraded to medicine service for further managment. During his hospital stay, Mr. Cunha was evaluated by cardiology and found to have paroxysmal afib, to which he was started on Eliquis 2.5 and amiodarone 200mg. Additionally, during his stay pt had an episode of diarrhea concerning for blood in stool. He underwent colonoscopy by Dr. Hightower on 03/26/2025 which revealed diffuse ascending colitis without ulceration nor active bleeding - a >1cm sessile polyp was removed and biopsied at the cecum. Despite medical team's urge to have him remain on service for further management and resolution of electrolyte imbalances with return to baseline, Mr. Cunha was adamant on leaving. He is to follow up with Dr. Espino of nephrology for subsequent lab workup and to take his new medications as prescribed, which include Eliquis 2.5, Amiodarone 200mg and steroid taper per Dr. Hightower. Mr. Cunha is also to resume treatment with Dr. Ron Medrano for cancer immunotherapy treatment. 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 Espino for repeat labs and outpatient follow up in clinic -Please follow up with gastroenterology regarding your recent colonoscopy and biopsy results -Continue with your appointments with Dr. Ron Medrano for management of cancer treatment -Please return to the ED for any concerns regarding shortness of breath, headache, nausea, vomiting, fever or any other issues. -Please continue to take your new medication prescribed after this admission, including your amiodarone, eliquis, pantoprazole Your steroids are being tapered and you will need to take oral cortisone 5mg for four weeks according to the following regimen: 4 pills in the morning, 4 in the evening on the first week for the second week, take off one pill of cortisone in the morning for a total of 7 pills the second week for the third week, take off one pill of cortisone in the evening for a total of 6 pills the third week continue to take off one pill in the morning the fourth week, then one off in the evening the fifth week until you completely take off the steroids Week 1: 8 pills a day Week 2: 7 pills a day Week 3: 6 pills a day Week 4: 5 pills a day Week 5: 4 pills a day Week 6: 3 pills a day Week 7: 2 pills a day Week 8: 1 pill a day Your steroid taper should last for a total of eight weeks and you should be getting a total of 252 pills. Please be mindful of the instructions listed above Status at Discharge Cognitive/behavioral status at discharge: stable on clinical examination Time Spent with Patient Time attestation: Total time spent providing and/or coordinating discharge services:60 minutes Time spent: Greater than 30 minutes Exam Vital Signs Temp Pulse Resp BP Pulse Ox O2 Del Method O2 Flow Rate 96.9 F 61 17 147/70 H 95 Room Air 3 03/28/25 08:00 03/28/25 08:00 03/28/25 08:00 03/28/25 08:00 03/28/25 08:00 03/28/25 08:00 03/27/25 16:00 Narrative Exam General: alert and oriented to self/place/year, no acute distress, able to speak full sentences HEENT: NC/AT, mucous membranes moist, bilateral sclera anicteric Cardiovascular: regular rate and rhythm, S1/S2 present, no murmurs appreciated Pulmonary: clear to auscultation bilaterally, no rales/rhonchi/wheezes Abdominal: soft, nontender, present bowel sounds Musculoskeletal: peripheral edema on L R UE has improved to baseline Skin: Warm, well-perfused Discharge Plan Plan Patient Disposition: HOME (Self Care) Patient condition on transfer: Stable Care Plan Goals: -Follow up with your primary care provider in 1-2 weeks after discharge -Continue to take your home medications as prescribed -Please follow up with Dr. Espino for repeat labs and outpatient follow up in clinic -Please follow up with gastroenterology regarding your recent colonoscopy and biopsy results -Continue with your appointments with Dr. Ron Medrano for management of cancer treatment -Please return to the ED for any concerns regarding shortness of breath, headache, nausea, vomiting, fever or any other issues. -Please continue to take your new medication prescribed after this admission, including your amiodarone, eliquis, pantoprazole Your steroids are being tapered and you will need to take oral cortisone 5mg for four weeks according to the following regimen: 4 pills in the morning, 4 in the evening on the first week for the second week, take off one pill of cortisone in the morning for a total of 7 pills the second week for the third week, take off one pill of cortisone in the evening for a total of 6 pills the third week continue to take off one pill in the morning the fourth week, then one off in the evening the fifth week until you completely take off the steroids Week 1: 8 pills a day Week 2: 7 pills a day Week 3: 6 pills a day Week 4: 5 pills a day Week 5: 4 pills a day Week 6: 3 pills a day Week 7: 2 pills a day Week 8: 1 pill a day Your steroid taper should last for a total of eight weeks and you should be getting a total of 252 pills. Please be mindful of the instructions listed above Prescriptions/Referrals Prescriptions/Med Rec: New sulfasalazine 500 mg Tablet 1,000 mg PO BID 30 Days Qty: 120 0RF amiodarone 200 mg Tablet 200 mg PO BID 30 Days Qty: 60 0RF Eliquis 2.5 mg Tablet 2.5 mg PO BID 30 Days Qty: 60 0RF prednisone 5 mg tablet See Taper PO QDAY Qty: 252 0RF Taper: Prednisone Taper 20 mg DAILY for 7 Days and 0 Hour 15 mg DAILY for 7 Days and 0 Hour 10 mg DAILY for 7 Days and 0 Hour 5 mg DAILY for 7 Days and 0 Hour nystatin 100,000 unit/mL Suspension 10 ml PO BID PRN (Reason: mouth pain/ulcers) Qty: 500 0RF diphenhydramine HCl 12.5 mg/5 mL Elixir 25 mg PO BID PRN (Reason: mouth pain/ulcers) Qty: 500 0RF lidocaine HCl 2 % Solution 10 ml PO BID PRN (Reason: mouth pain/ulcers) Qty: 600 0RF alum-mag hydroxide-simeth 200-200-20 mg/5 mL Suspension 30 ml PO BID PRN (Reason: mouth pain/ulcers) Qty: 30 0RF Continued finasteride 5 mg tablet 5 mg PO DAILY Patient Comments: take 1 tablet by mouth once daily potassium chloride 20 mEq tablet extended release 20 meq PO QDAY Patient Comments: TAKE 1 TABLET BY MOUTH EVERY DAY losartan 50 mg tablet 50 mg PO QDAY Patient Comments: TAKE 1 TABLET BY MOUTH EVERY DAY tamsulosin 0.4 mg capsule 0.4 mg PO .qhs Patient Comments: TAKE 1 CAPSULE BY MOUTH EVERYDAY AT BEDTIME furosemide 20 mg tablet 20 mg PO QDAY Patient Comments: TAKE 1 TABLET BY MOUTH EVERY DAY Held prednisone 20 mg tablet 17.5 mg PO QDAY Hold Instructions: Hold until you finish your steroid taper and follow-up with your oncologist Patient Comments: PLEASE SEE ATTACHED FOR DETAILED DIRECTIONS Rx Instructions: orally; Referrals: No Primary/Family,Physician [Primary Care Provider] Patient/Caregiver Discharge Instructions Discharge Activity: activity as tolerated Education Materials: Colonoscopy Print Language: Syriac Stand Alone Forms: [employer] Award Info., Patient Portal Info Letter Discharge Order Discharge Orders: Discharge (Routine); Ordered 03/28/25 Ordered By: Yossi Ny Quality Discharge Quality Measures none
[2025-03-29 07:42] LABS: Giardia Result NOT DETECTED
[2025-04-04 06:44] LABS: Osmolality, Urine* 503 mOsm/kg (50-1200)
[2025-04-04 06:48] LABS: Calprotectin, Stool* 2460 mcg/g; Norovirus, EIA (Stool)* NOT DETECTED
== END 2025-03-28 13:18 | disposition home or self-care (01) | DRG 871 ==
LOC: SERX 20:39 → SERHOLD 21:20 → S2SX 03-22 08:26 → S3NX 03-24 19:03
PROVIDERS: Internal Medicine; Registered Nurse General Practice; Specialist; Student in an Organized Health Care Education/Training Program; Admitting Provider Internal Medicine; Visit Provider Internal Medicine
PROC: 0DJD8ZZ Inspection of Lower Intestinal Tract, Via Natural or Artificial Opening Endoscopic (ICD-10-PCS; CPT 45378; principal; 2025-03-26 14:00)
DX: A41.9 Sepsis, unspecified organism (principal); I21.A1 Myocardial infarction type 2; J18.9 Pneumonia, unspecified organism; R57.8 Other shock; J96.01 Acute respiratory failure with hypoxia; R57.1 Hypovolemic shock; C79.31 Secondary malignant neoplasm of brain; N17.9 Acute kidney failure, unspecified; E87.29 Other acidosis; E27.40 Unspecified adrenocortical insufficiency; E87.0 Hyperosmolality and hypernatremia; D84.821 Immunodeficiency due to drugs; K52.1 Toxic gastroenteritis and colitis; C43.9 Malignant melanoma of skin, unspecified; Z85.51 Personal history of malignant neoplasm of bladder; Z95.5 Presence of coronary angioplasty implant and graft; I25.10 Atherosclerotic heart disease of native coronary artery without angina pectoris; K52.9 Noninfective gastroenteritis and colitis, unspecified; I48.91 Unspecified atrial fibrillation; E87.6 Hypokalemia; R65.20 Severe sepsis without septic shock; K29.70 Gastritis, unspecified, without bleeding; Z79.52 Long term (current) use of systemic steroids; N28.1 Cyst of kidney, acquired; D64.9 Anemia, unspecified; E11.65 Type 2 diabetes mellitus with hyperglycemia; E11.22 Type 2 diabetes mellitus with diabetic chronic kidney disease; E86.0 Dehydration; E86.1 Hypovolemia; E87.8 Other disorders of electrolyte and fluid balance, not elsewhere classified; E07.81 Sick-euthyroid syndrome; I12.9 Hypertensive chronic kidney disease with stage 1 through stage 4 chronic kidney disease, or unspecified chronic kidney disease; I48.0 Paroxysmal atrial fibrillation; K63.5 Polyp of colon; K64.1 Second degree hemorrhoids; T38.0X5A Adverse effect of glucocorticoids and synthetic analogues, initial encounter; T45.1X5A Adverse effect of antineoplastic and immunosuppressive drugs, initial encounter; Z79.01 Long term (current) use of anticoagulants; Z79.02 Long term (current) use of antithrombotics/antiplatelets; Z79.82 Long term (current) use of aspirin; Z79.84 Long term (current) use of oral hypoglycemic drugs; Z79.899 Other long term (current) drug therapy; R13.10 Dysphagia, unspecified; N18.9 Chronic kidney disease, unspecified; M19.90 Unspecified osteoarthritis, unspecified site
CPT/HCPCS: 36415; 51701; 51702; 71045; 74176; 80048; 80053; 80061; 80069; 80307; 81001; 82436; 82570; 82803; 83036; 83605; 83615; 83690; 83735; 83880; 83935; 83993; 84100; 84133; 84145; 84300; 84436; 84439; 84443; 84481; 84484; 85025; 85610; 85652; 85730; 86140; 86644; 86645; 87040; 87081; 87177; 87205; 87209; 87329; 87449; 87493; 87502; 87811; 93005; 93306; 96361; 96365; 96375; 97162; 99285; A4314; A4649; J0131; J0283; J0696; J1200; J1650; J1720; J1815; J2250; J2371; J2405; J2470; J2919; J3010; J3411; J3480; J3490; J7050; J7070; J7120; J7999; P9047; A9270; J1836

== ENCOUNTER 2025-03-29 18:16 | Inpatient (IN) | payer OTHER, MEDICARE, SELFPAY ==
[2025-03-29] VITALS (51 sets, daily range): BP systolic 66–135; BP diastolic 35–95; PULSE 1–176; RESP 0–109; TEMP 38.3–38.6; O2SAT 68–99; BMI 27.4
--- NOTE | 2025-03-29 18:24 | EDNOTE_ITS ---
Altered Mental Status RME/HPI General Chief Complaint: Altered Mental Status Stated Complaint: ALTERED Time Seen by Provider: 03/29/25 18:23 Arrival date/time: 03/29/25 18:16 RME / HPI RME / HPI narrative: See MDM for Dr. Kruse's HPI documentation. Related Data Home Medications ?Medication ?Instructions ?Recorded ?Confirmed finasteride 5 mg tablet 5 mg PO DAILY 10/11/2003/22 furosemide 20 mg tablet 20 mg PO QDAY 03/22/2503/22 losartan 50 mg tablet 50 mg PO QDAY 03/22/2503/22 potassium chloride 20 mEq 20 meq PO QDAY 03/22/2506/15 tablet,extended release prednisone 20 mg tablet 17.5 mg PO QDAY 03/22/2506/15 Held on 03/28/25. Instructions: Hold until you finish your steroid taper and follow-up with your oncologist tamsulosin 0.4 mg capsule 0.4 mg PO .qhs 03/22/2506/15 Previous Rx's ?Medication ?Instructions ?Recorded aluminum-mag hydroxide-simethicone 30 ml PO BID PRN mo uth pain/ulcers 03/28/25 200 mg-200 mg-20 mg/5 mL oral susp #30 mL amiodarone 200 mg tablet 200 mg PO BID 30 days #60 ta bs 03/28/25 apixaban 2.5 mg tablet (Eliquis) 2.5 mg PO BID 30 days #60 tabs 03/28/25 diphenhydramine HCl 12.5 mg/5 mL 25 mg (10 mL) PO BID PRN mouth 03/28/25 oral elixir pain/ulcers #500 mL lidocaine HCl 2 % mucosal solution 10 ml PO BID PRN mo uth pain/ulcers 03/28/25 #600 mL nystatin 100,000 unit/mL oral 10 ml PO BID PRN mouth p ain/ulcers 03/28/25 suspension #500 mL prednisone 5 mg tablet See Taper PO QDAY #252 tabs 03/28/25 sulfasalazine 500 mg tablet 1,000 mg (2 x 500 mg) PO B ID 30 03/28/25 days #120 tabs Allergies Allergy/AdvReac Type Severity Reaction Status Date / Time shellfish derived Allergy Verified 03/21/25 15:41 Review of Systems Review of Systems ROS Unobtainable: unobtainable due to mental status ED Exam Narrative Physical exam: See [facility] for Dr. Kruse's physical exam documentation. Course Course Course Narrative: 1825: Sepsis alert initiated. Orders made at this time are congruent with ED Adult Sepsis Order List. Re-evaluation is to be completed. CXR is ordered for determining the etiology of AMS. 185: Patient intubated. Quality Measures Possible source: pulmonary Blood cultures ordered: yes Antibiotic ordered: Yes Pertinent labs: 03/29/25 18:30 Lactic Acid 4.7 H* mMol/L (0.4-2.0) Procalcitonin 16.53 H ng/ml (0.0-0.49) sepsis Orders Category Date Time Status Patient Condition Routine Admission 03/29/25 22:08 Ordered Bedside COVID-19 Antigen Test NOW Care 03/29/25 18:24 Completed Bedside Influenza A&B Antigen Test NOW Care 03/29/25 18:24 Completed COVID-19 Screening Questionnaire NOW Care 03/29/25 22:06 Completed Decision to Admit X1 Care 03/29/25 22:06 Completed EKG (ED ONLY) *Do not use* NOW Care 03/29/25 18:25 Completed EKG (ED ONLY) *Do not use* NOW Care 03/29/25 19:13 Completed Emergency Titration Protocol Stat Care 03/29/25 19:02 Ordered [place] to [place] Routine Care 03/29/25 22:08 Ordered Insert NG / OG tube NOW Care 03/29/25 22:08 Completed Intubation NOW Care 03/29/25 18:56 Completed NPO NOW Care 03/29/25 22:08 Completed Saline [Insert IV] NOW Care 03/29/25 18:24 Completed Straight [In and Out Catheter] X1 Care 03/29/25 18:24 Completed Diet NPO (NOW) Diet 03/29/25 22:[address] cervical spine wo con Stat Exams 03/29/25 18:[address] chest abdomen pelvis wo Stat Exams 03/29/25 18:[address] head/brain wo con Stat Exams 03/29/25 18:26 Completed CXR [XR chest 1V post procedure] Stat Exams 03/29/25 19:03 Completed CXR [XR chest 1V post procedure] Stat Exams 03/29/25 22:02 Completed EKG (ED Only) Stat Exams 03/29/25 18:25 Draft EKG (ED Only) Stat Exams 03/29/25 19:13 Ordered XR chest 1V portable Stat Exams 03/29/25 18:25 Completed ABG [Arterial Blood Gas] Stat Lab 03/29/25 19:21 Completed Ammonia Stat Lab 03/29/25 18:30 Completed BNP [B-Type Natriuretic Peptide] Stat Lab 03/29/25 19:12 Completed Beta Hydroxybutyrate Stat Lab 03/29/25 18:30 Completed Bilirubin,Direct Stat Lab 03/29/25 18:30 Completed Blood Culture (Lab) Stat Lab 03/29/25 19:12 Received CBC Stat Lab 03/29/25 18:30 Completed CK [Creatine Kinase] Stat Lab 03/29/25 18:30 Completed CMP [Comprehensive Metabolic Panel] Stat Lab 03/29/25 18:30 Completed CRP [C-Reactive Protein] Stat Lab 03/29/25 18:30 Completed D-Dimer Stat Lab 03/29/25 18:30 Completed ESR [Sed Rate (ESR)] Stat Lab 03/29/25 18:30 Completed Hemoglobin A1C [Glycohemoglobin w (eAG)] Stat Lab 03/29/25 18:30 Completed Lactate (Lactic Acid) Stat Lab 03/29/25 18:30 Completed Lactic Acid [Lactate (Lactic Acid)] Q6H Lab 03/30/25 00:03 Completed Lactic Acid [Lactate (Lactic Acid)] Q6H Lab 03/30/25 12:00 Stop Req Lactic Acid, 3 HR Stat Lab 03/29/25 22:45 Completed Lipase Stat Lab 03/29/25 18:30 Completed Magnesium Stat Lab 03/29/25 18:30 Completed Procalcitonin Stat Lab 03/29/25 18:30 Completed Sputum Culture and Gram Stain Stat Lab 03/29/25 19:23 Received TSH [Thyroid Stimulating Hormone] Stat Lab 03/29/25 18:30 Completed Troponin I Q8H Lab 03/30/25 10:00 Stop Req Troponin I Stat Lab 03/29/25 18:30 Completed UA, C/S IF [Urinalysis, C/S if Indicated] Stat Lab 03/29/25 19:40 Completed Acetaminophen Ivpb [Ofirmev Inj] Med 03/29/25 18:31 Discontinued 1,000 mg in 100 ml IV X1 Acetaminophen Tab [Tylenol Tab] Med 03/29/25 22:05 Discontinued 650 mg PO Q4HR PRN Amiodarone 150 mg Ivpb [Nexterone Ivpb] Med 03/29/25 19:45 Discontinued 150 mg in 100 ml IV 600 mls/hr Amiodarone 360 mg Ivpb [Nexterone Ivpb] Med 03/30/25 02:00 Discontinued 360 mg in 200 ml IV 16.667 mls/hr Amiodarone 360 mg Ivpb [Nexterone Ivpb] Med 03/29/25 20:01 Discontinued 360 mg in 200 ml IV 33.333 mls/hr DILTIAZEM in NS 100 MG (DO NOT [DILTIAZEM in NS 100 MG] Med 03/29/25 19:19 Discontinued 100 mg in 100 ml IV 5 mg/hr Diltiazem Inj [Cardizem Inj] Med 03/29/25 19:19 Discontinued 20 mg IV X1 ONE Etomidate Inj [Amidate Inj] Med 03/29/25 18:46 Discontinued 40 mg .ROUTE .STK-MED ONE Etomidate Inj [Amidate Inj] Med 03/29/25 18:34 Discontinued 40 mg IVP X1 ONE Heparin Inj Med 03/30/25 06:00 Discontinued 5,000 unit SC Q8HR Ketorolac Inj [Toradol Inj] Med 03/29/25 18:31 Discontinued 15 mg IVP X1 ONE Midazolam/Ns 100 mg Ivpb [Versed Pf Inj in Ns Premix] Med 03/29/25 18:52 Discontinued 100 mg in 100 ml IV 1 mg/hr Nitroglycerin [Nitrostat 1/150] Med 03/29/25 22:05 Discontinued 0.4 mg SL Q5MIN PRN Norepinephrine/D5W 8mg/250ml [Levophed in D5W 8mg/250ml Med 03/29/25 18:33 Discontinued ] 8 mg in 250 ml IV 0.05 mcg/kg/min Ondansetron Inj [Zofran Inj] Med 03/29/25 18:25 Discontinued 4 mg IVP X1 ONE Pantoprazole Inj [Protonix Inj] Med 03/30/25 09:00 Discontinued 40 mg IVP QDAY Ringers Lactated 1000 ml [Lactated Ringers] 1,000 ml Med 03/29/25 18:25 Discontinued IV 1,000 mls/hr Ringers Lactated 1000 ml [Lactated Ringers] 1,000 ml Med 03/29/25 18:32 Discontinued IV 125 mls/hr Rocuronium Inj [Zemuron Inj] Med 03/29/25 18:52 Discontinued 100 mg IVP X1 ONE Sodium Chloride Rt Cristela 10% [NS Rt Cristela 10%] Med 03/29/25 18:57 Discontinued 5 ml INH X1 ONE Succinylcholine Inj [Anectine Inj] Med 03/29/25 18:46 Discontinued 200 mg .ROUTE .STK-MED ONE Succinylcholine Inj [Anectine Inj] Med 03/29/25 18:34 Discontinued 200 mg IV X1 ONE Vasopressin in Ns Ivpb [Vasostrict/Ns Ivpb] Med 03/29/25 22:00 Discontinued 20 unit in 100 ml IV 0.03 unit/min cefTRIAXone/D5w 1gm IV premix [Rocephin/D5w 1gm IV Med 03/29/25 18:31 Discontinued premix] 1 gm in 50 ml IV X1 Code Status Routine Oth 03/29/25 22:05 Completed Mechanical [Volume Ventilator] Stat RT 03/29/25 Active Oxygen Delivery PRN RT 03/29/25 22:08 Completed Sputum Induction PRN RT 03/29/25 19:00 Ordered Volume Ventilator Stat RT 03/29/25 Active Vital Signs Vital signs: Vital Signs Pulse Rate 158 H 03/29/25 19:00 Fraction of Inspired Oxygen 100 03/29/25 19:00 PROCEDURES: Central Line Placement Right SC: Time Out Performed: Yes Patient Placed on Monitor/Pulse Ox: Yes Hand Hygiene: soap & water Max Sterile Barrier Techniques used: cap, mask, sterile gown, sterile gloves and sterile full body drape Central Line Prep: Chlorhexidine scrub and sterile drapes applied Ultrasound Used for Placement: Yes Sterile Technique if Ultrasound used, including sterile gel: yes Post Procedure: sutured in place, good blood return, all ports aspirated, flushed, capped and sterile dressing applied Post Procedure X-Ray: tip of catheter in good position and no pneumothorax seen Patient Tolerated Procedure: well and no complications Intubation Time out performed: No sedative: Etomidate Mg Given: 40 paralytic: Succinylcholine Mg Given: 200 Laryngoscope: fiber optic video scope Assist Device Used: fiber optic device ET Tube Size: 7.5 ET Tube Uncuffed: No Tube Secured Depth (cm): 26 Tube Secured Location: other (gum) Tube Placement Confirmation: visualized tube passing through cords, equal breath sounds bilaterally, no breath sounds over epigastrium and confirmation by capnometry Patient Tolerated Procedure: well and no complications Altered Mental Status MDM Narrative MDM Narrative:: This section includes all my notes and documentations, including HPI, PE, and ED course. Doyle Kruse MD HPI: 84-year-old male BIBA from home with AMS. Can't obtain from the patient due to AMS. Family not present. ROS: Can't obtain due to the patient's altered mental status. Physical Exam: General: Patient is obtunded with respiratory distress. Fever noted. Hypotension noted. Hypoxia noted. Eyes: Conjunctivae and lids clear. EOMI. PERRL. ENT: No nasal congestion. Neck: Supple. No JVD. Heart: Irregularly irregular (178 bpm). Lungs: In respiratory distress. Decreased air movement with rales. Abdomen: Soft with no obvious tenderness Skin: Warm and dry. Neuro: Difficult exam due to decreased mental status. I reviewed EMS notes. I reviewed all diagnostic test results. My interpretation of the EKG is atrial fibrillation with RVR (178 bpm). My interpretation of the chest x-ray is infiltrates and left pleural effusion. My review of the CT head report is NAD. My review of the CT cervical spine report is NAD. My review of the CT chest abdomen pelvis report is pneumonia. Blood tests remarkable for WBC 19.3, D-Dimer 2880, Na 152, Creatinine 3.9, Lactic Acid 4.7, Troponin 0.323, CRP 5.8, Procalcitonin 16.53. ABG showed pH 7.25, pCO2 39, pHCO3 17. UA unremarkable. At this point, diagnoses include: AMS (altered mental status) Sepsis Pneumonia Treatment here FROM ME included: Intubation (see procedure note) Right subclavian central line placement (see procedure note) IVF Zofran 4 mg IV Tylenol 1 g IV Toradol 15 mg IV Versed drip Amiodarone IV bolus and drip Levophed drip Vancomycin 2 g IV I discussed the case with our ICU service. About the presentation and exam and diagnostics and treatments here. And need of further care in the hospital. Will accept the patient. Doyle Kruse MD Patient data [place] [facility] [place] (Per chart review, patient was admitted here on 03/21/25 for Sepsis, Pneumonia, Diverticulitis, Diarrhea, Leukocytosis, Nausea & vomiting, Fever.) Clinical information provided by:: patient Social determinants that could affect healthcare access:: none Patient has the following chronic illnesses:: malignant melanoma on chemotherapy, CAD s/p 2 stent placements, HTN, history of bladder cancer How is presenting disease/condition affected by chronic disease/condition?: exacerbated by Evaluation data The following diagnostics were reviewed and interpreted by me:: lab results, radiology exam(s) and EKG tracing(s) (My interpretation of the EKG is: Atrial fibrillation with RVR (178 bpm). Doyle Kruse MD) Lab and/or radiology exams considered but not ordered:: none Interpretation Summary: I reviewed all diagnostic test results. My interpretation of the EKG is atrial fibrillation with RVR (178 bpm). My interpretation of the chest x-ray is infiltrates and left pleural effusion. My review of the CT head report is NAD. My review of the CT cervical spine report is NAD. My review of the CT chest abdomen pelvis report is pneumonia. Blood tests remarkable for WBC 19.3, D-Dimer 2880, Na 152, Creatinine 3.9, Lactic Acid 4.7, Troponin 0.323, CRP 5.8, Procalcitonin 16.53. ABG showed pH 7.25, pCO2 39, pHCO3 17. UA unremarkable. Medications / Prescriptions Medications or Prescriptions considered but not ordered:: none Medication administrations:: Medication Administration History Discontinued Medications Acetaminophen (Acetaminophen 325 Mg Tablet) 650 mg PO Q4HR PRN PRN Reason: PAIN SCALE 1-3 (mild Stop: 04/28/25 22:04 Artificial Tears (Artificial Tears 225 Drop/15 Ml Btl) 1 drop BOTH EYES Q4HR P RN PRN Reason: Dry eyes Stop: 04/29/25 01:56 Diltiazem HCl (Diltiazem Inj 5 Mg/Ml Vial 5 Ml) 20 mg IV X1 ONE Stop: 03/29/25 19:20 Etomidate (Etomidate Inj 2 Mg/Ml Vial 10 Ml) 40 mg IVP X1 ONE Stop: 03/29/25 18:35 Last Admin: 03/29/25 18:48 Dose: 40 mg Documented By: GM Etomidate (Etomidate Inj 2 Mg/Ml Vial 10 Ml) Confirm Administered Dose 40 mg .ROUTE .STK-MED ONE Stop: 03/29/25 18:47 Last Admin: 03/29/25 18:55 Dose: Not Given Documented By: MADALYN Non-Admin Reason: Duplicate Medication on eMAR Heparin Sodium (Porcine) (Heparin Sod Inj 5000 Unit/Ml Vial) 5,000 unit SC Q8HR [facility] Stop: 04/13/25 05:59 Lactated Ringer's (Lactated Ringers) 1,000 mls @ 1,000 mls/hr IV .Q1H ONE Stop: 03/29/25 19:24 Last Infusion: 03/29/25 19:53 Dose: Infused Documented By: Admin: 03/29/25 18:53 Dose: 1,000 mls/hr Documented By: MADALYN Acetaminophen (Ofirmev Inj) 1,000 mg in 100 mls @ 250 mls/hr IV X1 ONE Stop: 03/29/25 18:54 Last Infusion: 03/29/25 19:53 Dose: Infused Documented By: Admin: 03/29/25 19:29 Dose: 250 mls/hr Documented By: MIREYA Ceftriaxone Sodium/Dextrose (Rocephin/D5w 1gm Iv Premix) 1 gm in 50 mls @ 100 mls/hr IV X1 ONE Stop: 03/29/25 19:00 Last Admin: 03/30/25 01:20 Dose: 100 mls/hr Documented By: TRAVON Lactated Ringer's (Lactated Ringers) 1,000 mls @ 125 mls/hr IV .Q8H ONE Stop: 03/30/25 02:31 Last Admin: 03/29/25 19:15 Dose: 125 mls/hr Documented By: MIREYA Norepinephrine/Dextrose (Levophed In D5w 8mg/250ml) 8 mg in 250 mls @ 10.631 mls/hr IV .[id number] PRN; Protocol PRN Reason: PER PROTOCOL Stop: 04/28/25 18:32 Last Titration: 03/30/25 02:00 Dose: 0.8 mcg/kg/min, 170.097 mls/hr Documented By: Titration: 03/30/25 01:31 Dose: 0.8 mcg/kg/min, 170.097 mls/hr Documented By: Titration: 03/30/25 01:25 Dose: 0.76 mcg/kg/min, 161.592 mls/hr Documented By: Titration: 03/30/25 01:20 Dose: 0.74 mcg/kg/min, 157.34 mls/hr Documented By: Titration: 03/30/25 01:15 Dose: 0.7 mcg/kg/min, 148.835 mls/hr Documented By: Admin: 03/30/25 01:14 Dose: 0.63 mcg/kg/min, 133.951 mls/hr Documented By: Titration: 03/30/25 01:14 Dose: Infused Documented By: Titration: 03/30/25 00:55 Dose: 0.57 mcg/kg/min, 121.194 mls/hr Documented By: Titration: 03/30/25 00:25 Dose: 0.47 mcg/kg/min, 99.932 mls/hr Documented By: Titration: 03/30/25 00:20 Dose: 0.45 mcg/kg/min, 95.68 mls/hr Documented By: Titration: 03/30/25 00:15 Dose: 0.37 mcg/kg/min, 78.67 mls/hr Documented By: Titration: 03/30/25 00:05 Dose: 0.35 mcg/kg/min, 74.417 mls/hr Documented By: Titration: 03/30/25 00:00 Dose: 0.45 mcg/kg/min, 95.68 mls/hr Documented By: Titration: 03/29/25 23:45 Dose: 0.45 mcg/kg/min, 95.68 mls/hr Documented By: Titration: 03/29/25 23:40 Dose: 0.43 mcg/kg/min, 91.427 mls/hr Documented By: Titration: 03/29/25 23:35 Dose: 0.41 mcg/kg/min, 87.175 mls/hr Documented By: Titration: 03/29/25 23:30 Dose: 0.39 mcg/kg/min, 82.922 mls/hr Documented By: Titration: 03/29/25 23:26 Dose: 0.37 mcg/kg/min, 78.67 mls/hr Documented By: Titration: 03/29/25 23:20 Dose: 0.35 mcg/kg/min, 74.417 mls/hr Documented By: Titration: 03/29/25 23:17 Dose: 0.35 mcg/kg/min, 74.417 mls/hr Documented By: Titration: 03/29/25 23:15 Dose: 0.35 mcg/kg/min, 74.417 mls/hr Documented By: Titration: 03/29/25 23:10 Dose: 0.33 mcg/kg/min, 70.165 mls/hr Documented By: Admin: 03/29/25 23:09 Dose: 0.31 mcg/kg/min, 65.913 mls/hr Documented By: Titration: 03/29/25 23:09 Dose: Infused Documented By: Titration: 03/29/25 22:40 Dose: 0.31 mcg/kg/min, 65.913 mls/hr Documented By: Titration: 03/29/25 22:25 Dose: 0.29 mcg/kg/min, 61.66 mls/hr Documented By: Titration: 03/29/25 22:20 Dose: 0.27 mcg/kg/min, 57.408 mls/hr Documented By: Titration: 03/29/25 22:15 Dose: 0.25 mcg/kg/min, 53.155 mls/hr Documented By: Titration: 03/29/25 21:55 Dose: 0.23 mcg/kg/min, 48.903 mls/hr Documented By: Titration: 03/29/25 21:50 Dose: 0.21 mcg/kg/min, 44.65 mls/hr Documented By: Titration: 03/29/25 19:08 Dose: 0.19 mcg/kg/min, 40.398 mls/hr Documented By: Titration: 03/29/25 19:03 Dose: 0.17 mcg/kg/min, 36.146 mls/hr Documented By: Admin: 03/29/25 19:02 Dose: 0.05 mcg/kg/min, 10.631 mls/hr Documented By: GM Midazolam HCl (Versed Pf Inj In Ns Premix) 100 mg in 100 mls @ 1 mls/hr IV .Q24H PRN; Protocol PRN Reason: Per Protocol Stop: 04/03/25 18:51 Diltiazem/Sodium Chloride (Diltiazem In Ns 100 Mg) 100 mg in 100 mls @ 5 mls/hr IV .Q20H ONE; Protocol Stop: 03/30/25 15:18 Amiodarone HCl/Dextrose (Nexterone Ivpb) 150 mg in 100 mls @ 600 mls/hr IV .Q10M ONE Stop: 03/29/25 19:54 Last Infusion: 03/29/25 20:02 Dose: Infused Documented By: Admin: 03/29/25 19:51 Dose: 600 mls/hr Documented By: MIREYA Amiodarone HCl/Dextrose (Nexterone Ivpb) 360 mg in 200 mls @ 33.333 mls/hr IV .Q6H ONE Stop: 03/30/25 02:00 Last Admin: 03/29/25 20:03 Dose: 33.333 mls/hr Documented By: MIREYA Amiodarone HCl/Dextrose (Nexterone Ivpb) 360 mg in 200 mls @ 16.667 mls/hr IV .Q12H [facility] Stop: 03/31/25 01:59 Vasopressin/Sodium Chloride (Vasostrict/Ns Ivpb) 20 unit in 100 mls @ 9 mls/hr IV .Q11H7M PRN; Protocol PRN Reason: PER PROTOCOL Stop: 04/28/25 21:59 Last Admin: 03/29/25 22:53 Dose: 0.03 unit/min, 9 mls/hr Documented By: TRAVON Dobutamine HCl/Dextrose (Dobutrex/D5w Ivpb) 500 mg in 250 mls @ 3.402 mls/hr IV .Q24H [facility] Stop: 04/28/25 23:15 Propofol (Diprivan Ivpb) 1,000 mg in 100 mls @ 3.402 mls/hr IV .Q24H PRN; Protocol PRN Reason: PER PROTOCOL Stop: 04/28/25 23:22 Propofol (Diprivan Ivpb) Confirm Administered Dose 1,000 mg in 100 mls @ ud IV .STK-MED ONE Stop: 03/29/25 23:22 Last Admin: 03/30/25 00:31 Dose: Not Given Documented By: TRAVON Non-Admin Reason: Duplicate Medication on eMAR Propofol (Diprivan Ivpb) 1,000 mg in 100 mls @ 3.402 mls/hr IV .Q24H PRN; Protocol PRN Reason: PER PROTOCOL Stop: 04/28/25 23:43 Epinephrine/Sodium Chloride (Adrenalin/Ns 16 Mg Ivpb) 16 mg in 250 mls @ 5.316 mls/hr IV .Q24H PRN; Protocol PRN Reason: Per Protocol Stop: 04/29/25 00:02 Last Titration: 03/30/25 02:00 Dose: 0.41 mcg/kg/min, 43.587 mls/hr Documented By: Titration: 03/30/25 01:15 Dose: 0.41 mcg/kg/min, 43.587 mls/hr Documented By: Titration: 03/30/25 01:10 Dose: 0.39 mcg/kg/min, 41.461 mls/hr Documented By: Titration: 03/30/25 01:05 Dose: 0.37 mcg/kg/min, 39.335 mls/hr Documented By: Titration: 03/30/25 01:00 Dose: 0.35 mcg/kg/min, 37.209 mls/hr Documented By: Titration: 03/30/25 00:25 Dose: 0.3 mcg/kg/min, 31.893 mls/hr Documented By: Titration: 03/30/25 00:20 Dose: 0.21 mcg/kg/min, 22.325 mls/hr Documented By: Titration: 03/30/25 00:15 Dose: 0.11 mcg/kg/min, 11.694 mls/hr Documented By: Admin: 03/30/25 00:09 Dose: 0.05 mcg/kg/min, 5.316 mls/hr Documented By: TRAVON Epinephrine/Sodium Chloride (Adrenalin/Ns 4 Mg Ivpb) Confirm Administered Dose 4 mg in 250 mls @ ud IV .STK-MED ONE Stop: 03/30/25 00:00 Last Admin: 03/30/25 00:33 Dose: Not Given Documented By: TRAVON Non-Admin Reason: Duplicate Medication on eMAR Epinephrine/Sodium Chloride (Adrenalin/Ns 16 Mg Ivpb) Confirm Administered Dose 16 mg in 250 mls @ ud IV .STK-MED ONE Stop: 03/30/25 00:02 Last Admin: 03/30/25 00:31 Dose: Not Given Documented By: TRAVON Non-Admin Reason: Duplicate Medication on eMAR Vancomycin HCl 2,000 mg/ (Sodium Chloride) 500 mls @ 150 mls/hr IV X1 ONE Stop: 03/30/25 03:51 Last Admin: 03/30/25 03:34 Dose: Not Given Documented By: TRAVON Non-Admin Reason: Change of Condition Cefepime HCl 2 gm/ Sodium (Chloride) 50 mls @ 100 mls/hr IV Q24H [facility] Stop: 04/06/25 00:59 Last Admin: 03/30/25 01:15 Dose: 100 mls/hr Documented By: TRAVON Dextrose (D5w) 1,000 mls @ 100 mls/hr IV .Q10H [facility] Stop: 04/29/25 00:44 Last Admin: 03/30/25 01:15 Dose: 100 mls/hr Documented By: TRAVON Ketorolac Tromethamine (Ketorolac Inj 30 Mg/Ml Vial) 15 mg IVP X1 ONE Stop: 03/29/25 18:32 Last Admin: 03/30/25 01:21 Dose: Not Given Documented By: TRAVON Non-Admin Reason: Discontinued Lorazepam (Lorazepam 2 Mg/Ml Vial) 2 mg IVP X1 PRN PRN Reason: ANXIETY Stop: 04/04/25 01:56 Methylprednisolone Sodium Succinate (Methylprednisolone Sod Succ 40 Mg/Ml Vial) 20 mg IVP QDAY [facility] Stop: 04/06/25 08:59 Morphine Sulfate (Morphine Sulf Inj 4 Mg/Ml Vial) 2 mg IVP X1 ONE Stop: 03/30/25 01:58 Morphine Sulfate (Morphine Sulf Inj 4 Mg/Ml Vial) 2 mg IVP Q30M PRN PRN Reason: AGITATION OR PAIN Morphine Sulfate (Morphine Sulf Inj 4 Mg/Ml Vial) 2 mg IVP X1 ONE Stop: 03/30/25 01:58 Last Admin: 03/30/25 03:34 Dose: Not Given Documented By: TRAVON Non-Admin Reason: pt Nitroglycerin (Nitroglycerin 0.4 Mg Subl Btl #25) 0.4 mg SL Q5MIN PRN PRN Reason: CHEST PAIN Ondansetron HCl (Ondansetron Inj 2 Mg/Ml Inj 2 Ml) 4 mg IVP X1 ONE; Protocol Stop: 03/29/25 18:26 Last Admin: 03/30/25 01:21 Dose: Not Given Documented By: TRAVON Non-Admin Reason: Discontinued Pantoprazole Sodium (Pantoprazole Inj 40 Mg Vial) 40 mg IVP QDAY [facility] Stop: 04/29/25 08:59 Pharmacy Consult (Vancomycin Pharmacy To Dose 1 Each Each) 1 each IV QDAY [facility] Stop: 04/29/25 08:59 Rocuronium [place] (Rocuronium Inj 10 Mg/Ml Vial 10 Ml) 100 mg IVP X1 ONE Stop: 03/29/25 18:53 Last Admin: 03/29/25 18:57 Dose: 100 mg Documented By: MADALYN Co-signed By: YASSINE Rocuronium [place] (Rocuronium Inj 10 Mg/Ml Vial 10 Ml) 100 mg IVP X1 ONE Stop: 03/29/25 22:58 Last Admin: 03/30/25 00:32 Dose: Not Given Documented By: TRAVON Non-Admin Reason: Change of Condition Rocuronium [place] (Rocuronium Inj 10 Mg/Ml Vial 10 Ml) Confirm Administered Dose 100 mg .ROUTE .STK-MED ONE Stop: 03/29/25 22:54 Last Admin: 03/30/25 00:32 Dose: Not Given Documented By: TRAVON Non-Admin Reason: Duplicate Medication on eMAR Sodium Chloride (Sodium Chloride Rt 10% 15 Ml Nebu) 5 ml INH X1 ONE Stop: 03/29/25 18:58 Last Admin: 03/29/25 19:33 Dose: Not Given Documented By: DIANNE Non-Admin Reason: pt intubated, sputum sent to lab Succinylcholine Chloride (Succinylcholine Inj 20 Mg/Ml Vial 10 Ml) 200 mg IV X1 ONE Stop: 03/29/25 18:35 Last Admin: 03/29/25 18:50 Dose: 200 mg Documented By: MADALYN Comments: GIVEN VIA L AC IV OVER 1 MIN. Succinylcholine Chloride (Succinylcholine Inj 20 Mg/Ml Vial 10 Ml) Confirm Ad ministered Dose 200 mg .ROUTE .STK-MED ONE Stop: 03/29/25 18:47 Last Admin: 03/29/25 18:55 Dose: Not Given Documented By: GM Non-Admin Reason: Duplicate Medication on eMAR Treatment here FROM ME included: Intubation (see procedure note) Right subclavian central line placement (see procedure note) IVF Zofran 4 mg IV Tylenol 1 g IV Toradol 15 mg IV Versed drip Amiodarone IV bolus and drip Levophed drip Vancomycin 2 g IV Consultations Consultation(s) initiated? (list below): Yes Consultation #1 (Physician, Specialty, Details): I discussed the case with our ICU service. About the presentation and exam and diagnostics and treatments here. And need of further care in the hospital. Will accept the patient. Diagnosis Differential diagnosis altered mental status: alcoholic intoxication, altered mental status, delirium, dementia, hypoglycemia, hyponatremia, subarachnoid hemorrhage and sepsis Most likely diagnosis given after review of the tests above:: AMS (altered mental status) Sepsis Pneumonia Admission Indicated Admission indicated?: indicated Explain why admission is indicated or not indicated:: AMS (altered mental status) Sepsis Pneumonia Admission Request Was there a request for admission?: Yes Admission Attestation Admission request attestation: I discussed the case with our ICU service. About the presentation and exam and diagnostics and treatments here. And need of further care in the hospital. Will accept the patient. Disposition Plan Disposition Plan: Admit Critical Care Time Critical Care Time Critical Care Time: Yes Total Critical Care Time (min.): 40 Attestation: Due to a high probability of clinically significant, life threatening deterioration, the patient required my highest level of preparedness to intervene emergently and I personally spent this critical care time directly and personally managing the patient. This critical care time included obtaining a history; examining the patient; ordering and review of studies; arranging urgent treatment with development of a management plan; evaluation of patient's response to treatment; frequent reassessment; and discussions with family and other providers. It was exclusive of separately billable procedures and treating other patients and teaching time. Doyle Kruse MD Discharge Plan Plan Patient Disposition: Admit Acute Care w/in Hospital Problem List Clinical Impression: AMS (altered mental status), Sepsis, Pneumonia
--- NOTE | 2025-03-29 18:25 | XR_ITS ---
Examination: CT cervical spine without contrast 2-D sagittal reconstructions 2-D coronal reconstructions 3-D reconstructions. Exam date and time: March 29, 2025, 2118 hours INDICATIONS: Altered mental status with neck pain today CTDI:vol (mGy) 19.2 DLP: (mGycm) 413 Technique: Multiple 2 mm axial sections of the cervical spine have been obtained. The coronal and sagittal reconstructions have been obtained. 3-D reconstructions have been obtained. Low dose protocols were performed. One or more of the following dose reduction techniques were used; automated exposure control, adjustment of the mA and/or KV according to patient size, use of iterative reconstruction technique. Findings: Axial sections demonstrate intact base of the skull. Extensive mineralization of the anterior longitudinal ligament C1 exhibit satisfactory relationship to the odontoid. No acute cervical vertebral body fracture seen. Alignment posterior spinous processes satisfactory. Impression: No acute cervical fracture.
--- NOTE | 2025-03-29 18:25 | XR_ITS ---
Examination: CT chest, without intravenous contrast. CT abdomen, without intravenous contrast. CT pelvis, without intravenous contrast. 2-D sagittal and coronal reconstructions. 3-D reconstructions. Date and time of exam: March 29, 2025, 2121 hours, comparison CT abdomen pelvis March 21, 2025 INDICATIONS: Shortness of breath abdominal and chest pain today, hypoxic respiratory failure post intubation CTDI vol (mgy) 20 DLP (MGycm) 1788 Technique: Multiple CT images, 3.0 mm slice thickness, obtained chest, abdomen, pelvis, with the high-resolution 64 slice scanner.. Sagittal and coronal 2-D reconstructions are obtained. 3-D reconstructions Low dose protocols were performed. One or more of the following dose reduction techniques were used; automated exposure control, adjustment of the mA and/or KV according to patient size, use of iterative reconstruction technique. Findings: Extensive left lung atelectasis, which may partly relate to the position of the endotracheal tube tip at the origin of the right mainstem bronchus Heavy left anterior descending coronary artery calcification pneumonia in addition to the atelectasis left lung and pneumonia right base significant No pulmonary edema Orogastric tube in the stomach,, tip in the distal stomach there is prominent mucosal thickening throughout the stomach No visualized liver or splenic lesion No pancreatic or adrenal mass No definite gallstones Atrophic kidneys with benign left renal cysts including calcified 8 mm cyst posterior margin left kidney noted on the most recent study Lower pole 4.8 cm right renal cyst No bowel obstruction Aorta normal size Fluid-filled colon on this noncontrast study Rectal tube Moderate prostatomegaly Urinary bladder intact Severe osteopenia IMPRESSION: Extensive left lung atelectasis and pneumonia Significant right base pneumonia Retract the tracheal tube 3 cm Gastritis pattern Atrophic kidneys with benign renal cysts Diffuse mild colitis pattern No obstruction
--- NOTE | 2025-03-29 18:25 | XR_ITS ---
EXAMINATION: AP chest single view TECHNIQUE: AP portable semiupright chest single view Date and time: March 29, 2025, 1832 hours, comparison March 23, 2025 INDICATIONS: Shortness of breath and fever today. FINDINGS: Again noted is significant bibasilar pneumonia Moderate to large left pleural effusion The film is rotated LPO Bones are significantly demineralized IMPRESSION: Significant bibasilar pneumonia Moderate to large left pleural effusion
--- NOTE | 2025-03-29 18:25 | EKG_ITS ---
[facility] Test Date: 2025-03-29 Pat Name: GERI MA Department: Room: - Gender: Male Community Relations Officer: : 1940 Requested By: Doyle Palacio Order Number: [id number] Reading MD: Doyle Palacio Measurements Intervals [place] Rate: 178 P: MT: QRS: 45 QRSD: 82 T: 217 QT: 245 QTc: 422 Interpretive Statements ATRIAL FIBRILLATION WITH RAPID VENTRICULAR RESPONSE MARKED ST DEPRESSION, CONSIDER SUBENDOCARDIAL INJURY [0.2+ mV ST DEPRESSION] ACUTE WI Compared to ECG 03/24/2025 09:54:58 ST (T wave) deviation now present Sinus bradycardia no longer present Prolonged QT interval no longer present /store/S0/[id number].pdf
--- NOTE | 2025-03-29 18:26 | XR_ITS ---
Examination: CT brain head without contrast. 2-D sagittal coronal reconstructions Date and time of exam: March 29, 2025, 2118 hours INDICATIONS: Altered mental status today CTDI: vol (mGy): 55.2 DLP: (mGycm): 1175 Technique: Multiple CT axial sections of the brain have been obtained, 5 mm slice thickness. Contrast has not been administered. 2-D sagittal, coronal reconstructions have been obtained Low dose protocols were performed. One or more of the following dose reduction techniques were used; automated exposure control, adjustment of the mA and/or KV according to patient size, use of iterative reconstruction technique. Findings: No significant ventricular enlargement. Intra-axial or extra-axial hemorrhage density is not seen. No mass effect or midline shift Basal cisterns are not remarkable. Fourth ventricle is midline. Cranial vault intact. Impression: Negative for acute hemorrhage, mass effect or midline shift Advise clinical correlation and follow-up accordingly
[2025-03-29 18:46] LABS: Beta Hydroxybutyrate 0.2 mmol/L (<0.6)
[2025-03-29] MEDS: ETOMIDATE INJ 2 MG/ML VIAL 10 ML 40 MG IVP (18:48)
[2025-03-29 18:49] LABS: Lactate (Lactic Acid) 4.7 mMol/L (0.4-2.0)
[2025-03-29 18:50] LABS: Basophils # (Auto) 0.1 Thou/mm3 (0.0-0.2); Basophils % (Auto) 0 % (0-2.5); Eosinophils # (Auto) 0.0 Thou/mm3 (0.0-0.5); Eosinophils % (Auto) 0 % (0-10); Hematocrit 43.2 % (41.0-53.0); Hemoglobin 13.3 g/dL (13.5-16.0); Immature Granulocytes Auto 0.34 Thou/mm3 (0.00-0.00); Lymphocytes # (Auto) 3.2 Thou/mm3 (1.0-4.8); Lymphocytes % (Auto) 17 % (10-50); Mean Corpuscular HGB Conc 30.8 g/dl (31.0-37.0); Mean Corpuscular Hemoglobin 27.7 pg (25.0-35.0); Mean Corpuscular Volume 90 fL (80-100); Monocytes # (Auto) 0.6 Thou/mm3 (0.0-0.8); Monocytes % (Auto) 3 % (0-12); Neutrophils # (Auto) 15.1 Thou/mm3 (1.8-7.7); Neutrophils % (Auto) 78 % (37-80); Nucleated Red Blood Cell # 0.03 Thou/mm3 (0.00-0.00); Nucleated Red Blood Cell % 0 /100 WBC (0); Platelet Count 241 Thou/mm3 (140-440); RDW Standard Deviation 57.4 fL (35.1-43.9); Red Blood Count 4.81 Miln/mm3 (4.50-5.90); White Blood Count 19.3 Thou/mm3 (3.8-10.6)
[2025-03-29] MEDS: SUCCINYLCHOLINE INJ 20 MG/ML VIAL 10 ML 200 MG IV (18:50)
[2025-03-29] MEDS: RINGERS LACTATED 1000 ML 1,000 ML IV (18:53)
[2025-03-29 18:57] LABS: Sed Rate (ESR) 12 mm/hr (0-20)
[2025-03-29] MEDS: ROCURONIUM INJ 10 MG/ML VIAL 10 ML 100 MG IVP (18:57)
[2025-03-29 19:02] LABS: D-Dimer 2880 ng/mL (<600)
[2025-03-29] MEDS: Norepinephrine/D5W 8mg/250ml 8 MG/250 ML BAG 10.631 MG IV (19:02)
--- NOTE | 2025-03-29 19:03 | XR_ITS ---
EXAMINATION: AP chest single view TECHNIQUE: AP portable supine chest single view Date and time: March 29, 2025, 190 hours, comparison March 29, 2025 183 hours INDICATIONS: Hypoxic respiratory failure post intubation FINDINGS: Endotracheal tube is at the origin and proximal portion of the right mainstem bronchus Bibasilar pneumonia Significant left pleural fluid Prominent vascular congestion Mild enlargement left ventricle Orogastric tube in the stomach, tip below the level of the film IMPRESSION: Retract the tracheal tube 3 cm
[2025-03-29 19:11] LABS: Glucose Estimated Average 169 mg/dL (80-131); Hemoglobin A1C 7.5 % Hgb (4.8-6.0)
[2025-03-29 19:13] LABS: Ammonia 11 uMol/L (11-32)
[2025-03-29] MEDS: RINGERS LACTATED 1000 ML 1,000 ML 125 ML IV (19:15)
[2025-03-29 19:22] LABS: Alanine Aminotransferase 16 U/L (10-49); Albumin, Serum 2.5 gm/dL (3.4-4.8); Albumin/Globulin Ratio 1.3 (1.2-2.2); Alkaline Phosphatase 73 U/L (46-116); Anion Gap 9 (7-16); Aspartate Amino Transferase 16 U/L (0-34); BUN/Creatinine Ratio 8 Ratio (12-20); Bilirubin,Direct 0.1 mg/dL (0.0-0.3); Bilirubin,Total 0.3 mg/dL (0.3-1.2); Blood Urea Nitrogen 30 mg/dL (9-23); C-Reactive Protein 5.8 mg/dL (0.0-0.9); Calcium 7.5 mg/dL (8.3-10.6); Calcium (Corrected) 8.7 mg/dL (8.5-10.1); Carbon Dioxide 19.6 mMol/L (20.0-31.0); Chloride 127 mMol/L (98-107); Creatine Kinase 117 U/L (34-171); Creatinine (Component) 3.9 mg/dL (0.6-1.3); Estimated Creatinine Clearance 18.8 mL/min (>60); Globulin 2.0 gm/dL (2.3-3.5); Glucose 100 mg/dL (74-106); Lipase 46 U/L (12-53); Magnesium 2.2 mg/dL (1.6-2.6); Osmolality,Calculated 315 (275-295); Potassium 3.4 mMol/L (3.4-5.1); Procalcitonin 16.53 ng/ml (0.0-0.49); Sodium 156 mMol/L (136-145); Thyroid Stimulating Hormone 1.95 uIU/mL (0.55-4.78); Total Protein 4.5 gm/dL (5.7-8.2); eGFR 14 See Note
[2025-03-29 19:27] LABS: Base Excess -9 (-3-3); HCO3 17 mEq/L (20-26); Inspired Oxygen, FIO2 21 %; O2 Saturation 97 % (91-98); PCO2 39 mmHg (32.0-48.0); PO2 90 mmHg (83-108); pH, Arterial 7.25 (7.35-7.45)
[2025-03-29] MEDS: ACETAMINOPHEN IVPB 1,000 MG/100 ML VIAL 250 MG IV (19:29)
[2025-03-29 19:33] LABS: Allen Test Performed/OK; Puncture Site Right Radial
--- NOTE | 2025-03-29 19:43 | PC.RT ---
rate increased to [address] White aware of abg results
[2025-03-29 19:46] LABS: B-Type Natriuretic Peptide 68 pg/mL (0-100)
[2025-03-29 19:46] LABS: Troponin I 0.323 ng/mL (0.0-0.045)
[2025-03-29] MEDS: AMIODARONE 150 MG IVPB 150 MG/100 ML BAG 600 MG IV (19:51)
[2025-03-29 19:54] LABS: Collection Type, Urine Clean Catch
[2025-03-29] MEDS: AMIODARONE 360 MG IVPB 360 MG/200 ML BAG 33.333 MG IV (20:03)
[2025-03-29 20:04] LABS: Bilirubin,Urine Negative (Negative); Blood,Urine 1+ (Negative); Clarity,Urine Turbid (Clear/Hazy); Color,Urine Drk-Yellow (Lt Yel-Yel); Culture Indicated,Urine Not Indicated; Glucose, Urine Negative (Negative); Ketones,Urine Negative (Negative); Leukocyte Esterase,Urine Negative (Negative); Nitrite,Urine Negative (Negative); PH,Urine 6.0 (5.0-7.0); Protein,Urine 1+ (Neg - Trace); RBC,Urine 9 /hpf (0-3); Specific Gravity,Urine 1.021 (1.001-1.035); Squamous Epithelial Cell,Urine 1 /hpf (0-5); Urobilinogen,Urine Negative mg/dL (0.0-1.0); WBC,Urine 4 /hpf (0-5)
--- NOTE | 2025-03-29 20:49 | PD.RESPROC ---
PROCEDURES: Procedure Date / Time 03/29/252048 Central Line Placement Right Femoral: Indication(s): shock Informed consent obtained: obtained from surrogate decision maker and procedure done urgently Time out done, and the following verified: correct patient, side and site, procedure and patient position Patient placed on monitor/pulse ox: Yes Hand Hygiene: soap & water Max Sterile Barrier Techniques used: cap, mask, sterile gown, sterile gloves and sterile full body drape Central line prep: Chlorhexidine scrub Local anesthesia used: lidocaine 1% Amount of anesthesia used (mL): 3 Sterile Technique if Ultrasound used, including sterile gel: yes Central line lumen inserted: triple EBL(ml): 5 Procedure comment: Catheter could not be inserted vessel with guide wire. Guide wire was removed from patient. Left Femoral: Indication(s): shock Informed consent obtained: obtained from surrogate decision maker and procedure done urgently Time out done, and the following verified: correct patient, side and site, procedure and patient position Patient placed on monitor/pulse ox: Yes Hand Hygiene: soap & water Max Sterile Barrier Techniques used: cap, mask, sterile gown and sterile gloves Central line prep: Chlorhexidine scrub Local anesthesia used: lidocaine 1% Amount of anesthesia used (mL): 3 Ultrasound used for placement: Yes Sterile Technique if Ultrasound used, including sterile gel: yes Central line lumen inserted: triple Procedure comment: Catheter could not be inserted vessel with guide wire. Guide wire was removed from patient.
[2025-03-29 21:41] LABS: Reflex Lactate? Y
--- NOTE | 2025-03-29 22:02 | XR_ITS ---
EXAMINATION: AP chest single view TECHNIQUE: AP portable supine chest single view Date and time: February 27, 2025, 10 0 4:00 p.m., comparison 10/27/2024 1901 hours INDICATIONS: Reposition tracheal tube FINDINGS: Tracheal tube tip 4.7 cm above isabela Remains total opacification left hemithorax with volume shift of the heart and mediastinum to the left Right lung clear Right subclavian line right atrium Orogastric tube in the stomach IMPRESSION: There remains extensive atelectasis and pneumonia left lung Consider bronchoscopy follow-up to assess for mucous plugging in the left mainstem bronchus
[2025-03-29 22:51] LABS: Base Excess -10 (-3-3); HCO3 17 mEq/L (20-26); O2 Saturation 73 % (91-98); PCO2 40 mmHg (32.0-48.0); pH, Arterial 7.24 (7.35-7.45)
[2025-03-29 22:53] LABS: Allen Test Performed/OK; Inspired Oxygen, FIO2 100 %; Puncture Site Right Radial
[2025-03-29] MEDS: VASOPRESSIN IN NS IVPB 20 UNIT/100 ML BAG 9 UNIT IV (22:53)
[2025-03-29 22:54] LABS: PO2 60 mmHg (83-108)
[2025-03-29 22:58] LABS: Lactic Acid, 3 HR 3.0 mMol/L (0.4-2.0)
[2025-03-29] MEDS: Norepinephrine/D5W 8mg/250ml 8 MG/250 ML BAG 65.913 MG IV (23:09)
--- NOTE | 2025-03-29 23:51 | PC.NURSE ---
Ceftriaxone has not been administered to patient while he was in my care. Was unable to run med waiting for central line to be placed in patient. His two peripheral iv lines were being used to keep blood pressure stable.
--- NOTE | 2025-03-29 23:58 | PC.NURSE ---
Zofran med not given, contraindicated. Pt scored a 0 on the Callejas Saab scale, did not give Toradol.
[2025-03-30] VITALS (22 sets, daily range): BP systolic 63–178; BP diastolic 36–100; PULSE 72–112; RESP 0–24; O2SAT 86–100
[2025-03-30] MEDS: EPINEPHrine in NS 16 MG IVPB 16 MG/250 ML BAG 5.316 MG IV (00:09)
--- NOTE | 2025-03-30 00:09 | EKG_ITS ---
[facility] Test Date: 2025-03-30 Pat Name: GERI MA [facility] Gender: [facility] Bill Clerk: FABIÁN : 1940 Requested By: Allyssa De La Cruz Order Number: [id number] Reading MD: Allyssa De La Cruz Measurements Intervals [place] Rate: 105 P: 73 DC: 205 QRS: -74 QRSD: 103 T: 98 QT: 363 QTc: 481 Interpretive Statements SINUS TACHYCARDIA WITH OCCASIONAL VENTRICULAR PREMATURE COMPLEXES LEFT ANTERIOR FASCICULAR BLOCK ANTEROSEPTAL MYOCARDIAL INFARCTION , OF INDETERMINATE AGE Compared to ECG 03/29/2025 19:17:21 Ventricular premature complex(es) now present Left anterior fascicular block now present Myocardial infarct finding now present Atrial fibrillation no longer present ST (T wave) deviation no longer present /store/S0/[id number]/ecg/[id number].pdf
[2025-03-30 00:20] LABS: Lactate (Lactic Acid) 8.6 mMol/L (0.4-2.0)
[2025-03-30 00:41] LABS: Basophils # (Auto) 0.1 Thou/mm3 (0.0-0.2); Basophils % (Auto) 0 % (0-2.5); Eosinophils # (Auto) 0.0 Thou/mm3 (0.0-0.5); Eosinophils % (Auto) 0 % (0-10); Hematocrit 35.4 % (41.0-53.0); Hemoglobin 10.8 g/dL (13.5-16.0); Immature Granulocytes Auto 0.76 Thou/mm3 (0.00-0.00); Lymphocytes # (Auto) 5.0 Thou/mm3 (1.0-4.8); Lymphocytes % (Auto) 24 % (10-50); Mean Corpuscular HGB Conc 30.5 g/dl (31.0-37.0); Mean Corpuscular Hemoglobin 28.2 pg (25.0-35.0); Mean Corpuscular Volume 92 fL (80-100); Monocytes # (Auto) 0.5 Thou/mm3 (0.0-0.8); Monocytes % (Auto) 2 % (0-12); Neutrophils # (Auto) 14.2 Thou/mm3 (1.8-7.7); Neutrophils % (Auto) 69 % (37-80); Nucleated Red Blood Cell # 0.03 Thou/mm3 (0.00-0.00); Nucleated Red Blood Cell % 0 /100 WBC (0); Platelet Count 154 Thou/mm3 (140-440); RDW Standard Deviation 60.6 fL (35.1-43.9); Red Blood Count 3.83 Miln/mm3 (4.50-5.90); White Blood Count 20.5 Thou/mm3 (3.8-10.6)
[2025-03-30 00:44] LABS: Base Excess -17 (-3-3); HCO3 13 mEq/L (20-26); O2 Saturation 94 % (91-98); PCO2 46 mmHg (32.0-48.0); PO2 85 mmHg (83-108)
[2025-03-30 00:48] LABS: Allen Test Not Performed; Inspired Oxygen, FIO2 100 %; Puncture Site Right Radial
[2025-03-30 00:49] LABS: pH, Arterial 7.06 (7.35-7.45)
[2025-03-30 00:53] LABS: Albumin, Serum 1.6 gm/dL (3.4-4.8); Anion Gap 15 (7-16); BUN/Creatinine Ratio 8 Ratio (12-20); Blood Urea Nitrogen 30 mg/dL (9-23); Calcium (Corrected) 8.4 mg/dL (8.5-10.1); Carbon Dioxide 18.3 mMol/L (20.0-31.0); Chloride 122 mMol/L (98-107); Creatinine (Component) 3.9 mg/dL (0.6-1.3); Estimated Creatinine Clearance 18.8 mL/min (>60); Glucose 273 mg/dL (74-106); Magnesium 2.2 mg/dL (1.6-2.6); Osmolality,Calculated 323 (275-295); Phosphorous 6.3 mg/dL (2.4-5.1); Potassium 4.0 mMol/L (3.4-5.1); Sodium 155 mMol/L (136-145); eGFR 14 See Note
[2025-03-30 00:55] LABS: Calcium 6.5 mg/dL (8.3-10.6)
--- NOTE | 2025-03-30 00:55 | ESHP_ITS ---
Documentation for date of: 03/30/25 [facility] History of Present Illness Chief complaint: AMS History of present illness: Mr. Cunha is a 84-year-old male with a past medical history of malignant melanoma on chemotherapy, coronary artery disease status post 2 stent placements, hypertension, history of bladder cancer, and recent discharge on day of admission after patient insisted on leaving AMA presented to the ED on 03/29/2025 with AMS. Per patient's spouse, patient was doing well after discharge. However, this morning, patient was more lethargic, however patient spouse felt that patient was resting, and later was unable to get out of the bed and do his normal routine. Patient's spouse noted patient was not himself and decided to call 911. Per EMS, patient was noted at to be GCS of 8, febrile with shallow respirations and was given 500 L of bolus LR and route. Patient noted to be 84% on nasal cannula, and decision was made to immediately intubate the ER. ER course: Patient presented with blood pressure of 67/41, heart rate of 158, temperature 101.5, saturating 84% on nasal cannula. Prior to intubation, chest x-ray was taken which showed significant bilateral pneumonia and moderate to large left pleural effusion. Repeat chest x-ray was taken postintubation and was recommended to retract the ET tube by 3 cm which was performed immediately after chest x-ray and CT abdomen pelvis were taken. CT abdomen pelvis was also taken around this time which showed Extensive left lung atelectasis, pneumonia, significant right base pneumonia, gastritis, atrophic kidneys and diffuse mild colitis pattern. CT cervical spine showed no acute fracture. Head CT showed no acute hemorrhage. EKG showed A-fib with RVR with HR of 178. Due to patient requiring more pressor support, patient a right subclavian was placed in the ED, to administer vasopressors. Repeat CXR s/p subclavian line shows left hemithorax complete opacification with volume shift of the heart and mediastinum to the left. Patient will be admitted to ICU for further management of patient's shock and acute hypoxic respiratory failure. Of note, patient was recently discharged yesterday after initially being admitted to ICU for hypovolemic shock on 03/22/25. After shock resolved, patient was downgraded to medicine floor, and being treated for electrolytes imbalances and on 03/28/25 patient decided he would like to return to home where he would be more comfortable and able to comply with his medications due to his back pain from laying on the hospital bed. He was aware that he had to f/u with his specialists outpatient and was A&O x 3, and understood clear return precautions. Prior to discharge patient denied any chest pain, SOB, lightheadedness, fevers, chills, diarrhea, or dysuria. Past medical history: As mentioned above Past surgical history:Unspecified bladder surgery related to history of bladder cancer, 2 stent placements to date unknown Family history: Noncontributory Social history: Per patient's spouse, denies alcohol or tobacco or illicit drug use Medications: Patient recently discharged on a steroid taper with prednisone, eliquis 2.5mg BID, amiodarone 200mg BID, suldasalazine 1000mg BID, nystatin 100,000 unit/mL Suspension 10 ml PO BID PRN, diphenhydramine HCl 12.5 mg/5 mL Elixir 25 mg PO BID PRN , finasteride 5mg QD, potassium chloride 20mEq QD, losartan 50mg QD, tamsulosin 0.4mg QHS, furosemide 20mg QD. Allergies: NKDA, allergic to shellfish Review of Systems Review of Systems ROS Unobtainable: unobtainable due to medical condition and due to endotracheal tube Exam Vital Signs Temp Pulse Resp BP Pulse Ox O2 Del Method FiO2 100.9 F H 98 19 103/67 95 Mechanical Ventilation 100 03/29/25 20:00 03/30/25 00:30 03/29/25 22:27 03/30/25 00:30 03/30/25 00:30 03/29/25 20:00 03/29/25 23:34 Narrative Exam General: Elderly male, ill-appearing, intubated. Neurologic: GCS 3. Unable to respond to any sternal rub or noxious stimuli. HEENT: Normocephalic, two lacerations with dried blood noted on right catholic and forehead, mucous membranes dry. Pupils reactive to light. Erythoplakia and yellow secretions seen on side of the mouth. Heart: Irregularly, irregular, normal S1 and S2, no murmurs. Lungs: Diminished breath sounds L>>R Abdomen: Soft, with bulging left sided abdomen, but no hard masses felt. Extremities: Onychomycosis on the fingers and toes bilaterally. No edema. 2+ radial and dorsalis pedis pulses bilaterally. cap refill < 3 sec; extremities cold to touch. Skin: Warm. Dry. No rash or ecchymoses, but appears pale. Results: Labs 03/30/25 00:03 03/30/25 00:03 Labs: Short CBC 03/29/25 03/30/25 Range/Units 18:30 00:03 WBC 19.3 H D 20.5 H (3.8-10.6) Thou/mm3 Hgb 13.3 L 10.8 L D (13.5-16.0) g/dL Hct 43.2 35.4 L (41.0-53.0) % Plt Count 241 154 D (140-440) Thou/mm3 BMP 03/29/25 03/30/25 18:30 00:03 Sodium 156 H 155 H Potassium 3.4 4.0 D Chloride 127 H* 122 H* Carbon Dioxide 19.6 L 18.3 L BUN 30 H 30 H Creatinine 3.9 H D 3.9 H Glucose 100 D 273 H D Calcium 7.5 L 6.5 L* Cardiac Enzymes 03/29/25 Range/Units 18:30 Total Creatine Kinase 117 (34-171) U/L Troponin I 0.323 H* (0.0-0.045) ng/mL Liver Function 03/29/25 03/30/25 Range/Units 18:30 00:03 Total Bilirubin 0.3 (0.3-1.2) mg/dL Direct Bilirubin 0.1 (0.0-0.3) mg/dL AST 16 (0-34) U/L ALT 16 (10-49) U/L Alkaline Phosphatase 73 (46-116) U/L Albumin 2.5 L 1.6 L D (3.4-4.8) gm/dL Urine 03/29/25 Range/Units 19:40 Urine Color Drk-Yellow A (Lt Yel-Yel) Urine Clarity Turbid A (Clear/Hazy) Urine pH 6.0 (5.0-7.0) Ur Specific [place] 1.021 (1.001-1.035) Urine Protein 1+ A (Neg - Trace) Urine Glucose (UA) Negative (Negative) ABG Interpretation ABG results: 1203/29/25 03/30/25 19:21 22:40 00:37 ABG pH 7.25 L 7.24 L 7.06 L* D ABG pCO2 39 40 46 ABG pO2 90 60 L D 85 D ABG HCO3 17 L 17 L 13 L ABG O2 Saturation 97 73 L 94 ABG Base Excess -9 L -10 L -17 L Quality Measures Quality Measures sepsis Current suspected stage: septic shock (LA >4 and/or hypotension) Sepsis reassessment completed at (date): 03/30/25 Sepsis reassessment completed at (time): 00:52 Possible source: pulmonary, GI tract/intra-abdominal, skin/soft tissue and other Blood cultures ordered: completed in ED Antibiotic ordered: Yes Advance care planning discussed with:: spouse Medications Home Medications and Allergies Home Medications ?Medication ?Instructions ?Recorded ?Confirmed ?Type finasteride 5 mg tablet 5 mg PO DAILY 10/11/2003/22 History furosemide 20 mg tablet 20 mg PO QDAY 03/22/2503/22 History losartan 50 mg tablet 50 mg PO QDAY 03/22/2503/22 History potassium chloride 20 mEq 20 meq PO QDAY 03/22/2506/15 History tablet,extended release prednisone 20 mg tablet 17.5 mg PO QDAY 03/22/2506/15 History Held on 03/28/25. Instructions: Hold until you finish your steroid taper and follow-up with your oncologist tamsulosin 0.4 mg capsule 0.4 mg PO .qhs 03/22/2506/15 History Allergies Allergy/AdvReac Type Severity Reaction Status Date / Time shellfish derived Allergy Verified 03/21/25 15:41 Visit Medications Acetaminophen (Acetaminophen 325 Mg Tablet) 650 mg PO Q4HR PRN PRN Reason: PAIN SCALE 1-3 (mild Stop: 04/28/25 22:04 Heparin Sodium (Porcine) (Heparin Sod Inj 5000 Unit/Ml Vial) 5,000 unit SC Q8HR [facility]LEY Stop: 04/13/25 05:59 Lactated Ringer's (Lactated Ringers) 1,000 mls @ 125 mls/hr IV .Q8H ONE Stop: 03/30/25 02:31 Last Admin: 03/29/25 19:15 Dose: 125 mls/hr Norepinephrine/Dextrose (Levophed In D5w 8mg/250ml) 8 mg in 250 mls @ 10.631 mls/hr IV .[id number] PRN; Protocol PRN Reason: PER PROTOCOL Stop: 04/28/25 18:32 Last Admin: 03/29/25 23:09 Dose: 0.31 mcg/kg/min, 65.913 mls/hr Amiodarone HCl/Dextrose (Nexterone Ivpb) 360 mg in 200 mls @ 33.333 mls/hr IV .Q6H ONE Stop: 03/30/25 02:00 Last Admin: 03/29/25 20:03 Dose: 33.333 mls/hr Amiodarone HCl/Dextrose (Nexterone Ivpb) 360 mg in 200 mls @ 16.667 mls/hr IV .Q12H [facility]LEY Stop: 03/31/25 01:59 Vasopressin/Sodium Chloride (Vasostrict/Ns Ivpb) 20 unit in 100 mls @ 9 mls/hr IV .Q11H7M PRN; Protocol PRN Reason: PER PROTOCOL Stop: 04/28/25 21:59 Last Admin: 03/29/25 22:53 Dose: 0.03 unit/min, 9 mls/hr Dobutamine HCl/Dextrose (Dobutrex/D5w Ivpb) 500 mg in 250 mls @ 3.402 mls/hr IV .Q24H [facility]LEY Stop: 04/28/25 23:15 Propofol (Diprivan Ivpb) 1,000 mg in 100 mls @ 3.402 mls/hr IV .Q24H PRN; Protocol PRN Reason: PER PROTOCOL Stop: 04/28/25 23:22 Epinephrine/Sodium Chloride (Adrenalin/Ns 16 Mg Ivpb) 16 mg in 250 mls @ 5.316 mls/hr IV .Q24H PRN; Protocol PRN Reason: Per Protocol Stop: 04/29/25 00:02 Last Admin: 03/30/25 00:09 Dose: 0.05 mcg/kg/min, 5.316 mls/hr Vancomycin HCl 2,000 mg/ (Sodium Chloride) 500 mls @ 150 mls/hr IV X1 ONE Stop: 03/30/25 03:51 Cefepime HCl 2 gm/ Sodium (Chloride) 50 mls @ 100 mls/hr IV QDAY [facility] Stop: 04/06/25 08:59 Dextrose (D5w) 1,000 mls @ 100 mls/hr IV .Q10H [facility] Stop: 04/29/25 00:44 Methylprednisolone Sodium Succinate (Methylprednisolone Sod Succ 40 Mg/Ml Vial) 20 mg IVP QDAY [facility] Stop: 04/06/25 08:59 Nitroglycerin (Nitroglycerin 0.4 Mg Subl Btl #25) 0.4 mg SL Q5MIN PRN PRN Reason: CHEST PAIN Pantoprazole Sodium (Pantoprazole Inj 40 Mg Vial) 40 mg IVP QDAY [facility] Stop: 04/29/25 08:59 Pharmacy Consult (Vancomycin Pharmacy To Dose 1 Each Each) 1 each IV QDAY [facility] Stop: 04/29/25 08:59 Discontinued Medications Diltiazem HCl (Diltiazem Inj 5 Mg/Ml Vial 5 Ml) 20 mg IV X1 ONE Stop: 03/29/25 19:20 Etomidate (Etomidate Inj 2 Mg/Ml Vial 10 Ml) 40 mg IVP X1 ONE Stop: 03/29/25 18:35 Last Admin: 03/29/25 18:48 Dose: 40 mg Lactated Ringer's (Lactated Ringers) 1,000 mls @ 1,000 mls/hr IV .Q1H ONE Stop: 03/29/25 19:24 Last Infusion: 03/29/25 19:53 Dose: Infused Acetaminophen (Ofirmev Inj) 1,000 mg in 100 mls @ 250 mls/hr IV X1 ONE Stop: 03/29/25 18:54 Last Infusion: 03/29/25 19:53 Dose: Infused Ceftriaxone Sodium/Dextrose (Rocephin/D5w 1gm Iv Premix) 1 gm in 50 mls @ 100 mls/hr IV X1 ONE Stop: 03/29/25 19:00 Midazolam HCl (Versed Pf Inj In Ns Premix) 100 mg in 100 mls @ 1 mls/hr IV .Q24H PRN; Protocol PRN Reason: Per Protocol Stop: 04/03/25 18:51 Diltiazem/Sodium Chloride (Diltiazem In Ns 100 Mg) 100 mg in 100 mls @ 5 mls/hr IV .Q20H ONE; Protocol Stop: 03/30/25 15:18 Amiodarone HCl/Dextrose (Nexterone Ivpb) 150 mg in 100 mls @ 600 mls/hr IV .Q10M ONE Stop: 03/29/25 19:54 Last Infusion: 03/29/25 20:02 Dose: Infused Propofol (Diprivan Ivpb) 1,000 mg in 100 mls @ 3.402 mls/hr IV .Q24H PRN; Protocol PRN Reason: PER PROTOCOL Stop: 04/28/25 23:43 Ketorolac Tromethamine (Ketorolac Inj 30 Mg/Ml Vial) 15 mg IVP X1 ONE Stop: 03/29/25 18:32 Ondansetron HCl (Ondansetron Inj 2 Mg/Ml Inj 2 Ml) 4 mg IVP X1 ONE; Protocol Stop: 03/29/25 18:26 Rocuronium [place] (Rocuronium Inj 10 Mg/Ml Vial 10 Ml) 100 mg IVP X1 ONE Stop: 03/29/25 18:53 Last Admin: 03/29/25 18:57 Dose: 100 mg Rocuronium [place] (Rocuronium Inj 10 Mg/Ml Vial 10 Ml) 100 mg IVP X1 ONE Stop: 03/29/25 22:58 Last Admin: 03/30/25 00:32 Dose: Not Given Sodium Chloride (Sodium Chloride Rt 10% 15 Ml Nebu) 5 ml INH X1 ONE Stop: 03/29/25 18:58 Last Admin: 03/29/25 19:33 Dose: Not Given Succinylcholine Chloride (Succinylcholine Inj 20 Mg/Ml Vial 10 Ml) 200 mg IV X1 ONE Stop: 03/29/25 18:35 Last Admin: 03/29/25 18:50 Dose: 200 mg Assessment & Plan Plan Mr. Cunha is a 84-year-old male with a past medical history of malignant melanoma on chemotherapy, coronary artery disease status post 2 stent placements, hypertension, history of bladder cancer, and recent discharge on day of admission after patient insisted on leaving AMA presented to the ED on 03/29/2025 with AMS and admitted to ICU for further management for shock and acute hypoxic respiratory failure requiring intubation. NEURO #Acute Encephalopathy Differential Diagnosis: Sepsis-related encephalopathy vs metabolic toxicity in the setting of hypernatremia, Medication-induced encephalopathy (e.g., amiodarone, steroids) vs Hypoxia-related encephalopathy Patient presented with lethargy and AMS en route to ED. Per patient's spouse, baseline mentation is A&O x 3, GCS 15. -Continue close monitoring of neurologic status (GCS). -Perform regular assessments for improvement or worsening. -Consider neurology consult if encephalopathy persists beyond expected time frame. -Monitor electrolytes, particularly sodium levels, and adjust treatment as needed (correct hypernatremia). CARDIO #Cardiac Arrest with ROSC Differential Diagnosis: Post-cardiac arrest syndrome vs Hypoxia-induced myocardial injury vs Sepsis-induced myocardial dysfunction CODE blue called at 23:53, and ROSC achieved after three rounds of Epi and CPR. -Continue intensive monitoring of vitals, especially cardiac output, and neurological status (e.g., GCS). -Maintain optimal oxygenation and hemodynamic support. -Monitor lactate levels and other markers of ischemia and hypoperfusion. -Continue inotropes and vasopressors (Levophed, Vasopressin) to support circulation, and started Epinephrine Gtt -Consider EEG monitoring for potential seizures due to hypoxic brain injury. #Elevated Troponin DDx: Myocardial infarction (IL) vs Sepsis-related myocardial injury vs Acute heart failure exacerbation vs Medication-related cardiac injury (e.g., amiodarone toxicity) -Regular monitoring of troponin levels to track myocardial injury and guide further management. -Repeat EKG to monitor for ischemic changes. -Continue managing shock and hypotension, as myocardial injury could worsen due to inadequate perfusion. -Consult cardiology to evaluate if further diagnostic workup (e.g., echocardiogram, angiography) is necessary. #Shock Differential Diagnosis: Septic shock (secondary to sepsis or pneumonia) vs Hypovolemic shock (due to dehydration) vs Cardiogenic shock (due to myocardial infarction, arrhythmias) Bedside echo showed decreased contractility. -Continue current vasopressors (Levophed, Vasopressin, Epinephrine) to maintain MAP > 65. -Optimize fluid status carefully, avoiding fluid overload. -Closely monitor urine output, lactate levels, and other perfusion markers. -Reassess the need for renal replacement therapy (e.g., CRRT) if renal function continues to decline. #Atrial Fibrillation with Rapid Ventricular Response (RVR) Differential Diagnosis: Sepsis-induced atrial fibrillation vs Electrolyte imbalances (especially hypokalemia, hypomagnesemia) vs Sympathetic stimulation due to shock, pain, or fever vs Chronic atrial fibrillation exacerbated by acute illness -Continue IV amiodarone bolus followed by gtt -Monitor potassium and magnesium levels and correct any deficiencies. -Cardioversion may be considered if the patient remains symptomatic and hemodynamically unstable. -If the patient?s rhythm remains persistently irregular and symptomatic, consider rhythm control strategies or referral for catheter ablation post- stabilization. #History of Coronary Artery Disease (CAD) Differential Diagnosis: Acute coronary syndrome (ACS) (e.g., STEMI, NSTEMI) vs Myocardial ischemia due to low perfusion pressures (shock) vs Chronic CAD with worsening cardiac function due to acute illness -Continue close monitoring of ECG, troponin, and clinical signs of ischemia. -Consider performing an echocardiogram to evaluate for new wall motion abnormalities. PULM #Acute Hypoxic Respiratory failure #Respiratory Acidosis DDx: Bilateral HAP pneumonia with atelectasis vs pulmonary congestion vs ARDS secondary to pneumonia Patient presented with SOB and hypoxia on admission to the ED. Repeat chest x- ray was taken postintubation and was recommended to retract the ET tube by 3 cm which was performed immediately after chest x-ray and CT abdomen pelvis were taken. CT abdomen pelvis was also taken around this time which showed Extensive left lung atelectasis, pneumonia, significant right base pneumonia, gastritis, atrophic kidneys and diffuse mild colitis pattern. Repeat CXR s/p subclavian line shows left hemithorax complete opacification with volume shift of the heart and mediastinum to the left. -Continue intubation and ventilation with increased PEEPpeep and FiO2 100% to maintain oxygen saturation. -Optimize patient positioning (right lateral decubitus) to improve ventilation. -F/u with repeat ABG, and change vent settings -Reassess chest imaging after 12-24 hours. -Continue monitoring and adjusting ventilation settings as needed for optimal oxygenation. -Monitor for potential complications such as ventilator-associated pneumonia (VAP). GI/FEN #Ulcerative Colitis Differential Diagnosis: Acute gastrointestinal bleed due to ulcerative colitis vs Gastritis from medications vs Sepsis-induced colitis Patient had a colonoscopy recently which showed mucosal ulceration in entire colon, internal hemorrhoids, and 1 polyp collected which resulted in UC. CT abdomen pelvis was also taken around this time which showed Extensive left lung atelectasis, pneumonia, significant right base pneumonia, gastritis, atrophic kidneys and diffuse mild colitis pattern. -Continue proton-pump inhibitors (PPIs) or H2 blockers as needed. -Close monitoring of abdominal exam, stool output, and gastric residuals. -Check for any signs of bleeding (hemoccult stool, drop in hemoglobin). -Patient was sent home on steroid taper and sulfasalazine, will resume IV steroids at slightly higher dose in the setting of acute stress RENAL #PAULIE on CKD #Primary Respiratory Acidosis #Anion Gap Metabolic Acidosis #Hypernatremia DDx: Acute tubular necrosis (ATN) secondary to hypoperfusion and sepsis vs Acute kidney injury secondary to shock and/or medications (e.g., NSAIDs) vs Electrolyte abnormalities Patient presented with a Na of 156, and acidosis worsened from pH from 7.21 to 7.06. pCO2 also increased form 39 to 46. -Continue close monitoring of renal function (Cr, BUN, electrolytes) and urine output. -Initiate renal replacement therapy (CRRT) if indicated based on worsening renal function or fluid overload. -Correct metabolic acidosis with sodium bicarbonate as needed. -Started on D5w at 100cc/hr -Close monitoring of sodium and adjust fluids to correct hypernatremia with Na checks . HEME/ONC #Malignant Melanoma with possible metastasis -Continue with patient's steroid dose of at least 50mg Prednisone. ENDO #Hyperglycemia Differential Diagnosis: Stress-induced hyperglycemia (likely acute phase response to sepsis) vs uncontrolled diabetes Diagnostic Tests:A1c is 7.5%, most likely diabetes. Glucose monitoring every 4-6 hours. Plan: Monitor BG closely. Start insulin sliding scale as needed for glucose control. ID #Sepsis 2/2 colitis DDx: possible immunosuppressive therapy (nivolumab/ipilimumab)vs immune-mediated colitis. Patient presented with greenish-colored diarrhea as well as shock, requiring pressor support. Plan: Continue empiric antibiotics IV Cefepime and Vancomycin. Trend Lactic Acid. Await stool studies (C. difficile, calprotectin). Monitor for any signs of worsening infection or new sources. Fu with BC MSK no active issues PSYCH no active issues Health Maintenance: DVT prophylaxis:Heparin SC GI prophylaxis: Protonix Diet: NPO Jordan: Yes Lines: PIV Drips: Propofol, Epi, Levophed, Vasopressin Vent: Tidal volume 600, respiratory rate 24 CODE STATUS: Full code --> DNR/DNI Disposition: Admitted to ICU for AHHRF and AMS requiring intubation. Patient's care and plan discussed with my attending, Dr. Annika De La Cruz, PGY-3 Attending Provider Attestation/Addendum After examining patient and review of the clinical data patient was found to have high probability of imminent deterioration which required my direct management and intervention TOTAL CC TIME: 75 MIN TOTAL TIME: 75 Minutes of direct medical management and planning of care. I Jose Ramon Roblero MD, attest that I was physically present for moran portions of evaluation, and examined patient, labs and imagings and plan of care were discussed with IM residents team, and I agree with the findings and plans documented above.
[2025-03-30] MEDS: Norepinephrine/D5W 8mg/250ml 8 MG/250 ML BAG 133.951 MG IV (01:14)
[2025-03-30] MEDS: CEFEPIME INJ 2 GM in SODIUM CHLORIDE 0.9% (Popper) 50 ML IV (01:15)
[2025-03-30] MEDS: DEXTROSE 5%-WATER 1,000 ML 100 ML IV (01:15)
[2025-03-30] MEDS: cefTRIAXone/D5w 1gm IV premix 1 GM/50 ML BAG IV (01:20)
--- NOTE | 2025-03-30 01:40 | PD.RESEVENT ---
Documentation for date of: 03/30/25 Event Note Event Note: Date/Time of Discussion: 00: Attendees: Allyssa De La Cruz MD, PGY-3, Jeanne Carpio, RN I spoke with David Cunha's spouse, Nancy Cunha, regarding the patient's critical status and prognosis. Given the patient's progressive multi-organ failure, worsening respiratory function, and poor response to ongoing interventions, we discussed the option of changing the patient?s code status to Do Not Resuscitate (DNR) and Do Not Intubate (DNI). She understood the implications of this decision and expressed a clear understanding of the patient?s prognosis, and understands the patient will without resuscitation. Date/Time of Discussion: 19/04/10 Attendees: Allyssa De La Cruz MD, PGY-3, Jeanne Carpio, RN Following our discussion, the spouse later opted to prioritize patient's comfort at this stage, and wanted the patient to transition to Comfort Measures only, focusing on symptom relief and quality of life rather than life-prolonging interventions. All medications not focusing on patient's comfort were discontinued, and will order Morphine pushes and Ativan as needed. We will continue monitoring closely for signs of distress and adjust comfort measures as needed. Patient will transition to COMFORT CARE. Patient's care and plan discussed with my attending, Dr. Roblero. Allyssa De La Cruz, PGY-3
--- NOTE | 2025-03-30 01:55 | PC.NURSE ---
Donor network contacted. [facility] # [phone]
--- NOTE | 2025-03-30 03:06 | PC.RT ---
prior to CT sats in the 90s, while at CT unable to get a good reading spo2 reading in the 70s to low 80s changed pulse ox prove to the left ear unable to read saturation, one back to ED ett withdraw to 23 cm at gum secure bilateral bs auscultated, unable to get spo2 sats above 86% started ventilating pt at 100% fio2 with abmbu bag for about 20 min spo2 not improving place back on vent Dr. york at bedside increased peep to 10 at this time spo2 remaining in the 80s pt was also slightly reposition to the right spo2 remaining in the mid 80s, DRJim aware pt maxed out on FIO2 and ventilating not improved pt spo2, per pt should be reposition or prone when taken to ICU, I was not aware of pt not having admiting orders was at bedside and per we trasport pt to ICU while spo2 in the 80s once we got to ICU spo2 dropped to the 70s RT dom called to bedside for help at this time pt started to be ventilated with ambu bag at 100% fo2 with peep of 10, RT called to ED at about 23:10
[2025-03-30 03:15] LABS: Reflex Lactate? Y
--- NOTE | 2025-03-30 04:30 | PD.DPN ---
Documentation for date of: 03/30/25 Pronouncement Note Date and Time of Date of : 03/30/25 Time of : 02:20 PCOD Preliminary cause of : Cardiopulmonary arrest Summary Additional details: Called by patient's nurse to pronounce Mr. Cunha who was transitioned to comfort care earlier this morning On exam, no heart sounds or breath sounds were noted after 1 minute of auscultation. Pupils were fixed and dilated without pupillary light reflex. Patient was pronounced on 03/30/25 at 02:[address]. Roblero was notified. Patient's spouse was present at bedside and condolences were offered. The organ donor network and shaper set up operator's office was notified. Allyssa De La Cruz, PGY-3 Additional Data Confirmation of : no pulse, no respirations, no heart sounds and pupils fixed and dilated Family: at bedside Attending/PCP notified?: Yes Attending physician: Jose Ramon Roblero MD Was code activated?: No Autopsy requested?: No marine insurance claim examiner notified?: Yes Organ bank notified?: Yes
--- NOTE | 2025-03-30 04:36 | DES_ITS ---
Documentation for date of: 03/30/25 Summary Date and Time Date of admission: 03/29/25 22:24 Date of : 03/30/25 Time of : 02:20 Summary Hospital Course: Mr. Cunha is a 84-year-old male with significant past medical history including malignant melanoma, coronary artery disease (CAD) status post two stent placements, and chronic kidney disease (CKD), presented to the emergency department (ED) on 03/29/2025 with acute mental status changes, fever, and respiratory distress. Upon arrival, the patient was hypotensive (BP 67/41 mmHg), tachycardic (HR 158 bpm), febrile (101.5?F), and hypoxic (84% on nasal cannula). The patient was intubated immediately following these findings. The patient?s cardiac status was monitored closely, revealing atrial fibrillation with rapid ventricular response (RVR), which was managed with IV amiodarone. Initial imaging revealed significant bilateral pneumonia and a large left pleural effu tangela. The patient?s course was complicated by shock, acute hypoxic respiratory failure, and a history of malignant melanoma with potential metastasis. The patient was admitted to the ICU, where he was treated for shock and acute hypoxic respiratory failure. Pressors (Levophed and Vasopressin) were initiated for hypotension, and mechanical ventilation was employed to support respiratory function. The patient was positioned laterally to help ventilate the right lung and improve oxygenation via bag-mask ventilation, which seemed to have improved patient's oxygenation from 70s to high 90s. Repeat CXR s/p subclavian line placement showed correct placement in RA as well as complete opacification of left hemithorax with volume shift of the heart and mediastinum to the left. Despite ongoing critical care efforts, including medication adjustments and ventilator support, the patient's condition worsened, and CODE BLUE was called after patient was found with no pulse around 23:53. After three rounds of CPR, Epinephrine bicarbonate, and D50 pushes, patient achieved return of spontaneous circulation, and Epinephrine gtt was started, along with IV Abx (Cefepime & Vancomycin) to cover for possible HAP, IV Steroids to avoid steroid withdrawal, and D5w to correct his ongoing hypernatremia. However, his prognosis remained poor. During CODE BLUE, patient's spouse was contacted and was told to imm ediately return to the hospital. Repeat blood gas showed worsening respiratory and metabolic acidosis. After a discussion of the patient's worsening condition, goals of care were reviewed with the family, and it was agreed to transition the patient?s code status to Do Not Resuscitate (DNR) and Do Not Intubate (DNI) with the focus shifted to comfort measures 45 minutes later after patient's spouse felt that any medications at this time are futile. In accordance with the patient's wishes, comfort measures were initiated, including appropriate pain management, sedation, and support for the patient and patient's spouse. The patient was transitioned to comfort care only, and he peacefully at 02:20 on 03/30/2025. Condolences were offered to patient's spouse, and attending, Dr. Roblero was notified. Patient's care and plan discussed with my attending, Dr. Roblero. Allyssa De La Cruz MD, PGY-3 Additional Data Confirmation of as documented by pronouncing clinician: no pulse, no respirations, no heart sounds and pupils fixed and dilated Family: at bedside Attending/PCP notified?: Yes Attending physician: Jose Ramon Roblero MD claims examiner notified?: Yes Organ bank notified?: Yes Visit Providers Provider Primary care physician: Physician No Primary/Family Discharge Plan Plan Patient Disposition: Prescriptions/Referrals Referrals: No Primary/Family,Physician [Primary Care Provider] Patient/Caregiver Discharge Instructions Print Language: [place] Discharge Order Discharge Orders: Discharge (Routine); Ordered 03/30/25 Ordered By: Allyssa De La Cruz
[2025-03-30 05:55] LABS: Band Neutrophils (Manual) 7 % (0-6); Lymphocytes (Manual) 21 % (20-44); Metamyelocytes (Manual) 2 % (0-0); Monocytes (Manual) 4 % (2-9); Myelocytes (Manual) 4 % (0-0); Neutrophils (Manual) 62 % (50-70)
== END 2025-03-30 03:36 | disposition expired | DRG 871 ==
LOC: SERX 22:07 → SERHOLD 22:29 → S2SX 22:35
PROVIDERS: Student in an Organized Health Care Education/Training Program; Admitting Provider Student in an Organized Health Care Education/Training Program; Emergency Provider Emergency Medicine; Visit Provider Student in an Organized Health Care Education/Training Program
DX: A41.9 Sepsis, unspecified organism (principal); G93.41 Metabolic encephalopathy; J18.9 Pneumonia, unspecified organism; J96.01 Acute respiratory failure with hypoxia; R57.9 Shock, unspecified; K51.90 Ulcerative colitis, unspecified, without complications; N17.9 Acute kidney failure, unspecified; E87.0 Hyperosmolality and hypernatremia; E87.4 Mixed disorder of acid-base balance; J90 Pleural effusion, not elsewhere classified; I12.9 Hypertensive chronic kidney disease with stage 1 through stage 4 chronic kidney disease, or unspecified chronic kidney disease; N18.9 Chronic kidney disease, unspecified; I25.10 Atherosclerotic heart disease of native coronary artery without angina pectoris; I48.91 Unspecified atrial fibrillation; I46.9 Cardiac arrest, cause unspecified; Z51.5 Encounter for palliative care; Z66 Do not resuscitate; Z85.820 Personal history of malignant melanoma of skin
CPT/HCPCS: 36415; 36600; 51702; 70450; 71045; 71250; 72125; 74176; 80053; 80069; 81001; 82010; 82140; 82248; 82550; 82803; 83036; 83605; 83690; 83735; 83880; 84145; 84443; 84484; 85025; 85379; 85652; 86140; 87040; 87081; 87205; 87502; 87635; 93005; 94002; 94003; 94004; 96365; 96366; 96375; 99285; A4314; J0131; J0164; J0283; J0330; J0692; J0696; J2598; J3490; J7050; J7070; J7120